=== PATIENT | female | born 1990 | race Caucasian/White ===

== ENCOUNTER 2020-02-21 09:10 | Outpatient (REF) | payer OTHER, SELFPAY ==
[2020-02-21 09:42] LABS: COVID-19 Test Negative (Negative)
== END 2020-02-21 09:11 | disposition home or self-care (01) ==
LOC: HO.EMPCOV 09:10
PROVIDERS: PCP Nurse Practitioner Family; Visit Provider Internal Medicine
DX: Z20.828 Contact with and (suspected) exposure to other viral communicable diseases (principal)
CPT/HCPCS: 87635; C9803

== ENCOUNTER 2020-02-27 08:30 | Outpatient (REF) | payer OTHER, SELFPAY ==
[2020-02-27 09:05] LABS: COVID-19 Test Negative (Negative)
== END 2020-02-27 08:31 | disposition home or self-care (01) ==
LOC: HO.EMPCOV 08:30
PROVIDERS: Visit Provider Internal Medicine
DX: Z20.828 Contact with and (suspected) exposure to other viral communicable diseases (principal)
CPT/HCPCS: 87635; C9803

== ENCOUNTER → 2020-07-02 11:33 | Outpatient (BNVA) | payer OTHER, SELFPAY | PROVIDERS: PCP Nurse Practitioner Family; Visit Provider Nurse Practitioner Family ==

== ENCOUNTER → 2020-08-14 08:55 | Outpatient (REF) | payer OTHER, SELFPAY | LOC: HO.SL 08:55 | PROVIDERS: PCP Nurse Practitioner Family; Visit Provider Nurse Practitioner Family | DX: G47.33 Obstructive sleep apnea (adult) (pediatric) (principal); R06.83 Snoring; I10 Essential (primary) hypertension | CPT/HCPCS: 95806 ==

== ENCOUNTER 2020-09-09 07:41 | Outpatient (REF) | payer OTHER, SELFPAY ==
[2020-09-09 08:43] LABS: MANUAL DIFF FLAG NO
[2020-09-09 08:46] LABS: Basophils Percent Auto 0.2 % (0-2); Eosinophils Absolute Auto 0.2 X10*3/uL (0.0-0.4); Hematocrit 39.2 % (37-47); Hemoglobin 12.6 g/dl (12.0-16.0); Imm Gran Abs Auto 0.02 X10*3/uL (0.00-0.03); Imm Gran Pct Auto 0.2 % (0.0-0.4); Lymphocytes Absolute Auto 2.1 X10*3/uL (1.2-4.9); Lymphocytes Percent Auto 25.5 % (20-40); Mean Corpuscular HGB Conc 32.1 g/dl (31.0-35.0); Mean Corpuscular Hemoglobin 26.2 pg (27.0-33.0); Mean Corpuscular Volume 81.5 fL (80-98); Mean Platelet Volume 9.2 fL (9.4-12.3); Monocytes Absolute Auto 0.4 X10*3/uL (0.1-1.2); Monocytes Percent Auto 5.3 % (2-11); Neutrophils Absolute Auto 5.4 X10*3/uL (2.0-8.3); Neutrophils Percent Auto 66.8 % (45-73); Platelet Count 392 X10*3/uL (160-400); Red Blood Count 4.81 X10*6/uL (4.20-5.50); Red Cell Distribution Width 14.6 % (11.0-16.0); White Blood Count 8.1 X10*3/uL (4.8-10.8)
[2020-09-09 09:16] LABS: Alanine Aminotransferase 22 U/L (0-31); Albumin Level 4.2 g/dL (3.5-5.0); Alkaline Phosphatase 76 U/L (39-117); Anion Gap 15 (12-20); Aspartate Amino Transferase 18 U/L (5-31); Bilirubin Total 0.4 mg/dL (0.0-1.0); Blood Urea Nitrogen 16 mg/dL (9-16); Calcium 9.1 mg/dL (8.4-10.2); Carbon Dioxide 24 mmol/L (22-29); Chloride 107 mmol/L (96-108); Cholesterol 178 mg/dL; Estimated Glomerular Filt Rate > 60; Glucose Fasting 86 mg/dL (60-99); HDL Cholesterol 29 mg/dL; Iron 72 mcg/dL (30-160); LDL Cholesterol Calculated 116 mg/dl; Percent Iron Saturation 20 % (15-50); Potassium 4.7 mmol/L (3.3-5.1); Sodium 141 mmol/L (135-145); Total Iron Binding Capacity 363 mcg/dL (228-428); Total Protein 6.9 g/dL (6.5-8.0); Triglycerides 165 mg/dL; Unsaturated Iron Binding 291 ug/dL
[2020-09-09 09:39] LABS: Ferritin 84 ng/mL (10-122); TSH reflex Free T4 1.56 uIU/mL (0.32-4.0)
[2020-09-11 13:57] LABS: Transferrin 276 mg/dL (188-341)
== END 2020-09-09 07:42 | disposition home or self-care (01) ==
LOC: HO.LAB 07:41
PROVIDERS: Absent Provider Nurse Practitioner Family; PCP Nurse Practitioner Family; Visit Provider Nurse Practitioner Family
DX: I10 Essential (primary) hypertension (principal); D64.9 Anemia, unspecified
CPT/HCPCS: 36415; 80053; 80061; 82728; 83540; 84443; 84466; 85025

== ENCOUNTER → 2020-10-01 08:36 | Outpatient (BNVA) | payer OTHER, SELFPAY | PROVIDERS: PCP Nurse Practitioner Family; Visit Provider Nurse Practitioner Family ==

== ENCOUNTER 2020-10-31 12:46 | Outpatient (REF) | payer OTHER, SELFPAY ==
[2020-10-31 14:29] LABS: TSH reflex Free T4 1.38 uIU/mL (0.32-4.0)
[2020-10-31 16:00] LABS: CT PCR NOT DETECTED (Not Detect.); NG PCR NOT DETECTED (Not Detect.)
[2020-11-01 08:17] LABS: HIV AB/AG Nonreactive (Nonreactive); HIV Num 1 0.09 S/CO (0.00-0.99)
[2020-11-01 08:30] LABS: Syphilis Screen Nonreactive (Nonreactive)
[2020-11-01 17:40] LABS: Herpes Simplex Type 2 IgG <0.90 index
== END 2020-10-31 12:47 | disposition home or self-care (01) ==
LOC: HO.LAB 12:46
PROVIDERS: PCP Nurse Practitioner Family; Visit Provider Nurse Practitioner Family
DX: Z00.00 Encounter for general adult medical examination without abnormal findings (principal); Z11.3 Encounter for screening for infections with a predominantly sexual mode of transmission; Z11.4 Encounter for screening for human immunodeficiency virus [HIV]
CPT/HCPCS: 84443; 86695; 86696; 86780; 87389; 87491; 87591

== ENCOUNTER 2020-11-18 11:38 | Emergency (ER) | payer OTHER, SELFPAY | END 2020-11-18 15:15 | disposition left against medical advice (07) | PROVIDERS: Emergency Provider Emergency Medicine; PCP Nurse Practitioner Family | DX: M54.5 Low back pain (principal); M62.81 Muscle weakness (generalized) ==

== ENCOUNTER 2020-12-14 12:13 | Outpatient (REF) | payer OTHER, SELFPAY ==
[2020-12-14 12:50] LABS: COVID-19 Test Positive (Negative); IDNOW Serial# 08D9AD1C
== END 2020-12-14 12:14 | disposition home or self-care (01) ==
LOC: HO.LAB 12:13
PROVIDERS: PCP Nurse Practitioner Family; Visit Provider Internal Medicine
DX: Z20.822 Contact with and (suspected) exposure to COVID-19 (principal)
CPT/HCPCS: 36415; 87635

== ENCOUNTER 2021-01-03 07:45 | Outpatient (REF) | payer OTHER, SELFPAY ==
--- NOTE | ~2021-01-03 | XR_ITS ---
EXAMINATION: XR CHEST CLINICAL INFORMATION: Shortness of breath COMPARISON: March 18, 2018 TECHNIQUE: 2 views of the chest were obtained. FINDINGS: No significant abnormality is noted involving the heart, lungs, mediastinum, bony thorax or soft tissues. XR/XR chest 2V IMPRESSION: No acute disease.
== END 2021-01-03 07:46 | disposition home or self-care (01) ==
LOC: HO.XRAY 07:45
PROVIDERS: PCP Nurse Practitioner Family; Visit Provider Nurse Practitioner Family
DX: R06.02 Shortness of breath (principal)
CPT/HCPCS: 71046

== ENCOUNTER 2021-01-17 06:29 | Outpatient (REF) | payer OTHER, SELFPAY | END 2021-01-17 06:30 | disposition home or self-care (01) | LOC: HO.LAB 06:29 | PROVIDERS: PCP Nurse Practitioner Family; Visit Provider Nurse Practitioner Family | DX: R06.09 Other forms of dyspnea (principal); J45.909 Unspecified asthma, uncomplicated; U09.9 Post COVID-19 condition, unspecified | CPT/HCPCS: 36415; 85027 ==

== ENCOUNTER 2021-01-20 12:21 | Outpatient (REF) | payer OTHER, SELFPAY ==
[2021-01-21 02:33] LABS: CT PCR NOT DETECTED (Not Detect.); NG PCR NOT DETECTED (Not Detect.)
== END 2021-01-20 12:22 | disposition home or self-care (01) ==
LOC: HO.LAB 12:21
PROVIDERS: PCP Nurse Practitioner Family; Visit Provider Obstetrics & Gynecology
DX: Z11.3 Encounter for screening for infections with a predominantly sexual mode of transmission (principal); N93.9 Abnormal uterine and vaginal bleeding, unspecified
CPT/HCPCS: 87491; 87591

== ENCOUNTER 2021-01-28 07:01 | Outpatient (REF) | payer OTHER, SELFPAY ==
[2021-01-28 07:29] LABS: Hemoglobin 12.8 g/dl (12.0-16.0); Mean Corpuscular Hemoglobin 26.1 pg (27.0-33.0); Mean Corpuscular Volume 81.6 fL (80.0-98.0); Platelet Count 389 X10*3/uL (160-400); Red Cell Distribution Width 14.6 % (11.0-16.0); White Blood Count 10.5 X10*3/uL (4.8-10.8)
[2021-01-28 07:54] LABS: Appearance Urine HAZY; Color Urine YELLOW; Glucose Urine UA NEG (NEG); Leukocyte Esterase Urine NEG (NEG); Nitrite Urine NEG (NEG); Specific Gravity - Urine 1.025 (1.005-1.025); UACC Culture Trigger NO; Urine Blood 3+ (NEG); Urine Ketones NEG (NEG); Urine Protein TRACE MG/DL (NEG-TRACE)
[2021-01-28 07:55] LABS: Alanine Aminotransferase 24 U/L (0-31); Albumin Level 4.1 g/dL (3.5-5.0); Alkaline Phosphatase 84 U/L (39-117); Anion Gap 13 (12-20); Aspartate Amino Transferase 17 U/L (5-31); Bilirubin Total 0.2 mg/dL (0.0-1.0); Blood Urea Nitrogen 12 mg/dL (9-16); Calcium 8.8 mg/dL (8.4-10.2); Carbon Dioxide 28 mmol/L (22-29); Chloride 104 mmol/L (96-108); Cholesterol 160 mg/dL; Estimated Glomerular Filt Rate > 60; Glucose Fasting 120 mg/dL (60-99); HDL Cholesterol 33 mg/dL; LDL Cholesterol Calculated 96 mg/dl; Potassium 4.8 mmol/L (3.3-5.1); Sodium 140 mmol/L (135-145); Total Protein 6.7 g/dL (6.5-8.0); Triglycerides 158 mg/dL
[2021-01-28 08:02] LABS: HCG Quantitative < 2 mIU/mL
[2021-01-28 08:12] LABS: Bacteria Urine 1+ /LPF; Mucus Urine 1+ /LPF; Squamous Epithelial Cell Urine 2+ /LPF
[2021-01-28 08:15] LABS: TSH reflex Free T4 1.98 uIU/mL (0.32-4.0)
== END 2021-01-28 07:02 | disposition home or self-care (01) ==
LOC: HO.LAB 07:01
PROVIDERS: PCP Nurse Practitioner Family; Visit Provider Obstetrics & Gynecology
DX: R06.09 Other forms of dyspnea (principal); U09.9 Post COVID-19 condition, unspecified; J45.909 Unspecified asthma, uncomplicated; N93.9 Abnormal uterine and vaginal bleeding, unspecified
CPT/HCPCS: 36415; 80053; 80061; 81001; 84443; 84702; 85027

== ENCOUNTER → 2021-02-05 10:47 | Outpatient (BNVA) | payer OTHER, SELFPAY | PROVIDERS: PCP Nurse Practitioner Family; Visit Provider Internal Medicine ==

== ENCOUNTER 2021-02-06 06:48 | Outpatient (REF) | payer OTHER, SELFPAY | END 2021-02-06 06:49 | disposition home or self-care (01) | LOC: HO.LAB 06:48 | PROVIDERS: PCP Nurse Practitioner Family; Visit Provider Internal Medicine | DX: Z13.89 Encounter for screening for other disorder (principal) ==

== ENCOUNTER 2021-02-10 11:12 | Outpatient (REF) | payer OTHER, SELFPAY ==
--- NOTE | ~2021-02-10 | US_ITS ---
EXAMINATION: US PELVIS CLINICAL INFORMATION: Abnormal uterine and vaginal bleeding COMPARISON: None TECHNIQUE: Ultrasound of the pelvis is performed using both transabdominal and transvaginal transducers along with Doppler. Transvaginal imaging is performed due to inadequate visualization transabdominally. FINDINGS: The uterus is anteverted and measures 8.4 x 4.4 x 5.6 cm in dimension. No focal uterine lesion is seen. The endometrium is slightly thickened measuring up to 1.9 cm. The endometrium is slightly heterogeneous appearing with small cystic areas. There are small nabothian cysts in the cervix. The ovaries are normal in size. The right ovary measures 2.2 x 2.2 x 3 cm. The left ovary measures 3.2 x 3.2 x 2.4 cm. There is polycystic appearance of the ovaries with multiple small peripheral cysts or follicles. There is no fluid in the pelvis. US/US pelvic and transvaginal IMPRESSION: Slightly thickened endometrium. Normal size ovaries with polycystic appearance.
== END 2021-02-10 11:13 | disposition home or self-care (01) ==
LOC: HO.US 11:12
PROVIDERS: PCP Nurse Practitioner Family; Visit Provider Obstetrics & Gynecology
DX: N93.9 Abnormal uterine and vaginal bleeding, unspecified (principal)
CPT/HCPCS: 76830; 76856

== ENCOUNTER 2021-02-11 12:33 | Outpatient (REF) | payer OTHER, SELFPAY | END 2021-02-11 12:34 | disposition home or self-care (01) | LOC: HO.LAB 12:33 | PROVIDERS: PCP Nurse Practitioner Family; Visit Provider Obstetrics & Gynecology | DX: N93.9 Abnormal uterine and vaginal bleeding, unspecified (principal) | CPT/HCPCS: 58100; 88305 ==

== ENCOUNTER → 2021-02-17 10:00 | Outpatient (BNVA) | payer OTHER, SELFPAY | PROVIDERS: PCP Nurse Practitioner Family; Visit Provider Obstetrics & Gynecology ==

== ENCOUNTER 2021-03-07 06:19 | Outpatient (REF) | payer OTHER, SELFPAY ==
[2021-03-07 07:17] LABS: Alanine Aminotransferase 26 U/L (0-31); Albumin Level 4.2 g/dL (3.5-5.0); Alkaline Phosphatase 78 U/L (39-117); Anion Gap 11 (12-20); Aspartate Amino Transferase 19 U/L (5-31); Bilirubin Total 0.4 mg/dL (0.0-1.0); Blood Urea Nitrogen 9 mg/dL (9-16); Calcium 9.2 mg/dL (8.4-10.2); Carbon Dioxide 24 mmol/L (22-29); Chloride 107 mmol/L (96-108); Estimated Glomerular Filt Rate > 60; Glucose Random 127 mg/dL (60-115); Potassium 4.4 mmol/L (3.3-5.1); Sodium 138 mmol/L (135-145)
[2021-03-07 07:19] LABS: Glucose Fasting 121 mg/dL (60-99)
[2021-03-07 07:38] LABS: Free T4 (Free Thyroxine) 0.89 ng/dL (0.71-1.85); HCG Quantitative < 2 mIU/mL
[2021-03-07 09:25] LABS: Glucose 1 Hour 229 mg/dL
[2021-03-07 09:26] LABS: Glucose 2 Hour 214 mg/dL
[2021-03-07 10:34] LABS: Cortisol Random < 1.0 ug/dL
[2021-03-07 13:58] LABS: Estimated Average Glucose 120 mg/dL; Hemoglobin A1c % 5.8 %
[2021-03-09 08:16] LABS: Follicle Stimulating Hormone 5.8 mIU/mL; Lutenizing Hormone 7.7 mIU/mL; Prolactin 5.4 ng/mL
[2021-03-10 17:12] LABS: DHEA Sulfate 205 mcg/dL (23-266); Sex Hormone Binding Globulin 11 nmol/L (17-124)
[2021-03-10 20:57] LABS: Adrenocorticotropic Hormone 12 pg/mL (6-50)
[2021-03-10 21:16] LABS: Estradiol Ultra Sensitive 35 pg/mL
[2021-03-13 09:17] LABS: Dexamethasone 470 ng/dL; Testosterone, Free 7.3 pg/mL (0.1-6.4); Testosterone, Total 33 ng/dL (2-45)
[2021-03-19 18:30] LABS: Androstenedione 144 ng/dL
[2021-03-20 17:56] LABS: Estradiol Free 0.86 pg/mL; Estradiol, Ultrasensitive 35 pg/mL
== END 2021-03-07 06:20 | disposition home or self-care (01) ==
LOC: HO.LAB 06:19
PROVIDERS: PCP Nurse Practitioner Family; Visit Provider Internal Medicine
DX: N93.9 Abnormal uterine and vaginal bleeding, unspecified (principal)
CPT/HCPCS: 36415; 80053; 80299; 82024; 82157; 82533; 82627; 82670; 82681; 83001; 83002; 83036; 83498; 84146; 84270; 84402; 84403; 84439; 84443; 84702

== ENCOUNTER 2021-03-21 12:32 | Outpatient (REF) | payer OTHER, SELFPAY ==
[2021-03-21 13:14] LABS: Influenza A PCR NEGATIVE (Negative); Influenza B PCR NEGATIVE (Negative); Resp Syncy Virus RNA Qual PCR NEGATIVE (Negative); SARS COV2 PCR INHOUSE NEGATIVE (Negative)
== END 2021-03-21 12:33 | disposition home or self-care (01) ==
LOC: HO.LNP 12:32
PROVIDERS: Visit Provider Internal Medicine
DX: Z20.822 Contact with and (suspected) exposure to COVID-19 (principal); R43.9 Unspecified disturbances of smell and taste
CPT/HCPCS: 0241U

== ENCOUNTER → 2021-04-02 10:56 | Outpatient (BNVA) | payer OTHER, SELFPAY | PROVIDERS: PCP Nurse Practitioner Family; Visit Provider Internal Medicine ==

== ENCOUNTER 2021-04-22 07:51 | Outpatient (REF) | payer OTHER, SELFPAY ==
--- NOTE | 2021-04-22 17:20 | PFT_ITS ---
Forced vital capacity 103, FEV1 105, FEF 25-75 is 114. MVV 128. All these numbers are in normal range. Post bronchodilator therapy, there is no change. Lung volumes: Total lung capacity 97%. Residual volume 74%. Diffusion capacity 94%. CONCLUSION: Normal pulmonary function test and there is no evidence of obstructive or restrictive pulmonary disorder. MD TOMMIE Rodriguez/BETTEL / [id number]
== END 2021-04-22 07:52 | disposition home or self-care (01) ==
LOC: HO.RESP 07:51
PROVIDERS: PCP Nurse Practitioner Family; Visit Provider Nurse Practitioner Family
DX: R06.09 Other forms of dyspnea (principal); J45.909 Unspecified asthma, uncomplicated; U09.9 Post COVID-19 condition, unspecified
CPT/HCPCS: 94060; 94618; 94727; 94729

== ENCOUNTER 2021-05-06 06:51 | Outpatient (REF) | payer OTHER, SELFPAY ==
[2021-05-06 07:05] LABS: MANUAL DIFF FLAG NO
[2021-05-06 07:22] LABS: Basophils Percent Auto 0.4 % (0-2); Eosinophils Absolute Auto 0.2 X10*3/uL (0.0-0.4); Eosinophils Percent Auto 2.4 % (0-4); Hemoglobin 11.6 g/dl (12.0-16.0); Imm Gran Abs Auto 0.02 X10*3/uL (0.00-0.03); Imm Gran Pct Auto 0.2 % (0.0-0.4); Lymphocytes Absolute Auto 2.5 X10*3/uL (1.2-4.9); Lymphocytes Percent Auto 30.4 % (20-40); Mean Corpuscular HGB Conc 31.4 g/dl (31.0-35.0); Mean Corpuscular Hemoglobin 24.4 pg (27.0-33.0); Mean Corpuscular Volume 77.7 fL (80.0-98.0); Mean Platelet Volume 9.2 fL (9.4-12.3); Monocytes Absolute Auto 0.5 X10*3/uL (0.1-1.2); Monocytes Percent Auto 5.6 % (2-11); Neutrophils Absolute Auto 4.9 x10*3/uL (2.0-8.3); Platelet Count 426 X10*3/uL (160-400); Red Blood Count 4.76 X10*6/uL (4.20-5.50); White Blood Count 8.1 X10*3/uL (4.8-10.8)
[2021-05-06 07:30] LABS: D Dimer High Sensitivity < 150 NG/ML
[2021-05-06 07:52] LABS: Anion Gap 14 (12-20); Blood Urea Nitrogen 13 mg/dL (9-16); Calcium 9.1 mg/dL (8.4-10.2); Carbon Dioxide 23 mmol/L (22-29); Chloride 106 mmol/L (96-108); Cholesterol 172 mg/dL; Estimated Glomerular Filt Rate > 60; Glucose Random 109 mg/dL (60-115); HDL Cholesterol 30 mg/dL; LDL Cholesterol Calculated 115 mg/dl; Potassium 4.8 mmol/L (3.3-5.1); Sodium 138 mmol/L (135-145); Triglycerides 138 mg/dL
[2021-05-06 08:06] LABS: Erythrocyte Sedimentation Rate 16 MM/HR (0-20)
== END 2021-05-06 06:52 | disposition home or self-care (01) ==
LOC: HO.LAB 06:51
PROVIDERS: Absent Provider Hospitalist; PCP Nurse Practitioner Family; Visit Provider Internal Medicine
DX: Z00.00 Encounter for general adult medical examination without abnormal findings (principal); R00.0 Tachycardia, unspecified; G47.33 Obstructive sleep apnea (adult) (pediatric); J45.909 Unspecified asthma, uncomplicated
CPT/HCPCS: 36415; 80048; 80061; 85025; 85379; 85652

== ENCOUNTER 2021-05-09 07:03 | Outpatient (REF) | payer OTHER, SELFPAY ==
--- NOTE | ~2021-05-09 | CT_ITS ---
EXAMINATION: CT ABDOMEN WITHOUT AND WITH CONTRAST CLINICAL INFORMATION: Ovarian dysfunction COMPARISON: Previous pelvic ultrasound January 2021 and abdominal ultrasound January 2014 and renal ultrasound July 2015 TECHNIQUE: Contiguous axial thin section helical images of the abdomen were performed before and after the administration of oral contrast and 85 mL of Omnipaque 350 intravenous contrast. The data set was reformatted in the coronal and sagittal planes and reviewed on an independent workstation. This CT examination was performed using dose optimization techniques as appropriate, variously including the following: *Automated exposure control *Adjustment of mA and/or kV according to patient size (this includes techniques or standardized protocols for targeted exams where dose is matched to indication/reason for exam; i.e. extremities or head) *Use of iterative reconstruction technique DLP: 1152 mGy-cm FINDINGS: LUNG BASES: Normal LIVER, GALLBLADDER, AND BILIARY TREE: Normal PANCREAS: Normal SPLEEN: Normal ADRENAL GLANDS AND KIDNEYS: Normal BOWEL LOOPS: Normal. Normal appendix. There is diastasis of the rectus muscles. There is a small umbilical hernia containing fat. LYMPH NODES: Normal. VASCULAR: Unremarkable. BONES: Normal CT/CT abdomen wo/w con IMPRESSION: Normal-appearing adrenal glands. Fleischner guidelines were followed.
[2021-05-09] MEDS: iohexoL 350 MG/ML 100 ML INFUS..BTL 85 ML IV (08:53)
== END 2021-05-09 07:04 | disposition home or self-care (01) ==
LOC: HO.CT 07:03
PROVIDERS: Visit Provider Internal Medicine
DX: E28.8 Other ovarian dysfunction (principal)
CPT/HCPCS: 74170; Q9967

== ENCOUNTER → 2021-06-25 11:02 | Outpatient (REF) | payer OTHER, SELFPAY ==
--- NOTE | 2021-06-25 12:22 | CA_ITS ---
Transthoracic Echocardiogram Patient (Last, First, Middle): Leona Osullivan M Gender: Female Date of : 1990 Age: 31 Procedure Date: 06/25/2021 Procedure Type: Transthoracic Echocardiogram Location: OP Height: 160.02 cm Weight: 122.47 kg BSA: 2.20 m2 Heart Rate: bpm BP: 159 / 92 mmHg Erp Project Manager: Referring MD: Antoine Rodríguez [facility] Symptoms: R07.9 - Chest pain, unspecified Study Quality: Fair ECG Rhythm: Sinus Conclusions: - The left ventricular systolic function is normal. The visually estimated ejection fraction is between 55-60%. - No obvious valvular pathology seen on this study. Findings Left Ventricle Normal left ventricular cavity size. There is mildly increased left ventricular wall thickness. The left ventricular systolic function is normal. The visually estimated ejection fraction is between 55-60%. There is no evidence of regional wall motion abnormalities. Diastolic function is normal for age. Right Ventricle Normal right ventricular cavity size and systolic function. Atria Both atria are normal in size. Aortic Valve There is a normal trileaflet aortic valve. There is no aortic valve stenosis. There is no aortic valve regurgitation. Mitral Valve The mitral valve appears normal. There is no mitral valve regurgitation. There is no mitral valve stenosis. Pulmonic Valve The pulmonic valve was not well visualized. Tricuspid Valve Normal tricuspid valve structure. There is trace tricuspid valve regurgitation. The pulmonary artery systolic pressure is normal. Great Vessels The aortic annulus, sinuses of valsalva, and asc aorta are normal in size. Venous The inferior vena cava is normal in size and collapses greater than 50% with inspiration. Pericardium/Pleural There is no evidence of pericardial effusion. Prior Study Comparison No prior study available for comparison. Recommendations, Care & Conclusions No obvious valvular pathology seen on this study. Measurements 2D Linear Measurements IVSd: 1.15 0.6-0.9/0.6-1.0 cm LVIDd: 4.83 3.9-5.3/4.2-5.9 cm LVIDd Index: 2.20 2.4-3.2/2.2-3.1 cm/m2 LVIDs: 3.05 2.0-3.6 cm LVPWd: 1.12 0.7-1.1 cm Ao Root: 3.10 2.1-3.5 cm LA Diam: 4.00 2.7-3.8/3.0-4.0 cm LAIDs Index: 1.82 1.5-2.3 cm/m2 LV Mass: 255.04 67-162/88-224 g LV Mass Index: 115.93 43-95/49-115 g/m2 LVOT Diam: 2.30 3.0+(-)1.3 cm Mitral Valve MV Pk E: 0.73 MV PK A: 0.92 MV Decel Time: 98.00 E/A: 0.80 E'Lateral: 10.30 E'Medial: 6.96 E/E' Med: 10.50 E/E' Lat: 7.10 PHT: 29.00 MVA PHT: 7.59 Decel [place]: 7.45 Aortic Valve AoV Pk Song: 1.64 AoV Mn Song: 1.21 AoV VTI: 0.32 AoV Pk Grad: 11.00 Aov Mn Grad: 6.00 KARLENE Cont.VTI: 2.47 LVOT LVOT Pk Song: 0.89 LVOT Mn Song: 0.62 LVOT VTI: 0.19 LVOT Pk Grad: 3.00 LVOT Mn Grad: 2.00 LVOT Diam: 2.30 LVOT Area: 4.15 Diastolic Function MV Pk E: 0.73 MV Pk A: 0.92 E/A: 0.80 E'Medial: 6.96 E/E' Med: 10.50 E' Laterial: 10.30 E/E' Lat: 7.10 Right Ventricle TAPSE (mm): 20.00 TVS' Song: 12.00 Tricuspid Valve TR Pk Song: 2.01 TR Pk Grad: 16.00 RA Press: 3.00 RVSP: 19.00 Great Vessels Aorta Ao Root-2D: 3.10 2.0-3.7 cm Sinus of Valsalva: 3.10 2.0-3.5 cm Ao Asc: 2.90 2.1-3.4 cm Pulmonary Valve PV Pk Song: 1.09 Peak PV Grad: 5.00 Updated in Other Vendor System with Status of Final Lucas Aguilar MD electronically signed on 06/26/2021 3:03:48 PM with status of Final
== END ==
LOC: HO.CARD 11:02
PROVIDERS: Visit Provider Nurse Practitioner Family
DX: R07.9 Chest pain, unspecified (principal)
CPT/HCPCS: 93306; Q9957

== ENCOUNTER → 2021-06-30 07:22 | Outpatient (REF) | payer OTHER, SELFPAY ==
--- NOTE | 2021-06-30 07:40 | HM_ITS ---
Conclusion: 1. Patient was monitored for total period of 2 days and 21 hours 2. Baseline rhythm was normal sinus rhythm with average heart of 91 beats per minute 3. Frequent sinus tachycardia noted with heart rate about 100 beats per minute 26% of the time 4. Total of 9 PVCs noted accounting for less than 0.01% total burden account for very rare PVCs 5. No significant pauses or bradycardia noted 6. Patient reported events correlated with sinus tachycardia MTDD
== END ==
LOC: HO.CARD 07:22
PROVIDERS: Visit Provider Nurse Practitioner Family
DX: R07.9 Chest pain, unspecified (principal)
CPT/HCPCS: 93242

== ENCOUNTER 2021-09-07 11:40 | Emergency (ER) | payer OTHER, SELFPAY ==
[2021-09-07 11:49] VITALS: BP 156/81; PULSE 88; RESP 20; TEMP 36.9; O2SAT 97; BMI 46.3
--- NOTE | 2021-09-07 12:04 | ED_ITS ---
HPI - Asthma General Chief Complaint: Asthma Stated Complaint: SOB; asthma Time Seen by Provider: 09/07/21 12:04 Source: patient Mode of arrival: ambulatory Limitations: no limitations History of Present Illness HPI Narrative: Patient is a 31 year old female presenting to the emergency department today with an asthma exacerbation. Patient states that she has a history of asthma and her at home treatments are not working to help with her cough at this time. Patient denies any dizziness, lightheadedness, abdominal pain, nausea, vomiting, fever, chills, blurry vision, double vision, loss of vision, chest pain, difficulty breathing, shortness of breath, back pain, night sweats, pain with urination, increased urinary frequency, increased urinary urgency, blood in her urine or stool, syncope or a near syncopal episode, recent trauma or falls, bowel incontinence, bladder incontinence, bowel retention, bladder retention, or any other complaints at this time. MD complaint: asthma attack Onset (ago): day(s) Severity: mild Context: allergen exposure Associated symptoms: dry cough Treatments Prior to Arrival: inhaled bronchodilator Related Data Current Asthma Therapy: inhaled bronchodilator Previous Rx's Medication Instructions Recorded albuterol sulfate 90 mcg/actuation 1 inh inhalation QID PRN shortness 02/21/20 aerosol inhaler of breath or wheezing 30 days #8.5 grams nebulizer accessories #1 ea 03/10/21 nebulizers #1 ea 03/10/21 progesterone micronized 200 mg 200 mg PO BEDTIME 10 days #30 caps 03/17/21 capsule (Prometrium) levalbuterol HCl 1.25 mg/3 mL 1.25 mg (3 mL) inhalation Q4-6H 03/25/21 solution for nebulization (Xopenex) PRN shortness of breath or wheezing #75 mL blood sugar diagnostic (FreeStyle #100 ea 04/02/21 Lite Strips) blood-glucose meter (FreeStyle #1 ea 04/02/21 Lite Meter) lancets 28 gauge (FreeStyle #100 ea 04/02/21 Lancets) metformin 500 mg tablet,extended 1,000 mg PO BID 30 days #120 tabs 04/02/21 release 24hr benzonatate 200 mg capsule 200 mg PO BID PRN cough 30 days 04/22/21 #60 caps fluticasone fur. 200 mcg-umeclid 1 inh inhalation DAILY 30 days #60 04/22/21 62.5 mcg-vilant 25 mcg ea inhalat.powder (Trelegy Ellipta) bupropion HCl 300 mg 24 hr tablet, 300 mg PO QAM 90 days #90 tabs 04/29/21 extended release (Wellbutrin XL) carisoprodol 350 mg tablet (Soma) 350 mg PO BEDTIME PRN muscle pain 07/31/21 14 days #14 tabs meloxicam 15 mg tablet 15 mg PO DAILY PRN pain 30 days 07/31/21 #30 tabs metoprolol succinate 25 mg 25 mg PO DAILY 30 days #30 tabs 08/05/21 tablet,extended release 24 hr lorazepam 1 mg tablet 1 mg PO BID PRN anxiety 30 days 08/21/21 #60 tabs prednisone 20 mg tablet 20 mg PO DAILY 12 days #26 tabs 09/07/21 Allergies Allergy/AdvReac Type Severity Reaction Status Date / Time lisinopril [LISINOPRIL] Allergy Severe COUGH Verified 06/03/21 10:09 Penicillins [PENICILLINS] Allergy Severe HIVES Verified 06/03/21 10:09 vancomycin Allergy Severe Rash Verified 06/03/21 10:09 chlorthalidone AdvReac Severe tachycardia, Verified 06/03/21 10:09 palpitations Review of Systems Constitutional: Constitutional: Reports no additional constitutional complaints, Denies chills, Denies fever(s) and Denies night sweats Eyes: Eyes: Reports no additional eye complaints, Denies blurry vision, Denies change in vision, Denies diplopia, Denies eye discharge, Denies loss of vision and Denies eye pain ENT: Denies dizziness Cardiovascular: Cardiovascular: Reports no additional cardiovascular complaints, Denies chest pain, Denies lightheadedness, Denies Loss of Consciousness and Denies dyspnea Respiratory: Respiratory: Reports no additional respiratory complaints, Reports cough and Denies dyspnea Gastrointestinal: Gastrointestinal: Reports no additional gastrointestinal complaints, Denies abdominal pain, Denies melena, Denies hematochezia, Denies change in bowel habits and Denies change in stool character Genitourinary: Genitourinary: Denies hematuria, Denies urinary frequency, Denies dysuria, Denies urinary incontinence, Denies urinary hesitancy and Denies urinary urgency Musculoskeletal: Musculoskeletal: Reports no additional musculoskeletal complaints, Denies numbness and Denies tingling Neurologic: Denies dizziness, Denies loss of vision, Denies numbness and Denies tingling Psychiatric: Psychiatric: Reports no additional psychiatric complaints Endocrine: Endocrine: Reports no additional endocrine complaints Hematologic/Lymphatic: Hematologic/Lymphatic: Reports no additional hematologic/lymphatic complaints Allergic/Immunologic: Allergic/Immunologic: Reports no additional allergic/immunologic complaints PMFSH Past Medical History Attestation statement: The following information was validated with the patient. Source: old records reviewed Medical History Anxiety Anxiety and depression Asthma HLD (hyperlipidemia) HTN (hypertension) Hyperandrogenism PCOS (polycystic ovarian syndrome) Sleep apnea in adult T2DM (type 2 diabetes mellitus) Tachycardia Vitamin D deficiency Surgical History No pertinent past surgical history Family History Family History Mother Sleep apnea CVD (cardiovascular disease) Mental health disorder Father CVD (cardiovascular disease) Sleep apnea Substance use disorder Mental health disorder Sister Substance use disorder Mental health disorder Social History Social History Housing: House Alcohol intake: current Patient Tobacco Use Status: Never used Tobacco e-Cigarette/Vaping Use: Never Used Second Hand Smoke Exposure: No Advance Directives: No Advance Directives Information Provided: No service: No Current occupational status: employed Current occupation: [employer] [place] Current occupational exposures/hazards: No Physical Exam Vital Signs: Vital Signs: Last Vital Signs Temp 98.5 F 09/07/21 11:49 Pulse 109 H 09/07/21 12:25 Resp 20 09/07/21 12:25 BP 156/81 H 09/07/21 11:49 Pulse Ox 97 09/07/21 11:49 O2 Del Method 09/07/21 11:49 BMI result Body Mass Index 46.3 Const: General: cooperative, no acute distress, alert and awake Nutritional Appearance: well nourished Orientation/consciousness: patient oriented x3 Limitations: no limitations HEENT: Head: Yes normal to inspection and Yes atraumatic Ears: hearing grossly normal bilaterally and external ears normal General nose exam: Normal external nose present, no nasal discharge noted and no epistaxis Face and sinus: Yes normal facial exam, No abrasion and No laceration Mouth: Normal oral and palatal mucosa present, no drooling and no muffled voice Eyes: General: appearance normal, both eyes and all related structures Periorbital: periorbital findings normal Eyelids: Yes eyelids normal Conjunctivae: conjunctivae normal Pupils: Equal, round and reactive pupils present EOM: EOMs intact bilaterally Neck: Neck: Yes normal visual inspection, Yes full ROM and Yes no lymphadenopathy Chest: Chest palpation & inspection: normal inspection of the chest Resp: Effort & Inspection: normal respiratory effort, able to speak in complete sentences and Actively coughing Auscultation: clear to auscultation bilaterally Cardio: Rate: regular rate Rhythm: regular rhythm GI: Inspection: Yes normal to inspection Neuro: General: patient oriented x3 and moves all extremities Cranial nerves: Yes Equal, round and reactive pupils present Cognition (Neuro): normal cognition Motor exam (neuro): 5/5 motor strength present throughout Sensory Exam: Normal double simultaneous stimulation for sensation Coordination: [id number] test normal Extrem: General: Yes normal to inspection, Yes full ROM and Yes capillary refill normal Psych: Appearance: grossly normal Mental Status: mental status grossly normal Affect: normal affect Attitude: cooperative Thought process: Normal thought process present Thought content: Normal thought content present Insight: Good insight present (Psych) MDM - Asthma MDM Narrative Medical decision making narrative: Patient is a 31 year old female presenting to the emergency department today with a cough. Patient's physical exam was unremarkable. Patient's rapid COVID-19 and influenza tests were negative. I explained my physical exam findings as well as all test results to the patient. I answered all questions asked by the patient. Patient received IM Solu-medrol and a duoneb which she stated helped her symptoms significantly. I stressed the importance of the patient taking her medication as prescribed. I stressed the importance of the patient following up with her primary care provider. I stressed the importance of the patient returning to the emergency department immediately if her symptoms were to worsen or if she were to develop any dizziness, shortness of breath, difficulty breathing, chest pain, blurry vision, loss of vision, nausea, vomiting, abdominal pain, fever, chills, back pain, or any other complaints. Patient verbalized agreement and understanding with this treatment plan and discharge. Differential Diagnosis Differential diagnosis: Likely Acute exacerbation and Acute asthmatic bronchitis Medical Records Attestation: I reviewed the patient's medical records. Lab Data Attestation: I reviewed the patient's lab results. Labs: Lab Results 09/07/21 09/07/21 Range/Units 12:18 12:18 COVID-19 ([facility]) Negative (Negative) COVID-19 Clin Com See Note Influenza Type A ([facility]) Negative (Negative) Influenza Type B ([facility]) Negative (Negative) Influenza A & B Note See Note Discharge Plan Discharge Clinical Impression: Asthma exacerbation Patient Disposition: Home, Self-Care Instructions: Asthma (ED) Additional Instructions: Follow up with your primary care provider. Return to the emergency department immediately if your symptoms worsen or if you develop any dizziness, shortness of breath, difficulty breathing, chest pain, blurry vision, loss of vision, nausea, vomiting, abdominal pain, fever, chills, back pain, or any other complaints. Prescriptions: New prednisone 20 mg tablet 20 mg PO DAILY 12 Days Qty: 26 0RF Rx Instructions: Take 3 tablets for 5 days THEN; Take 2 tablets for 4 days THEN; Take 1 tablet for 3 days No Action albuterol sulfate 90 mcg/actuation HFA aerosol inhaler 1 inh inhalation QID PRN (Reason: shortness of breath or wheezing) 30 Days Qty: 8.5 12RF (DME) nebulizers [facility] [place] See Rx Instructions .Route Qty: 1 0RF Rx Instructions: Q6 hrs prn for sob/wheezing (DME) nebulizer accessories Misc See Rx Instructions .Route Qty: 1 0RF Rx Instructions: Q6 hrs, prn for SOB/wheezing progesterone micronized [Prometrium] 200 mg capsule 200 mg PO BEDTIME 10 Days Qty: 30 1RF Rx Instructions: Take the pill 1 tablet a day cyclically every month from day 15-24 day 1 being the 1st day of next menstrual cycle levalbuterol HCl [Xopenex] 1.25 mg/3 mL solution for nebulization 1.25 mg inhalation Q4-6H PRN (Reason: shortness of breath or wheezing) Qty: 75 0RF bupropion HCl [Wellbutrin XL] 300 mg tablet extended release 24 hr 300 mg PO QAM 90 Days Qty: 90 1RF carisoprodol [Soma] 350 mg tablet 350 mg PO BEDTIME PRN (Reason: muscle pain) 14 Days Qty: 14 0RF meloxicam 15 mg tablet 15 mg PO DAILY PRN (Reason: pain) 30 Days Qty: 30 0RF metoprolol succinate 25 mg tablet extended release 24 hr 25 mg PO DAILY 30 Days Qty: 30 3RF lorazepam 1 mg tablet 1 mg PO BID PRN (Reason: anxiety) 30 Days Qty: 60 0RF metformin 500 mg tablet extended release 24hr 1,000 mg PO BID 30 Days Qty: 120 11RF (DME) FreeStyle Lite Strips Strip See Rx Instructions .ROUTE .MEDSUPPLY Qty: 100 11RF Rx Instructions: 4x daily (DME) lancets [FreeStyle Lancets] 28 gauge misc See Rx Instructions .ROUTE .MEDSUPPLY Qty: 100 11RF Rx Instructions: 4x daily (DME) blood-glucose meter [FreeStyle Lite Meter] Kit See Rx Instructions .Route Qty: 1 0RF Rx Instructions: As directed Trelegy Ellipta 200-62.5-25 mcg blister with device 1 inh inhalation DAILY 30 Days Qty: 60 12RF benzonatate 200 mg capsule 200 mg PO BID PRN (Reason: cough) 30 Days Qty: 60 3RF Referrals: Antoine Rodríguez, [facility] [Primary Care Provider] - Stand Alone Forms: Work/School Release Interventions: ED Discharge Assessment Last Done: 09/07/21 14:10 Discharge Date/Time: 09/07/21 14:11 Print Language: Citizen Of [place]
[2021-09-07] MEDS: methylPREDNISolone Sod Succ 125 MG/2 ML VIAL 120 MG IM (12:13)
[2021-09-07] MEDS: Albuterol/Iprat 2.5/0.5MG 3 ML AMPUL.NEB 5 ML INHALE (12:22)
[2021-09-07 12:25] VITALS: PULSE 109; RESP 20; O2SAT 100
[2021-09-07 12:47] LABS: COVID-19 Test Negative (Negative); IDNOW Serial# 16C4AD1C
[2021-09-07 12:48] LABS: Influenza A Negative (Negative); Influenza B2 Negative (Negative)
--- NOTE | 2021-09-07 13:11 | PC.NURSE ---
PT SPEAKING IN FULL SENTENCES, NO LONGER COUGHING CONSTANTLY, STATES I FEEL SO MUCH BETTER.
== END 2021-09-07 14:11 | disposition home or self-care (01) ==
PROVIDERS: Physician Assistant Medical; Emergency Provider Emergency Medicine; PCP Nurse Practitioner Family
DX: J45.901 Unspecified asthma with (acute) exacerbation (principal); I10 Essential (primary) hypertension; E11.9 Type 2 diabetes mellitus without complications; Z20.822 Contact with and (suspected) exposure to COVID-19
CPT/HCPCS: 87502; 87635; 94640; 96372; 99283; 99284; J2930

== ENCOUNTER 2021-09-16 07:21 | Outpatient (REF) | payer OTHER, SELFPAY ==
[2021-09-16 08:18] LABS: Alanine Aminotransferase 33 U/L (0-31); Alkaline Phosphatase 78 U/L (39-117); Anion Gap 13 (12-20); Aspartate Amino Transferase 14 U/L (5-31); Bilirubin Total 0.5 mg/dL (0.0-1.0); Blood Urea Nitrogen 16 mg/dL (9-16); Calcium 9.1 mg/dL (8.4-10.2); Carbon Dioxide 26 mmol/L (22-29); Chloride 104 mmol/L (96-108); Cholesterol 176 mg/dL; Estimated Glomerular Filt Rate > 60; Glucose Random 93 mg/dL (60-115); HDL Cholesterol 38 mg/dL; LDL Cholesterol Calculated 89 mg/dl; Potassium 4.3 mmol/L (3.3-5.1); Sodium 139 mmol/L (135-145); Total Protein 6.7 g/dL (6.5-8.0); Triglycerides 248 mg/dL
[2021-09-16 08:29] LABS: Vitamin D 25-OH Total 26.6 ng/mL (>30)
[2021-09-16 08:58] LABS: Creatinine Urine 198.32 mg/dL
[2021-09-18 08:21] LABS: LDL Cholesterol Direct 115 mg/dL (<100)
[2021-09-18 08:57] LABS: Sex Hormone Binding Globulin 5 nmol/L (17-124)
[2021-09-22 11:47] LABS: Testosterone, Free 5.6 pg/mL (0.1-6.4); Testosterone, Total 21 ng/dL (2-45)
== END 2021-09-16 07:22 | disposition home or self-care (01) ==
LOC: HO.LAB 07:21
PROVIDERS: Absent Provider Hospitalist; PCP Nurse Practitioner Family; Visit Provider Internal Medicine
DX: E11.9 Type 2 diabetes mellitus without complications (principal); E28.8 Other ovarian dysfunction
CPT/HCPCS: 36415; 80053; 80061; 82043; 82306; 82785; 83721; 84270; 84402; 84403; 86003

== ENCOUNTER 2021-11-03 09:02 | Outpatient (REF) | payer OTHER, SELFPAY ==
[2021-11-03 09:26] LABS: Hematocrit 39.2 % (37.0-47.0); Hemoglobin 12.8 g/dl (12.0-16.0); Mean Corpuscular HGB Conc 32.7 g/dl (31.0-35.0); Mean Corpuscular Hemoglobin 25.3 pg (27.0-33.0); Mean Corpuscular Volume 77.6 fL (80.0-98.0); Mean Platelet Volume 9.2 fL (9.4-12.3); Platelet Count 377 X10*3/uL (160-400); Red Blood Count 5.05 X10*6/uL (4.20-5.50); Red Cell Distribution Width 15.4 % (11.0-16.0); White Blood Count 9.9 X10*3/uL (4.8-10.8)
[2021-11-03 10:11] LABS: HCG Quantitative < 2 mIU/mL; TSH reflex Free T4 (Prenatal) 0.81 uIU/mL (0.32-4.0)
[2021-11-03 15:49] LABS: CT PCR NOT DETECTED (Not Detect.); NG PCR NOT DETECTED (Not Detect.)
== END 2021-11-03 09:03 | disposition home or self-care (01) ==
LOC: HO.LAB 09:02
PROVIDERS: PCP Nurse Practitioner Family; Visit Provider Obstetrics & Gynecology
DX: Z11.3 Encounter for screening for infections with a predominantly sexual mode of transmission (principal); N93.9 Abnormal uterine and vaginal bleeding, unspecified
CPT/HCPCS: 36415; 84702; 85027; 87491; 87591

== ENCOUNTER 2021-11-14 07:14 | Emergency (ER) | payer OTHER, SELFPAY ==
[2021-11-14 07:43] VITALS: BP 164/98; PULSE 95; RESP 18; TEMP 36.6; O2SAT 98; BMI 47.9
[2021-11-14 08:03] LABS: UPreg QC Valid YES; Urine Pregnancy NEGATIVE (NEGATIVE)
--- NOTE | 2021-11-14 08:18 | ED.GENADULT ---
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 Patient states that she completed medications or ?supposed stop the bleeding? but states that they have not. Related Data Previous Rx's Medication Instructions Recorded albuterol sulfate 90 mcg/actuation 1 inh inhalation QID PRN shortness 02/21/20 aerosol inhaler of breath or wheezing 30 days #8.5 grams nebulizer accessories #1 ea 03/10/21 nebulizers #1 ea 03/10/21 levalbuterol HCl 1.25 mg/3 mL 1.25 mg (3 mL) inhalation Q4-6H 03/25/21 solution for nebulization (Xopenex) PRN shortness of breath or wheezing #75 mL blood sugar diagnostic (FreeStyle #100 ea 04/02/21 Lite Strips) blood-glucose meter (FreeStyle #1 ea 04/02/21 Lite Meter kit) lancets 28 gauge (FreeStyle #100 ea 04/02/21 Lancets) benzonatate 200 mg capsule 200 mg PO BID PRN cough 30 days 04/22/21 #60 caps carisoprodol 350 mg tablet (Soma) 350 mg PO BEDTIME PRN muscle pain 07/31/21 14 days #14 tabs meloxicam 15 mg tablet 15 mg PO DAILY PRN pain 30 days 07/31/21 #30 tabs metoprolol succinate 25 mg 25 mg PO DAILY 30 days #30 tabs 08/05/21 tablet,extended release 24 hr lorazepam 1 mg tablet 1 mg PO BID PRN anxiety 30 days 08/21/21 #60 tabs atorvastatin 40 mg tablet 40 mg PO DAILY 30 days #30 tabs 09/18/21 semaglutide 0.25 mg or 0.5 mg (2 0.5 mg (0.4 mL) subcut QWEEK 4 09/18/21 mg/1.5 mL) subcutaneous pen doses #1.5 mL injector (Ozempic) budesonide 160 mcg-glycopyr 9 2 inh inhalation BID 30 days #10.7 09/26/21 mcg-formot 4.8 mcg/actuation HFA grams inhaler (Breztri Aerosphere) roflumilast 500 mcg tablet 500 mcg PO DAILY 30 days #30 tabs 09/26/21 (Daliresp) azithromycin 250 mg tablet 250 mg PO 3XW 28 days #12 tabs 09/30/21 progesterone micronized 200 mg 200 mg PO BEDTIME 10 days #30 caps 11/03/21 capsule (Prometrium) Allergies Allergy/AdvReac Type Severity Reaction Status Date / Time lisinopril [LISINOPRIL] Allergy Severe COUGH Verified 11/03/21 13:12 Penicillins [PENICILLINS] Allergy Severe HIVES Verified 11/03/21 13:12 vancomycin Allergy Severe Rash Verified 11/03/21 13:12 chlorthalidone AdvReac Severe tachycardia, Verified 11/03/21 13:12 palpitations Review of Systems Review of Systems: Pertinent positives and negatives as stated in HPI 10 point review of systems is otherwise negative. [facility] Past Medical History Source: nursing notes reviewed Medical History Anxiety Anxiety and depression Asthma HLD (hyperlipidemia) HTN (hypertension) Hyperandrogenism PCOS (polycystic ovarian syndrome) Sleep apnea in adult T2DM (type 2 diabetes mellitus) Tachycardia Vitamin D deficiency Surgical History No pertinent past surgical history Family History Family History Mother Sleep apnea CVD (cardiovascular disease) Mental health disorder Father CVD (cardiovascular disease) Sleep apnea Substance use disorder Mental health disorder Sister Substance use disorder Mental health disorder Social History Social History Housing: House Alcohol intake: current Patient Tobacco Use Status: Never used Tobacco e-Cigarette/Vaping Use: Never Used Second Hand Smoke Exposure: No Advance Directives: No Advance Directives Information Provided: No service: No Current occupational status: employed Current occupation: [employer] [place] Current occupational exposures/hazards: No Physical Exam ED Vital Signs: Vital Signs - 24 hr 11/14/21 07:43 Temperature 98 F Pulse Rate 95 Respiratory Rate 18 Blood Pressure 164/98 H Pulse Oximetry 98 Oxygen Delivery Method Room Air BMI result Body Mass Index 47.9 VITAL SIGNS: Reviewed. GENERAL: Well developed, well nourished, in no acute distress. HEAD: Normocephalic/atraumatic EYES: PERRLA, EOMI , no pale conjunctiva EARS: Ext canals without abnormality OROPHARYNX: no oral lesions noted, posterior pharynx clear LUNGS: Normal breath sounds. No adventitious sounds or accessory muscle use. SpO2<98> CARDIOVASCULAR: Regular rate and rhythm without noted murmur ABDOMEN: Soft, non-tender, non-distended with bowel sounds. MUSCULOSKELETAL: No tenderness, deformities, or effusions noted on gross inspection. EXTREMITIES: No cyanosis, clubbing or edema. SKIN: Inspection of the skin reveals no rashes, pallor NEUROLOGIC: Alert and oriented x 4. Strength and sensation to light touch were grossly intact x 4. Course Course Course Narrative: 31-year-old female with history and clinical presentation consistent with menorrhagia and on review of all investigations there are no acute findings. I discussed this case with Dr. Vivas who will see the patient in his office today. Patient was informed of all results and findings and the plan follow-up with Dr. Vivas in the office. Patient is otherwise discharged in stable condition. Medical Decision Making Lab Data Result diagrams: 11/14/21 08:36 11/14/21 08:36 Labs: Lab Results 11/14/21 11/14/21 11/14/21 Range/Units 07:52 07:52 08:36 WBC 7.3 (4.8-10.8) X10*3/uL RBC 4.75 (4.20-5.50) X10*6/uL Hgb 12.0 (12.0-16.0) g/dl Hct 37.2 (37.0-47.0) % MCV 78.3 L (80.0-98.0) fL MCH 25.3 L (27.0-33.0) pg MCHC 32.3 (31.0-35.0) g/dl RDW 14.9 (11.0-16.0) % Plt Count 378 (160-400) X10*3/uL MPV 9.1 L (9.4-12.3) fL Immature Gran % (Auto) 0.4 (0.0-0.4) % Neut % (Auto) 68.9 (45-73) % Lymph % (Auto) 22.9 (20-40) % [place] % (Auto) 5.9 (2-11) % Eos % (Auto) 1.5 (0-4) % Baso % (Auto) 0.4 (0-2) % Lymph # (Auto) 1.7 (1.2-4.9) X10*3/uL [place] # (Auto) 0.4 (0.1-1.2) X10*3/uL Eos # (Auto) 0.1 (0.0-0.4) X10*3/uL Baso # (Auto) 0.0 (0.0-0.2) X10*3/uL Abs Immat Gran (auto) 0.03 (0.00-0.03) X10*3/uL Absolute Neuts (auto) 5.0 (2.0-8.3) x10*3/uL Absolute Nucleated RBC 0.000 (0.0-0.012) X10*3/uL Nucleated RBC % (auto) 0.0 (0.0-0.2) /100WBC PT (10.0-13.1) SEC INR (0.9-1.1) Sodium (135-145) mmol/L Potassium (3.3-5.1) mmol/L Chloride (96-108) mmol/L Carbon Dioxide (22-29) mmol/L Anion Gap (12-20) BUN (9-16) mg/dL Creatinine (0.5-1.4) mg/dL Estim Creat Clear Calc Estimated GFR Random Glucose (60-115) mg/dL Calcium (8.4-10.2) mg/dL Total Bilirubin (0.0-1.0) mg/dL AST (5-31) U/L ALT (0-31) U/L Alkaline Phosphatase (39-117) U/L Total Protein (6.5-8.0) g/dL Albumin (3.5-5.0) g/dL Urine Color RED Urine Appearance Cloudy Urine pH 6.0 (5.0-8.0) Ur Specific [place] >= 1.030 H (1.005-1.025) Urine Protein 100 (2+) H (Neg-Trace) mg/dL Urine Glucose (UA) Negative (Negative) mg/dL Urine Ketones Negative (Negative) mg/dL Urine Blood Large (3+) H (Negative) Urine Nitrite Negative (Negative) Ur Leukocyte Esterase Negative (Negative) Urine RBC >20 H (0-2) /HPF Urine WBC 0-5 (0-5) /HPF Ur Squamous Epith Cells 0-2 (0-2) /HPF Urine Bacteria None Seen (None Seen) Hyaline Casts 0-2 (0-2) /LPF Urine Test NEGATIVE (NEGATIVE) 11/14/21 11/14/21 Range/Units 08:36 08:36 WBC (4.8-10.8) X10*3/uL RBC (4.20-5.50) X10*6/uL Hgb (12.0-16.0) g/dl Hct (37.0-47.0) % MCV (80.0-98.0) fL MCH (27.0-33.0) pg MCHC (31.0-35.0) g/dl RDW (11.0-16.0) % Plt Count (160-400) X10*3/uL MPV (9.4-12.3) fL Immature Gran % (Auto) (0.0-0.4) % Neut % (Auto) (45-73) % Lymph % (Auto) (20-40) % [place] % (Auto) (2-11) % Eos % (Auto) (0-4) % Baso % (Auto) (0-2) % Lymph # (Auto) (1.2-4.9) X10*3/uL [place] # (Auto) (0.1-1.2) X10*3/uL Eos # (Auto) (0.0-0.4) X10*3/uL Baso # (Auto) (0.0-0.2) X10*3/uL Abs Immat Gran (auto) (0.00-0.03) X10*3/uL Absolute Neuts (auto) (2.0-8.3) x10*3/uL Absolute Nucleated RBC (0.0-0.012) X10*3/uL Nucleated RBC % (auto) (0.0-0.2) /100WBC PT 11.4 (10.0-13.1) SEC INR 1.0 (0.9-1.1) Sodium 140 (135-145) mmol/L Potassium 4.2 (3.3-5.1) mmol/L Chloride 106 (96-108) mmol/L Carbon Dioxide 24 (22-29) mmol/L Anion Gap 14 (12-20) BUN 7 L D (9-16) mg/dL Creatinine 0.78 (0.5-1.4) mg/dL Estim Creat Clear Calc 136.3 Estimated GFR > 60 Random Glucose 125 H (60-115) mg/dL Calcium 9.2 (8.4-10.2) mg/dL Total Bilirubin 0.3 (0.0-1.0) mg/dL AST 20 D (5-31) U/L ALT 50 H (0-31) U/L Alkaline Phosphatase 88 (39-117) U/L Total Protein 6.7 (6.5-8.0) g/dL Albumin 4.1 (3.5-5.0) g/dL Urine Color Urine Appearance Urine pH (5.0-8.0) Ur Specific [place] (1.005-1.025) Urine Protein (Neg-Trace) mg/dL Urine Glucose (UA) (Negative) mg/dL Urine Ketones (Negative) mg/dL Urine Blood (Negative) Urine Nitrite (Negative) Ur Leukocyte Esterase (Negative) Urine RBC (0-2) /HPF Urine WBC (0-5) /HPF Ur Squamous Epith Cells (0-2) /HPF Urine Bacteria (None Seen) Hyaline Casts (0-2) /LPF Urine Test (NEGATIVE) Discharge Plan Discharge Clinical Impression: Menorrhagia, PCOS (polycystic ovarian syndrome) Patient Disposition: Home, Self-Care Instructions: Dysfunctional Uterine Bleeding (ED), Menorrhagia (ED) Additional Instructions: 1. Resume all home medications as prescribed. 2. Please go directly over to Dr. Vivas's office. Return to the ER for worsening symptoms. Prescriptions: No Action albuterol sulfate 90 mcg/actuation HFA aerosol inhaler 1 inh inhalation QID PRN (Reason: shortness of breath or wheezing) 30 Days Qty: 8.5 12RF (DME) nebulizers Misc See Rx Instructions .Route Qty: 1 0RF Rx Instructions: Q6 hrs prn for sob/wheezing (DME) nebulizer accessories Misc See Rx Instructions .Route Qty: 1 0RF Rx Instructions: Q6 hrs, prn for SOB/wheezing levalbuterol HCl [Xopenex] 1.25 mg/3 mL solution for nebulization 1.25 mg inhalation Q4-6H PRN (Reason: shortness of breath or wheezing) Qty: 75 0RF carisoprodol [Soma] 350 mg tablet 350 mg PO BEDTIME PRN (Reason: muscle pain) 14 Days Qty: 14 0RF meloxicam 15 mg tablet 15 mg PO DAILY PRN (Reason: pain) 30 Days Qty: 30 0RF metoprolol succinate 25 mg tablet extended release 24 hr 25 mg PO DAILY 30 Days Qty: 30 3RF lorazepam 1 mg tablet 1 mg PO BID PRN (Reason: anxiety) 30 Days Qty: 60 0RF atorvastatin 40 mg tablet 40 mg PO DAILY 30 Days Qty: 30 11RF Ozempic 0.25 mg or 0.5 mg(2 mg/1.5 mL) pen injector 0.5 mg subcut QWEEK Qty: 1.5 11RF Rx Instructions: Start 0.25 weekly x 4 weeks, then increase to 0.5 weekly thereafter. azithromycin 250 mg tablet 250 mg PO 3XW 28 Days Qty: 12 0RF Rx Instructions: Take 1 tablet on Wednesday/Wednesday/Wednesday [place] Aerosphere 160-9-4.8 mcg/actuation HFA aerosol inhaler 2 inh inhalation BID 30 Days Qty: 10.7 11RF Daliresp 500 mcg tablet 500 mcg PO DAILY 30 Days Qty: 30 6RF (DME) FreeStyle Lite Strips Strip See Rx Instructions .ROUTE .MEDSUPPLY Qty: 100 11RF Rx Instructions: 4x daily (DME) lancets [FreeStyle Lancets] 28 gauge misc See Rx Instructions .ROUTE .MEDSUPPLY Qty: 100 11RF Rx Instructions: 4x daily (DME) blood-glucose meter [FreeStyle Lite Meter] Kit See Rx Instructions .Route Qty: 1 0RF Rx Instructions: As directed benzonatate 200 mg capsule 200 mg PO BID PRN (Reason: cough) 30 Days Qty: 60 3RF progesterone micronized [Prometrium] 200 mg capsule 200 mg PO BEDTIME 10 Days Qty: 30 1RF Rx Instructions: Take the pill 1 tablet a day cyclically every month from day 15-24 day 1 being the 1st day of next menstrual cycle Referrals: Antoine Rodríguez, KAREEM-BC [Primary Care Provider] - Keith Vivas MD [Physician] -
[2021-11-14 08:19] LABS: Appearance Urine Cloudy; Color Urine RED; Glucose Urine UA Negative (Negative); Leukocyte Esterase Urine Negative (Negative); Nitrite Urine Negative (Negative); Specific Gravity - Urine >= 1.030 (1.005-1.025); Urine Blood Large (3+) (Negative); Urine Ketones Negative (Negative); Urine Protein 100 (2+) mg/dL (Neg-Trace)
[2021-11-14 08:27] LABS: RBC Urine >20 /HPF (0-2); Squamous Epithelial Cell Urine 0-2 /HPF (0-2)
[2021-11-14 08:28] LABS: Bacteria Urine None Seen (None Seen); Hyaline Casts Urine 0-2 /LPF (0-2); WBC Urine 0-5 /HPF (0-5)
[2021-11-14 08:39] LABS: MANUAL DIFF FLAG NO
[2021-11-14 08:40] LABS: Basophils Percent Auto 0.4 % (0-2); Eosinophils Absolute Auto 0.1 X10*3/uL (0.0-0.4); Eosinophils Percent Auto 1.5 % (0-4); Hematocrit 37.2 % (37.0-47.0); Imm Gran Abs Auto 0.03 X10*3/uL (0.00-0.03); Imm Gran Pct Auto 0.4 % (0.0-0.4); Lymphocytes Absolute Auto 1.7 X10*3/uL (1.2-4.9); Lymphocytes Percent Auto 22.9 % (20-40); Mean Corpuscular HGB Conc 32.3 g/dl (31.0-35.0); Mean Corpuscular Hemoglobin 25.3 pg (27.0-33.0); Mean Corpuscular Volume 78.3 fL (80.0-98.0); Mean Platelet Volume 9.1 fL (9.4-12.3); Monocytes Absolute Auto 0.4 X10*3/uL (0.1-1.2); Monocytes Percent Auto 5.9 % (2-11); Neutrophils Percent Auto 68.9 % (45-73); Platelet Count 378 X10*3/uL (160-400); Red Blood Count 4.75 X10*6/uL (4.20-5.50); Red Cell Distribution Width 14.9 % (11.0-16.0); White Blood Count 7.3 X10*3/uL (4.8-10.8)
[2021-11-14 08:45] LABS: Prothrombin Time 11.4 SEC (10.0-13.1)
[2021-11-14 09:01] LABS: Alanine Aminotransferase 50 U/L (0-31); Albumin Level 4.1 g/dL (3.5-5.0); Alkaline Phosphatase 88 U/L (39-117); Anion Gap 14 (12-20); Aspartate Amino Transferase 20 U/L (5-31); Bilirubin Total 0.3 mg/dL (0.0-1.0); Blood Urea Nitrogen 7 mg/dL (9-16); Calcium 9.2 mg/dL (8.4-10.2); Carbon Dioxide 24 mmol/L (22-29); Chloride 106 mmol/L (96-108); Creatinine Clr Calc Pharmacy 136.3; Estimated Glomerular Filt Rate > 60; Glucose Random 125 mg/dL (60-115); Potassium 4.2 mmol/L (3.3-5.1); Sodium 140 mmol/L (135-145); Total Protein 6.7 g/dL (6.5-8.0)
== END 2021-11-14 10:08 | disposition home or self-care (01) ==
PROVIDERS: Emergency Provider Student in an Organized Health Care Education/Training Program; PCP Nurse Practitioner Family
DX: N92.0 Excessive and frequent menstruation with regular cycle (principal); E28.2 Polycystic ovarian syndrome; Z79.899 Other long term (current) drug therapy
CPT/HCPCS: 36415; 58300; 80053; 81001; 81003; 81025; 85025; 85610; 99282; 99283; J7298

== ENCOUNTER 2022-02-03 11:30 | Outpatient (REF) | payer OTHER, SELFPAY ==
--- NOTE | ~2022-02-03 | XR_ITS ---
EXAMINATION: XR CHEST CLINICAL INFORMATION: Dyspnea. COMPARISON: 01/03/2021 chest radiographs. TECHNIQUE: 2 views of the chest were obtained. FINDINGS: No significant abnormality is noted involving the heart, lungs, mediastinum, bony thorax or soft tissues. XR/XR chest 2V IMPRESSION: No acute cardiopulmonary process.
== END 2022-02-03 11:31 | disposition home or self-care (01) ==
LOC: HO.XRAY 11:30
PROVIDERS: PCP Nurse Practitioner Family; Visit Provider Hospitalist
DX: R06.09 Other forms of dyspnea (principal); U09.9 Post COVID-19 condition, unspecified
CPT/HCPCS: 71046

== ENCOUNTER 2022-02-17 08:04 | Outpatient (REF) | payer OTHER, SELFPAY ==
[2022-02-17 08:18] LABS: MANUAL DIFF FLAG NO
[2022-02-17 08:48] LABS: Basophils Percent Auto 0.4 % (0-2); Eosinophils Absolute Auto 0.1 X10*3/uL (0.0-0.4); Eosinophils Percent Auto 0.6 % (0-4); Hemoglobin 11.4 g/dl (12.0-16.0); Imm Gran Abs Auto 0.02 X10*3/uL (0.00-0.03); Imm Gran Pct Auto 0.2 % (0.0-0.4); Lymphocytes Absolute Auto 1.8 X10*3/uL (1.2-4.9); Lymphocytes Percent Auto 21.8 % (20-40); Mean Corpuscular HGB Conc 31.7 g/dl (31.0-35.0); Mean Corpuscular Hemoglobin 24.9 pg (27.0-33.0); Mean Corpuscular Volume 78.6 fL (80.0-98.0); Mean Platelet Volume 9.5 fL (9.4-12.3); Monocytes Absolute Auto 0.4 X10*3/uL (0.1-1.2); Monocytes Percent Auto 4.7 % (2-11); Neutrophils Absolute Auto 5.9 x10*3/uL (2.0-8.3); Neutrophils Percent Auto 72.3 % (45-73); Platelet Count 421 X10*3/uL (160-400); Red Blood Count 4.58 X10*6/uL (4.20-5.50); Red Cell Distribution Width 14.5 % (11.0-16.0); White Blood Count 8.1 X10*3/uL (4.8-10.8)
[2022-02-17 09:15] LABS: Alanine Aminotransferase 22 U/L (0-31); Albumin Level 4.2 g/dL (3.5-5.0); Alkaline Phosphatase 82 U/L (39-117); Anion Gap 15 (12-20); Aspartate Amino Transferase 15 U/L (5-31); Bilirubin Total 0.2 mg/dL (0.0-1.0); Blood Urea Nitrogen 6 mg/dL (9-16); Calcium 9.1 mg/dL (8.4-10.2); Carbon Dioxide 24 mmol/L (22-29); Chloride 106 mmol/L (96-108); Estimated Glomerular Filt Rate > 60; Glucose Random 130 mg/dL (60-115); Lactate Dehydrogenase 179 U/L (122-220); Potassium 4.6 mmol/L (3.3-5.1); Rheumatoid Factor < 15.0 IU/mL (<15.0); Sodium 140 mmol/L (135-145); Total Protein 6.9 g/dL (6.5-8.0)
[2022-02-17 09:38] LABS: TSH reflex Free T4 0.81 uIU/mL (0.32-4.0)
[2022-02-17 09:45] LABS: Appearance Urine Hazy; Glucose Urine UA Negative (Negative); Leukocyte Esterase Urine Trace (Negative); Nitrite Urine Negative (Negative); Specific Gravity - Urine 1.015 (1.005-1.025); UMIC TRIGGER UACC YES; Urine Blood Large (3+) (Negative); Urine Ketones Negative (Negative); Urine Protein 30 (1+) mg/dL (Neg-Trace)
[2022-02-17 09:47] LABS: Color Urine RED
[2022-02-17 09:49] LABS: WBC Urine 0-5 /HPF (0-5)
[2022-02-17 09:50] LABS: Bacteria Urine None Seen (None Seen); Hyaline Casts Urine 0-2 /LPF (0-2); RBC Urine >20 /HPF (0-2); Squamous Epithelial Cell Urine 0-2 /HPF (0-2)
[2022-02-19 23:12] LABS: A. Phagocytphilium DNA,RT-PCR NOT DETECTED (NOT DETECTED); Babesia Microti DNA, RT-PCR NOT DETECTED (NOT DETECTED); Borrelia Miyamotoi,DNA RT-PCR NOT DETECTED (NOT DETECTED); E.Chaffeensis DNA RT-PCR NOT DETECTED (NOT DETECTED); Lyme(Borrelia ssp)DNA RT-PCR NOT DETECTED (NOT DETECTED)
[2022-02-20 14:56] LABS: Cyclic Citrullinated Peptide <16 UNITS
[2022-02-21 14:42] LABS: CK-BB None Detected (None Detected); CK-MB 0 % (<5); CK-MM 100 % (95-100); Creatine Kinase,Total,Serum 80 U/L (29-143)
[2022-02-23 12:07] LABS: Anti Nuclear Antibody Screen NEGATIVE (NEGATIVE)
[2022-02-24 08:43] LABS: Source-Tick borne disease BLOOD
== END 2022-02-17 08:05 | disposition home or self-care (01) ==
LOC: HO.LAB 08:04
PROVIDERS: PCP Nurse Practitioner Family; Visit Provider Nurse Practitioner Family
DX: M79.10 Myalgia, unspecified site (principal)
CPT/HCPCS: 36415; 80053; 81001; 82552; 83615; 84443; 85025; 86038; 86039; 86200; 86431; 87798; 87801

== ENCOUNTER 2022-03-12 13:52 | Outpatient (REF) | payer OTHER, SELFPAY ==
[2022-03-12 17:58] LABS: Influenza A PCR POSITIVE (Negative); Influenza B PCR NEGATIVE (Negative); Resp Syncy Virus RNA Qual PCR NEGATIVE (Negative); SARS COV2 PCR INHOUSE NEGATIVE (Negative)
== END 2022-03-12 13:53 | disposition home or self-care (01) ==
LOC: HO.LAB 13:52
PROVIDERS: Visit Provider Nurse Practitioner Family
DX: Z20.822 Contact with and (suspected) exposure to COVID-19 (principal); B34.9 Viral infection, unspecified
CPT/HCPCS: 0241U

== ENCOUNTER → 2022-04-07 15:24 | Outpatient (BNVA) | payer OTHER, SELFPAY | PROVIDERS: PCP Nurse Practitioner Family; Referring Provider Nurse Practitioner Family; Visit Provider Nurse Practitioner Family | DX: R00.2 Palpitations (principal) ==

== ENCOUNTER 2022-05-07 06:18 | Emergency (ER) | payer OTHER, SELFPAY ==
--- NOTE | ~2022-05-07 | XR_ITS ---
EXAMINATION: XR CHEST CLINICAL INFORMATION: Cough. COMPARISON: None TECHNIQUE: Frontal view of the chest was obtained. FINDINGS: No significant abnormality is noted involving the heart, lungs, mediastinum, bony thorax or soft tissues. XR/XR chest 1V IMPRESSION: Unremarkable chest examination.
[2022-05-07 06:27] VITALS: BP 168/90; PULSE 92; RESP 14; TEMP 36.6; O2SAT 98; BMI 42.9
--- NOTE | 2022-05-07 06:37 | PC.NURSE ---
Pt change into hospital attire, placed 22gauge left AC.
[2022-05-07 06:44] VITALS: BP 139/77; PULSE 100; RESP 16; O2SAT 100
--- NOTE | 2022-05-07 07:06 | ED_ITS ---
HPI - General Adult General Chief complaint: Upper Respiratory Symptoms Stated complaint: short of breath Time Seen by Provider: 05/07/22 06:52 Source: patient Mode of arrival: ambulatory Limitations: no limitations History of Present Illness HPI narrative: 32-year-old female with history of asthma presents with 1 week of viral upper respiratory symptoms. Again the symptoms started approximately a week ago. The symptoms are described as moderate to severe. The symptoms are constant. There is no clear relieving or exacerbating features. She has had no fevers or chills. Majority of her symptoms include sinus and nasal congestion associated with cough and chest congestion. There is a pleuritic type of chest discomfort but no chest pain with exertion. She has had some occasional mucus production. She denies any nausea vomiting, diarrhea, sore throat. She is home nebulizers, started prednisone 50 mg, azithromycin without significant improvement. She is also taking aeey-dll-gicqxro remedies as needed. Related Data Home Medications Medication Instructions Recorded Confirmed metformin 500 mg tablet,extended 1,000 mg PO BID 12/25/21 04/07/22 release 24 hr benzonatate 200 mg capsule 200 mg PO BID PRN cough 02/04/22 04/07/22 lamotrigine 25 mg tablet 50 mg PO DAILY 04/07/22 04/07/22 norethindrone (contraceptive) 0.35 0.35 mg PO DAILY 04/07/22 04/07/22 mg tablet Previous Rx's Medication Instructions Recorded nebulizer accessories #1 ea 03/10/21 nebulizers #1 ea 03/10/21 levalbuterol HCl 1.25 mg/3 mL 1.25 mg (3 mL) inhalation Q4-6H 03/25/21 solution for nebulization (Xopenex) PRN shortness of breath or wheezing #75 mL blood-glucose meter (FreeStyle #1 ea 04/02/21 Lite Meter kit) lancets 28 gauge (FreeStyle #100 ea 04/02/21 Lancets) carisoprodol 350 mg tablet (Soma) 350 mg PO BEDTIME PRN muscle pain 07/31/21 14 days #14 tabs semaglutide 0.25 mg or 0.5 mg (2 0.5 mg (0.4 mL) subcut QWEEK 4 09/18/21 mg/1.5 mL) subcutaneous pen doses #1.5 mL injector (Ozempic) budesonide 160 mcg-glycopyr 9 2 inh inhalation BID 30 days #10.7 09/26/21 mcg-formot 4.8 mcg/actuation HFA grams inhaler (Breztri Aerosphere) albuterol sulfate 90 mcg/actuation 1 inh inhalation QID PRN shortness 01/08/22 aerosol inhaler of breath or wheezing 30 days #8.5 grams bupropion HCl 150 mg 24 hr tablet, 150 mg PO QAM 90 days #90 tabs 02/01/22 extended release (Wellbutrin XL) roflumilast 500 mcg tablet 500 mcg PO DAILY 30 days #30 tabs 02/06/22 hydroxyzine HCl 25 mg tablet 25 mg PO TID PRN anxiety 30 days 03/05/22 #90 tabs lorazepam 1 mg tablet 1 mg PO BID PRN anxiety 30 days 03/05/22 #60 tabs ondansetron 8 mg disintegrating 8 mg PO Q12H PRN nausea and 03/15/22 tablet vomiting 30 days #60 tabs diltiazem HCl 180 mg 180 mg PO DAILY #90 caps 04/07/22 capsule,extended release 24 hr gabapentin 100 mg capsule 100 mg PO TID 30 days #90 caps 04/28/22 meloxicam 15 mg tablet 15 mg PO DAILY PRN pain 30 days 04/28/22 #30 tabs blood sugar diagnostic (FreeStyle #100 ea 04/29/22 Lite Strips) azithromycin 250 mg tablet See Rx Instructions PO .COMPLEX 5 05/05/22 days #6 tabs prednisone 50 mg tablet 50 mg PO DAILY 6 days #6 tabs 05/05/22 Allergies Allergy/AdvReac Type Severity Reaction Status Date / Time lisinopril [LISINOPRIL] Allergy Severe COUGH Verified 04/07/22 15:27 Penicillins [PENICILLINS] Allergy Severe HIVES Verified 04/07/22 15:27 vancomycin Allergy Severe Rash Verified 04/07/22 15:27 chlorthalidone AdvReac Severe tachycardia, Verified 04/07/22 15:27 palpitations doxycycline AdvReac Intermediate Joint Pain Verified 04/07/22 15:27 Review of Systems Review of Systems: CONSTITUTIONAL: Denies weight loss, fever and chills. HEENT: Denies changes in vision and hearing. RESPIRATORY: + SOB and cough. CV: Denies palpitations no CP. GI: Denies abdominal pain, nausea, vomiting and diarrhea. : Denies dysuria and urinary frequency. MSK: Denies myalgia and joint pain. SKIN: Denies rash and pruritus. NEUROLOGICAL: Denies headache and syncope. PSYCHIATRIC: Denies recent changes in mood. Denies anxiety and depression. All other ROS are negative unless in HPI PMFSH Past Medical History Medical History Anxiety Anxiety and depression Asthma HLD (hyperlipidemia) HTN (hypertension) Hyperandrogenism PCOS (polycystic ovarian syndrome) Sleep apnea in adult T2DM (type 2 diabetes mellitus) Tachycardia Vitamin D deficiency Surgical History No pertinent past surgical history Family History Family History Mother Sleep apnea CVD (cardiovascular disease) Mental health disorder Father CVD (cardiovascular disease) Sleep apnea Substance use disorder Mental health disorder Sister Substance use disorder Mental health disorder Social History Social History Housing: House Alcohol intake: current Patient Tobacco Use Status: Never used Tobacco e-Cigarette/Vaping Use: Never Used Second Hand Smoke Exposure: No Advance Directives: No service: No Current occupational status: employed Current occupation: [employer] – [place] Current occupational exposures/hazards: No Cognitive needs: No Hearing needs: No Vision needs: No Physical Exam ED Vital Signs: Vital Signs - 24 hr 05/07/22 06:27 05/07/22 06:44 05/07/22 07:35 Temperature 97.8 F Pulse Rate 92 100 84 Respiratory Rate 14 16 12 Blood Pressure 168/90 H 139/77 Pulse Oximetry 98 100 Oxygen Delivery Method Room Air Room Air 05/07/22 08:59 Temperature Pulse Rate 107 H Respiratory Rate 21 H Blood Pressure Pulse Oximetry Oxygen Delivery Method BMI result Body Mass Index 42.9 GEN: Well developed, no acute distress, alert, oriented HEENT: Normocephalic, atraumatic, normal external ears, nose appears normal, no oropharyngeal edema or exudates Eyes: Normal to appearance Neck: Supple, no lymphadenopathy Respiratory: Talks in complete sentences, no respiratory distress, right lung wheezing no lower lobe, otherwise clear to auscultation Cardiovascular: Regular rate and rhythm, no murmurs rubs or gallops Abdomen: Soft, nontender, nondistended, no guarding, no rebound Back: No CVA tenderness Extremities: No clubbing cyanosis or edema Neurologic: No focal neurologic deficits, cranial nerves 2-12 intact, strength is 5/5 bilaterally, gait normal Skin: No rash Course Course Course Narrative: 32-year-old female presents with cough, shortness of breath, wheezing. She is a lready on azithromycin, oral steroids. Will provide patient with DuoNeb, a dose of Decadron. Will order chest x-ray and serology studies. However, even if patient has positive for COVID or flu, the patient is outside the window for treatment given her symptoms started 1 week ago. Reevaluation(s) Reevaluation #1: Patient is feeling better after 1st nebulizer. Will administer 2nd 1. Time: 08:22 Reevaluation #2: Doing much better and would like to go home at this time. Discussed discharge instructions. All questions were addressed and answered Time: 09:41 Medications Administered Discontinued Medications Generic Name Dose Route Start Last Admin Trade Name Somq PRN Reason Stop Dose Admin Albuterol/Ipratropium 3 ml 05/07/22 07:11 05/07/22 07:35 Albuterol/Iprat 2.5/0.5mg 3 Ml Ampul.Neb INHALE 05/07/22 07:12 3 ml ONCE ONE Administration Albuterol/Ipratropium 3 ml 05/07/22 08:21 05/07/22 08:59 Albuterol/Iprat 2.5/0.5mg 3 Ml Ampul.Neb INHALE 05/07/22 08:22 3 ml ONCE ONE Administration Dexamethasone Sodium Phosphate 4 mg 05/07/22 07:10 05/07/22 07:23 Dexamethasone Sod Phosphate 4 Mg/Ml Vial IVPUSH 05/07/22 07:11 4 mg ONCE ONE Administration Medical Decision Making Medical Decision Making [facility] Narrative: 32-year-old female with history of respiratory disease presents with cough, shortness of breath for 1 week. She is already on steroids and antibiotics. Her lungs revealed a right lung base wheeze. Will provide patient with at least 1 DuoNeb possibly up to 3. We will provide 1 dose of Decadron. We will obtain a chest x-ray and viral serologies. Differential Diagnosis Differential Diagnoses: The differential diagnosis associated with the presentation includes (Viral upper respiratory infection, bronchitis, pneumonia, asthma exacerbation) Admission/Observation Consideration of admission/observation: Escalation of care including admission/observation considered Lab Data MDM Lab Attestation statement: I reviewed the patient's lab results. Labs: Lab Results 05/07/22 Range/Units 06:34 Influenza Type A (PCR) NEGATIVE (Negative) Influenza Type B (PCR) NEGATIVE (Negative) RSV RNA Qual (PCR) NEGATIVE (Negative) SARS-CoV-2 RNA (RT-PCR) NEGATIVE (Negative) Independent Interpretation I performed an independent interpretation of an: Plain X-Ray (Chest x-ray, no acute cardiopulmonary disease) Radiology Impression Discussion of test interpretation with radiology: I have reviewed the radiologist's reading. ( XR/XR chest 1V IMPRESSION: Unremarkable chest examination. Dictated By:Gulshan Garcia MDSigned By:<Electronically signed by Gulshan Garcia MD in [place]>05/07/22 0701, independently reviewed as well, agree with interpretation) External Record Review External record reviewed: Outpatient record (Primary care provider appointment from December 25, 2021) Prescription Management I considered prescription management with: Antiviral and Antibiotic Chronic Conditions Patient?s care impacted by: Diabetes Discharge Plan Discharge Clinical Impression: Acute upper respiratory infection Patient Disposition: Home, Self-Care Instructions: Upper Respiratory Infection (ED), Acute Bronchitis (ED), Wheezing (ED) Prescriptions: No Action (DME) nebulizers Misc See Rx Instructions .Route Qty: 1 0RF Rx Instructions: Q6 hrs prn for sob/wheezing (DME) nebulizer accessories Misc See Rx Instructions .Route Qty: 1 0RF Rx Instructions: Q6 hrs, prn for SOB/wheezing levalbuterol HCl [Xopenex] 1.25 mg/3 mL solution for nebulization 1.25 mg inhalation Q4-6H PRN (Reason: shortness of breath or wheezing) Qty: 75 0RF carisoprodol [Soma] 350 mg tablet 350 mg PO BEDTIME PRN (Reason: muscle pain) 14 Days Qty: 14 0RF Ozempic 0.25 mg or 0.5 mg(2 mg/1.5 mL) pen injector 0.5 mg subcut QWEEK Qty: 1.5 11RF Rx Instructions: Start 0.25 weekly x 4 weeks, then increase to 0.5 weekly thereafter. albuterol sulfate 90 mcg/actuation HFA aerosol inhaler 1 inh inhalation QID PRN (Reason: shortness of breath or wheezing) 30 Days Qty: 8.5 12RF bupropion HCl [Wellbutrin XL] 150 mg tablet extended release 24 hr 150 mg PO QAM 90 Days Qty: 90 0RF roflumilast 500 mcg tablet 500 mcg PO DAILY 30 Days Qty: 30 11RF hydroxyzine HCl 25 mg tablet 25 mg PO TID PRN (Reason: anxiety) 30 Days Qty: 90 0RF lorazepam 1 mg tablet 1 mg PO BID PRN (Reason: anxiety) 30 Days Qty: 60 0RF ondansetron 8 mg tablet,disintegrating 8 mg PO Q12H PRN (Reason: nausea and vomiting) 30 Days Qty: 60 0RF meloxicam 15 mg tablet 15 mg PO DAILY PRN (Reason: pain) 30 Days Qty: 30 0RF gabapentin 100 mg capsule 100 mg PO TID 30 Days Qty: 90 1RF (DME) FreeStyle Lite Strips Strip See Rx Instructions .ROUTE .MEDSUPPLY Qty: 100 11RF Rx Instructions: 4x daily azithromycin 250 mg tablet See Rx Instructions PO .COMPLEX 5 Days Qty: 6 0RF Rx Instructions: For 250 mg dose pack: take 500 mg today (day 1), then 250 mg for 4 days (days 2-5) PO prednisone 50 mg tablet 50 mg PO DAILY 6 Days Qty: 6 0RF metformin 500 mg tablet extended release 24 hr 1,000 mg PO BID Breztri Aerosphere 160-9-4.8 mcg/actuation HFA aerosol inhaler 2 inh inhalation BID 30 Days Qty: 10.7 11RF (DME) lancets [FreeStyle Lancets] 28 gauge misc See Rx Instructions .ROUTE .MEDSUPPLY Qty: 100 11RF Rx Instructions: 4x daily (DME) blood-glucose meter [FreeStyle Lite Meter] Kit See Rx Instructions .Route Qty: 1 0RF Rx Instructions: As directed benzonatate 200 mg capsule 200 mg PO BID PRN (Reason: cough) lamotrigine 25 mg tablet 50 mg PO DAILY norethindrone (contraceptive) 0.35 mg tablet 0.35 mg PO DAILY diltiazem HCl 180 mg capsule,extended release 24hr 180 mg PO DAILY Qty: 90 3RF Referrals: Antoine Rodríguez, [facility] [facility] [Primary Care Provider] - Stand Alone Forms: Work/School Release
[2022-05-07 07:15] LABS: Influenza A PCR NEGATIVE (Negative); Influenza B PCR NEGATIVE (Negative); Resp Syncy Virus RNA Qual PCR NEGATIVE (Negative); SARS COV2 PCR INHOUSE NEGATIVE (Negative)
[2022-05-07] MEDS: dexAMETHasone sod phosphate 4 MG/ML VIAL IVPUSH (07:23)
[2022-05-07 07:35] VITALS: PULSE 84; RESP 12; O2SAT 100
[2022-05-07] MEDS: Albuterol/Iprat 2.5/0.5MG 3 ML AMPUL.NEB INHALE ×2 (07:35→08:59)
[2022-05-07 08:59] VITALS: PULSE 107; RESP 21; O2SAT 99
== END 2022-05-07 09:57 | disposition home or self-care (01) ==
PROVIDERS: Emergency Provider Emergency Medicine; PCP Nurse Practitioner Family
DX: J06.9 Acute upper respiratory infection, unspecified (principal); R06.02 Shortness of breath; Z20.822 Contact with and (suspected) exposure to COVID-19; Z20.828 Contact with and (suspected) exposure to other viral communicable diseases; E11.9 Type 2 diabetes mellitus without complications; I10 Essential (primary) hypertension; E78.5 Hyperlipidemia, unspecified; J45.909 Unspecified asthma, uncomplicated; Z79.899 Other long term (current) drug therapy; Z79.84 Long term (current) use of oral hypoglycemic drugs
CPT/HCPCS: 0241U; 71045; 94640; 96374; 99284; J1100

== ENCOUNTER 2022-06-10 15:06 | Outpatient (REF) | payer OTHER, SELFPAY ==
--- NOTE | ~2022-06-10 | US_ITS ---
ULTRASOUND LEFT AXILLA CLINICAL: Left arm pain. COMPARISON: None. TECHNIQUE: Using a linear transducer with grayscale and color modalities, ultrasound examination is performed of the left axilla. FINDINGS: The cutaneous, subcutaneous, muscular and fascial planes are unremarkable. Corresponding with the area of pain described by the patient, a 0.6 x 0.5 x 0.7 cm subdermal anechoic cyst is seen, with minimal internal debris. No draining sinus tract noted. There is no associated color Doppler flow. No mass or lymphadenopathy is seen. No foreign body is seen. US/US extremity nonvascular IMPRESSION: Corresponding with the focus of finding described by the patient in the left axilla, a 7 mm in maximal diameter subdermal cyst is seen. The possibility of an epidermal inclusion cyst is seen, perhaps related to hydradenitis suppurativa. No draining sinus tract is noted. A nonpathologically enlarged necrotic lymph node is a further differential consideration. Recommend management on a clinical basis.
== END 2022-06-10 15:07 | disposition home or self-care (01) ==
LOC: HO.US 15:06
PROVIDERS: PCP Nurse Practitioner Family; Visit Provider Nurse Practitioner Family
DX: M79.622 Pain in left upper arm (principal)
CPT/HCPCS: 76882

== ENCOUNTER 2022-06-24 11:36 | Emergency (ER) | payer OTHER, SELFPAY ==
--- NOTE | ~2022-06-24 | XR_ITS ---
EXAMINATION: XR LUMBAR SPINE XR PELVIS AND HIP, LEFT CLINICAL INFORMATION: Pain after a fall from ladder. COMPARISON: None available. TECHNIQUE: AP and lateral radiographs of the lumbar spine. AP radiograph of the pelvis. AP and frog-lateral views of the left hip. FINDINGS: Lumbar Spine: Dextroconvex scoliotic positioning of the lumbar spine with mild multilevel degenerative disc disease causing narrowing and small endplate osteophytes at L3-L4 and L4-L5. No acute fracture. Pelvis and Left Hip: No acute fracture or malalignment. No significant degenerative findings. No radiopaque foreign body. XR/XR hip LT w PEL1V IMPRESSION: Scoliotic positioning of the lumbar spine with mild degenerative disc disease. No acute abnormality. No acute fracture or malalignment of the pelvis or left hip.
--- NOTE | ~2022-06-24 | XR_ITS ---
EXAMINATION: XR LUMBAR SPINE XR PELVIS AND HIP, LEFT CLINICAL INFORMATION: Pain after a fall from ladder. COMPARISON: None available. TECHNIQUE: AP and lateral radiographs of the lumbar spine. AP radiograph of the pelvis. AP and frog-lateral views of the left hip. FINDINGS: Lumbar Spine: Dextroconvex scoliotic positioning of the lumbar spine with mild multilevel degenerative disc disease causing narrowing and small endplate osteophytes at L3-L4 and L4-L5. No acute fracture. Pelvis and Left Hip: No acute fracture or malalignment. No significant degenerative findings. No radiopaque foreign body. XR/XR lumbar spine 2-3V IMPRESSION: Scoliotic positioning of the lumbar spine with mild degenerative disc disease. No acute abnormality. No acute fracture or malalignment of the pelvis or left hip.
--- NOTE | 2022-06-24 11:38 | ED_ITS ---
HPI - Fall General Chief Complaint: General Medical <ANT Rico - Last Filed: 06/24/22 11:43> Stated Complaint: Fall off ladder/L hip pain <ANT Rico - Last Filed: 06/24/22 11:43> Time Seen by Provider: 06/24/22 12:27 <ANT Rico - Last Filed: 06/24/22 11:43> Source: patient <Tammy Vasquez NP - Last Filed: 06/24/22 15:23> Mode of arrival: wheelchair <Tammy Vasquez NP - Last Filed: 06/24/22 15:23> Limitations: no limitations <Tammy Vasquez NP - Last Filed: 06/24/22 15:23> History of Present Illness HPI Narrative: patient is a 32yo female presenting for hip and back pain following a fall from a ladder 5-6ft off the ground. Patient stated that she was trying to get into her house through her window after locking herself out of her house and fell. Initial impact was between her left hip and stone pavers on the ground. Patient denied hitting her heador LOC but endorsed tunnel vision following the fall, which she attributed to likely anxiety. Patient endorsed severe discomfort 9/10 along her lumbar spine and laterally to the left. No numbness, tingling, weakness of the extremities. No numbness in the groin. No bowel or bladder incontinence. No fevers, chills. <Tammy Vasquez NP - Last Filed: 06/24/22 15:23> Related Data Home Medications: Home Medications Medication Instructions Recorded Confirmed metformin 500 mg tablet,extended 1,000 mg PO BID 12/25/21 04/07/22 release 24 hr benzonatate 200 mg capsule 200 mg PO BID PRN cough 02/04/22 04/07/22 lamotrigine 25 mg tablet 50 mg PO DAILY 04/07/22 04/07/22 norethindrone (contraceptive) 0.35 0.35 mg PO DAILY 04/07/22 04/07/22 mg tablet Previous Rx's Medication Instructions Recorded nebulizer accessories #1 ea 03/10/21 nebulizers #1 ea 03/10/21 blood-glucose meter (FreeStyle #1 ea 04/02/21 Lite Meter kit) lancets 28 gauge (FreeStyle #100 ea 04/02/21 Lancets) carisoprodol 350 mg tablet (Soma) 350 mg PO BEDTIME PRN muscle pain 07/31/21 14 days #14 tabs semaglutide 0.25 mg or 0.5 mg (2 0.5 mg (0.4 mL) subcut QWEEK 4 09/18/21 mg/1.5 mL) subcutaneous pen doses #1.5 mL injector ([employer]) budesonide 160 mcg-glycopyr 9 2 inh inhalation BID 30 days #10.7 09/26/21 mcg-formot 4.8 mcg/actuation HFA grams inhaler (Breztri Aerosphere) albuterol sulfate 90 mcg/actuation 1 inh inhalation QID PRN shortness 01/08/22 aerosol inhaler of breath or wheezing 30 days #8.5 grams bupropion HCl 150 mg 24 hr tablet, 150 mg PO QAM 90 days #90 tabs 02/01/22 extended release (Wellbutrin XL) roflumilast 500 mcg tablet 500 mcg PO DAILY 30 days #30 tabs 02/06/22 hydroxyzine HCl 25 mg tablet 25 mg PO TID PRN anxiety 30 days 03/05/22 #90 tabs lorazepam 1 mg tablet 1 mg PO BID PRN anxiety 30 days 03/05/22 #60 tabs ondansetron 8 mg disintegrating 8 mg PO Q12H PRN nausea and 03/15/22 tablet vomiting 30 days #60 tabs diltiazem HCl 180 mg 180 mg PO DAILY #90 caps 04/07/22 capsule,extended release 24 hr gabapentin 100 mg capsule 100 mg PO TID 30 days #90 caps 04/28/22 meloxicam 15 mg tablet 15 mg PO DAILY PRN pain 30 days 04/28/22 #30 tabs blood sugar diagnostic (FreeStyle #100 ea 04/29/22 Lite Strips) azithromycin 250 mg tablet See Rx Instructions PO .COMPLEX 5 05/05/22 days #6 tabs prednisone 50 mg tablet 50 mg PO DAILY 6 days #6 tabs 05/05/22 levalbuterol HCl 1.25 mg/3 mL 1.25 mg (3 mL) inhalation Q6H PRN 05/08/22 solution for nebulization (Xopenex) shortness of breath or wheezing #90 mL levalbuterol tartrate 45 2 puff inhalation Q6H PRN 05/08/22 mcg/actuation aerosol inhaler shortness of breath or wheezing 30 (Xopenex HFA) days #15 grams prednisone 20 mg tablet See Rx Instructions PO DAILY 10 05/11/22 days #15 tabs cyclobenzaprine 10 mg tablet 10 mg PO TID PRN muscle spasm #15 06/24/22 tabs meloxicam 7.5 mg tablet 7.5 mg PO DAILY #15 tabs 06/24/22 tramadol 50 mg tablet 50 mg PO Q8H PRN pain #8 tabs 06/24/22 <ANT Rico - Last Filed: 06/24/22 11:43> Allergies/Adverse Reactions: Allergies Allergy/AdvReac Type Severity Reaction Status Date / Time lisinopril [LISINOPRIL] Allergy Severe COUGH Verified 06/24/22 11:38 Penicillins [PENICILLINS] Allergy Severe HIVES Verified 06/24/22 11:38 vancomycin Allergy Severe Rash Verified 06/24/22 11:38 chlorthalidone AdvReac Severe tachycardia, Verified 06/24/22 11:38 palpitations doxycycline AdvReac Intermediate Joint Pain Verified 06/24/22 11:38 <ANT Rico - Last Filed: 06/24/22 11:43> Review of Systems Review of Systems: Yes all other systems are reviewed and are negative <Tammy Vasquez NP - Last Filed: 06/24/22 15:23> Constitutional: Constitutional: Reports no additional constitutional complaints, Denies body ache(s), Denies chills, Denies fever(s), Denies headache(s) and Denies weakness <Tammy Vasquez NP - Last Filed: 06/24/22 15:23> Eyes: Eyes: Reports no additional eye complaints and Denies change in vision <Tammy Vasquez NP - Last Filed: 06/24/22 15:23> ENT: Reports system reviewed and no additional complaints, except as docume nted, Denies dizziness, Denies headache(s), Denies nasal congestion, Denies nasal discharge and Denies neck pain <Tammy Vasquez NP - Last Filed: 06/24/22 15:23> Cardiovascular: Cardiovascular: Reports no additional cardiovascular complaints, Denies chest pain, Denies leg edema and Denies dyspnea <Tammy Vasquez NP - Last Filed: 06/24/22 15:23> Respiratory: Respiratory: Reports no additional respiratory complaints, Denies cough and Denies dyspnea <Tammy Vasquez NP - Last Filed: 06/24/22 15:23> Gastrointestinal: Gastrointestinal: Reports no additional gastrointestinal complaints, Denies abdominal pain, Denies diarrhea, Denies nausea and Denies vomiting <Tammy Vasquez NP - Last Filed: 06/24/22 15:23> Genitourinary: Genitourinary: Reports no additional female genitourinary complaints and Denies urinary incontinence <Tammy Vasquez NP - Last Filed: 06/24/22 15:23> Musculoskeletal: Musculoskeletal: Reports no additional musculoskeletal complaints, Reports back pain, Reports arthralgias, Denies joint swelling, Denies neck pain, Denies numbness and Denies tingling <Tammy Vasquez NP - Last Filed: 06/24/22 15:23> Integumentary/Breasts: Skin/Breast: Reports system reviewed and no additional complaints, except as docu and Denies rash <Tammy Vasquez NP - Last Filed: 06/24/22 15:23> Neurologic: Reports system reviewed and no additional complaints, except as documented, Denies dizziness, Denies headache(s), Denies numbness, Denies tingling and Denies weakness <Tammy Vasquez NP - Last Filed: 06/24/22 15:23> [facility] Past Medical History Attestation statement: The following information was validated with the patient. <Tammy Vasquez NP - Last Filed: 06/24/22 15:23> Source: old records reviewed and nursing notes reviewed <Tammy Vasquez NP - Last Filed: 06/24/22 15:23> Medical History: Medical History Anxiety Anxiety and depression Asthma HLD (hyperlipidemia) HTN (hypertension) Hyperandrogenism PCOS (polycystic ovarian syndrome) Sleep apnea in adult T2DM (type 2 diabetes mellitus) Tachycardia Vitamin D deficiency <ANT Rico - Last Filed: 06/24/22 11:43> Surgical History: Surgical History No pertinent past surgical history <ANT Rico - Last Filed: 06/24/22 11:43> Family History Family History: Family History Mother Sleep apnea CVD (cardiovascular disease) Mental health disorder Father CVD (cardiovascular disease) Sleep apnea Substance use disorder Mental health disorder Sister Substance use disorder Mental health disorder <ANT Rico - Last Filed: 06/24/22 11:43> Social History Social History: Social History Housing: House Alcohol intake: current Patient Tobacco Use Status: Never used Tobacco e-Cigarette/Vaping Use: Never Used Second Hand Smoke Exposure: No Advance Directives: No Advance Directives Information Provided: No service: No Current occupational status: employed Current occupation: [employer] Current occupational exposures/hazards: No Cognitive needs: No Hearing needs: No Vision needs: No <ANT Rico - Last Filed: 06/24/22 11:43> Physical Exam Vital Signs: Vital Signs: Last Vital Signs Temp 98.0 F 06/24/22 15:12 Pulse 81 06/24/22 15:12 Resp 18 06/24/22 15:12 BP 126/79 06/24/22 15:12 Pulse Ox 100 06/24/22 15:12 O2 Del Method Room Air 06/24/22 15:12 BMI result Body Mass Index 42.9 <ANT Rico - Last Filed: 06/24/22 11:43> Vital Signs: Last Vital Signs Temp 98.0 F 06/24/22 15:12 Pulse 81 06/24/22 15:12 Resp 18 06/24/22 15:12 BP 126/79 06/24/22 15:12 Pulse Ox 100 06/24/22 15:12 O2 Del Method Room Air 06/24/22 15:12 BMI result Body Mass Index 42.9 <Tammy Vasquez PROCESSOR INSPECTOR - Last Filed: 06/24/22 15:23> Const: General: cooperative, healthy appearing, comfortable and no acute distress <Tammy Vasquez PROCESSOR INSPECTOR - Last Filed: 06/24/22 15:23> Orientation/consciousness: patient oriented x3 <Tammy Vasquez PROCESSOR INSPECTOR - Last Filed: 06/24/22 15:23> Neck: Neck: Yes normal visual inspection <Tammy Vasquez PROCESSOR INSPECTOR - Last Filed: 06/24/22 15:23> Resp: Effort & Inspection: normal respiratory effort <Tammy Vasquez PROCESSOR INSPECTOR - Last Filed: 06/24/22 15:23> Auscultation: clear to auscultation bilaterally, no crackles, no rales, no rhonchi and no wheezes <Tammy Vasquez PROCESSOR INSPECTOR - Last Filed: 06/24/22 15:23> Cardio: Jugular venous distension: no JVD <Tammy Vasquez PROCESSOR INSPECTOR - Last Filed: 06/24/22 15:23> Rate: regular rate <Tammy Vasquez PROCESSOR INSPECTOR - Last Filed: 06/24/22 15:23> Rhythm: regular rhythm <Tammy Vasquez PROCESSOR INSPECTOR - Last Filed: 06/24/22 15:23> Heart sounds: S1 normal heart sound present, S2 normal heart sound present, no gallops, no murmurs and no rubs <Tammy Vasquez PROCESSOR INSPECTOR - Last Filed: 06/24/22 15:23> : General: Yes no CVA tenderness <Tammy Vasquez, PROCESSOR INSPECTOR - Last Filed: 06/24/22 15:23> Back/Spine/Pelvis: Other: On exam there is tenderness on palpation over the lumbar spine and over the posterior left pelvis and hip with no palpable step-offs or deformities. Pain is worsened with left straight leg raise There is no shortening, rotation, deformity noted of the left lower extremity. <Tammy Vasquez PROCESSOR INSPECTOR - Last Filed: 06/24/22 15:23> Back: no CVA tenderness <Tammy Vasquez PROCESSOR INSPECTOR - Last Filed: 06/24/22 15:23> Neuro: General: patient oriented x3 and moves all extremities <Tammy Vasquez NP - Last Filed: 06/24/22 15:23> Cranial nerves: Yes CN's II-XII intact bilaterally, Yes Bilaterally intact EOM present, Yes Nystagmus not present and Yes Normal facial strength present <Tammy Vasquez PROCESSOR INSPECTOR - Last Filed: 06/24/22 15:23> Cognition (Neuro): normal cognition <Tammy Vasquez PROCESSOR INSPECTOR - Last Filed: 06/24/22 15:23> Motor exam (neuro): 5/5 motor strength present throughout <Tammychristophe Vasquez PROCESSOR INSPECTOR - Last Filed: 06/24/22 15:23> Sensory Exam: Normal double simultaneous stimulation for sensation <Tammy Vasquez PROCESSOR INSPECTOR - Last Filed: 06/24/22 15:23> Deep tendon reflexes (DTR's): Right patellar reflex intensity grade: 2+ and Left patellar reflex intensity grade: 2+ <Tammy Vasquez PROCESSOR INSPECTOR - Last Filed: 06/24/22 15:23> Extrem: General: Yes normal to inspection <Tammy Vasquez NP - Last Filed: 06/24/22 15:23> Psych: Appearance: grossly normal <Tammy Vasquez NP - Last Filed: 06/24/22 15:23> Mental Status: mental status grossly normal <Tammy Vasquez NP - Last Filed: 06/24/22 15:23> Speech and movement: Normal speech and movement present <Tammy Vasquez NP - Last Filed: 06/24/22 15:23> Course Course Course Narrative: RME - 32 yo female with history of obesity, PCOS, DM2, syncope, asthma, anxiety presents to the ER for evaluation of left hip pain and low back pain after she fell off of a 6 foot ladder this morning. She fell and hit the left hip and back against the cement area around her basement window. Reports severe pain, difficulty ambulating. No LOC. No chest pain or abdominal pain. Plan: XR left hip, XR lumbar spine <ANT Rico - Last Filed: 06/24/22 11:43> Reevaluation(s) Reevaluation #1: X-ray show no acute fracture. Patient received Toradol and Flexeril and reports improvement in pain although not complete resolution. She does feel comfortable going home and therefore I will discharge her home with NSAID, muscle relaxant and tramadol p.r.n.. Patient will follow-up with her primary care doctor's for any continued symptoms I did review worrisome signs and symptoms of when to return to the emergency room. Comfortable plan for discharge home. <Tammy Vasquez NP - Last Filed: 06/24/22 15:23> Medications Administered Discontinued Medications Generic Name Dose Route Start Last Admin Trade Name Freq PRN Reason Stop Dose Admin Cyclobenzaprine HCl 10 mg 06/24/22 14:44 06/24/22 14:51 Cyclobenzaprine Hcl 10 Mg Tablet PO 06/24/22 14:45 10 mg ONCE ONE Administration Ketorolac Tromethamine 60 mg 06/24/22 13:34 06/24/22 13:48 Ketorolac Tromethamine 60 Mg/2 Ml Vial IM 06/24/22 13:35 60 mg ONCE ONE Administration <ANT Rico - Last Filed: 06/24/22 11:43> Medications Administered Discontinued Medications Generic Name Dose Route Start Last Admin Trade Name Freq PRN Reason Stop Dose Admin Cyclobenzaprine HCl 10 mg 06/24/22 14:44 06/24/22 14:51 Cyclobenzaprine Hcl 10 Mg Tablet PO 06/24/22 14:45 10 mg ONCE ONE Administration Ketorolac Tromethamine 60 mg 06/24/22 13:34 06/24/22 13:48 Ketorolac Tromethamine 60 Mg/2 Ml Vial IM 06/24/22 13:35 60 mg ONCE ONE Administration <Tammy Vasquez NP - Last Filed: 06/24/22 15:23> Medical Decision Making Medical Decision Making MDM Narrative: This is a 32-year-old female who fell approximately 6 ft off of a ladder landing on her left hip and lower back with no reports of head strike or loss of consciousness now with pain over the lumbar spine and left hip. Patient with difficulty ambulating due to pain. Normal neuro exam with no focal finding Tenderness on palpation of the lumbar spine and posterior left hip and pelvis. Will check x-rays, UA, urine , provide analgesia <Tammy Vasquez NP - Last Filed: 06/24/22 15:23> Differential Diagnosis Differential Diagnoses: The differential diagnosis associated with the presentation includes <Tammy Vasquez NP - Last Filed: 06/24/22 15:23> Fracture, contusion Low concern for spinal injury, epidural hematoma, herniated disc, cord compression <Tammy Vasquez NP - Last Filed: 06/24/22 15:23> Lab Data MDM Lab Attestation statement: I reviewed the patient's lab results. <Tammy Vasquez NP - Last Filed: 06/24/22 15:23> Labs: Lab Results 06/24/22 06/24/22 Range/Units 14:39 14:39 Urine Color Yellow Urine Appearance Clear Urine pH 7.0 (5.0-9.0) Ur Specific [place] 1.025 (1.005-1.025) Urine Protein Negative (Neg-Trace) mg/dL Urine Glucose (UA) Negative (Negative) mg/dL Urine Ketones Trace (Negative) mg/dL Urine Blood Negative (Negative) Urine Nitrite Negative (Negative) Ur Leukocyte Esterase Trace H (Negative) Urine Test NEGATIVE (NEGATIVE) <ANT Rico - Last Filed: 06/24/22 11:43> Lab Results 06/24/22 06/24/22 Range/Units 14:39 14:39 Urine Color Yellow Urine Appearance Clear Urine pH 7.0 (5.0-9.0) Ur Specific [place] 1.025 (1.005-1.025) Urine Protein Negative (Neg-Trace) mg/dL Urine Glucose (UA) Negative (Negative) mg/dL Urine Ketones Trace (Negative) mg/dL Urine Blood Negative (Negative) Urine Nitrite Negative (Negative) Ur Leukocyte Esterase Trace H (Negative) Urine Test NEGATIVE (NEGATIVE) <Tammy Vasquez NP - Last Filed: 06/24/22 15:23> Independent Interpretation I performed an independent interpretation of an: Plain X-Ray <Tammy Vasquez NP - Last Filed: 06/24/22 15:23> Interpretation: I independently reviewed the x-rays and agree with radiologist's report <Tammy Vasquez NP - Last Filed: 06/24/22 15:23> Radiology Impression Discussion of test interpretation with radiology: I have reviewed the radiologist's reading. <Tammy Vasquez NP - Last Filed: 06/24/22 15:23> Radiologist Impression: [address] [id number] XRay Report Signed Patient: Leona Osullivan MR#: [id number] : 1990 Acct:[id number] Age/Sex: 32 / F ADM Date: 06/24/22 Loc: HO.ED Attending Dr: Ordering Physician: Leona Amaya Date of Service: 06/24/22 Procedure(s): XR hip LT w PEL1V Accession Number(s): [id number] cc: Leona Amaya~ EXAMINATION: XR LUMBAR SPINE XR PELVIS AND HIP, LEFT CLINICAL INFORMATION: Pain after a fall from ladder. COMPARISON: None available. TECHNIQUE: AP and lateral radiographs of the lumbar spine. AP radiograph of the pelvis. AP and frog-lateral views of the left hip. FINDINGS: Lumbar Spine: Dextroconvex scoliotic positioning of the lumbar spine with mild multilevel degenerative disc disease causing narrowing and small endplate osteophytes at L3-L4 and L4-L5. No acute fracture. Pelvis and Left Hip: No acute fracture or malalignment. No significant degenerative findings. No radiopaque foreign body. XR/XR hip LT w PEL1V IMPRESSION: Scoliotic positioning of the lumbar spine with mild degenerative disc disease. No acute abnormality. ? No acute fracture or malalignment of the pelvis or left hip. <Tammy Vasquez NP - Last Filed: 06/24/22 15:23> Discharge Plan Discharge Clinical Impression: Contusion of hip, left, Lumbar contusion <ANT Rico - Last Filed: 06/24/22 11:43> Patient Disposition: Home, Self-Care <ANT Rico - Last Filed: 06/24/22 11:43> Instructions: Acute Low Back Pain (ED), Hip Contusion (ED) <ANT Rico - Last Filed: 06/24/22 11:43> Additional Instructions: No heavy lifting or bending Gentle stretching Apply heat or ice affected area Follow-up with primary care doctor next week for any persistent symptoms Your x-ray showed no fractures today <ANT Rico - Last Filed: 06/24/22 11:43> Prescriptions: New meloxicam 7.5 mg tablet 7.5 mg PO DAILY Qty: 15 0RF cyclobenzaprine 10 mg tablet 10 mg PO TID PRN (Reason: muscle spasm) Qty: 15 0RF tramadol 50 mg tablet 50 mg PO Q8H PRN (Reason: pain) Qty: 8 0RF No Action (DME) nebulizers Misc See Rx Instructions .Route Qty: 1 0RF Rx Instructions: Q6 hrs prn for sob/wheezing (DME) nebulizer accessories Misc See Rx Instructions .Route Qty: 1 0RF Rx Instructions: Q6 hrs, prn for SOB/wheezing carisoprodol [Soma] 350 mg tablet 350 mg PO BEDTIME PRN (Reason: muscle pain) 14 Days Qty: 14 0RF Ozempic 0.25 mg or 0.5 mg(2 mg/1.5 mL) pen injector 0.5 mg subcut QWEEK Qty: 1.5 11RF Rx Instructions: Start 0.25 weekly x 4 weeks, then increase to 0.5 weekly thereafter. albuterol sulfate 90 mcg/actuation HFA aerosol inhaler 1 inh inhalation QID PRN (Reason: shortness of breath or wheezing) 30 Days Qty: 8.5 12RF bupropion HCl [Wellbutrin XL] 150 mg tablet extended release 24 hr 150 mg PO QAM 90 Days Qty: 90 0RF roflumilast 500 mcg tablet 500 mcg PO DAILY 30 Days Qty: 30 11RF hydroxyzine HCl 25 mg tablet 25 mg PO TID PRN (Reason: anxiety) 30 Days Qty: 90 0RF lorazepam 1 mg tablet 1 mg PO BID PRN (Reason: anxiety) 30 Days Qty: 60 0RF ondansetron 8 mg tablet,disintegrating 8 mg PO Q12H PRN (Reason: nausea and vomiting) 30 Days Qty: 60 0RF meloxicam 15 mg tablet 15 mg PO DAILY PRN (Reason: pain) 30 Days Qty: 30 0RF gabapentin 100 mg capsule 100 mg PO TID 30 Days Qty: 90 1RF (DME) FreeStyle Lite Strips Strip See Rx Instructions .ROUTE .MEDSUPPLY Qty: 100 11RF Rx Instructions: 4x daily azithromycin 250 mg tablet See Rx Instructions PO .COMPLEX 5 Days Qty: 6 0RF Rx Instructions: For 250 mg dose pack: take 500 mg today (day 1), then 250 mg for 4 days (days 2-5) PO prednisone 50 mg tablet 50 mg PO DAILY 6 Days Qty: 6 0RF levalbuterol HCl [Xopenex] 1.25 mg/3 mL solution for nebulization 1.25 mg inhalation Q6H PRN (Reason: shortness of breath or wheezing) Qty: 90 6RF levalbuterol tartrate [Xopenex HFA] 45 mcg/actuation HFA aerosol inhaler 2 puff inhalation Q6H PRN (Reason: shortness of breath or wheezing) 30 Days Qty: 15 11RF prednisone 20 mg tablet See Rx Instructions PO DAILY 10 Days Qty: 15 0RF Rx Instructions: PO daily; Take 2 tabs daily x 5 days, then 1 tablet daily x 5 days metformin 500 mg tablet extended release 24 hr 1,000 mg PO BID Breztri Aerosphere 160-9-4.8 mcg/actuation HFA aerosol inhaler 2 inh inhalation BID 30 Days Qty: 10.7 11RF (DME) lancets [FreeStyle Lancets] 28 gauge misc See Rx Instructions .ROUTE .MEDSUPPLY Qty: 100 11RF Rx Instructions: 4x daily (DME) blood-glucose meter [FreeStyle Lite Meter] Kit See Rx Instructions .Route Qty: 1 0RF Rx Instructions: As directed benzonatate 200 mg capsule 200 mg PO BID PRN (Reason: cough) lamotrigine 25 mg tablet 50 mg PO DAILY norethindrone (contraceptive) 0.35 mg tablet 0.35 mg PO DAILY diltiazem HCl 180 mg capsule,extended release 24hr 180 mg PO DAILY Qty: 90 3RF <ANT Rico - Last Filed: 06/24/22 11:43> Referrals: Antoine Rodríguez, [employer] [Primary Care Provider] - 1 week (as needed) <ANT Rico - Last Filed: 06/24/22 11:43> Stand Alone Forms: Work/School Release <ANT Rico - Last Filed: 06/24/22 11:43> Interventions: ED Discharge Assessment Last Done: 06/24/22 15:17 <ANT Rico - Last Filed: 06/24/22 11:43> Discharge Date/Time: 06/24/22 15:17 <ANT Rico - Last Filed: 06/24/22 11:43>
[2022-06-24 11:39] VITALS: BP 134/85; PULSE 110; RESP 17; TEMP 36.6; O2SAT 98; BMI 42.9
[2022-06-24] MEDS: Ketorolac Tromethamine 60 MG/2 ML VIAL IM (13:48)
--- NOTE | 2022-06-24 13:56 | PC.NURSE ---
pt medicated per MAR- reporsitioned pt from semi reddy to sitting position. pt reports 10/10 left hip and back pain, tearful upon arrival to exam room- pending xray results
[2022-06-24 14:47] LABS: Appearance Urine Clear; Color Urine Yellow; Glucose Urine UA Negative (Negative); Leukocyte Esterase Urine Trace (Negative); Nitrite Urine Negative (Negative); Specific Gravity - Urine 1.025 (1.005-1.025); UMIC TRIGGER UACC YES; Urine Blood Negative (Negative); Urine Ketones Trace mg/dL (Negative); Urine Protein Negative (Neg-Trace)
[2022-06-24 14:48] LABS: UPreg QC Valid YES; Urine Pregnancy NEGATIVE (NEGATIVE)
[2022-06-24 14:51] LABS: Bacteria Urine None Seen (None Seen); Hyaline Casts Urine 0-2 /LPF (0-2); RBC Urine 0-2 /HPF (0-2); Squamous Epithelial Cell Urine 0-2 /HPF (0-2); WBC Urine 0-5 /HPF (0-5)
[2022-06-24] MEDS: Cyclobenzaprine HCl 10 MG TABLET PO (14:51)
[2022-06-24 15:12] VITALS: BP 126/79; PULSE 81; RESP 18; TEMP 36.7; O2SAT 100
== END 2022-06-24 15:17 | disposition home or self-care (01) ==
PROVIDERS: Physician Assistant; Emergency Provider Emergency Medicine; PCP Nurse Practitioner Family
DX: S70.02XA Contusion of left hip, initial encounter (principal); S30.0XXA Contusion of lower back and pelvis, initial encounter; M25.552 Pain in left hip; W11.XXXA Fall on and from ladder, initial encounter; Y93.9 Activity, unspecified; Y92.9 Unspecified place or not applicable; Y99.9 Unspecified external cause status; Z79.899 Other long term (current) drug therapy
CPT/HCPCS: 72100; 73502; 81001; 81025; 96372; 99284; J1885

== ENCOUNTER 2022-06-30 06:32 | Outpatient (REF) | payer OTHER, SELFPAY ==
[2022-06-30 07:54] LABS: Estimated Average Glucose 105 mg/dL; Hemoglobin A1c % 5.3 %
[2022-06-30 08:15] LABS: Alanine Aminotransferase 25 U/L (0-31); Alkaline Phosphatase 86 U/L (39-117); Anion Gap 12 (12-20); Aspartate Amino Transferase 14 U/L (5-31); Bilirubin Total 0.3 mg/dL (0.0-1.0); Blood Urea Nitrogen 12 mg/dL (9-16); Calcium 8.7 mg/dL (8.4-10.2); Carbon Dioxide 26 mmol/L (22-29); Chloride 104 mmol/L (96-108); Cholesterol 144 mg/dL; Estimated Glomerular Filt Rate > 60; Glucose Random 92 mg/dL (60-115); HDL Cholesterol 30 mg/dL; LDL Cholesterol Calculated 84 mg/dl; Potassium 4.8 mmol/L (3.3-5.1); Sodium 137 mmol/L (135-145); Total Protein 6.6 g/dL (6.5-8.0); Triglycerides 152 mg/dL
[2022-06-30 09:15] LABS: Microalbum/Creatinine Ratio Ur 4.8 ug/mg cr
[2022-07-02 00:53] LABS: DHEA Sulfate 187 mcg/dL (19-237); Follicle Stimulating Hormone 5.5 mIU/mL; Lutenizing Hormone 13.1 mIU/mL; Sex Hormone Binding Globulin 15 nmol/L (17-124)
[2022-07-02 02:44] LABS: LDL Cholesterol Direct 122 mg/dL (<100)
[2022-07-07 00:08] LABS: Estradiol Ultra Sensitive 40 pg/mL
[2022-07-07 16:09] LABS: Testosterone, Free 4.7 pg/mL (0.1-6.4); Testosterone, Total 19 ng/dL (2-45)
[2022-07-13 13:59] LABS: Androstenedione 120 ng/dL
== END 2022-06-30 06:33 | disposition home or self-care (01) ==
LOC: HO.LAB 06:32
PROVIDERS: PCP Nurse Practitioner Family; Visit Provider Internal Medicine
DX: E11.9 Type 2 diabetes mellitus without complications (principal); E28.8 Other ovarian dysfunction; R07.9 Chest pain, unspecified
CPT/HCPCS: 36415; 80053; 80061; 82043; 82157; 82627; 82670; 83001; 83002; 83036; 83721; 84270; 84402; 84403

== ENCOUNTER → 2022-07-06 07:17 | Outpatient (BNVA) | payer OTHER, SELFPAY | PROVIDERS: PCP Nurse Practitioner Family; Visit Provider Internal Medicine | DX: E11.9 Type 2 diabetes mellitus without complications (principal) | CPT/HCPCS: 82947 ==

== ENCOUNTER → 2022-07-16 08:54 | Outpatient (BNVA) | payer OTHER, SELFPAY | PROVIDERS: PCP Nurse Practitioner Family; Referring Provider Nurse Practitioner Family; Visit Provider Surgery | DX: Z13.89 Encounter for screening for other disorder (principal) ==

== ENCOUNTER 2022-10-16 08:17 | Outpatient (AMB) | payer OTHER, SELFPAY ==
--- NOTE | 2022-10-16 08:17 | AM.OFFVISNUR ---
Intake Intake Visit Reasons: EKG-REQUESTED BY PSYCH. Dust Control Engineer Required: No Accompanied by: Self / Same As Patient Allergies lisinopril [LISINOPRIL] Allergy (Severe, Verified 10/16/22 08:18) COUGH Penicillins [PENICILLINS] Allergy (Severe, Verified 10/16/22 08:18) HIVES vancomycin Allergy (Severe, Verified 10/16/22 08:18) Rash chlorthalidone Adverse Reaction (Severe, Verified 10/16/22 08:18) tachycardia, palpitations doxycycline Adverse Reaction (Intermediate, Verified 10/16/22 08:18) Joint Pain Nursing Note Patient was seen in office for an EKG requested by her psychiatrist. EKG shows NSR w/ heart rate of 78BPM patient has no cardiac complaints. EKG on Dr. Neff's desk for review and signature. Office Procedures EKG [id number], Complete Coding Diagnoses CPT Codes EKG - CPT: 88761-[id number], Complete ([id number])
== END 2022-10-16 08:23 | disposition home or self-care (01) ==
LOC: HO.HCS 08:17
PROVIDERS: PCP Nurse Practitioner Family; Visit Provider Internal Medicine Cardiovascular Disease
DX: L72.3 Sebaceous cyst (principal)
CPT/HCPCS: 93010

== ENCOUNTER → 2022-10-16 08:17 | Outpatient (BNVA) | payer OTHER, SELFPAY | PROVIDERS: PCP Nurse Practitioner Family; Visit Provider Internal Medicine Cardiovascular Disease | DX: R94.31 Abnormal electrocardiogram [ECG] [EKG] (principal) | CPT/HCPCS: 93005 ==

== ENCOUNTER 2022-12-23 09:24 | Outpatient (REF) | payer OTHER, SELFPAY ==
[2022-12-23 10:52] LABS: Creatinine Urine 177.58 mg/dL; Microalbum/Creatinine Ratio Ur 4.5 ug/mg cr (<30)
[2022-12-23 10:53] LABS: Alanine Aminotransferase 26 U/L (0-31); Albumin Level 3.9 g/dL (3.5-5.0); Alkaline Phosphatase 66 U/L (39-117); Anion Gap 10 (12-20); Aspartate Amino Transferase 20 U/L (5-31); Bilirubin Total 0.2 mg/dL (0.0-1.0); Blood Urea Nitrogen 6 mg/dL (9-16); Calcium 9.1 mg/dL (8.4-10.2); Carbon Dioxide 23 mmol/L (22-29); Chloride 106 mmol/L (96-108); Cholesterol 129 mg/dL (<200); Estimated Glomerular Filt Rate > 60; Glucose Random 130 mg/dL (60-115); HDL Cholesterol 36 mg/dL (>40); LDL Cholesterol Calculated 58 mg/dL (<100); Potassium 3.5 mmol/L (3.3-5.1); Sodium 135 mmol/L (135-145); Triglycerides 178 mg/dL (<150)
[2022-12-23 11:12] LABS: Vitamin D 25-OH Total 26.8 ng/mL (>30)
[2022-12-23 11:43] LABS: Vitamin B12 379 pg/mL (200-900)
[2022-12-23 11:59] LABS: Estimated Average Glucose 97 mg/dL
[2022-12-24 20:44] LABS: DHEA Sulfate 254 mcg/dL (19-237); Sex Hormone Binding Globulin 68 nmol/L (17-124)
[2022-12-24 20:58] LABS: LDL Cholesterol Direct 81 mg/dL (<100)
[2022-12-29 22:24] LABS: Estradiol Ultra Sensitive 873 pg/mL
[2022-12-30 19:18] LABS: Androstenedione 191 ng/dL
[2022-12-31 11:03] LABS: Testosterone, Total 53 ng/dL (2-45)
== END 2022-12-23 09:25 | disposition home or self-care (01) ==
LOC: HO.LAB 09:24
PROVIDERS: PCP Nurse Practitioner Family; Visit Provider Internal Medicine
DX: E28.2 Polycystic ovarian syndrome (principal); E55.9 Vitamin D deficiency, unspecified; E11.9 Type 2 diabetes mellitus without complications
CPT/HCPCS: 36415; 80053; 80061; 82043; 82157; 82306; 82570; 82607; 82627; 82670; 83036; 83721; 84270; 84402; 84403

== ENCOUNTER 2022-12-29 07:46 | Outpatient (AMB) | payer OTHER, SELFPAY ==
[2022-12-29 07:50] VITALS: BP 138/88; PULSE 93; BMI 44.2
--- NOTE | 2022-12-29 07:50 | A.OFFVIS_ITS ---
Intake Vital Signs 12/29/22 07:50 Height 5 ft 4 in Weight 257 lb 11.526 oz BMI 44.2 BP 138/88 Blood Pressure Location Lt brachial Position Sitting Pulse 93 Pulse Source Pulse Oximeter Intake Visit Reasons: DM2/LVM Intake Note: Patient presents today to follow up on Type 2 Diabetes Mellitus. Previously seen by Dr. Maki. Patient receives DME supplies through: Last Diabetic Eye exam: Over 1 year Last Podiatry Visit:None Random Glucose: mg/dl HgA1C: 5.0% 12/23/22 Level Designer Required: No Accompanied by: Self / Same As Patient Allergies lisinopril [LISINOPRIL] Allergy (Severe, Verified 12/29/22 07:57) COUGH Penicillins [PENICILLINS] Allergy (Severe, Verified 12/29/22 07:57) HIVES vancomycin Allergy (Severe, Verified 12/29/22 07:57) Rash chlorthalidone Adverse Reaction (Severe, Verified 12/29/22 07:57) tachycardia, palpitations doxycycline Adverse Reaction (Intermediate, Verified 12/29/22 07:57) Joint Pain Medication List - Last Reconciled 12/29/22 by Duong Robledo MD albuterol sulfate 90 mcg/actuation 1 inh inhalation QID PRN 30 days blood sugar diagnostic (FreeStyle Lite Strips) 4x daily blood-glucose meter (FreeStyle Lite Meter kit) As directed [id number]-[id number]-aryikowzsc 160-9-4.8 mcg/actuation (Breztri Aerosphere) 2 inhalations inhalation BID 30 days bupropion HCl (Wellbutrin SR) 150 mg PO QAM carisoprodol (Soma) 350 mg PO BEDTIME PRN 14 days cyclobenzaprine 10 mg PO TID PRN diclofenac sodium 50 mg PO BID PRN 30 days diltiazem HCl 120 mg PO BID 30 days flash glucose scanning reader (Immunovative TherapiesStyle Kristen 2 [place]) As directed flash glucose sensor (FreeStyle Kristen 2 Sensor kit) Once every 14 days gabapentin 100 mg PO TID 30 days lamotrigine 50 mg PO BID lancets (Immunovative TherapiesStyle Lancets) 4x daily levalbuterol HCl (Xopenex) 1.25 mg (3 mL) inhalation Q6H PRN levalbuterol tartrate 45 mcg/actuation (Xopenex HFA) 2 puffs inhalation Q6H PRN 30 days lorazepam 1 mg PO BID PRN 30 days meloxicam 7.5 mg PO DAILY meloxicam 15 mg PO DAILY PRN 30 days nebulizer accessories Q6 hrs, prn for SOB/wheezing nebulizers Q6 hrs prn for sob/wheezing ondansetron 8 mg PO Q12H PRN 30 days roflumilast 500 mcg PO DAILY 30 days tirzepatide (Mounjaro) 5 mg (0.5 mL) subcut QWEEK 4 weeks HPI HPI Comments History of Present Illness Details 32 YO F with PMHx Hyperandrogenism and a new diagnosis of T2DM who is seen in F/U.. The patient last saw Dr. Maki on 07/06/2022. Currently 9 wks but is thinking about aborting the fetus 1) T2DM: Initially diagnosed with T2DM in 2021 with her 2 hour OGTT that was completed during her workup for hyperandrogenism which came back abnormal. Fasting sugar was 121, and ankit to 229 and 214 at the 1 and 2 hour sampson respectively. She is on Mounjaro Did not bring her meter with her today. Most recent A1C: 5.0% 12/19/2022, down from 5.8% 03/07/2021, but this is inaccurate given her PCOS. Family history of T2DM in both parents and her siblings. Has not had an eye exam. Unsure if retinopathy. Unsure if neuropathy. Unsure if nephropathy. Not on YOSELYN/ARB. Has an allergy to lisinopril. UAC 8.0 09/16/2021. Unsure if HLD. Not on statin. LDL 122 06/30/2022. Was trialed on Atorvastatin 40 mg PO daily but developed myalgias so this was stopped. Denies CAD. Diet: Not counting carbs. Weight: Has lost 20 lbs since her last visit. Has not had diabetes education. 2) Hyperandrogenism: Menarche was age 10. Menses have always been irregular coming only once or twice a year. She had an IUD placed and had amenorrhea while the IUD was in place. IUD was removed in October 2021. She does report initially she had near constant menses after removal, but this has now normalized. She has had 4 normal monthly menses over the past 4 months. OCP use: Denies Metformin use: 1000 mg PO daily Weight gain: Has gained 10 lbs Hirsutism/hyperandrogenism: Has hirsutism of her chin, chest and face. She has 3 children but required letrozole to induce ovulation. US Ovaries: 02/10/2021 FINDINGS: The uterus is anteverted and measures 8.4 x 4.4 x 5.6 cm in dimension. No focal uterine lesion is seen. The endometrium is slightly thickened measuring up to 1.9 cm. The endometrium is slightly heterogeneous appearing with small cystic areas. There are small nabothian cysts in the cervix. The ovaries are normal in size. The right ovary measures 2.2 x 2.2 x 3 cm. The left ovary measure s 3.2 x 3.2 x 2.4 cm. There is polycystic appearance of the ovaries with multiple small peripheral cysts or follicles. There is no fluid in the pelvis. CT Abdomen: 05/09/2021 FINDINGS: LUNG BASES: Normal? LIVER, GALLBLADDER, AND BILIARY TREE: Normal? PANCREAS: Normal? SPLEEN: Normal? ADRENAL GLANDS AND KIDNEYS: Normal BOWEL LOOPS: Normal. Normal appendix. There is diastasis of the rectus muscles. There is a small umbilical hernia containing fat.? LYMPH NODES: Normal. VASCULAR: Unremarkable. BONES: Normal? CT/CT abdomen wo/w con IMPRESSION: Normal-appearing adrenal glands. Labs: Laboratory Tests 09/16/21 09/16/21 09/16/21 07:32 07:38 07:38 Sodium 139 Potassium 4.3 Creatinine 0.80 Estimated GFR > 60 Random Glucose Hemoglobin A1c % Triglycerides Cholesterol LDL Cholesterol Di rect 115 H HDL Cholesterol 25-OH Vitamin D To yulissa 26.6 FSH Luteinizing Hormon e Sex Hormone Bind G lob DHEA Sulfate Microalb/Creat Rat io 8.0 06/30/22 06/30/22 06/30/22 06:40 06:40 06:40 Sodium 137 Potassium 4.8 Creatinine 0.78 Estimated GFR > 60 Random Glucose 92 Hemoglobin A1c % 5.3 Triglycerides 152 Cholesterol 144 LDL Cholesterol Di rect 122 H HDL Cholesterol 30 25-OH Vitamin D To yulissa FSH 5.5 Luteinizing Hormon e 13.1 Sex Hormone Bind G lob 15 L DHEA Sulfate 187 Microalb/Creat Rat io [facility] Medical History Anxiety Anxiety and depression Asthma HLD (hyperlipidemia) HTN (hypertension) Hyperandrogenism PCOS (polycystic ovarian syndrome) Sleep apnea in adult T2DM (type 2 diabetes mellitus) Tachycardia Vitamin D deficiency Surgical History No pertinent past surgical history Family History Mother Sleep apnea CVD (cardiovascular disease) Mental health disorder Father CVD (cardiovascular disease) Sleep apnea Substance use disorder Mental health disorder Sister Substance use disorder Mental health disorder Social History Housing: House Alcohol intake: current Patient Tobacco Use Status: Never used Tobacco e-Cigarette/Vaping Use: Never Used Second Hand Smoke Exposure: No service: No Current occupational status: employed Current occupation: [employer] Current occupational exposures/hazards: No Cognitive needs: No Hearing needs: No Vision needs: No Female Reproductive History Menstrual Age of Menarche: 10 Physical Exam Vital Signs: Last Vital Signs Pulse 93 12/29/22 07:50 BP 138/88 12/29/22 07:50 BMI result Body Mass Index 44.2 Assessment & Plan Assessment & Plan (1) T2DM (type 2 diabetes mellitus): Code(s): E11.9 - Type 2 diabetes mellitus without complications Plan: Is a 32-year-old white female with a history of hyperandrogenism and type 2 diabetes being treated with Mounjaro with excellent glycemic control and no known microvascular or macrovascular complications Plan is to hold off on a treatment currently. At this point, she could be returned to the care of her primary care provider and integration lead. Once the pregnancies terminated, primary care provider can consider reinitiating Mounjaro for weight loss and diabetes. 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 Did tell patient if she is i interested in pursuing anti- androgenic treatment like spironolactone after is terminate, can follow up Coding Level of Care Code Est Pt Level 3 (15584) Diagnoses T2DM (type 2 diabetes mellitus) E11.9
== END 2022-12-29 08:09 | disposition home or self-care (01) ==
PROVIDERS: PCP Nurse Practitioner Family; Referring Provider Nurse Practitioner Family; Visit Provider Internal Medicine Endocrinology, Diabetes & Metabolism
DX: E11.9 Type 2 diabetes mellitus without complications (principal)
CPT/HCPCS: 99213

== ENCOUNTER → 2022-12-29 07:46 | Outpatient (BNVA) | payer OTHER, SELFPAY | PROVIDERS: Visit Provider Internal Medicine Endocrinology, Diabetes & Metabolism ==

== ENCOUNTER 2023-02-01 13:22 | Outpatient (AMB) | payer OTHER, SELFPAY ==
[2023-02-01 13:27] VITALS: BP 132/90; PULSE 85; BMI 42.4
--- NOTE | 2023-02-01 13:27 | MHC.OFFVIS ---
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 Machine Required: No Allergies lisinopril [LISINOPRIL] Allergy (Severe, Verified 02/01/23 13:28) COUGH Penicillins [PENICILLINS] Allergy (Severe, Verified 02/01/23 13:28) HIVES vancomycin Allergy (Severe, Verified 02/01/23 13:28) Rash chlorthalidone Adverse Reaction (Severe, Verified 02/01/23 13:28) tachycardia, palpitations doxycycline Adverse Reaction (Intermediate, Verified 02/01/23 13:28) Joint Pain Medication List - Last Reconciled 02/01/23 by IMELDA Shay albuterol sulfate 90 mcg/actuation 1 inh inhalation QID PRN 30 days blood sugar diagnostic (WellAWARE SystemsStyle Lite Strips) 4x daily blood-glucose meter (WellAWARE SystemsStyle Lite Meter kit) As directed [id number]-kkhrlozv-rjlzyhnogm 160-9-4.8 mcg/actuation (Breztri Aerosphere) 2 inhalations inhalation BID 30 days bupropion HCl (Wellbutrin SR) 150 mg PO QAM carisoprodol (Soma) 350 mg PO BEDTIME PRN 14 days cyclobenzaprine 10 mg PO TID PRN diclofenac sodium 50 mg PO BID PRN 30 days diltiazem HCl 300 mg PO DAILY flash glucose scanning reader ([employer] Kristen 2 [place]) As directed flash glucose sensor (WellAWARE SystemsStyle Kristen 2 Sensor kit) Once every 14 days gabapentin 100 mg PO TID 30 days lamotrigine 50 mg PO BID lancets (FreeStyle Lancets) 4x daily levalbuterol HCl (Xopenex) 1.25 mg (3 mL) inhalation Q6H PRN lorazepam 1 mg PO BID PRN 30 days meloxicam 15 mg PO DAILY PRN 30 days nebulizer accessories Q6 hrs, prn for SOB/wheezing nebulizers Q6 hrs prn for sob/wheezing roflumilast 500 mcg PO DAILY 30 days tirzepatide (Mounjaro) 7.5 mg (0.5 mL) subcut QWEEK HPI f/u HPI Details Leona is a 32 yo female with PMH of morbid obesity, asthma, HTN, inappropriate sinus tachycardia, new finding of POTS who now presents for follow up. Today she reports that she has had episodes of rapid heartbeat and lightheadedness with prolong standing. She has not had any documented low blood pressures. No full presyncope, syncope, falls. She is working on increasing her fluid intake. She has tried compression stockings but does not feel they make any difference in how she feels. 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 She has skipped a few doses of the evening diltiazem accidentally. She is working the hours of 3a to 3p which has been challenging. No chest discomfort at rest or with activity. No shortness of breath at present, PND, orthopnea or edema. She has intermittent issues with her asthma, currently controlled. [facility] Medical History Asthma Tachycardia Vitamin D deficiency Hyperandrogenism HLD (hyperlipidemia) T2DM (type 2 diabetes mellitus) Sleep apnea in adult Anxiety and depression Anxiety HTN (hypertension) PCOS (polycystic ovarian syndrome) Surgical History No pertinent past surgical history Family History Mother Sleep apnea CVD (cardiovascular disease) Mental health disorder Father CVD (cardiovascular disease) Sleep apnea Substance use disorder Mental health disorder Sister Substance use disorder Mental health disorder Social History Housing: House Alcohol intake: current Patient Tobacco Use Status: Never used Tobacco e-Cigarette/Vaping Use: Never Used Second Hand Smoke Exposure: No service: No Current occupational status: employed Current occupation: [employer] [place] Current occupational exposures/hazards: No Cognitive needs: No Hearing needs: No Vision needs: No Female Reproductive History Menstrual Age of Menarche: 10 Review of Systems Const All systems reviewed & are unremarkable except as noted in HPI and below ENT Denies dizziness Card Details: tunnel vision x1 Denies chest pain, Denies chest pain at rest, Denies chest pain with activity, Reports rapid heart rate, Denies pedal edema, Denies edema, Denies leg edema, Denies lightheadedness, Denies palpitations, Reports dyspnea (asthma), Denies dyspnea on exertion and Denies orthopnea Resp Denies cough, Reports dyspnea (asthma) and Denies dyspnea on exertion GI Denies hematochezia and Denies change in stool character Musc Denies abnormal gait, Denies limited range of motion, Denies muscle cramps, Denies muscle weakness, Denies numbness, Denies radiating pain into limb, Denies stiffness and Denies tingling Neuro Denies abnormal gait, Denies dizziness, Denies numbness and Denies tingling Endo Denies palpitations Physical Exam Vital Signs: Last Vital Signs Pulse 85 02/01/23 13:27 BP 132/90 H 02/01/23 13:27 BMI result Body Mass Index 42.4 Const General: cooperative, healthy appearing, comfortable and no acute distress Orientation/consciousness: patient oriented x3 Neck Neck: Yes normal visual inspection Resp Effort & Inspection: normal respiratory effort Auscultation: clear to auscultation bilaterally, no crackles, no rales, no rhonchi and no wheezes Cardio Jugular venous distension: no JVD Rate: regular rate Rhythm: regular rhythm Heart sounds: S1 normal heart sound present, S2 normal heart sound present, no gallops, no murmurs and no rubs Neuro General: patient oriented x3 Extrem General: Yes normal to inspection, No no pedal edema and No calf tenderness Psych Appearance: grossly normal Mental Status: mental status grossly normal Speech and movement: Normal speech and movement present Assessment & Plan Assessment & Plan (1) Palpitations: Code(s): R00.2 - Palpitations Plan: History of heart palpitations with reported prior diagnosis of inappropriate sinus tachycardia. Echocardiogram done 06/25/2021 showed EF 55-60%, no valve abnormalities. Holter monitor done 06/30/2021 for 3 days showed sinus rhythm with average heart rate 91, 26% of the time heart rate greater than 100, rare PVCs. Following this results she was started on metoprolol however it was then stopped due to asthma exacerbations. Since then she has noted recurrent and increased heart palpitations. She reduced her caffeine intake. She was started on Diltiazem CD 120 mg daily with improvement in palpitations however still having elevated heart rates and BPs. Her diltiazem dose was increased to 180 mg daily then changed to 120 mg b.i.d. a tilt-table test was done on 10/13/2022 which confirmed the diagnosis POTS. Today she describes episodes of lightheadedness and narrowed vision with prolonged standing. She has not had any full presyncope, syncope, falls. She feels her heart rate remains elevated with even light physical activity with rates noted as high as 150. She has not had any bradycardia or hypotension. 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 Reviewed the need for increasing fluid intake, recognizing symptoms and getting in a sitting or laying down position. Use of compression stockings reviewed. Will increase her diltiazem up to 300 mg daily. She will continue monitor vital signs periodically at work and at home. Cardiology follow up in 6 mo, sooner if needed (2) Tachycardia: Code(s): R00.0 - Tachycardia, unspecified (3) Syncope: Code(s): R55 - Syncope and collapse Plan: Patient experienced a syncopal event at home a few months ago in the setting of vomiting during COVID infection. She was treated at [facility] for dehydration. Notes reviewed from that visit and she was not hypotensive, heart rate was elevated. She was given 2 L of IV fluid with improvement heart rate and condition. She did sustain an ecchymotic area around her eye. No recurrent syncopal events since then. No history of syncope in the past. Her episodes sounds like it was vasovagal event as she was vomiting when it occurred. She has not had any recurrent events like this. Aware to sit down, lay down if she recognizes recurrent symptoms. (4) Anxiety: Code(s): F41.9 - Anxiety disorder, unspecified Plan: Offered reassurance. Discussed how anxiety can add to her tachycardic tendencies. Says she is working on this and doing better recently (5) POTS (postural orthostatic tachycardia syndrome): Code(s): G90.A - Postural orthostatic tachycardia syndrome [POTS] Plan: Confirmed by tilt-table test 10/13/2022 Medications: New diltiazem HCl 300 mg PO DAILY 90 caps 1RF Discontinued diltiazem HCl Discontinued Reason: Doctor's Order 120 mg PO BID 30 days 60 caps 1RF Coding Level of Care Code Est Pt Level 3 (32447) Diagnoses Palpitations R00.2 Tachycardia R00.0 Syncope R55 Anxiety F41.9 POTS (postural orthostatic tachycardia syndrome) G90.A Time Spent (min) 24
== END 2023-02-01 13:49 | disposition home or self-care (01) ==
PROVIDERS: PCP Nurse Practitioner Family; Visit Provider Nurse Practitioner Family
DX: R00.2 Palpitations (principal); R00.0 Tachycardia, unspecified; R55 Syncope and collapse; F41.9 Anxiety disorder, unspecified; G90.A Postural orthostatic tachycardia syndrome [POTS]
CPT/HCPCS: 99213

== ENCOUNTER → 2023-02-01 13:22 | Outpatient (BNVA) | payer OTHER, SELFPAY | PROVIDERS: PCP Nurse Practitioner Family; Visit Provider Nurse Practitioner Family ==

== ENCOUNTER 2023-02-25 07:00 | Emergency (ER) | payer OTHER, SELFPAY ==
--- NOTE | ~2023-02-25 | XR_ITS ---
EXAMINATION: XR CHEST 2 VIEW CLINICAL INFORMATION: Cough and shortness of breath COMPARISON: 05/07/2022 TECHNIQUE: PA and lateral views of the chest obtained. FINDINGS: The lungs are clear. There are no pleural effusions. The cardiomediastinal silhouette is normal. XR/XR chest 2V IMPRESSION: No acute cardiopulmonary disease.
[2023-02-25 07:06] VITALS: BP 185/115; PULSE 115; RESP 18; TEMP 37.3; O2SAT 98; BMI 41.0
--- NOTE | 2023-02-25 07:09 | ED.GENADULT ---
HPI - General Adult General Chief complaint: Upper Respiratory Symptoms Stated complaint: cough resp issues Time Seen by Provider: 02/25/23 07:07 Source: patient Mode of arrival: ambulatory Limitations: no limitations History of Present Illness HPI narrative: Patient is a 32 year old assigned female at with a history of asthma and HTN presenting to the emergency department today feeling generally unwell and coughing. Patient states that over the last day she has felt generally unwell and has had a cough. Patient denies any dizziness, lightheadedness, abdominal pain, nausea, vomiting, fever, chills, blurry vision, double vision, loss of vision, chest pain, difficulty breathing, shortness of breath, back pain, night sweats, pain with urination, increased urinary frequency, increased urinary urgency, blood in her urine or stool, syncope or a near syncopal episode, recent trauma or falls, bowel incontinence, bladder incontinence, bowel retention, bladder retention, or any other complaints at this time. Onset (ago): day(s) (1) Severity: mild Severity scale (1-10): 3 Relieving factors: none Exacerbating factors: none Associated symptoms: cough Treatments prior to arrival: none Related Data Home Medications Medication Instructions Recorded Confirmed lamotrigine 25 mg tablet 50 mg PO BID 06/30/22 02/01/23 bupropion HCl 150 mg tablet,12 hr 150 mg PO QAM 12/29/22 02/01/23 sustained-release (Wellbutrin SR) Previous Rx's Medication Instructions Recorded nebulizer accessories #1 ea 03/10/21 nebulizers #1 ea 03/10/21 blood-glucose meter (FreeStyle #1 ea 04/02/21 Lite Meter kit) lancets 28 gauge (FreeStyle #100 ea 04/02/21 Lancets) budesonide 160 mcg-glycopyr 9 2 inh inhalation BID 30 days #10.7 09/26/21 mcg-formot 4.8 mcg/actuation HFA grams inhaler (Breztri Aerosphere) albuterol sulfate 90 mcg/actuation 1 inh inhalation QID PRN shortness 01/08/22 aerosol inhaler of breath or wheezing 30 days #8.5 grams lorazepam 1 mg tablet 1 mg PO BID PRN anxiety 30 days 03/05/22 #60 tabs meloxicam 15 mg tablet 15 mg PO DAILY PRN pain 30 days 04/28/22 #30 tabs blood sugar diagnostic (FreeStyle #100 ea 04/29/22 Lite Strips) levalbuterol HCl 1.25 mg/3 mL 1.25 mg (3 mL) inhalation Q6H PRN 05/08/22 solution for nebulization (Xopenex) shortness of breath or wheezing #90 mL cyclobenzaprine 10 mg tablet 10 mg PO TID PRN muscle spasm #15 06/24/22 tabs diclofenac sodium 50 mg 50 mg PO BID PRN pain 30 days #60 06/30/22 tablet,delayed release tabs carisoprodol 350 mg tablet (Soma) 350 mg PO BEDTIME PRN muscle pain 07/06/22 14 days #14 tabs gabapentin 100 mg capsule 100 mg PO TID 30 days #90 caps 07/06/22 flash glucose scanning reader #1 ea 07/20/22 (Sonivate MedicalStyle Kristen 2 [place]) flash glucose sensor (FreeStyle #2 ea 11/26/22 Kristen 2 Sensor kit) roflumilast 500 mcg tablet 500 mcg PO DAILY 30 days #30 tabs 01/05/23 tirzepatide 7.5 mg/0.5 mL 7.5 mg (0.5 mL) subcut QWEEK #2 mL 01/18/23 subcutaneous pen injector (Dennis) diltiazem HCl 300 mg 300 mg PO DAILY #90 caps 02/01/23 capsule,extended release 24 hr prednisone 20 mg tablet 20 mg PO DAILY 7 days #7 tabs 02/25/23 Allergies Allergy/AdvReac Type Severity Reaction Status Date / Time lisinopril [LISINOPRIL] Allergy Severe COUGH Verified 02/01/23 13:28 Penicillins [PENICILLINS] Allergy Severe HIVES Verified 02/01/23 13:28 vancomycin Allergy Severe Rash Verified 02/01/23 13:28 chlorthalidone AdvReac Severe tachycardia, Verified 02/01/23 13:28 palpitations doxycycline AdvReac Intermediate Joint Pain Verified 02/01/23 13:28 Review of Systems Constitutional: Constitutional: Reports no additional constitutional complaints, Denies chills, Denies fever(s) and Denies night sweats Eyes: Eyes: Reports no additional eye complaints, Denies blurry vision, Denies change in vision, Denies diplopia, Denies eye discharge, Denies loss of vision and Denies eye pain ENT: Denies dizziness Cardiovascular: Cardiovascular: Reports no additional cardiovascular complaints, Denies chest pain, Denies lightheadedness, Denies Loss of Consciousness and Denies dyspnea Respiratory: Respiratory: Reports no additional respiratory complaints, Reports cough and Denies dyspnea Gastrointestinal: Gastrointestinal: Reports no additional gastrointestinal complaints, Denies abdominal pain, Denies melena, Denies hematochezia, Denies change in bowel habits and Denies change in stool character Genitourinary: Genitourinary: Denies hematuria, Denies urinary frequency, Denies dysuria, Denies urinary incontinence, Denies urinary hesitancy and Denies urinary urgency Musculoskeletal: Musculoskeletal: Reports no additional musculoskeletal complaints, Denies numbness and Denies tingling Neurologic: Denies dizziness, Denies loss of vision, Denies numbness and Denies tingling Psychiatric: Psychiatric: Reports no additional psychiatric complaints Endocrine: Endocrine: Reports no additional endocrine complaints Hematologic/Lymphatic: Hematologic/Lymphatic: Reports no additional hematologic/lymphatic complaints Allergic/Immunologic: Allergic/Immunologic: Reports no additional allergic/immunologic complaints [facility] Past Medical History Attestation statement: The following information was validated with the patient. Source: old records reviewed and nursing notes reviewed Medical History Lower back pain Hip pain, left Fall Sebaceous cyst of left axilla Viral illness Myalgia Syncope Palpitations Left axillary pain Encounter for IUD insertion Chest pain Upper respiratory tract infection Asthma SOB (shortness of breath) Lumbar back pain with radiculopathy affecting lower extremity Screening for STD (sexually transmitted disease) Physical exam Low back pain radiating to both legs Asthma Tachycardia Vitamin D deficiency Hyperandrogenism HLD (hyperlipidemia) T2DM (type 2 diabetes mellitus) Sleep apnea in adult Anxiety and depression Anxiety HTN (hypertension) PCOS (polycystic ovarian syndrome) Surgical History No pertinent past surgical history Family History Family History Mother Sleep apnea CVD (cardiovascular disease) Mental health disorder Father CVD (cardiovascular disease) Sleep apnea Substance use disorder Mental health disorder Sister Substance use disorder Mental health disorder Social History Social History Housing: House Alcohol intake: current Patient Tobacco Use Status: Never used Tobacco e-Cigarette/Vaping Use: Never Used Second Hand Smoke Exposure: No Advance Directives: No service: No Current occupational status: employed Current occupation: [employer] – [place] Current occupational exposures/hazards: No Cognitive needs: No Hearing needs: No Vision needs: No Physical Exam ED Vital Signs: Vital Signs - 24 hr 02/25/23 07:06 02/25/23 07:27 Temperature 99.2 F Pulse Rate 115 H 103 H Respiratory Rate 18 21 H Blood Pressure 185/115 H Pulse Oximetry 98 Oxygen Delivery Method Room Air BMI result Body Mass Index 41.0 Const General: cooperative, no acute distress, alert and awake Nutritional Appearance: well nourished Orientation/consciousness: patient oriented x3 Limitations: no limitations HENMT Head: Yes normal to inspection and Yes atraumatic Ears: hearing grossly normal bilaterally and external ears normal General nose exam: Normal external nose present, no nasal discharge noted and no epistaxis Face and sinus: Yes normal facial exam, No abrasion and No laceration Mouth: Normal oral and palatal mucosa present, no drooling and no muffled voice Eyes General: appearance normal, both eyes and all related structures Periorbital: periorbital findings normal Eyelids: Yes eyelids normal Conjunctivae: conjunctivae normal Pupils: Equal, round and reactive pupils present EOM: EOMs intact bilaterally Neck Neck: Yes normal visual inspection, Yes full ROM and Yes no lymphadenopathy Chest Chest palpation & inspection: normal inspection of the chest Resp Effort & Inspection: normal respiratory effort and able to speak in complete sentences Auscultation: wheezes scattered wheezes Cardio Rate: tachycardic Rhythm: regular rhythm GI Inspection: Yes normal to inspection Neuro General: patient oriented x3 and moves all extremities Cranial nerves: Yes Equal, round and reactive pupils present Cognition (Neuro): normal cognition Motor exam (neuro): 5/5 motor strength present throughout Sensory Exam: Normal double simultaneous stimulation for sensation Coordination: [id number] test normal Extrem General: Yes normal to inspection, Yes full ROM and Yes capillary refill normal Psych Appearance: grossly normal Mental Status: mental status grossly normal Affect: normal affect Attitude: cooperative Thought process: Normal thought process present Thought content: Normal thought content present Insight: Good insight present (Psych) Medications Administered Discontinued Medications Generic Name Dose Route Start Last Admin Trade Name Freq PRN Reason Stop Dose Admin Acetaminophen 975 mg 02/25/23 07:13 02/25/23 07:35 Acetaminophen 325 Mg Tablet PO 02/25/23 07:14 975 mg ONCE ONE Administration Albuterol Sulfate 4 puff 02/25/23 07:23 02/25/23 07:26 Albuterol Sulfate 90 Mcg 8 Gm Inhaler INHALE 02/25/23 07:24 4 puff ONCE ONE Administration Dexamethasone Sodium Phosphate 10 mg 02/25/23 07:08 02/25/23 07:35 Dexamethasone Sod Phosphate 10 Mg/Ml Vial PO 02/25/23 07:09 10 mg ONCE ONE Administration Medical Decision Making Medical Decision Making [facility] Narrative: Patient is a 32 year old assigned female at with a history of asthma and HTN presenting to the emergency department today with a cough and feeling generally unwell. Patient's physical exam was as noted in the physical exam portion of this note. Patient's chest x-ray showed no acute process. Patient's COVID-19 and influenza swabs were negative. Patient's RSV test was positive. I explained my physical exam findings as well as all test results to the patient. I answered all questions asked by the patient. Patient received Decadron and Tylenol which she stated helped her symptoms significantly. I stressed the importance of the patient taking her medication as prescribed. I stressed the importance of the patient following up with her primary care provider. I stressed the importance of the patient returning to the emergency department immediately if her symptoms were to worsen or if she were to develop any dizziness, shortness of breath, difficulty breathing, chest pain, blurry vision, loss of vision, nausea, vomiting, abdominal pain, fever, chills, back pain, or any other complaints. Patient verbalized agreement and understanding with this treatment plan and discharge. Differential Diagnosis Differential Diagnoses: The differential diagnosis associated with the presentation includes Cough RSV Influenza Strep pharyngitis URI PNA Admission/Observation Consideration of admission/observation: Escalation of care including admission/observation considered Patient would have been admitted to the hospital had her work up had any findings where hospital admission was appropriate and her clinical presentation warranted hospital admission. Lab Data [facility] Lab Attestation statement: I reviewed the patient's lab results. My interpretation of these results are in the MDM Rationale portion of this note. Labs: Lab Results 02/25/23 Range/Units 07:23 Influenza Type A (PCR) NEGATIVE (Negative) Influenza Type B (PCR) NEGATIVE (Negative) RSV RNA Qual (PCR) POSITIVE A (Negative) SARS-CoV-2 RNA (RT-PCR) NEGATIVE (Negative) S. pyogenes GrpA SMILEY Negative (Negative) Independent Interpretation I performed an independent interpretation of an: Plain X-Ray Interpretation: My interpretation is in agreement with the radiologist's impression of this imaging study. EXAMINATION: XR CHEST 2 VIEW CLINICAL INFORMATION: Cough and shortness of breath COMPARISON: 05/07/2022 TECHNIQUE: PA and lateral views of the chest obtained. FINDINGS: The lungs are clear. There are no pleural effusions. The cardiomediastinal silhouette is normal. XR/XR chest 2V IMPRESSION: No acute cardiopulmonary disease. Dictated By: Juan Figueroa MD Signed By: Electronically signed by Juan Figueroa MD 02/25/23 0839 Radiology Impression Discussion of test interpretation with radiology: I have reviewed the radiologist's reading. Discharge Plan Discharge Clinical Impression: Respiratory syncytial virus (RSV) Patient Disposition: Home, Self-Care Instructions: Respiratory Syncytial Virus (ED) Additional Instructions: Follow up with your primary care provider. Return to the emergency department immediately if your symptoms worsen or if you develop any dizziness, shortness of breath, difficulty breathing, chest pain, blurry vision, loss of vision, nausea, vomiting, abdominal pain, fever, chills, back pain, or any other complaints. Prescriptions: New prednisone 20 mg tablet 20 mg PO DAILY 7 Days Qty: 7 0RF No Action (DME) nebulizers Misc See Rx Instructions .Route Qty: 1 0RF Rx Instructions: Q6 hrs prn for sob/wheezing (DME) nebulizer accessories Misc See Rx Instructions .Route Qty: 1 0RF Rx Instructions: Q6 hrs, prn for SOB/wheezing albuterol sulfate 90 mcg/actuation HFA aerosol inhaler 1 inh inhalation QID PRN (Reason: shortness of breath or wheezing) 30 Days Qty: 8.5 12RF lorazepam 1 mg tablet 1 mg PO BID PRN (Reason: anxiety) 30 Days Qty: 60 0RF meloxicam 15 mg tablet 15 mg PO DAILY PRN (Reason: pain) 30 Days Qty: 30 0RF (DME) FreeStyle Lite Strips Strip See Rx Instructions .ROUTE .MEDSUPPLY Qty: 100 11RF Rx Instructions: 4x daily levalbuterol HCl [Xopenex] 1.25 mg/3 mL solution for nebulization 1.25 mg inhalation Q6H PRN (Reason: shortness of breath or wheezing) Qty: 90 6RF carisoprodol [Soma] 350 mg tablet 350 mg PO BEDTIME PRN (Reason: muscle pain) 14 Days Qty: 14 0RF gabapentin 100 mg capsule 100 mg PO TID 30 Days Qty: 90 1RF (DME) FreeStyle Kristen 2 [place] Misc See Rx Instructions .ROUTE .MEDSUPPLY Qty: 1 0RF Rx Instructions: As directed (DME) FreeStyle Kristen 2 Sensor Kit See Rx Instructions .ROUTE .MEDSUPPLY Qty: 2 11RF Rx Instructions: Once every 14 days roflumilast 500 mcg tablet 500 mcg PO DAILY 30 Days Qty: 30 11RF Mounjaro 7.5 mg/0.5 mL pen injector 7.5 mg subcut QWEEK Qty: 2 5RF cyclobenzaprine 10 mg tablet 10 mg PO TID PRN (Reason: muscle spasm) Qty: 15 0RF diclofenac sodium 50 mg tablet,delayed release (DR/EC) 50 mg PO BID PRN (Reason: pain) 30 Days Qty: 60 0RF Rx Instructions: do not take with meloxicam or prednisone concurrently Breztri Aerosphere 160-9-4.8 mcg/actuation HFA aerosol inhaler 2 inh inhalation BID 30 Days Qty: 10.7 11RF (DME) lancets [FreeStyle Lancets] 28 gauge misc See Rx Instructions .ROUTE .MEDSUPPLY Qty: 100 11RF Rx Instructions: 4x daily (DME) blood-glucose meter [FreeStyle Lite Meter] Kit See Rx Instructions .Route Qty: 1 0RF Rx Instructions: As directed lamotrigine 25 mg tablet 50 mg PO BID bupropion HCl [Wellbutrin SR] 150 mg tablet sustained-release 12 hr 150 mg PO QAM diltiazem HCl 300 mg capsule,extended release 24hr 300 mg PO DAILY Qty: 90 1RF Referrals: Antoine Rodríguez, CON[facility]YOR OPERATOR-[facility] [Primary Care Provider] - Stand Alone Forms: Work/School Release Interventions: ED Discharge Assessment Last Done: 02/25/23 09:09 Discharge Date/Time: 02/25/23 09:09 Print Language: Greenlandic
[2023-02-25] MEDS: Albuterol Sulfate 90 MCG 8 GM INHALER 4 PUFF INHALE (07:26)
[2023-02-25 07:27] VITALS: PULSE 103; RESP 21; O2SAT 99
[2023-02-25] MEDS: dexAMETHasone sod phosphate 10 MG/ML VIAL PO (07:35)
[2023-02-25] MEDS: Acetaminophen 325 MG TABLET 975 MG PO (07:35)
[2023-02-25 07:46] LABS: IDNOW Serial# 58CA691E; Strep A Nucleic Acid Negative (Negative)
[2023-02-25 08:04] LABS: Influenza A PCR NEGATIVE (Negative); Influenza B PCR NEGATIVE (Negative); Resp Syncy Virus RNA Qual PCR POSITIVE (Negative); SARS COV2 PCR INHOUSE NEGATIVE (Negative)
== END 2023-02-25 09:09 | disposition home or self-care (01) ==
PROVIDERS: Physician Assistant Medical; Emergency Provider Emergency Medicine Emergency Medical Services; PCP Nurse Practitioner Family
DX: J22 Unspecified acute lower respiratory infection (principal); B97.4 Respiratory syncytial virus as the cause of diseases classified elsewhere; R05.9 Cough, unspecified; R06.02 Shortness of breath; Z20.822 Contact with and (suspected) exposure to COVID-19; Z20.828 Contact with and (suspected) exposure to other viral communicable diseases
CPT/HCPCS: 0241U; 71046; 87651; 94640; 99283; 99284; J1100

== ENCOUNTER 2023-05-27 07:27 | Outpatient (AMB) | payer OTHER, SELFPAY ==
[2023-05-27 07:50] VITALS: BP 132/80; PULSE 102; O2SAT 98; BMI 47.4
--- NOTE | 2023-05-27 07:50 | MHC.PC.OV ---
Vital Signs 05/27/23 07:50 Height 5 ft 4 in Weight 276 lb BMI 47.4 BP 132/80 Blood Pressure Location Lt brachial Position Sitting Pulse 102 H Pulse Source Pulse Oximeter Pulse Oximetry (%) 98 Oxygen Delivery Method Room Air Intake Visit Reasons: Diabetes- dismissed from Rheum Allergies lisinopril [LISINOPRIL] Allergy (Severe, Verified 05/27/23 07:54) COUGH Penicillins [PENICILLINS] Allergy (Severe, Verified 05/27/23 07:54) HIVES vancomycin Allergy (Severe, Verified 05/27/23 07:54) Rash chlorthalidone Adverse Reaction (Severe, Verified 05/27/23 07:54) tachycardia, palpitations doxycycline Adverse Reaction (Intermediate, Verified 05/27/23 07:54) Joint Pain Medication List - Last Reconciled 05/27/23 by RICHARD VogtP- albuterol sulfate 90 mcg/actuation 1 inh inhalation QID PRN 30 days blood sugar diagnostic (FreeStyle Lite Strips) 4x daily blood-glucose meter ([employer] Lite Meter kit) As directed carisoprodol (Soma) 350 mg PO BEDTIME PRN 14 days diltiazem HCl 300 mg PO DAILY flash glucose scanning reader ([employer] Kristen 2 [place]) As directed flash glucose sensor ([employer] Kristen 2 Sensor kit) Once every 14 days gabapentin 100 mg PO TID 30 days lamotrigine 100 mg PO DAILY lancets ([employer] Lancets) 4x daily lorazepam 1 mg PO BID PRN 30 days nebulizer accessories Q6 hrs, prn for SOB/wheezing nebulizers Q6 hrs prn for sob/wheezing roflumilast 500 mcg PO DAILY 30 days tirzepatide (Mounjaro) 7.5 mg (0.5 mL) subcut QWEEK Tobacco use date assessed: 05/27/23 Dental Screening Dental Screen Date: 05/27/23 Did you have a dental visit in the last 12 months?: Yes Did you have a dental problem in the last 6 months where you did not have access to dental care?: No Was dental information given to patient?: Patient has dentist HPI Diabetes- dismissed from Rheum HPI Details Pt is a diabetic. Last A1C was 5.0, due for repeat. Microalbumin is up to date. Denies polyuria, polydipsia, and neuropathy. Pt denies any signs and symptoms of hypoglycemia and does know how to correct it. Pt reports she will make her own eye exam. pt is currently on mounjaro. She reports not checking her sugars often, because she is controlled with meds/diet. WIll check labs (including A1c). Pt needs titers for school, will order. NOTE: pt used to go to [facility] for diabetes, but no longer does. FOR[facility]LY [facility], [facility] Medical History Lower back pain Hip pain, left Fall Sebaceous cyst of left axilla Viral illness Myalgia Syncope Palpitations Left axillary pain Encounter for IUD insertion Chest pain Upper respiratory tract infection Asthma SOB (shortness of breath) Lumbar back pain with radiculopathy affecting lower extremity Screening for STD (sexually transmitted disease) Physical exam Low back pain radiating to both legs Asthma Tachycardia Vitamin D deficiency Hyperandrogenism HLD (hyperlipidemia) T2DM (type 2 diabetes mellitus) Sleep apnea in adult Anxiety and depression Anxiety HTN (hypertension) PCOS (polycystic ovarian syndrome) Surgical History No pertinent past surgical history Family History Mother Sleep apnea CVD (cardiovascular disease) Mental health disorder Father CVD (cardiovascular disease) Sleep apnea Substance use disorder Mental health disorder Sister Substance use disorder Mental health disorder Social History Housing: House Alcohol intake: current Patient Tobacco Use Status: Never used Tobacco e-Cigarette/Vaping Use: Never Used Second Hand Smoke Exposure: No service: No Current occupational status: employed [place] [employer] [place] Current occupational exposures/hazards: No Cognitive needs: No Hearing needs: No Vision needs: Yes Female Reproductive History Menstrual Age of Menarche: 10 Questionnaire PHQ-9 Over the last 2 weeks, how often have you been bothered by any of the following problems? 1. Little interest or pleasure in doing things: not at all 2. Feeling down, depressed, or hopeless: not at all 3. Trouble falling or staying asleep, or sleeping too much: not at all 4. Feeling tired or having little energy: not at all 5. Poor appetite or overeating: not at all 6. Feeling bad about yourself - or that you are a failure or have let yourself or your family down: not at all 7. Trouble concentrating on things, such as reading the newspaper or watching television: not at all 8. Moving or speaking so slowly that other people could have noticed. Or the opposite - being so fidgety or restless that you have been moving around a lot more than usual: not at all 9. Thoughts that you would be better off or of hurting yourself in some way: not at all Total score: 0 Depression Screening Interpretation: Negative Depression Screening Done: Yes Source: Developed by Drs. Duong Sage, Soo Becker, Mirza Armenta and colleagues, with an educational ryan from [employer]. Thrive Questionnaire Date Thrive assessed: 05/27/23 I am a: Patient What is your living situation today?: I have a steady place to live Within the past 12 months, did the food you bought not last and you didn't have the money to get more?: Never true Within the past 12 months, did you worry whether your food would run out before you got money to buy more?: Never true Do you have trouble paying for medicines?: No Do you have trouble getting transportation to medical appointments?: No Do you have trouble paying your heating and electricity bill?: No Do you have trouble taking care of your child, family member or friend?: No Do you have trouble with day-to-day activities such as bathing, preparing meals, shopping, managing finances, etc.?: No Are you currently unemployed and looking for a job?: No Are you interested in more education?: No Please select the resources that you would like help with: None Currently or been in a relationship where the following occur: no concerns reported THRIVE Score: 0 AUDIT C Alcohol Use Questionnaire (AUDIT-C) 1. How often do you have a drink containing alcohol?: Monthly or less 2. How many drinks containing alcohol do you have on a typical day when you are drinking?: 1 or 2 3. How often do you have six or more drinks on one occasion?: Never Total Score: 1 YOUNG-7 AMB Questionnaire YOUNG-7 Date YOUNG - 7 assessed: 05/27/23 Feeling nervous, anxious, or on edge: 0 = Not at all Not being able to stop or control worryin = Not at all Worrying too much about different things: 0 = Not at all Trouble relaxin = Not at all Being so restless that it is hard to sit still: 0 = Not at all Becoming easily annoyed or irritable: 0 = Not at all Feeling afraid as if something awful might happen: 0 = Not at all Total YOUNG-7 score (0-4 normal; 5-9 mild; 10-14 moderate; 15-21 severe): 0 Source: Developed by Drs. Duong Sage, Soo Becker, Mirza Armenta and colleagues, with an educational ryan from [employer]. Review of Systems Const Reports as per HPI Physical exam (Primary Care) Vital Signs: Last Vital Signs Pulse 102 H 05/27/23 07:50 BP 132/80 05/27/23 07:50 Pulse Ox 98 05/27/23 07:50 Oxygen Delivery Method Room Air 05/27/23 07:50 BMI result Body Mass Index 47.4 Tobacco/Smoking Status: Tobacco use Status Tobacco use date assessed 05/27/23 05/27/23 07:59 Patient Tobacco Use Status Never used Tobacco 05/27/23 07:59 e-Cigarette/Vaping Use Never Used 05/27/23 07:59 PHQ-9: PHQ-9 Score PHQ-9: Total score 0 05/27/23 08:05 Depression Screening Interpretation: Negative Thrive Assessment: Date of Thrive Assessment Date Thrive assessed 05/27/23 05/27/23 07:59 Currently or been in a relationship where the following occur: no concerns reported Const General: cooperative Nutritional Appearance: obese morbidly obese Orientation/consciousness: patient oriented x3 Resp Effort & Inspection: normal respiratory effort Auscultation: clear to auscultation bilaterally Cardio Rate: regular rate Rhythm: regular rhythm Heart sounds: S1 normal heart sound present, S2 normal heart sound present and no murmurs Neuro General: patient oriented x3 Extrem Other: bilat feet: + sensation with use of monofilament, feet intact Psych Appearance: grossly normal Mental Status: mental status grossly normal Speech and movement: Normal speech and movement present Affect: normal affect Attitude: cooperative Thought process: Normal thought process present Thought content: Normal thought content present Insight: Good insight present (Psych) Judgement: Good judgement present (Psych) Assessment and Plan Assessment & Plan (1) T2DM (type 2 diabetes mellitus): Code(s): E11.9 - Type 2 diabetes mellitus without complications Plan: Labs ordered (2) Immunizations incomplete: Code(s): Z28.39 - Other underimmunization status Plan: Labs ordered Plan The patient agreed to the use of a adjunct faculty for medical terminology for this encounter. Scribed for RABIA Wilder by Sherry Pérez adjunct faculty for medical terminology, on 05/27/2023 at 08:05 EST. Orders: Orders Complete Blood Count Auto Diff Today E11.9 - Type 2 diabetes mellitus without complications Microalbumin, Random (w Creat) Today E11.9 - Type 2 diabetes mellitus without complications Hemoglobin A1c Today E11.9 - Type 2 diabetes mellitus without complications Rubella IgG Antibody Today Z28.39 - Other underimmunization status Rubeola IgG (Measles) Today Z28.39 - Other underimmunization status Mumps Virus IgG Antibody Today Z28.39 - Other underimmunization status Varicella IgG Antibody Today Z28.39 - Other underimmunization status T Spot TB Today Z28.39 - Other underimmunization status Comprehensive [place]. Panel Fast Today E11.9 - Type 2 diabetes mellitus without complications TSH reflex Free T4 Today E11.9 - Type 2 diabetes mellitus without complications UA CC w/rflx Micro + Cult Today E11.9 - Type 2 diabetes mellitus without complications Lipid Panel Today E11.9 - Type 2 diabetes mellitus without complications Hepatitis A,B,C Profile Today E11.9 - Type 2 diabetes mellitus without complications Coding Level of Care Code Est Pt Level 3 (80810) Diagnoses T2DM (type 2 diabetes mellitus) E11.9 Immunizations incomplete Z28.39
== END 2023-05-27 08:26 | disposition home or self-care (01) ==
PROVIDERS: PCP Nurse Practitioner Family; Visit Provider Nurse Practitioner Family
DX: E11.9 Type 2 diabetes mellitus without complications (principal); Z28.39 Other underimmunization status
CPT/HCPCS: 99213

== ENCOUNTER 2023-05-27 09:07 | Outpatient (REF) | payer OTHER, SELFPAY ==
[2023-05-27 10:14] LABS: MANUAL DIFF FLAG NO
[2023-05-27 10:46] LABS: Basophils Percent Auto 0.5 % (0-2); Eosinophils Absolute Auto 0.2 X10*3/uL (0.0-0.4); Eosinophils Percent Auto 2.2 % (0-4); Hematocrit 37.1 % (37.0-47.0); Hemoglobin 11.9 g/dl (12.0-16.0); Imm Gran Abs Auto 0.02 X10*3/uL (0.00-0.03); Imm Gran Pct Auto 0.2 % (0.0-0.4); Lymphocytes Absolute Auto 2.2 X10*3/uL (1.2-4.9); Lymphocytes Percent Auto 27.3 % (20-40); Mean Corpuscular HGB Conc 32.1 g/dl (31.0-35.0); Mean Corpuscular Hemoglobin 24.5 pg (27.0-33.0); Mean Corpuscular Volume 76.5 fL (80.0-98.0); Mean Platelet Volume 9.2 fL (9.4-12.3); Monocytes Absolute Auto 0.3 X10*3/uL (0.1-1.2); Monocytes Percent Auto 3.5 % (2-11); Neutrophils Absolute Auto 5.4 x10*3/uL (2.0-8.3); Neutrophils Percent Auto 66.3 % (45-73); Platelet Count 367 X10*3/uL (160-400); Red Blood Count 4.85 X10*6/uL (4.20-5.50); Red Cell Distribution Width 15.5 % (11.0-16.0); White Blood Count 8.1 X10*3/uL (4.8-10.8)
[2023-05-27 10:53] LABS: Appearance Urine Clear; Color Urine Yellow; Glucose Urine UA Negative (Negative); Leukocyte Esterase Urine Trace (Negative); Nitrite Urine Negative (Negative); UMIC TRIGGER UACC YES; Urine Blood Negative (Negative); Urine Ketones Negative (Negative); Urine Protein Negative (Neg-Trace)
[2023-05-27 10:58] LABS: Estimated Average Glucose 100 mg/dL; Hemoglobin A1c % 5.1 % (<6.0)
[2023-05-27 10:59] LABS: Bacteria Urine 1+ (None Seen); Hyaline Casts Urine 0-2 /LPF (0-2); RBC Urine 0-2 /HPF (0-2); WBC Urine 0-5 /HPF (0-5)
[2023-05-27 11:22] LABS: Creatinine Urine 53.53 mg/dL; Microalbumin Urine < 5.0 mg/L
[2023-05-27 11:23] LABS: Alanine Aminotransferase 42 U/L (0-31); Alkaline Phosphatase 89 U/L (39-117); Anion Gap 12 (12-20); Aspartate Amino Transferase 29 U/L (5-31); Bilirubin Total 0.2 mg/dL (0.0-1.0); Blood Urea Nitrogen 9 mg/dL (9-16); Calcium 8.9 mg/dL (8.4-10.2); Carbon Dioxide 26 mmol/L (22-29); Chloride 105 mmol/L (96-108); Cholesterol 176 mg/dL (<200); Estimated Glomerular Filt Rate > 60; Glucose Fasting 124 mg/dL (60-99); HDL Cholesterol 34 mg/dL (>40); LDL Cholesterol Calculated 78 mg/dL (<100); Potassium 3.9 mmol/L (3.3-5.1); Sodium 139 mmol/L (135-145); Total Protein 7.1 g/dL (6.5-8.0); Triglycerides 324 mg/dL (<150)
[2023-05-27 11:38] LABS: HBS Num1 7.64 mIU/mL (0-7.99); HBsAGNum1 0.44 S/CO (0.00-0.99); Hepatitis B Core Antibody Nonreactive (Nonreactive); Hepatitis B Surface Antigen Negative (Negative); ~HepC Num1 0.09 S/CO (0.00-0.79); ~Hepatitis A Antibody IgM Nonreactive (Nonreactive); ~Hepatitis B Surface Antibody NONREACTIVE (Nonreactive); ~Hepatitis C Antibody Nonreactive (Nonreactive)
[2023-05-29 06:59] LABS: Rubella IgG Antibody 3.89 Index
[2023-05-29 19:53] LABS: TS Negative Control Passed; TS Panel A 0; TS Panel B 0; TS Positive Control Passed; TSpotTB Negative (Negative)
== END 2023-05-27 09:08 | disposition home or self-care (01) ==
LOC: HO.LAB 09:07
PROVIDERS: Absent Provider Nurse Practitioner Family; PCP Nurse Practitioner Family; Visit Provider Physician Assistant Surgical
DX: E11.9 Type 2 diabetes mellitus without complications (principal); Z28.39 Other underimmunization status
CPT/HCPCS: 36415; 80053; 80061; 81001; 82043; 82570; 83036; 84443; 85025; 86481; 86704; 86706; 86709; 86735; 86762; 86765; 86787; 86803; 87340

== ENCOUNTER 2023-07-01 03:29 | Emergency (ER) | payer OTHER, SELFPAY ==
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
== END 2023-07-01 05:47 | disposition home or self-care (01) ==
PROVIDERS: Emergency Provider Emergency Medicine
DX: S16.1XXA Strain of muscle, fascia and tendon at neck level, initial encounter (principal); M54.2 Cervicalgia; R51.9 Headache, unspecified; V43.52XA Car driver injured in collision with other type car in traffic accident, initial encounter; Y93.9 Activity, unspecified; Y92.410 Unspecified street and highway as the place of occurrence of the external cause; Y99.8 Other external cause status
CPT/HCPCS: 70450; 72125; 99284

== ENCOUNTER 2023-07-21 14:54 | Outpatient (AMB) | payer OTHER, SELFPAY ==
--- NOTE | 2023-07-21 14:58 | MHC.PC.OV ---
Vital Signs 07/21/23 15:00 Height 5 ft 4 in Weight 274 lb BMI 47.0 BP 140/98 H Blood Pressure Location Lt brachial Position Sitting Pulse 113 H Pulse Source Pulse Oximeter Pulse Oximetry (%) 98 Oxygen Delivery Method Room Air Intake Visit Reasons: PE & school forms Intake Note: Patient here for physical exam and to fill out school forms. Allergies lisinopril [LISINOPRIL] Allergy (Severe, Verified 07/21/23 17:12) COUGH Penicillins [PENICILLINS] Allergy (Severe, Verified 07/21/23 17:12) HIVES vancomycin Allergy (Severe, Verified 07/21/23 17:12) Rash chlorthalidone Adverse Reaction (Severe, Verified 07/21/23 17:12) tachycardia, palpitations doxycycline Adverse Reaction (Intermediate, Verified 07/21/23 17:12) Joint Pain Medication List - Last Reconciled 07/21/23 by Antoine Rodríguez YOUTH MINISTRY DIRECTOR- albuterol sulfate 90 mcg/actuation 1 inh inhalation QID PRN 30 days atorvastatin 10 mg PO BEDTIME 90 days blood sugar diagnostic (FreeStyle Lite Strips) 4x daily blood-glucose meter (FreeStyle Lite Meter kit) As directed carisoprodol (Soma) 350 mg PO BEDTIME PRN 14 days diltiazem HCl CD 300 mg PO DAILY flash glucose scanning reader ([employer]Style Kristen 2 [place]) As directed flash glucose sensor (FreeStyle Kristen 2 Sensor kit) Once every 14 days gabapentin 100 mg PO TID 30 days lamotrigine 100 mg PO DAILY lancets (FreeStyle Lancets) 4x daily lorazepam 1 mg PO BID PRN 30 days nebulizer accessories Q6 hrs, prn for SOB/wheezing nebulizers Q6 hrs prn for sob/wheezing roflumilast 500 mcg PO DAILY 30 days tirzepatide 10 mg (0.5 mL) subcut QWEEK Tobacco use date assessed: 05/27/23 Dental Screening Dental Screen Date: 05/27/23 HPI PE & school forms HPI Details Pt is here for a PE. Will order labs. Pt is a diabetic, on a statin. Last A1C was 5.1, microalbumin is up to date. Denies polyuria, polydipsia, and neuropathy. Pt denies any signs and symptoms of hypoglycemia and does know how to correct it. Pt does not check her blood sugar unless she feels low. pt is allergic to YOSELYN and had orthostatic reactions to ARBs. Refuses pneumonia vaccine today. Will have pt monitor her BP at home, reports it's much better at home. [facility] Medical History (Updated 07/21/23 @ 17:14 by HATTIE Vogt) Physical exam Lower back pain Hip pain, left Fall Sebaceous cyst of left axilla Viral illness Myalgia Syncope Palpitations Left axillary pain Encounter for IUD insertion Chest pain Upper respiratory tract infection Asthma SOB (shortness of breath) Lumbar back pain with radiculopathy affecting lower extremity Screening for STD (sexually transmitted disease) Low back pain radiating to both legs Asthma Tachycardia Vitamin D deficiency Hyperandrogenism HLD (hyperlipidemia) T2DM (type 2 diabetes mellitus) Sleep apnea in adult Anxiety and depression Anxiety HTN (hypertension) PCOS (polycystic ovarian syndrome) Surgical History No pertinent past surgical history Family History Mother Sleep apnea CVD (cardiovascular disease) Mental health disorder Father CVD (cardiovascular disease) Sleep apnea Substance use disorder Mental health disorder Sister Substance use disorder Mental health disorder Social History Housing: House Alcohol intake: current Patient Tobacco Use Status: Never used Tobacco e-Cigarette/Vaping Use: Never Used Second Hand Smoke Exposure: No service: No Current occupational status: employed [place] [employer] [place] Current occupational exposures/hazards: No Cognitive needs: No Hearing needs: No Vision needs: Yes Female Reproductive History Menstrual Age of Menarche: 10 Questionnaire PHQ-9 Over the last 2 weeks, how often have you been bothered by any of the following problems? 19208 - PHQ-9 Billing: Patient declined-do not bill Source: Developed by Drs. Duong Sage, Soo Becker, Mirza Amrenta and colleagues, with an educational ryan from [employer]. Thrive Questionnaire Date Thrive assessed: 05/27/23 Currently or been in a relationship where the following occur: no concerns reported THRIVE Score: 0 AUDIT C Alcohol Use Questionnaire (AUDIT-C) 1. How often do you have a drink containing alcohol?: Never 3. How often do you have six or more drinks on one occasion?: Never Total Score: 0 Score Reviewed/Action Taken: No YOUNG-7 AMB Questionnaire YOUNG-7 Date YOUNG - 7 assessed: 05/27/23 Source: Developed by Drs. Duong Sage, Soo Becker, Mirza Armenta and colleagues, with an educational ryan from [employer]. YOUNG-7 Assessment Billing YOUNG-7 Assessment Tool: pt declined-do not bill Review of Systems Const Denies chills and Denies fever(s) Eyes Denies blurry vision ENT Denies vertigo, Denies dizziness and Denies sore throat Card Denies chest pain at rest, Denies chest pain with activity, Denies diaphoresis, Denies dyspnea and Denies dyspnea on exertion Resp Denies cough, Denies dyspnea, Denies dyspnea on exertion and Denies wheezing GI Denies abdominal pain, Denies melena, Denies hematochezia, Denies constipation, Denies diarrhea and Denies loose stools Denies hematuria Musc Denies numbness and Denies tingling Skin/Breast Denies lesions Neuro Denies vertigo, Denies dizziness, Denies numbness and Denies tingling Psych Denies anxiety, Denies depression, Denies homicidal ideation, Denies suicidal ideation and Denies other (substance abuse) Aller/Immun Denies wheezing Physical exam (Primary Care) Vital Signs: Last Vital Signs Pulse 113 H 07/21/23 15:00 BP 140/98 H 07/21/23 15:00 Pulse Ox 98 07/21/23 15:00 Oxygen Delivery Method Room Air 07/21/23 15:00 BMI result Body Mass Index 47.0 Tobacco/Smoking Status: Tobacco use Status Tobacco use date assessed 05/27/23 07/21/23 14:59 Patient Tobacco Use Status Never used Tobacco 07/21/23 14:59 e-Cigarette/Vaping Use Never Used 07/21/23 14:59 Thrive Assessment: Date of Thrive Assessment Date Thrive assessed 05/27/23 07/21/23 14:59 Currently or been in a relationship where the following occur: no concerns reported Const General: cooperative Nutritional Appearance: obese morbidly obese Orientation/consciousness: patient oriented x3 HENMT Head: Yes normal to inspection, Yes normocephalic and Yes atraumatic Ears: TM's normal bilaterally Eyes General: appearance normal, both eyes and all related structures Alignment and Position: alignment normal and position normal Neck Neck: Yes normal visual inspection and Yes no lymphadenopathy Thyroid: Thyroid normal Resp Effort & Inspection: normal respiratory effort Auscultation: clear to auscultation bilaterally Cardio Rate: regular rate Rhythm: regular rhythm Heart sounds: S1 normal heart sound present, S2 normal heart sound present and no murmurs GI Palpation (GI): Soft to palpation and nontender Auscultation: normal bowel sounds Skin Rashes: no rashes Neuro General: patient oriented x3, moves all extremities, no focal motor deficits and deep tendon reflexes 2+ bilaterally Romberg Test: Negative Extrem Other: bilat feet: + sensation with use of monofilament, feet intact Psych Appearance: grossly normal Mental Status: mental status grossly normal Speech and movement: Normal speech and movement present Affect: normal affect Attitude: cooperative Thought process: Normal thought process present Thought content: Normal thought content present Insight: Good insight present (Psych) Judgement: Good judgement present (Psych) Assessment and Plan Assessment & Plan (1) T2DM (type 2 diabetes mellitus): Code(s): E11.9 - Type 2 diabetes mellitus without complications (2) Physical exam: Code(s): Z00.00 - Encounter for general adult medical examination without abnormal findings Plan: pt is clear to participate in the RN program, and i wish her luck!! Plan The patient agreed to the use of a medical reception specialist for this encounter. Scribed for HATTIE Wilder by Sherry Pérez medical reception specialist, on 07/21/2023 at 15:10 EST. Coding Level of Care Code Est Pt Prev Care 18-39y(45071) Diagnoses T2DM (type 2 diabetes mellitus) E11.9 Physical exam Z00.00
[2023-07-21 15:00] VITALS: BP 140/98; PULSE 113; O2SAT 98; BMI 47.0
== END 2023-07-21 18:50 | disposition home or self-care (01) ==
PROVIDERS: PCP Nurse Practitioner Family; Visit Provider Nurse Practitioner Family
DX: E11.9 Type 2 diabetes mellitus without complications (principal); Z00.00 Encounter for general adult medical examination without abnormal findings
CPT/HCPCS: 99395

== ENCOUNTER 2023-08-06 08:00 | Outpatient (AMB) | payer OTHER, SELFPAY ==
--- NOTE | 2023-08-06 08:03 | A.OFFVIS_ITS ---
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 Allergies lisinopril [LISINOPRIL] Allergy (Severe, Verified 08/06/23 08:03) COUGH Penicillins [PENICILLINS] Allergy (Severe, Verified 08/06/23 08:03) HIVES vancomycin Allergy (Severe, Verified 08/06/23 08:03) Rash chlorthalidone Adverse Reaction (Severe, Verified 08/06/23 08:03) tachycardia, palpitations doxycycline Adverse Reaction (Intermediate, Verified 08/06/23 08:03) Joint Pain Medication List - Last Reconciled 08/06/23 by Christoph Nagy MD albuterol sulfate 90 mcg/actuation 1 inh inhalation QID PRN 30 days atorvastatin 10 mg PO BEDTIME 90 days blood sugar diagnostic (FreeStyle Lite Strips) 4x daily blood-glucose meter (FreeStyle Lite Meter kit) As directed carisoprodol (Soma) 350 mg PO BEDTIME PRN 14 days diltiazem HCl CD 300 mg PO DAILY flash glucose scanning reader (WigixStyle Kristen 2 Stafford) As directed flash glucose sensor (FreeStyle Kristen 2 Sensor kit) Once every 14 days gabapentin 100 mg PO TID 30 days lamotrigine 100 mg PO DAILY lancets (FreeStyle Lancets) 4x daily lorazepam 1 mg PO BID PRN 30 days nebulizer accessories Q6 hrs, prn for SOB/wheezing nebulizers Q6 hrs prn for sob/wheezing roflumilast 500 mcg PO DAILY 30 days tirzepatide 10 mg (0.5 mL) subcut QWEEK HPI HPI 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 BMI 46.3: Details: Start time: 8.00am, End time: 8.48am ?I spent 43 minutes speaking with the patient on the phone plus an additional 5 minutes reviewing and updating records for a total of 48 minutes HPI Comments Details: Previous weight loss efforts: [place] for 1 yr without WL, exercise and diet Non-working days: 6am-8pm, Working days: 7.30am-1pm Breakfast:7-8am (eggs, clifford, bagel) Lunch: 12-1pm (sandwich) or 4pm the working days Dinner: 4-5pm (meat, potatoes and vegetables) or 10pm on working days Snacks: several snacks at night when working Exercise: Has an elliptical at home Fluids: Coffee (32oz/day with creamer), tea: none, soda: 2/wk (regular coke), j uice: with breakfast, ETOH: none PFSH Medical History (Updated 08/06/23 @ 08:10 by Christoph Nagy MD) Back pain Bipolar 1 disorder Morbid obesity Physical exam Lower back pain Hip pain, left Fall Sebaceous cyst of left axilla Viral illness Myalgia Syncope Palpitations Left axillary pain Encounter for IUD insertion Chest pain Upper respiratory tract infection Asthma SOB (shortness of breath) Lumbar back pain with radiculopathy affecting lower extremity Screening for STD (sexually transmitted disease) Low back pain radiating to both legs Asthma Tachycardia Vitamin D deficiency Hyperandrogenism HLD (hyperlipidemia) T2DM (type 2 diabetes mellitus) Sleep apnea in adult Anxiety and depression Anxiety HTN (hypertension) PCOS (polycystic ovarian syndrome) Surgical History No pertinent past surgical history Family History Mother Sleep apnea CVD (cardiovascular disease) Mental health disorder Father CVD (cardiovascular disease) Sleep apnea Substance use disorder Mental health disorder Sister Substance use disorder Mental health disorder Social History Housing: House Alcohol intake: current Patient Tobacco Use Status: Never used Tobacco e-Cigarette/Vaping Use: Never Used Second Hand Smoke Exposure: No service: No Current occupational status: employed Current occupation: [employer] [place] [place] Current occupational exposures/hazards: No Cognitive needs: No Hearing needs: No Vision needs: Yes Female Reproductive History Menstrual Age of Menarche: 10 Telehealth Telehealth Telehealth Platform: Telephone Location of provider rendering services: practice address Location of patient: address on file Patient Identification confirmed using: Name, : Yes Telehealth method: voice only Patient verbally consented to treatment: Yes Patient verbally consented to billing insurance company: Yes Patient informed of any privacy concerns related to visit: Yes Minutes spent on Phone/Video with Pt.: 48 Assessment & Plan Assessment & Plan (1) Morbid obesity: Code(s): E66.01 - Morbid (severe) obesity due to excess calories Category: Medical Plan: .? Plan for lap sleeve gastrectomy. If diaphragmatic or ventral hernias are present at time of surgery, these will be repaired laparoscopically as well. Risks and complications were discussed in detail including possible conversion to an open procedure, anastomotic leak, bleeding requiring transfusion, small bowel obstruction, , DVT and pulmonary embolism, cardiac, or pulmonary complications, as terminal computer operator complications such as anastomotic ulcer, insufficient weight loss and vitamin deficiencies. I emphasized the importance of close follow-up, adherence to instructions and good communication. 2. You will receive a link of our software ludwin to generate an individualized nutritional and exercise plan specific for you. Please send me a screenshot of the plans you will generate Meal to include lean meat (beef, fish, pork, turkey, chicken), or emirati yogurt, or egg whites, or beans with a salad with olive oil and fruits (berries, pears, apples, kiwi). Avoid salt, breads, potatoes, rice, pasta, desserts. ?3. If you choose shakes, each shake would be drunk slowly, like coffee in a period of 2 hours. ?4. If you choose bars, cut each bar in 4 pieces and eat each piece in 30min ?to make each bar last 2 hours. ?5. I emphasized the importance of measuring accurately the food portion and measure it when serving the food in plate ?6. The meal portions include a specific number of forks of meat and salad. You always eat the meat portion but you can replace up to half of salad/vegetables portion with rice, potatoes or pasta, or a fruit ?if you like. The less you do it the better weight loss will be. ?7. One full-size fork is what it can be scooped on the fork without falling aside and not what can be bit with the fork. Use regular forks like those you find in a typical restaurant. ?8.? Please send me weight measurements as soon as possible and then once a wee k. Always include your diet and exercise plan. 9. The best choice would be to purchase a stationary bike, elliptical or treadmill at home that can track calories. Let me know if you do so I can give you an exercise plan. ?10.?It is important of avoiding and for at least 18 months postoperatively and has been discussed at the infosession. ?11. Goal is to lose at least 1.5-2lbs per week ?12. Goal to lose 10% of your weight before surgery, which is about 27lbs. Ultimate weight goal: 247lbs before surgery 13. Please follow the diet plan exactly without any change. If you don't like something about the plan or you feel hungry you need to communicate with me so I can help you revise the plan. You should not change the plan yourself. Orders: Orders H Pylori Breath Test Today E28.2 - Polycystic ovarian syndrome, E66.01 - Morbid (severe) obesity due to excess calories, E78.5 - Hyperlipidemia, unspecified, G47.33 - Obstructive sleep apnea (adult) (pediatric), I10 - Essential (primary) hypertension, J45.50 - Severe persistent asthma, uncomplicated Complete Blood Count Auto Diff Today E28.2 - Polycystic ovarian syndrome, E66.01 - Morbid (severe) obesity due to excess calories, E78.5 - Hyperlipidemia, unspecified, G47.33 - Obstructive sleep apnea (adult) (pediatric), I10 - Essential (primary) hypertension, J45.50 - Severe persistent asthma, uncomplicated Lipid Panel Today E28.2 - Polycystic ovarian syndrome, E66.01 - Morbid (severe) obesity due to excess calories, E78.5 - Hyperlipidemia, unspecified, G47.33 - Obstructive sleep apnea (adult) (pediatric), I10 - Essential (primary) hypertension, J45.50 - Severe persistent asthma, uncomplicated IRON PROFILE Today E28.2 - Polycystic ovarian syndrome, E66.01 - Morbid (severe) obesity due to excess calories, E78.5 - Hyperlipidemia, unspecified, G47.33 - Obstructive sleep apnea (adult) (pediatric), I10 - Essential (primary) hypertension, J45.50 - Severe persistent asthma, uncomplicated Vitamin B12 and Folate Today E28.2 - Polycystic ovarian syndrome, E66.01 - Morbid (severe) obesity due to excess calories, E78.5 - Hyperlipidemia, unspecified, G47.33 - Obstructive sleep apnea (adult) (pediatric), I10 - Essential (primary) hypertension, J45.50 - Severe persistent asthma, uncomplicated Zinc Today E28.2 - Polycystic ovarian syndrome, E66.01 - Morbid (severe) obesity due to excess calories, E78.5 - Hyperlipidemia, unspecified, G47.33 - Obstructive sleep apnea (adult) (pediatric), I10 - Essential (primary) hypertension, J45.50 - Severe persistent asthma, uncomplicated C Reactive Protein Today E28.2 - Polycystic ovarian syndrome, E66.01 - Morbid (severe) obesity due to excess calories, E78.5 - Hyperlipidemia, unspecified, G4 7.33 - Obstructive sleep apnea (adult) (pediatric), I10 - Essential (primary) hypertension, J45.50 - Severe persistent asthma, uncomplicated Vitamin A Today E28.2 - Polycystic ovarian syndrome, E66.01 - Morbid (severe) obesity due to excess calories, E78.5 - Hyperlipidemia, unspecified, G47.33 - Obstructive sleep apnea (adult) (pediatric), I10 - Essential (primary) hyper tension, J45.50 - Severe persistent asthma, uncomplicated TSH reflex Free T4 Today E28.2 - Polycystic ovarian syndrome, E66.01 - Morbid (severe) obesity due to excess calories, E78.5 - Hyperlipidemia, unspecified, G47.33 - Obstructive sleep apnea (adult) (pediatric), I10 - Essential (primary) hypertension, J45.50 - Severe persistent asthma, uncomplicated Ferritin Today E28.2 - Polycystic ovarian syndrome, E66.01 - Morbid (severe) obesity due to excess calories, E78.5 - Hyperlipidemia, unspecified, G47.33 - Obstructive sleep apnea (adult) (pediatric), I10 - Essential (primary) hypertension, J45.50 - Severe persistent asthma, uncomplicated Vitamin D 25-OH Total Today E28.2 - Polycystic ovarian syndrome, E66.01 - Morbid (severe) obesity due to excess calories, E78.5 - Hyperlipidemia, unspecified, G47.33 - Obstructive sleep apnea (adult) (pediatric), I10 - Essential (primary) hypertension, J45.50 - Severe persistent asthma, uncomplicated US abdomen comp w elastography Today E28.2 - Polycystic ovarian syndrome, E66.01 - Morbid (severe) obesity due to excess calories, E78.5 - Hyperlipidemia, unspecified, G47.33 - Obstructive sleep apnea (adult) (pediatric), I10 - Essential (primary) hypertension, J45.50 - Severe persistent asthma, uncomplicated XR chest 2V Today E28.2 - Polycystic ovarian syndrome, E66.01 - Morbid (severe) obesity due to excess calories, E78.5 - Hyperlipidemia, unspecified, G47.33 - Obstructive sleep apnea (adult) (pediatric), I10 - Essential (primary) hypertension, J45.50 - Severe persistent asthma, uncomplicated FL upper GI w air Today E28.2 - Polycystic ovarian syndrome, E66.01 - Morbid (severe) obesity due to excess calories, E78.5 - Hyperlipidemia, unspecified, G47.33 - Obstructive sleep apnea (adult) (pediatric), I10 - Essential (primary) hypertension, J45.50 - Severe persistent asthma, uncomplicated Insulin Today E28.2 - Polycystic ovarian syndrome, E66.01 - Morbid (severe) obesity due to excess calories, E78.5 - Hyperlipidemia, unspecified, G47.33 - Obstructive sleep apnea (adult) (pediatric), I10 - Essential (primary) hypertension, J45.50 - Severe persistent asthma, uncomplicated Hemoglobin A1c Today E28.2 - Polycystic ovarian syndrome, E66.01 - Morbid (severe) obesity due to excess calories, E78.5 - Hyperlipidemia, unspecified, G47.33 - Obstructive sleep apnea (adult) (pediatric), I10 - Essential (primary) hypertension, J45.50 - Severe persistent asthma, uncomplicated Comprehensive Met. Panel Today E28.2 - Polycystic ovarian syndrome, E66.01 - Morbid (severe) obesity due to excess calories, E78.5 - Hyperlipidemia, unspecified, G47.33 - Obstructive sleep apnea (adult) (pediatric), I10 - Essential (primary) hypertension, J45.50 - Severe persistent asthma, uncomplicated Vitamin B1 Today E28.2 - Polycystic ovarian syndrome, E66.01 - Morbid (severe) obesity due to excess calories, E78.5 - Hyperlipidemia, unspecified, G47.33 - Obstructive sleep apnea (adult) (pediatric), I10 - Essential (primary) hypertension, J45.50 - Severe persistent asthma, uncomplicated ECG 12 lead EKG Today E28.2 - Polycystic ovarian syndrome, E66.01 - Morbid (severe) obesity due to excess calories, E78.5 - Hyperlipidemia, unspecified, G47.33 - Obstructive sleep apnea (adult) (pediatric), I10 - Essential (primary) hypertension, J45.50 - Severe persistent asthma, uncomplicated Referrals Behavioral Health Referral E28.2 - Polycystic ovarian syndrome, E66.01 - Morbid (severe) obesity due to excess calories, E78.5 - Hyperlipidemia, unspecified, G47.33 - Obstructive sleep apnea (adult) (pediatric), I10 - Essential (primary) hypertension, J45.50 - Severe persistent asthma, uncomplicated
[2023-08-06 08:43] VITALS: BMI 47.0
== END 2023-08-06 08:49 | disposition home or self-care (01) ==
PROVIDERS: PCP Nurse Practitioner Family; Visit Provider Surgery
DX: E66.01 Morbid (severe) obesity due to excess calories (principal)
CPT/HCPCS: 99204

== ENCOUNTER → 2023-08-06 08:00 | Outpatient (BNVA) | payer OTHER, SELFPAY | PROVIDERS: PCP Nurse Practitioner Family; Visit Provider Surgery ==

== ENCOUNTER 2023-08-13 08:20 | Outpatient (REF) | payer OTHER, SELFPAY ==
[2023-08-13 08:32] LABS: MANUAL DIFF FLAG NO
--- NOTE | 2023-08-13 08:35 | ECG_ITS ---
Test Reason : e66.01 Blood Pressure : / mmHG Vent. Rate : 077 BPM Atrial Rate : 077 BPM P-R Int : 144 ms QRS Dur : 100 ms QT Int : 376 ms P-R-T Axes : 074 065 029 degrees QTc Int : 425 ms Normal sinus rhythm Normal ECG When compared with ECG of 18-DEC-2015 14:00, No significant change was found Referred By: Christoph Nagy Electronically Signed By:TAMAR LINARES MD
[2023-08-13 09:16] LABS: Basophils Percent Auto 0.3 % (0-2); Eosinophils Absolute Auto 0.2 X10*3/uL (0.0-0.4); Eosinophils Percent Auto 2.2 % (0-4); Hematocrit 40.1 % (37.0-47.0); Hemoglobin 12.8 g/dl (12.0-16.0); Imm Gran Abs Auto 0.03 X10*3/uL (0.00-0.03); Imm Gran Pct Auto 0.3 % (0.0-0.4); Lymphocytes Absolute Auto 2.7 X10*3/uL (1.2-4.9); Lymphocytes Percent Auto 31.6 % (20-40); Mean Corpuscular HGB Conc 31.9 g/dl (31.0-35.0); Mean Corpuscular Hemoglobin 24.5 pg (27.0-33.0); Mean Corpuscular Volume 76.8 fL (80.0-98.0); Mean Platelet Volume 9.4 fL (9.4-12.3); Monocytes Absolute Auto 0.5 X10*3/uL (0.1-1.2); Monocytes Percent Auto 5.5 % (2-11); Neutrophils Absolute Auto 5.2 x10*3/uL (2.0-8.3); Neutrophils Percent Auto 60.1 % (45-73); Platelet Count 342 X10*3/uL (160-400); Red Blood Count 5.22 X10*6/uL (4.20-5.50); Red Cell Distribution Width 15.1 % (11.0-16.0); White Blood Count 8.6 X10*3/uL (4.8-10.8)
[2023-08-13 09:30] LABS: Estimated Average Glucose 117 mg/dL; Hemoglobin A1c % 5.7 % (<6.0)
[2023-08-13 10:02] LABS: Alanine Aminotransferase 19 U/L (0-31); Alkaline Phosphatase 71 U/L (39-117); Anion Gap 13 (12-20); Aspartate Amino Transferase 21 U/L (5-31); Bilirubin Total 0.2 mg/dL (0.0-1.0); Blood Urea Nitrogen 9 mg/dL (9-16); C Reactive Protein 2.97 mg/dL (< or = 0.50); Calcium 8.6 mg/dL (8.4-10.2); Carbon Dioxide 24 mmol/L (22-29); Chloride 108 mmol/L (96-108); Cholesterol 152 mg/dL (<200); Estimated Glomerular Filt Rate > 60; Glucose Random 127 mg/dL (60-115); HDL Cholesterol 30 mg/dL (>40); Iron 33 mcg/dL (30-160); LDL Cholesterol Calculated 86 mg/dL (<100); Percent Iron Saturation 11 % (15-50); Sodium 141 mmol/L (135-145); Total Iron Binding Capacity 307 mcg/dL (228-428); Triglycerides 184 mg/dL (<150); Unsaturated Iron Binding 274 ug/dL
[2023-08-13 10:19] LABS: Ferritin 34 ng/mL (10-122); Insulin 61 uU/mL (2-29); TSH reflex Free T4 1.93 uIU/mL (0.32-4.0); Vitamin D 25-OH Total 21.9 ng/mL (>30)
[2023-08-13 11:02] LABS: Folate 10.1 ng/mL (> or = 4.0); Vitamin B12 345 pg/mL (200-900)
[2023-08-17 15:34] LABS: Zinc 62 mcg/dL (60-130)
[2023-08-18 06:09] LABS: Vitamin A 42 mcg/dL (38-98)
[2023-08-19 15:52] LABS: Vitamin B1 17 nmol/L (8-30)
== END 2023-08-13 08:21 | disposition home or self-care (01) ==
LOC: HO.LAB 08:20
PROVIDERS: PCP Nurse Practitioner Family; Visit Provider Surgery
DX: E66.01 Morbid (severe) obesity due to excess calories (principal); G47.33 Obstructive sleep apnea (adult) (pediatric); J45.50 Severe persistent asthma, uncomplicated; E28.2 Polycystic ovarian syndrome; I10 Essential (primary) hypertension; E78.5 Hyperlipidemia, unspecified
CPT/HCPCS: 36415; 80053; 80061; 82306; 82607; 82728; 82746; 83036; 83525; 83540; 84425; 84443; 84590; 84630; 85025; 86140; 93005

== ENCOUNTER → 2023-08-13 08:35 | Outpatient (BNV) | payer OTHER, SELFPAY | PROVIDERS: PCP Nurse Practitioner Family; Visit Provider Internal Medicine Cardiovascular Disease | DX: E66.01 Morbid (severe) obesity due to excess calories (principal) | CPT/HCPCS: 93010 ==

== ENCOUNTER 2023-08-13 08:49 | Outpatient (AMB) | payer OTHER, SELFPAY ==
--- NOTE | 2023-08-13 08:58 | A.OFFVIS_ITS ---
Vital Signs 3 08/13/23 09:09 Height 5 ft 4 in Weight 278 lb BMI 47.7 BP 161/102 H Blood Pressure Location Lt brachial Position Sitting Pulse 86 Intake Visit Reasons: Sebaceous cyst, left upper arm Intake Note: Patient is seen in office for follow up visit, following sebaceous cyst of the left upper arm. 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 She does not feel this is the small cyst but something deep in the axilla. The pain has been almost persistent since last year with occasional episodes of increased pain. She is unable to palpate any lump in the axilla and denies skin changes or discharge. A previous ultrasound revealed a large possibly necrotic lymph node in the left axilla. She believes this may be the cause of her pain. [facility] Medical History (Updated 08/13/23 @ 09:14 by Antoine Rios MD) Left axillary pain Back pain Bipolar 1 disorder Morbid obesity Physical exam Lower back pain Hip pain, left Fall Sebaceous cyst of left axilla Viral illness Myalgia Syncope Palpitations Encounter for IUD insertion Chest pain Upper respiratory tract infection Asthma SOB (shortness of breath) Lumbar back pain with radiculopathy affecting lower extremity Screening for STD (sexually transmitted disease) Low back pain radiating to both legs Asthma Tachycardia Vitamin D deficiency Hyperandrogenism HLD (hyperlipidemia) T2DM (type 2 diabetes mellitus) Sleep apnea in adult Anxiety and depression Anxiety HTN (hypertension) PCOS (polycystic ovarian syndrome) Surgical History No pertinent past surgical history Family History Mother Sleep apnea CVD (cardiovascular disease) Mental health disorder Father CVD (cardiovascular disease) Sleep apnea Substance use disorder Mental health disorder Sister Substance use disorder Mental health disorder Social History Housing: House Alcohol intake: current Patient Tobacco Use Status: Never used Tobacco e-Cigarette/Vaping Use: Never Used Second Hand Smoke Exposure: No service: No Current occupational status: employed Current occupation: [employer] [place] Current occupational exposures/hazards: No Cognitive needs: No Hearing needs: No Vision needs: Yes Female Reproductive History Menstrual Age of Menarche: 10 Review of Systems Const All systems reviewed & are unremarkable except as noted in HPI and below Physical Exam Vital Signs: Last Vital Signs Pulse 86 08/13/23 09:09 BP 161/102 H 08/13/23 09:09 BMI result Body Mass Index 47.7 Const General: cooperative and no acute distress Nutritional Appearance: well nourished Orientation/consciousness: patient oriented x3 Limitations: no limitations HEENT Head: Yes normocephalic and Yes atraumatic Ears: hearing grossly normal bilaterally Chest Other: Left axilla with no obvious skin change appreciated. Palpation does reveal tenderness in the mid to lateral axilla. No definite lymphadenopathy is appreciated. Chest/axillae images: 2 1. Site of maximal tenderness Resp Effort & Inspection: normal respiratory effort, no audible wheezes, no cough and no respiratory distress Cardio Jugular venous distension: no JVD GI Inspection: Yes normal to inspection Skin Other: Warm, dry, no rash Neuro General: patient oriented x3 Extrem General: Yes no clubbing, cyanosis or edema Assessment & Plan Assessment & Plan (1) Left axillary pain: Code(s): M79.622 - Pain in left upper arm Category: Medical Plan 33-year-old female patient returning with complaints of pain in the left axilla. Findings may be suggestive of a reactive lymphadenopathy although no palpable node is appreciated. Recommended repeating the ultrasound to evaluate for any interval change in the previously evaluated enlarged lymph node. She expressed understanding and agrees with the plan. She will set up an appointment following the ultrasound to review the results. Orders: Orders 2 US breast LT limited Today M79.622 - Pain in left upper arm Coding Level of Care Code Est Pt Level 3 (09522) Diagnoses Left axillary pain M79.622
[2023-08-13 09:09] VITALS: BP 161/102; PULSE 86; BMI 47.7
== END 2023-08-13 09:13 | disposition home or self-care (01) ==
PROVIDERS: PCP Nurse Practitioner Family; Visit Provider Surgery
DX: M79.622 Pain in left upper arm (principal)
CPT/HCPCS: 99213

== ENCOUNTER 2023-08-17 15:02 | Outpatient (AMB) | payer OTHER, SELFPAY ==
--- NOTE | 2023-08-17 14:40 | MHC.WMTHER ---
Intake Intake Visit Reasons: TV BH Intake Allergies lisinopril [LISINOPRIL] Allergy (Severe, Verified 08/13/23 09:07) COUGH Penicillins [PENICILLINS] Allergy (Severe, Verified 08/13/23 09:07) HIVES vancomycin Allergy (Severe, Verified 08/13/23 09:07) Rash chlorthalidone Adverse Reaction (Severe, Verified 08/13/23 09:07) tachycardia, palpitations doxycycline Adverse Reaction (Intermediate, Verified 08/13/23 09:07) Joint Pain [facility] Medical History (Updated 08/16/23 @ 16:17 by Christoph Nagy MD) Left axillary pain Back pain Bipolar 1 disorder Morbid obesity Physical exam Lower back pain Hip pain, left Fall Sebaceous cyst of left axilla Viral illness Myalgia Syncope Palpitations Encounter for IUD insertion Chest pain Upper respiratory tract infection Asthma SOB (shortness of breath) Lumbar back pain with radiculopathy affecting lower extremity Screening for STD (sexually transmitted disease) Low back pain radiating to both legs Asthma Tachycardia Vitamin D deficiency Hyperandrogenism HLD (hyperlipidemia) T2DM (type 2 diabetes mellitus) Sleep apnea in adult Anxiety and depression Anxiety HTN (hypertension) PCOS (polycystic ovarian syndrome) Surgical History No pertinent past surgical history Family History Mother Sleep apnea CVD (cardiovascular disease) Mental health disorder Father CVD (cardiovascular disease) Sleep apnea Substance use disorder Mental health disorder Sister Substance use disorder Mental health disorder Social History Housing: House Alcohol intake: current Patient Tobacco Use Status: Never used Tobacco e-Cigarette/Vaping Use: Never Used Second Hand Smoke Exposure: No service: No Current occupational status: employed Current [place] [employer] [place] Current occupational exposures/hazards: No Cognitive needs: No Hearing needs: No Vision needs: Yes Female Reproductive History Menstrual Age of Menarche: 10 Behavioral Health Assessment Weight Management Therapy Therapy Notes Details Pt is looking to have weight loss surgery to help improve her health and quality of life. She is concerned about her health conditions. Pt is seeing a psychiatrist and was seeing a therapist at [facility]. She has no history of hospital admissions due to psychiatric reasons. No history of drug or alcohol abuse. Pt reported that she has depression, anxiety, and Bipolar Disorder. Presenting Concerns Referral Source provider Reason for referral weight loss surgery evaluation Precipitating Event obesity Living Situation Current Living Situation Own At risk of losing current housing? No Satisfied with current living situation? Yes Comments Pt lives with her children ages 10, 9, and 7 years old, as well as her fiance. Food/Weight/Diet Expectations of change weight loss and maintenance History/Relationship with food She reported that she would emotional eat often. Often would have sweets, would skip meals, and then binge after dinner. Snacks, carbs, sweets. Heavy soda drinker in the past. History/Relationship with weight Pt stated that she has been overweight since age 4. At her heaviest she was over 300lbs, after having covid, becoming depressed due to severe asthma exacerbation. Down to 247lbs with exercise and gym. History/Relationship with dieting ozempic/mounbrantro, portion control, exercise Binge Eating Do you frequently eat large amounts of food in short periods of time, not feeling physically hungry? Yes Do you feel out of control when you eat a large amount of food in a short period of time? Yes Do you eat large amounts of food rapidly and typically alone? No Night Eating Do you wake up at least once during the night to eat? No If you wake up in the night, do you find that it is necessary to eat something in order to fall back asleep? No Do you have little or no appetite in the morning and feel very hungry in the evening, often overeating between dinner and when you go to bed? No Financial Situation Describe current financial situation Comfortable Financial assistance? None Pain Screening Current pain? No Pain in the last few months? No Medications Is the patient compliant with medications? Yes Does the patient have Lowry Guardian in place? Not applicable Does the patient use complimentary health approaches? Yes Trauma/Abuse History History of trauma? Yes Questionnaires PHQ-9 Over the last 2 weeks, how often have you been bothered by any of the following problems? 1. Little interest or pleasure in doing things: several days 2. Feeling down, depressed, or hopeless: several days 3. Trouble falling or staying asleep, or sleeping too much: more than half the days 4. Feeling tired or having little energy: nearly every day 5. Poor appetite or overeating: nearly every day 6. Feeling bad about yourself - or that you are a failure or have let yourself or your family down: several days 7. Trouble concentrating on things, such as reading the newspaper or watching television: nearly every day 8. Moving or speaking so slowly that other people could have noticed. Or the opposite - being so fidgety or restless that you have been moving around a lot more than usual: nearly every day 9. Thoughts that you would be better off or of hurting yourself in some way: not at all Total score: 17 Depression Screening Interpretation: Positive Depression Screening Done: Yes Source: Developed by Drs. Duong Sage, Soo Becker, Mirza Armenta and colleagues, with an educational ryan from [employer]. Binge Eating Scale Group 1 A. I don't feel self-conscious about my wt. or body size when I'm with others. B. I feel concerned about how I look to others, but it normally does not make me fell disappointed with myself C. I do get self-conscious about my appearance and wt. which makes me feel disappointed in myself. D. I feel very self-conscious about my wt. and frequently I feel intense shame and disgust for myself. I try to avoid social contacts because of my self-consciousness. Response Group 1: C Group 2 A. I don't have any difficulty eating slowly in the proper manner. B. Although I seem to gobble down foods, I don't end up feeling stuffed because of eating to much. C. At times, I tend to eat quickly and then, I feel uncomfortably full afterwards. D. I have the habit of bolting down my food, without really chewing it. When this happens I usually feel uncomfortably stuffed because I've eaten to much. Response Group 2: C Group 3 A. I feel capable to control my eating urges when I want to. B. I feel like I have failed to control my eating more than the average person. C. I feel utterly helpless when it comes to feeling in control of my eating urges. D. Because I feel so helpless about controlling my eating I have become very desperate about trying to get control. Response Group 3: B Group 4 A. I don't have the habit of eating when I'm bored. B. I sometimes eat when I'm bored, but often I'm able to get busy and get my mind off food. C. I have a regular habit of eating when I'm bored, but occasionally, I can use some other activity to get my mind off eating. D. I have a strong habit of eating when I'm bored. Nothing seems to help me breath the habit. Response Group 4: B Group 5 A. I'm usually physically hungry when I eat something. B. Occasionally, I eat something on impulse even though I really am not hungry. C. I have the regular habit of eating foods, that I might not really enjoy, to satisfy a hungry feeling even though physically, I don't need the food. D. Although I'm not physically hungry, I get a hungry feeling in my mouth that only seems to be satisfied when I eat a food, like sandwich, that fills my mouth. Sometimes, when I eat the food to satisfy my mouth hunger, I then spit the food out so I won't gain weight. Response Group 5: C Group 6 A. I don't feel any guilt or self-hate after I overeat. B. After I overeat, occasionally I feel guilt or self-hate. C. Almost all the time I experience strong guilt or self-hate after I overeat. Response Group 6: C Group 7 A. I don't lose total control of my eating when dieting even after periods when I overeat. B. Sometimes when I eat a forbidden food on a diet, I feel like I blew it and eat even more. C. Frequently, I have the habit of saying to myself, I've blown it now, why not go all the way, when I overeat on a diet. When that happens I eat more. D. I have a regular habit of starting a strict diets for myself but I break the diets by going on an eating binge. My life seems to be either a feast or famine. Response Group 7: B Group 8 A. I rarely eat so much food that I feel uncomfortably stuffed afterwards. B. Usually about once a month, I each such a quantity of food, I end up feeling very stuffed. C. I have regular periods during the month when I eat large amounts of food, either at mealtime or at snacks. D. I eat so much food that I regularly feel quite uncomfortable after eating and sometimes a bit nauseous. Response Group 8: C Group 9 A. My level of calorie intake does not go up very high or go down very low on a regular basis. B. Sometimes after I overeat, I will try to reduce my caloric intake to almost nothing to compensate for the excess calories I've eaten. C. I have a regular habit of overeating during the night. It seems that my routine is not to be hungry in the morning but overeat in the evening. D. In my adult years, I have had week-long periods where I practically starve myself. This follows periods when I overeat. It seems I live a life of either feast or famine. Response Group 9: B Group 10 A. I usually am able to stop eating when I want to. I know when enough is enough. B. Every so often, I experience a compulsion to eat which I can't seem to control. C. Frequently, I experience strong urges to eat which I seem unable to control, but at other times I can control my eating urges. D. I feel incapable of controlling urges to eat. I have a fear of not being able to stop eating voluntarily. Response Group 10: B Group 11 A. I don't have any problem stopping eating when I feel full. B. I usually can stop eating when I feel full but occasionally overeat leaving me feeling uncomfortably stuffed. C. I have a problem stopping eating once I start and usually I feel uncomfortably stuffed after I eat a meal. D. Because I have a problem not being able to stop eating when I want, I sometimes have to induce vomiting to relieve my stuffed feeling. Response Group 11: B Group 12 A. I seem to eat just as much when I'm with others, Family social gatherings as when I'm by myself. B. Sometimes, when I'm with other persons, I don't eat as much as I want to eat because I'm self-conscious about my eating. C. Frequently, I eat only a small amount of food when others are present, because I'm very embarrassed about my eating. D. I feel so ashamed about overeating that I pick times to overeat when I know no one will see me. I feel like a closet eater. Response Group 12: B Group 13 A. I eat three meals a day with only an occasional between meal snack. B. I eat 3 meals a day, but I also normally snack between meals. C. When I am snacking heavily, I get in the habit of skipping regular meals. D. There are regular periods when I seem to be continually eating, with no planned meals. Response Group 13: B Group 14 A. I don't think much about trying to control unwanted eating urges. B. At least some of the time, I feel my thoughts are pre-occupied with trying to control my eating urges. C. I feel that frequently I spend much time thinking about how much I ate or about trying not to eat anymore. D. It seems to me that most of my waking hours are pre-occupied by thoughts about eating or not eating. I feel like I'm constantly struggling not to eat. Response Group 14: C Group 15 A. I don't think about food a great deal. B. I have strong craving for food but they last only for brief periods of time. C. I have days when I can't seem to think about anything else but food. D. Most of my days seem to be pre-occupied with thoughts about food. I feel like I live to eat. Response Group 15: B Group 16 A. I usually know whether or not I'm physically hungry. I take the right portion of food to satisfy me. B. Occasionally, I feel uncertain about knowing whether or not I'm physically hungry. A these times it's hard to know how much food I should take to satisfy me. C. Even though I might know how many calories I should eat, I don't have any idea what is a normal amount of food for me. Response Group 16: B Binge Eating Score: 22 Score less than 17 Minimal Risk Score between 18-26 Moderate Risk Score between 27-46 High Risk Assessment & Plan Assessment & Plan (1) Bipolar 1 disorder: Code(s): F31.9 - Bipolar disorder, unspecified (2) Obstructive sleep apnea on CPAP: Code(s): G47.33 - Obstructive sleep apnea (adult) (pediatric) (3) Morbid obesity: Code(s): E66.01 - Morbid (severe) obesity due to excess calories Plan Patient reported that she has been increasingly depressed recently. Also has some binge eating behaviors. She reported hx of trauma and sig. amount of medical concerns some worsened post covid. Pt will be seen in office next week. Telehealth Telehealth Telehealth Platform: Telephone Location of provider rendering services: other Location of patient: address on file Patient Identification confirmed using: Name, : Yes Telehealth method: voice only Patient verbally consented to treatment: Yes Patient verbally consented to billing insurance company: Yes Patient informed of any privacy concerns related to visit: Yes Minutes spent on Phone/Video with Pt.: 45 Coding Level of Care Code Tele Psy Diag Eval (97824) Diagnoses Bipolar 1 disorder F31.9 Obstructive sleep apnea on CPAP G47.33 Morbid obesity E66.01 Time Spent (min) 45
== END 2023-08-17 15:04 | disposition home or self-care (01) ==
LOC: HO.HBST 15:03
PROVIDERS: PCP Nurse Practitioner Family; Visit Provider Counselor Mental Health
DX: F31.9 Bipolar disorder, unspecified (principal); G47.33 Obstructive sleep apnea (adult) (pediatric); E66.01 Morbid (severe) obesity due to excess calories
CPT/HCPCS: 90791

== ENCOUNTER → 2023-08-17 15:02 | Outpatient (BNVA) | payer OTHER, SELFPAY | PROVIDERS: PCP Nurse Practitioner Family; Visit Provider Counselor Mental Health ==

== ENCOUNTER 2023-08-19 09:14 | Outpatient (REF) | payer OTHER, SELFPAY ==
[2023-08-19 11:04] LABS: HBS Num1 > 1000.00 mIU/mL (0-7.99); ~Hepatitis B Surface Antibody REACTIVE (Nonreactive)
== END 2023-08-19 09:15 | disposition home or self-care (01) ==
LOC: HO.LAB 09:14
PROVIDERS: PCP Nurse Practitioner Family; Visit Provider Nurse Practitioner Family
DX: Z28.39 Other underimmunization status (principal)
CPT/HCPCS: 36415; 86706

== ENCOUNTER 2023-09-03 13:15 | Outpatient (REF) | payer OTHER, SELFPAY ==
--- NOTE | ~2023-09-03 | MM_ITS ---
EXAMINATION: MM DIAGNOSTIC DIGITAL BREAST TOMOSYNTHESIS, BILATERAL US BREAST LIMITED, LEFT CLINICAL INFORMATION: Patient complaining of left breast pain from the axilla radiating down to the nipple. Patient here also for bilateral screening. Baseline examination. COMPARISON: Mammography: None. Baseline exam. TECHNIQUE: Digital breast tomosynthesis is performed in both the craniocaudal and mediolateral oblique views along with computer-aided detection (CAD). Synthesized 2D images are generated from the tomosynthesis. In addition, added bilateral full-field CC views were obtained. FINDINGS: The breasts are almost entirely fatty (ACR BI-RADS breast composition Category a). There are a few scattered dermal calcifications bilaterally. These are benign. Tiny group of linear benign mammogram tracking calcifications in the upper outer right breast, middle one third, appears vascular and benign. No masses, suspicious calcifications, or areas of architectural distortion in either breast. No mammographic correlation to left breast pain from the axilla to the nipple. No skin or axillary abnormality is evident. ULTRASOUND: CLINICAL INFORMATION: Left breast pain radiating from axilla to left nipple. Baseline exam. COMPARISON: None TECHNIQUE: Targeted sonographic evaluation was performed using a high frequency linear transducer. Attention was given to the left breast outer quadrant and axillary tail. Selected archived documentation. FINDINGS: LEFT BREAST: There is predominantly fatty breast tissue present. No suspicious mass is seen. There is no pathologic acoustic shadowing. No cystic abnormality. There is no axillary adenopathy. There is no sonographic correlate to the regions of purported lateral breast pain. MM/MM tomosynthesis diagnostic BI IMPRESSION: -No findings suspicious for malignancy in either breast. There are benign findings as detailed. -No sonographic or mammographic correlate is found to explain axillary pain radiating to left breast laterally and to the nipple. Recommend clinical management and follow-up. -Otherwise, recommend resuming routine annual bilateral screening. OVERALL ASSESSMENT: Mammography: BI-RADS 2 - Benign Findings Ultrasound: BI-RADS 2 - Benign Findings RECOMMENDATION: 1. Patient should be managed based on the clinical impression. 2. Otherwise, routine annual screening mammography. This patient's information was entered into a reminder system with a target due date for their next mammogram.
== END 2023-09-03 13:16 | disposition home or self-care (01) ==
LOC: HO.MAMMO 13:15
PROVIDERS: PCP Nurse Practitioner Family; Visit Provider Surgery
DX: N63.32 Unspecified lump in axillary tail of the left breast (principal); M79.622 Pain in left upper arm
CPT/HCPCS: 76642; 77062; 77066

== ENCOUNTER → 2023-09-03 13:30 | Outpatient (BNV) | payer OTHER, SELFPAY | PROVIDERS: PCP Nurse Practitioner Family; Visit Provider Radiology Diagnostic Radiology | DX: N64.4 Mastodynia (principal) | CPT/HCPCS: 77062; 77066 ==

== ENCOUNTER 2023-09-21 12:45 | Outpatient (AMB) | payer OTHER, SELFPAY ==
--- NOTE | 2023-09-21 12:50 | A.OFFVIS_ITS ---
Vital Signs 09/21/23 12:54 Height 5 ft 4 in Weight 264 lb BMI 45.3 Pulse 80 Intake Visit Reasons: s/p US results Intake Note: Patient is seen in office for ultrasound results, following pain in the left axilla. 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: No Accompanied by: Child Allergies lisinopril [LISINOPRIL] Allergy (Severe, Verified 09/21/23 12:53) COUGH Penicillins [PENICILLINS] Allergy (Severe, Verified 09/21/23 12:53) HIVES vancomycin Allergy (Severe, Verified 09/21/23 12:53) Rash chlorthalidone Adverse Reaction (Severe, Verified 09/21/23 12:53) tachycardia, palpitations doxycycline Adverse Reaction (Intermediate, Verified 09/21/23 12:53) Joint Pain Medication List - Last Reconciled 09/21/23 by Antoine Rios MD albuterol sulfate 90 mcg/actuation 1 inh inhalation QID PRN 30 days atorvastatin 10 mg PO BEDTIME 90 days blood sugar diagnostic (FreeStyle Lite Strips) 4x daily blood-glucose meter (FreeStyle Lite Meter kit) As directed carisoprodol (Soma) 350 mg PO BEDTIME PRN 14 days cholecalciferol (vitamin D3) 125 mcg PO DAILY diltiazem HCl CD 300 mg PO DAILY flash glucose scanning reader ([employer]Style Kristen 2 [place]) As directed flash glucose sensor (FreeStyle Kristen 2 Sensor kit) Once every 14 days gabapentin 100 mg PO TID 30 days lamotrigine 100 mg PO DAILY lancets (FreeStyle Lancets) 4x daily lorazepam 1 mg PO BID PRN 30 days mecobalamin (vitamin B12) 1,000 mcg sublingual DAILY nebulizer accessories Q6 hrs, prn for SOB/wheezing nebulizers Q6 hrs prn for sob/wheezing roflumilast 500 mcg PO DAILY 30 days sulfamethoxazole-trimethoprim 800-160 mg (Bactrim DS) 1 tab PO BID 5 days tirzepatide 10 mg (0.5 mL) subcut QWEEK HPI Comments Details: 33-year-old female patient previously evaluated on 07/16/2022 for enlarged sebaceous cyst now presenting with complaints of pain in the left axilla. She does not feel this is the small cyst but something deep in the axilla. She reported continued pain in the left axilla despite the lack of any palpable mass. On examination no further palpable mass was noted therefore an ultrasound of the axilla was performed on 09/03/2023. This also revealed no suspicious findings in the left axilla with no suspicious lymphadenopathy. She denies any new symptoms. [facility] Medical History Left axillary pain Back pain Bipolar 1 disorder Morbid obesity Physical exam Lower back pain Hip pain, left Fall Sebaceous cyst of left axilla Viral illness Myalgia Syncope Palpitations Encounter for IUD insertion Chest pain Upper respiratory tract infection Asthma SOB (shortness of breath) Lumbar back pain with radiculopathy affecting lower extremity Screening for STD (sexually transmitted disease) Low back pain radiating to both legs Asthma Tachycardia Vitamin D deficiency Hyperandrogenism HLD (hyperlipidemia) T2DM (type 2 diabetes mellitus) Sleep apnea in adult Anxiety and depression Anxiety HTN (hypertension) PCOS (polycystic ovarian syndrome) Surgical History No pertinent past surgical history Family History Mother Sleep apnea CVD (cardiovascular disease) Mental health disorder Father CVD (cardiovascular disease) Sleep apnea Substance use disorder Mental health disorder Sister Substance use disorder Mental health disorder Social History Housing: House Alcohol intake: current Patient Tobacco Use Status: Never used Tobacco e-Cigarette/Vaping Use: Never Used Second Hand Smoke Exposure: No service: No Current occupational status: employed Current occupation: [employer] [place] Current occupational exposures/hazards: No Cognitive needs: No Hearing needs: No Vision needs: Yes Female Reproductive History Menstrual Age of Menarche: 10 Review of Systems Const All systems reviewed & are unremarkable except as noted in HPI and below Physical Exam Vital Signs: Last Vital Signs Pulse 80 09/21/23 12:54 BMI result Body Mass Index 45.3 Const General: cooperative and no acute distress Nutritional Appearance: well nourished Orientation/consciousness: patient oriented x3 Limitations: no limitations HEENT Head: Yes normocephalic and Yes atraumatic Ears: hearing grossly normal bilaterally Chest Other: Left axilla with no obvious skin change appreciated. Palpation does reveal tenderness in the mid to lateral axilla. No definite lymphadenopathy is appreciated. Resp Effort & Inspection: normal respiratory effort, no audible wheezes, no cough and no respiratory distress Cardio Jugular venous distension: no JVD GI Inspection: Yes normal to inspection Skin Other: Warm, dry, no rash Neuro General: patient oriented x3 Extrem General: Yes no clubbing, cyanosis or edema Assessment & Plan Assessment & Plan (1) Left axillary pain: Code(s): M79.622 - Pain in left upper arm Category: Medical Plan 33-year-old female patient returning for follow-up examination and review of the ultrasound of the left axilla. This revealed no suspicious findings and no enlarged lymph nodes. Copy of the report was provided to the patient. She should follow up as needed. Coding Level of Care Code Est Pt Level 3 (00421) Diagnoses Left axillary pain M79.622
[2023-09-21 12:54] VITALS: PULSE 80; BMI 45.3
== END 2023-09-21 12:59 | disposition home or self-care (01) ==
PROVIDERS: PCP Nurse Practitioner Family; Visit Provider Surgery
DX: M79.622 Pain in left upper arm (principal)
CPT/HCPCS: 99213

== ENCOUNTER → 2023-09-21 12:45 | Outpatient (BNVA) | payer OTHER, SELFPAY | PROVIDERS: PCP Nurse Practitioner Family; Visit Provider Surgery ==

== ENCOUNTER 2023-09-22 20:49 | Emergency (ER) | payer OTHER, SELFPAY ==
[2023-09-22] VITALS (8 sets, daily range): BP systolic 120–148; BP diastolic 63–96; PULSE 75–130; RESP 16–22; TEMP 36.7–36.8; O2SAT 97–98; BMI 46.9
--- NOTE | ~2023-09-22 | XR_ITS ---
EXAMINATION: XR CHEST CLINICAL INFORMATION: Shortness of breath COMPARISON: Previous chest x-ray most recent January 2023 TECHNIQUE: Frontal view of the chest was obtained. FINDINGS: No significant abnormality is noted involving the heart, lungs, mediastinum, bony thorax or soft tissues. XR/XR chest 1V IMPRESSION: Unremarkable examination.
--- NOTE | 2023-09-22 21:11 | ECG_ITS ---
Test Reason : PALPITATIONS Blood Pressure : / mmHG Vent. Rate : 090 BPM Atrial Rate : 090 BPM P-R Int : 150 ms QRS Dur : 088 ms QT Int : 346 ms P-R-T Axes : 057 029 013 degrees QTc Int : 423 ms Normal sinus rhythm Normal ECG When compared with ECG of 13-AUG-2023 08:42, No significant change was found Referred By: Carli Jefferson Electronically Signed By:TAMAR LINARES MD
--- NOTE | 2023-09-22 21:12 | ED_ITS ---
HPI - Arrhythmia/Palpitations General Chief Complaint: Arrhythmia/Palpitations Stated Complaint: high heart rate Time Seen by Provider: 09/22/23 21:00 Source: patient Mode of arrival: ambulatory Limitations: no limitations History of Present Illness ED Provider: Dr. Carli Jefferson HPI narrative: Patient comes to the emergency room complaining of palpitations, shortness of breath, dizziness. Patient states that she is known to have POTS, and is usually able to control it at home. However, today while she was getting ready to go to work, patient had an elevated heart rate in the 130s and complaining shortness of breath, patient feels like she used ran a marathon. Patient known to have asthma. However, she has not been wheezing or using inhalers lately. At this time, patient feels exhausted and a bit short of breath. No chest pain. Denies lower extremity edema Related Data Home Medications ?Medication ?Instructions ?Recorded ?Confirmed lamotrigine 25 mg tablet 100 mg PO DAILY 05/27/23 09/21/23 Previous Rx's ?Medication ?Instructions ?Recorded nebulizer accessories #1 ea 03/10/21 nebulizers #1 ea 03/10/21 blood-glucose meter (FreeStyle #1 ea 04/02/21 Lite Meter kit) lancets 28 gauge (FreeStyle #100 ea 04/02/21 Lancets) albuterol sulfate 90 mcg/actuation 1 inh inhalation QID PRN shortness 01/08/22 aerosol inhaler of breath or wheezing 30 days #8.5 grams lorazepam 1 mg tablet 1 mg PO BID PRN anxiety 30 days 03/05/22 #60 tabs blood sugar diagnostic (FreeStyle #100 ea 04/29/22 Lite Strips) gabapentin 100 mg capsule 100 mg PO TID 30 days #90 caps 07/06/22 flash glucose scanning reader #1 ea 07/20/22 (FreeStyle Kristen 2 Rociada) flash glucose sensor (FreeStyle #2 ea 11/26/22 Kristen 2 Sensor kit) roflumilast 500 mcg tablet 500 mcg PO DAILY 30 days #30 tabs 01/05/23 diltiazem HCl 300 mg 300 mg PO DAILY #90 caps 02/01/23 capsule,extended release 24 hr atorvastatin 10 mg tablet 10 mg PO BEDTIME 90 days #90 tabs 05/27/23 tirzepatide 10 mg/0.5 mL 10 mg (0.5 mL) subcut QWEEK #6 mL 06/10/23 subcutaneous pen injector carisoprodol 350 mg tablet (Soma) 350 mg PO BEDTIME PRN muscle pain 06/21/23 14 days #14 tabs cholecalciferol (vitamin D3) 125 125 mcg PO DAILY #90 caps 08/16/23 mcg (5,000 unit) capsule mecobalamin (vitamin B12) 1,000 1,000 mcg sublingual DAILY #60 tabs 08/16/23 mcg disintegrating tablet,sublingual sulfamethoxazole 800 1 tab PO BID 5 days #10 tabs 08/19/23 mg-trimethoprim 160 mg tablet (Bactrim DS) Allergies Allergy/AdvReac Type Severity Reaction Status Date / Time lisinopril [LISINOPRIL] Allergy Severe COUGH Verified 09/22/23 21:00 Penicillins [PENICILLINS] Allergy Severe HIVES Verified 09/22/23 21:00 vancomycin Allergy Severe Rash Verified 09/22/23 21:00 chlorthalidone AdvReac Severe tachycardia, Verified 09/22/23 21:00 palpitations doxycycline AdvReac Intermediate Joint Pain Verified 09/22/23 21:00 Review of Systems 2 Review of Systems: Constitutional : No Weight loss, No Fever, No Chills, No Night Sweats, complaining of feeling fatigued ENT/Mouth : No Hearing loss, No Ear Pain, No Nasal Congestion, No Sinus Pain, No Hoarseness, No sore throat, No Rhinorrhea, No Swallowing Difficulty Eyes: No Eye Pain, No Swelling, No Redness, No Foreign Body, No Discharge, No Vision Changes Cardiovascular : No chest pain, complaining of palpitations and shortness of breath at rest worse with exertion Respiratory : No Cough, No Sputum, No Wheezing, No Smoke Exposure, complaining of shortness of breath Gastrointestinal : No Nausea, No Vomiting, No Diarrhea, No Constipation, No abdominal Pain, No Hematochezia, No Melena Genitourinary : no irregular bleeding, No Dysuria, No Urinary Frequency, No Hematuria, No Urinary Incontinence, No Urgency, No Flank Pain, No Urinary Flow Changes, No Hesitancy Musculoskeletal : No joint pain, No Myalgias, No Joint Swelling Skin : No Skin Lesions, No rash Neuro : No Weakness, No Numbness, No Paresthesias, No Loss of Consciousness, No Dizziness, No Headache Psych : No Anxiety/Panic, No Depression, No SI/HI/AH/VH, No Social Issues, Heme/Lymph: No Bruising, No Bleeding,No Lymphadenopathy Endocrine : No Polyuria, No Polydipsia, No Temperature Intolerance [facility] Past Medical History Medical History Left axillary pain Back pain Bipolar 1 disorder Morbid obesity Physical exam Lower back pain Hip pain, left Fall Sebaceous cyst of left axilla Viral illness Myalgia Syncope Palpitations Encounter for IUD insertion Chest pain Upper respiratory tract infection Asthma SOB (shortness of breath) Lumbar back pain with radiculopathy affecting lower extremity Screening for STD (sexually transmitted disease) Low back pain radiating to both legs Asthma Tachycardia Vitamin D deficiency Hyperandrogenism HLD (hyperlipidemia) T2DM (type 2 diabetes mellitus) Sleep apnea in adult Anxiety and depression Anxiety HTN (hypertension) PCOS (polycystic ovarian syndrome) Surgical History No pertinent past surgical history Family History Family History Mother Sleep apnea CVD (cardiovascular disease) Mental health disorder Father CVD (cardiovascular disease) Sleep apnea Substance use disorder Mental health disorder Sister Substance use disorder Mental health disorder Social History Social History Housing: House Alcohol intake: current Patient Tobacco Use Status: Never used Tobacco Smoked in Last 30 Days: No e-Cigarette/Vaping Use: Never Used Second Hand Smoke Exposure: No Use of substances other than those prescribed or required for medical reasons: No Advance Directives: No Advance Directives Information Provided: No Do you have a plan to hurt others: No Plan Patient : No service: No Current occupational status: employed Current occupation: [employer] [place] Current occupational exposures/hazards: No Cognitive needs: No Hearing needs: No Vision needs: Yes Physical Exam 2 Vital Signs: Vital Signs: Last Vital Signs Temp 98.1 F 09/22/23 20:58 Pulse 75 09/22/23 22:34 Resp 22 H 09/22/23 22:34 BP 120/63 09/22/23 22:34 Pulse Ox 98 09/22/23 22:34 O2 Del Method Room Air 09/22/23 22:34 BMI result Body Mass Index 46.9 Const: Other: Appearance: Alert. Oriented X3. No acute distress. Eyes: Pupils equal, round and reactive to light. ENT: Pharynx normal. Neck: Normal inspection. Neck supple. No lymph nodes noted. No crepitus CVS: Normal heart rate and rhythm, heart rate 95-105. Pulses normal. Normal S1 and S2 Respiratory: No respiratory distress. Breath sounds normal. No Wheezing. No rales Abdomen: Soft and nontender. No rigidity. No distention. Skin: Skin warm and dry. Normal skin color. Normal skin turgor. Extremities: No lower extremity edema. No Lacerations. No Rash Neuro: Oriented X 3. No motor deficit. No sensory deficit. Moving all extremities. No slurred speech. CN 2 through 12 grossly intact Psych: calm, cooperative, normal affect Course Course Course Narrative: On arrival, patient's heart rate was in the 130s, complaining of shortness of breath. At this time, heart rate is below 100, good blood pressure 135/88. However, patient still feels short of breath, lung auscultation is normal. -all of patient's labs, imaging and EKG pending Medications Administered Discontinued Medications Generic Name Dose Route Start Last Admin Trade Name Somq PRN Reason Stop Dose Admin Sodium Chloride 1,000 mls @ 999 mls/hr 09/22/23 21:10 09/22/23 21:53 Ns IVCONT 09/22/23 22:10 999 mls/hr .Q1H1M ONE Administration Medical Decision Making Medical Decision Making [facility] Narrative: -my interpretation of EKG: Normal sinus rhythm, heart rate 90, no ST segment depression or elevation, nonspecific T-wave inversion in lead 3, QTC 423 -orthostatic vitals negative -interpretation of labs, normal/at baseline hematology and chemistry, BNP and troponin negative -patient was ambulated around the emergency room, heart rate remained below 100, current heart rate 85, blood pressure 120/63, steady unassisted gait. -patient states that she does feel better after she received 1 L of IV fluids. Differential Diagnosis Differential Diagnoses: The differential diagnosis associated with the presentation includes (Orthostatic hypotension, POTS, vasovagal near syncope, SVT) Lab Data [facility] Lab Attestation statement: I reviewed the patient's lab results. 09/22/23 21:18 09/22/23 21:18 Labs: Lab Results 09/22/23 Range/Units 21:18 WBC 8.8 (4.8-10.8) X10*3/uL RBC 5.06 (4.20-5.50) X10*6/uL Hgb 12.6 (12.0-16.0) g/dl Hct 38.6 (37.0-47.0) % MCV 76.3 L (80.0-98.0) fL MCH 24.9 L (27.0-33.0) pg MCHC 32.6 (31.0-35.0) g/dl RDW 15.5 (11.0-16.0) % Plt Count 398 (160-400) X10*3/uL MPV 9.1 L (9.4-12.3) fL Immature Gran % (Auto) 0.1 (0.0-0.4) % Neut % (Auto) 55.5 (45-73) % Lymph % (Auto) 34.7 (20-40) % [place] % (Auto) 7.6 (2-11) % Eos % (Auto) 1.8 (0-4) % Baso % (Auto) 0.3 (0-2) % Lymph # (Auto) 3.1 (1.2-4.9) X10*3/uL [place] # (Auto) 0.7 (0.1-1.2) X10*3/uL Eos # (Auto) 0.2 (0.0-0.4) X10*3/uL Baso # (Auto) 0.0 (0.0-0.2) X10*3/uL Abs Immat Gran (auto) 0.01 (0.00-0.03) X10*3/uL Absolute Neuts (auto) 4.9 (2.0-8.3) x10*3/uL Absolute Nucleated RBC 0.000 (0.0-0.012) X10*3/uL Nucleated RBC % (auto) 0.0 (0.0-0.2) /100WBC PT 11.6 (11.1-13.3) SEC INR 1.0 (0.9-1.1) D-Dimer High Sensitivty < 150 NG/ML Sodium 141 (135-145) mmol/L Potassium 3.8 (3.3-5.1) mmol/L Chloride 110 H (96-108) mmol/L Carbon Dioxide 23 (22-29) mmol/L Anion Gap 12 (12-20) BUN 7 L (9-16) mg/dL Creatinine 0.75 (0.5-1.4) mg/dL Estim Creat Clear Calc 137.4 Estimated GFR > 60 Random Glucose 94 (60-115) mg/dL Calcium 8.7 (8.4-10.2) mg/dL Magnesium 2.0 (1.6-2.6) mg/dL Total Bilirubin 0.2 (0.0-1.0) mg/dL Direct Bilirubin < 0.2 (0.0-0.5) mg/dL AST 19 (5-31) U/L ALT 21 (0-31) U/L Alkaline Phosphatase 75 (39-117) U/L Troponin I High Sens 3.8 (<3.5-17.0) ng/L B-Natriuretic Peptide 15 (<100) pg/mL Total Protein 7.2 (6.5-8.0) g/dL Albumin 4.2 (3.5-5.0) g/dL Independent Interpretation I performed an independent interpretation of an: EKG Discharge Plan Discharge Clinical Impression: Tachycardia Patient Disposition: Home, Self-Care Instructions: Tachycardia (ED) Additional Instructions: Continue taking your current dose of diltiazem, there 100 mg daily. Please follow-up with your primary care physician tomorrow. If you have any worsening or new symptoms, please return to the emergency room or call 911 Prescriptions: No Action (DME) nebulizers Misc See Rx Instructions .Route Qty: 1 0RF Rx Instructions: Q6 hrs prn for sob/wheezing (DME) nebulizer accessories Misc See Rx Instructions .Route Qty: 1 0RF Rx Instructions: Q6 hrs, prn for SOB/wheezing albuterol sulfate 90 mcg/actuation HFA aerosol inhaler 1 inh inhalation QID PRN (Reason: shortness of breath or wheezing) 30 Days Qty: 8.5 12RF lorazepam 1 mg tablet 1 mg PO BID PRN (Reason: anxiety) 30 Days Qty: 60 0RF (DME) FreeStyle Lite Strips Strip See Rx Instructions .ROUTE .MEDSUPPLY Qty: 100 11RF Rx Instructions: 4x daily gabapentin 100 mg capsule 100 mg PO TID 30 Days Qty: 90 1RF (DME) FreeStyle Kristen 2 [place] Misc See Rx Instructions .ROUTE .MEDSUPPLY Qty: 1 0RF Rx Instructions: As directed (DME) FreeStyle Kristen 2 Sensor Kit See Rx Instructions .ROUTE .MEDSUPPLY Qty: 2 11RF Rx Instructions: Once every 14 days roflumilast 500 mcg tablet 500 mcg PO DAILY 30 Days Qty: 30 11RF tirzepatide 10 mg/0.5 mL pen injector 10 mg subcut QWEEK Qty: 6 1RF carisoprodol [Soma] 350 mg tablet 350 mg PO BEDTIME PRN (Reason: muscle pain) 14 Days Qty: 14 0RF cholecalciferol (vitamin D3) 125 mcg (5,000 unit) capsule 125 mcg PO DAILY Qty: 90 0RF mecobalamin (vitamin B12) 1,000 mcg tablet,disintegrating 1,000 mcg sublingual DAILY Qty: 60 0RF Rx Instructions: place tablet under tongue and allow to dissolve for at least30 secs before swallowing sulfamethoxazole-trimethoprim [Bactrim DS] 800-160 mg tablet 1 tab PO BID 5 Days Qty: 10 0RF atorvastatin 10 mg tablet 10 mg PO BEDTIME 90 Days Qty: 90 0RF (DME) lancets [FreeStyle Lancets] 28 gauge misc See Rx Instructions .ROUTE .MEDSUPPLY Qty: 100 11RF Rx Instructions: 4x daily (DME) blood-glucose meter [FreeStyle Lite Meter] Kit See Rx Instructions .Route Qty: 1 0RF Rx Instructions: As directed lamotrigine 25 mg tablet 100 mg PO DAILY diltiazem HCl 300 mg capsule,extended release 24hr 300 mg PO DAILY Qty: 90 1RF Stand Alone Forms: Work/School Release Print Language: Samoan
[2023-09-22 21:24] LABS: MANUAL DIFF FLAG NO
[2023-09-22 21:25] LABS: Basophils Percent Auto 0.3 % (0-2); Eosinophils Absolute Auto 0.2 X10*3/uL (0.0-0.4); Eosinophils Percent Auto 1.8 % (0-4); Hematocrit 38.6 % (37.0-47.0); Hemoglobin 12.6 g/dl (12.0-16.0); Imm Gran Abs Auto 0.01 X10*3/uL (0.00-0.03); Imm Gran Pct Auto 0.1 % (0.0-0.4); Lymphocytes Absolute Auto 3.1 X10*3/uL (1.2-4.9); Lymphocytes Percent Auto 34.7 % (20-40); Mean Corpuscular HGB Conc 32.6 g/dl (31.0-35.0); Mean Corpuscular Hemoglobin 24.9 pg (27.0-33.0); Mean Corpuscular Volume 76.3 fL (80.0-98.0); Mean Platelet Volume 9.1 fL (9.4-12.3); Monocytes Absolute Auto 0.7 X10*3/uL (0.1-1.2); Monocytes Percent Auto 7.6 % (2-11); Neutrophils Absolute Auto 4.9 x10*3/uL (2.0-8.3); Neutrophils Percent Auto 55.5 % (45-73); Platelet Count 398 X10*3/uL (160-400); Red Blood Count 5.06 X10*6/uL (4.20-5.50); Red Cell Distribution Width 15.5 % (11.0-16.0); White Blood Count 8.8 X10*3/uL (4.8-10.8)
[2023-09-22 21:34] LABS: Prothrombin Time 11.6 SEC (11.1-13.3)
[2023-09-22 21:46] LABS: Alanine Aminotransferase 21 U/L (0-31); Albumin Level 4.2 g/dL (3.5-5.0); Alkaline Phosphatase 75 U/L (39-117); Anion Gap 12 (12-20); Aspartate Amino Transferase 19 U/L (5-31); Bilirubin Direct < 0.2 mg/dL (0.0-0.5); Bilirubin Total 0.2 mg/dL (0.0-1.0); Blood Urea Nitrogen 7 mg/dL (9-16); Calcium 8.7 mg/dL (8.4-10.2); Carbon Dioxide 23 mmol/L (22-29); Chloride 110 mmol/L (96-108); Creatinine Clr Calc Pharmacy 137.4; Estimated Glomerular Filt Rate > 60; Glucose Random 94 mg/dL (60-115); Potassium 3.8 mmol/L (3.3-5.1); Sodium 141 mmol/L (135-145); Total Protein 7.2 g/dL (6.5-8.0)
[2023-09-22 21:50] LABS: Troponin-I High Sensitivity 3.8 ng/L (<3.5-17.0)
[2023-09-22] MEDS: 0.9 % Sodium Chloride 1,000 ML 999 ML IVCONT (21:53)
[2023-09-22 21:57] LABS: B Type Natriuretic Peptide 15 pg/mL (<100)
[2023-09-22 22:04] LABS: D Dimer High Sensitivity < 150 NG/ML
--- NOTE | 2023-09-22 23:04 | MHC.EDTECH ---
Pt successfully completed ambulation trial with O2>98% and pulse range of 96-105.
== END 2023-09-22 23:37 | disposition home or self-care (01) ==
PROVIDERS: Emergency Provider Emergency Medicine; PCP Nurse Practitioner Family
DX: R00.0 Tachycardia, unspecified (principal); R00.2 Palpitations; R06.02 Shortness of breath; G90.A Postural orthostatic tachycardia syndrome [POTS]; J45.909 Unspecified asthma, uncomplicated; I10 Essential (primary) hypertension; E11.9 Type 2 diabetes mellitus without complications; Z79.899 Other long term (current) drug therapy
CPT/HCPCS: 36415; 71045; 80048; 80076; 83735; 83880; 84484; 85025; 85379; 85610; 93005; 96360; 99284; 99285

== ENCOUNTER → 2023-09-22 21:11 | Outpatient (BNV) | payer OTHER, SELFPAY | PROVIDERS: Emergency Provider Emergency Medicine; PCP Nurse Practitioner Family; Visit Provider Internal Medicine Cardiovascular Disease | DX: R00.2 Palpitations (principal) | CPT/HCPCS: 93010 ==

== ENCOUNTER 2023-10-21 07:47 | Outpatient (AMB) | payer OTHER, SELFPAY ==
[2023-10-21 07:49] VITALS: BP 130/90; PULSE 78; O2SAT 98
--- NOTE | 2023-10-21 07:49 | A.OFFPC_ITS ---
Vital Signs 10/21/23 07:49 Height 5 ft 4 in BP 130/90 H Blood Pressure Location Rt brachial Position Sitting Pulse 78 Pulse Source Pulse Oximeter Pulse Oximetry (%) 98 Oxygen Delivery Method Room Air Intake Visit Reasons: FMLA renewal Intake Note: Patient is here for FMLA renewal. Allergies lisinopril [LISINOPRIL] Allergy (Severe, Verified 10/21/23 08:39) COUGH Penicillins [PENICILLINS] Allergy (Severe, Verified 10/21/23 08:39) HIVES vancomycin Allergy (Severe, Verified 10/21/23 08:39) Rash chlorthalidone Adverse Reaction (Severe, Verified 10/21/23 08:39) tachycardia, palpitations doxycycline Adverse Reaction (Intermediate, Verified 10/21/23 08:39) Joint Pain Medication List - Last Reconciled 10/21/23 by KAREEM Vogt- albuterol sulfate 90 mcg/actuation 1 inh inhalation QID PRN 30 days atorvastatin 10 mg PO BEDTIME 90 days blood sugar diagnostic (FreeStyle Lite Strips) 4x daily blood-glucose meter ([facility]) As directed carisoprodol (Soma) 350 mg PO BEDTIME PRN 14 days cholecalciferol (vitamin D3) 125 mcg PO DAILY flash glucose scanning reader ([facility] Kristen [facility] [place]) As directed flash glucose sensor ([facility] Kristen 2 Sensor kit) Once every 14 days gabapentin 100 mg PO TID 30 days lamotrigine 100 mg PO DAILY lancets (FreeStyle Lancets) 4x daily lorazepam 1 mg PO BID PRN 30 days mecobalamin (vitamin B12) 1,000 mcg sublingual DAILY nebulizer accessories Q6 hrs, prn for SOB/wheezing nebulizers Q6 hrs prn for sob/wheezing roflumilast 500 mcg PO DAILY 30 days tirzepatide 10 mg (0.5 mL) subcut QWEEK Tobacco use date assessed: 10/21/23 Dental Screening Dental Screen Date: 10/21/23 Did you have a dental visit in the last 12 months?: Yes Did you have a dental problem in the last 6 months where you did not have access to dental care?: No Was dental information given to patient?: Patient has dentist HPI FMLA renewal HPI Details Pt needs FMLA paperwork filled out due to lower back pain with intermittent radicular symptoms. She reports difficulty walking, sitting, or standing for long periods. Will fill this out. Denies any signs of cauda equina. HTN: Pt's blood pressure is elevated today. She was on diltiazem but has not taken this in quite some time. Will restart diltiazem 120mg. Denies chest pain, shortness of breath, headache, dizziness, and blurred vision. [facility] Medical History Left axillary pain Back pain Bipolar 1 disorder Morbid obesity Physical exam Lower back pain Hip pain, left Fall Sebaceous cyst of left axilla Viral illness Myalgia Syncope Palpitations Encounter for IUD insertion Chest pain Upper respiratory tract infection Asthma SOB (shortness of breath) Lumbar back pain with radiculopathy affecting lower extremity Screening for STD (sexually transmitted disease) Low back pain radiating to both legs Asthma Tachycardia Vitamin D deficiency Hyperandrogenism HLD (hyperlipidemia) T2DM (type 2 diabetes mellitus) Sleep apnea in adult Anxiety and depression Anxiety HTN (hypertension) PCOS (polycystic ovarian syndrome) Surgical History No pertinent past surgical history Family History Mother Sleep apnea CVD (cardiovascular disease) Mental health disorder Father CVD (cardiovascular disease) Sleep apnea Substance use disorder Mental health disorder Sister Substance use disorder Mental health disorder Social History Housing: House Alcohol intake: current Patient Tobacco Use Status: Never used Tobacco e-Cigarette/Vaping Use: Never Used Second Hand Smoke Exposure: No service: No Current occupational status: employed Current occupation: [employer] [place] Current occupational exposures/hazards: No Cognitive needs: No Hearing needs: No Vision needs: Yes Female Reproductive History Menstrual Age of Menarche: 10 Questionnaire PHQ-9 Over the last 2 weeks, how often have you been bothered by any of the following problems? 20765 - PHQ-9 Billing: Patient declined-do not bill Source: Developed by Drs. Duong Sage, Soo Becker, Mirza Armenta and colleagues, with an educational ryan from [employer]. Thrive Questionnaire Date Thrive assessed: 10/21/23 I am a: Patient What is your living situation today?: I have a steady place to live Within the past 12 months, did the food you bought not last and you didn't have the money to get more?: Never true Within the past 12 months, did you worry whether your food would run out before you got money to buy more?: Never true Do you have trouble paying for medicines?: No Do you have trouble getting transportation to medical appointments?: No Do you have trouble paying your heating and electricity bill?: No Do you have trouble taking care of your child, family member or friend?: No Do you have trouble with day-to-day activities such as bathing, preparing meals, shopping, managing finances, etc.?: No Are you currently unemployed and looking for a job?: No Are you interested in more education?: No Please select the resources that you would like help with: Housing/Half-Way Currently or been in a relationship where the following occur: No concerns reported THRIVE Score: 0 AUDIT C Alcohol Use Questionnaire (AUDIT-C) 1. How often do you have a drink containing alcohol?: Monthly or less 2. How many drinks containing alcohol do you have on a typical day when you are drinking?: 1 or 2 3. How often do you have six or more drinks on one occasion?: Never Total Score: 1 Score Reviewed/Action Taken: Yes YOUNG-7 AMB Questionnaire YOUNG-7 Date YOUNG - 7 assessed: 10/21/23 Feeling nervous, anxious, or on edge: 0 = Not at all Not being able to stop or control worryin = Not at all Worrying too much about different things: 0 = Not at all Trouble relaxin = Not at all Being so restless that it is hard to sit still: 0 = Not at all Becoming easily annoyed or irritable: 0 = Not at all Feeling afraid as if something awful might happen: 0 = Not at all Total YOUNG-7 score (0-4 normal; 5-9 mild; 10-14 moderate; 15-21 severe): 0 Source: Developed by Drs. Duong Sage, Soo Becker, Mirza Armenta and colleagues, with an educational ryan from [employer]. YOUNG-7 Assessment Billing YOUNG-7 Assessment Tool: YOUNG-7 Assessment 30626 Review of Systems Const Reports as per HPI Physical exam (Primary Care) Vital Signs: Last Vital Signs Pulse 78 10/21/23 07:49 BP 130/90 H 10/21/23 07:49 Pulse Ox 98 10/21/23 07:49 Oxygen Delivery Method Room Air 10/21/23 07:49 Tobacco/Smoking Status: Tobacco use Status Tobacco use date assessed 10/21/23 10/21/23 07:50 Patient Tobacco Use Status Never used Tobacco 10/21/23 07:50 e-Cigarette/Vaping Use Never Used 10/21/23 07:50 Thrive Assessment: Date of Thrive Assessment Date Thrive assessed 10/21/23 10/21/23 07:50 Currently or been in a relationship where the following occur: No concerns reported Const General: cooperative Nutritional Appearance: obese Orientation/consciousness: patient oriented x3 Resp Effort & Inspection: normal respiratory effort Auscultation: clear to auscultation bilaterally Cardio Rate: regular rate Rhythm: regular rhythm Heart sounds: S1 normal heart sound present and S2 normal heart sound present Neuro General: patient oriented x3 Extrem Right lower extremity: no edema Left lower extremity: no edema Psych Appearance: grossly normal Mental Status: mental status grossly normal Speech and movement: Normal speech and movement present Affect: normal affect Attitude: cooperative Thought process: Normal thought process present Thought content: Normal thought content present Insight: Good insight present (Psych) Judgement: Good judgement present (Psych) Assessment and Plan Assessment & Plan (1) HTN (hypertension): Code(s): I10 - Essential (primary) hypertension Plan: restarting diltiazem (2) Chronic lower back pain: Code(s): M54.50 - Low back pain, unspecified; G89.29 - Other chronic pain Plan: continue with stretches Plan The patient agreed to the use of a medical surgery nurse for this encounter. Scribed for HATTIE Wilder by chidi Jackman scribe, on 10/21/2023 at 08:20 EST. Medications: New diltiazem HCl CD 120 mg PO DAILY 90 days 90 caps 0RF Coding Level of Care Code Est Pt Level 3 (21147) Diagnoses HTN (hypertension) I10 Chronic lower back pain M54.50; G89.29 Additional Codes YOUNG-7 Assessment Billing - YOUNG-7 Assessment Tool: YOUNG-7 Assessment 58815 ([id number])
== END 2023-10-21 08:48 | disposition home or self-care (01) ==
PROVIDERS: PCP Nurse Practitioner Family; Visit Provider Nurse Practitioner Family
DX: I10 Essential (primary) hypertension (principal); M54.50 Low back pain, unspecified; G89.29 Other chronic pain
CPT/HCPCS: 99213

== ENCOUNTER → 2023-10-22 08:06 | Outpatient (BNVA) | payer SELFPAY | PROVIDERS: PCP Nurse Practitioner Family | DX: Z02.83 Encounter for blood-alcohol and blood-drug test (principal) ==

== ENCOUNTER 2024-04-01 21:19 | Emergency (ER) | payer OTHER, SELFPAY ==
[2024-04-01 21:22] VITALS: BP 142/89; PULSE 99; RESP 18; TEMP 37.3; O2SAT 95; BMI 42.9
--- NOTE | 2024-04-01 21:42 | ED_ITS ---
HPI - General Adult General Chief complaint: Back Pain/Injury Stated complaint: back inj/work related Time Seen by Provider: 04/01/24 21:46 Source: patient, RN notes reviewed and old records reviewed Mode of arrival: ambulatory Limitations: no limitations History of Present Illness ED Provider: Scar HPI narrative: 34-year-old female presents for evaluation of lower back pain. Patient reports a history of low back pain. She reports at work today she was helping to restrain the patient he was thrashing around. This happened about 1 hour prior to arrival This persisted for several minutes while the patient was hunched over in awkward position attempting to keep the patient from assaulting staff The patient felt a sharp pull in her lower back that radiates across the entire lower back. Denies any numbness, tingling. She did not fall. Denies any weakness. No other complaints or concerns at this time Related Data Home Medications ?Medication ?Instructions ?Recorded ?Confirmed lamotrigine 25 mg tablet 100 mg PO DAILY 05/27/23 10/21/23 Previous Rx's ?Medication ?Instructions ?Recorded nebulizer accessories #1 ea 03/10/21 nebulizers #1 ea 03/10/21 blood-glucose meter (FreeStyle #1 ea 04/02/21 Lite Meter kit) lancets 28 gauge (FreeStyle #100 ea 04/02/21 Lancets) albuterol sulfate 90 mcg/actuation 1 inh inhalation QID PRN shortness 01/08/22 aerosol inhaler of breath or wheezing 30 days #8.5 grams lorazepam 1 mg tablet 1 mg PO BID PRN anxiety 30 days 03/05/22 #60 tabs blood sugar diagnostic (FreeStyle #100 ea 04/29/22 Lite Strips) flash glucose scanning reader #1 ea 07/20/22 (FreeStyle Kristen 2 Ashton) flash glucose sensor (FreeStyle #2 ea 11/26/22 Kristen 2 Sensor kit) roflumilast 500 mcg tablet 500 mcg PO DAILY 30 days #30 tabs 01/05/23 atorvastatin 10 mg tablet 10 mg PO BEDTIME 90 days #90 tabs 05/27/23 cholecalciferol (vitamin D3) 125 125 mcg PO DAILY #90 caps 08/16/23 mcg (5,000 unit) capsule mecobalamin (vitamin B12) 1,000 1,000 mcg sublingual DAILY #60 tabs 08/16/23 mcg disintegrating tablet,sublingual diltiazem HCl 120 mg 120 mg PO DAILY 90 days #90 caps 10/21/23 capsule,extended release 24 hr carisoprodol 350 mg tablet (Soma) 350 mg PO BEDTIME PRN muscle pain 02/15/24 14 days #14 tabs gabapentin 100 mg capsule 100 mg PO TID 30 days #90 caps 02/15/24 tirzepatide 12.5 mg/0.5 mL 12.5 mg (0.5 mL) subcut QWEEK #2 mL 03/07/24 subcutaneous pen injector cyclobenzaprine 10 mg tablet 10 mg PO TID PRN muscle spasm #20 04/01/24 tabs Allergies Allergy/AdvReac Type Severity Reaction Status Date / Time lisinopril [LISINOPRIL] Allergy Severe COUGH Verified 04/01/24 21:24 Penicillins [PENICILLINS] Allergy Severe HIVES Verified 04/01/24 21:24 vancomycin Allergy Severe Rash Verified 04/01/24 21:24 chlorthalidone AdvReac Severe tachycardia, Verified 04/01/24 21:24 palpitations doxycycline AdvReac Intermediate Joint Pain Verified 04/01/24 21:24 Review of Systems Constitutional: Constitutional: Denies chills, Denies fever(s) and Denies frequent falls Eyes: Eyes: Denies blurry vision ENT: Denies vertigo Cardiovascular: Cardiovascular: Denies chest pain Respiratory: Respiratory: Denies cough Musculoskeletal: Musculoskeletal: Reports back pain Integumentary/Breasts: Skin/Breast: Denies rash Neurologic: Denies vertigo and Denies frequent falls Psychiatric: Psychiatric: Denies anxiety [facility], [facility] Past Medical History Medical History Left axillary pain Back pain Bipolar 1 disorder Morbid obesity Physical exam Lower back pain Hip pain, left Fall Sebaceous cyst of left axilla Viral illness Myalgia Syncope Palpitations Encounter for IUD insertion Chest pain Upper respiratory tract infection Asthma SOB (shortness of breath) Lumbar back pain with radiculopathy affecting lower extremity Screening for STD (sexually transmitted disease) Low back pain radiating to both legs Asthma Tachycardia Vitamin D deficiency Hyperandrogenism HLD (hyperlipidemia) T2DM (type 2 diabetes mellitus) Sleep apnea in adult Anxiety and depression Anxiety HTN (hypertension) PCOS (polycystic ovarian syndrome) Surgical History No pertinent past surgical history Family History Family History Mother Sleep apnea CVD (cardiovascular disease) Mental health disorder Father CVD (cardiovascular disease) Sleep apnea Substance use disorder Mental health disorder Sister Substance use disorder Mental health disorder Social History Social History Housing: House Alcohol intake: current Patient Tobacco Use Status: Never used Tobacco e-Cigarette/Vaping Use: Never Used Second Hand Smoke Exposure: No Advance Directives: No Advance Directives Information Provided: No service: No Current occupational status: employed Current occupation: [employer] [place] Current occupational exposures/hazards: No Cognitive needs: No Hearing needs: No Vision needs: Yes Physical Exam ED Vital Signs: Vital Signs - 24 hr 04/01/24 21:22 04/01/24 21:53 Temperature 99.1 F 99.1 F Pulse Rate 99 99 Respiratory Rate 18 18 Blood Pressure 142/89 H 142/89 H Pulse Oximetry 95 95 Oxygen Delivery Method Room Air Room Air BMI result Body Mass Index 42.9 Const General: healthy appearing, comfortable, no acute distress, alert and awake Nutritional Appearance: well nourished Orientation/consciousness: patient oriented x3 HENMT Head: Yes normocephalic and Yes atraumatic Eyes Eyelids: Yes eyelids normal Conjunctivae: conjunctivae normal Sclerae: sclerae normal Corneas: corneas normal Pupils: Equal, round and reactive pupils present EOM: EOMs intact bilaterally Neck Neck: Yes full ROM Resp Effort & Inspection: normal respiratory effort, able to speak in complete sentences and not labored Back/Spine/Pelvis Other: Tenderness to the lumbar spine without step-off deformities. The tenderness extends laterally in both directions. Straight leg raise positive on right. Skin General skin exam: elasticity normal Neuro General: patient oriented x3 Cranial nerves: Yes Equal, round and reactive pupils present and Yes Bilaterally intact EOM present Cognition (Neuro): normal cognition Gait exam (Neuro): Normal gait present Motor exam (neuro): 5/5 motor strength present throughout Extrem Other: Moving all extremities well without any obvious deformities Medical Decision Making Medical Decision Making MDM Narrative: 34-year-old female presents for evaluation of lower back pain after injuring herself at work today. There was no fall or trauma but this happened while restraining the patient. Given that there was no trauma I do not see any indication for emergent imaging at this time. We will treat the patient's sym ptomatically with [id number] analgesia and muscle relaxers. Differential Diagnosis Differential Diagnoses: The differential diagnosis associated with the presentation includes Muscle strain Radiculopathy Disc herniation Back pain Discharge Plan Discharge Clinical Impression: Low back strain Patient Disposition: Home, Self-Care Instructions: Acute Low Back Pain (ED) Additional Instructions: Use ibuprofen/Tylenol as needed for pain You may use warm compresses as needed for muscle spasms. Take cyclobenzaprine as needed for muscle spasms. This may make you drowsy, do not drink alcohol or drive after taking it Follow-up with work connections, Dr. Daugherty Prescriptions: New cyclobenzaprine 10 mg tablet 10 mg PO TID PRN (Reason: muscle spasm) Qty: 20 0RF No Action (DME) nebulizers Misc See Rx Instructions .Route Qty: 1 0RF Rx Instructions: Q6 hrs prn for sob/wheezing (DME) nebulizer accessories Misc See Rx Instructions .Route Qty: 1 0RF Rx Instructions: Q6 hrs, prn for SOB/wheezing albuterol sulfate 90 mcg/actuation HFA aerosol inhaler 1 inh inhalation QID PRN (Reason: shortness of breath or wheezing) 30 Days Qty: 8.5 12RF lorazepam 1 mg tablet 1 mg PO BID PRN (Reason: anxiety) 30 Days Qty: 60 0RF (DME) FreeStyle Lite Strips Strip See Rx Instructions .ROUTE .MEDSUPPLY Qty: 100 11RF Rx Instructions: 4x daily (DME) FreeStyle Kristen 2 Ashton Misc See Rx Instructions .ROUTE .MEDSUPPLY Qty: 1 0RF Rx Instructions: As directed (DME) FreeStyle Kristen 2 Sensor Kit See Rx Instructions .ROUTE .MEDSUPPLY Qty: 2 11RF Rx Instructions: Once every 14 days roflumilast 500 mcg tablet 500 mcg PO DAILY 30 Days Qty: 30 11RF cholecalciferol (vitamin D3) 125 mcg (5,000 unit) capsule 125 mcg PO DAILY Qty: 90 0RF mecobalamin (vitamin B12) 1,000 mcg tablet,disintegrating 1,000 mcg sublingual DAILY Qty: 60 0RF Rx Instructions: place tablet under tongue and allow to dissolve for at least30 secs before swallowing gabapentin 100 mg capsule 100 mg PO TID 30 Days Qty: 90 1RF carisoprodol [Soma] 350 mg tablet 350 mg PO BEDTIME PRN (Reason: muscle pain) 14 Days Qty: 14 0RF tirzepatide 12.5 mg/0.5 mL pen injector 12.5 mg subcut QWEEK Qty: 2 5RF diltiazem HCl 120 mg capsule,extended release 24hr 120 mg PO DAILY 90 Days Qty: 90 0RF atorvastatin 10 mg tablet 10 mg PO BEDTIME 90 Days Qty: 90 0RF (DME) lancets [FreeStyle Lancets] 28 gauge misc See Rx Instructions .ROUTE .MEDSUPPLY Qty: 100 11RF Rx Instructions: 4x daily (DME) blood-glucose meter [FreeStyle Lite Meter] Kit See Rx Instructions .Route Qty: 1 0RF Rx Instructions: As directed lamotrigine 25 mg tablet 100 mg PO DAILY Referrals: Refugio Daugherty MD [Physician] - (low back pain) Stand Alone Forms: Work/School Release Interventions: ED Discharge Assessment Last Done: 04/01/24 21:53 Discharge Date/Time: 04/01/24 21:53 Print Language: Lebanese
[2024-04-01 21:53] VITALS: BP 142/89; PULSE 99; RESP 18; TEMP 37.3; O2SAT 95
== END 2024-04-01 21:53 | disposition home or self-care (01) ==
PROVIDERS: Emergency Provider Emergency Medicine Emergency Medical Services; PCP Nurse Practitioner Family
DX: S39.012A Strain of muscle, fascia and tendon of lower back, initial encounter (principal); X50.9XXA Other and unspecified overexertion or strenuous movements or postures, initial encounter; Y93.F9 Activity, other caregiving; Y92.230 Patient room in hospital as the place of occurrence of the external cause; Y99.0 Civilian activity done for income or pay
CPT/HCPCS: 99283

== ENCOUNTER → 2024-04-05 14:03 | Outpatient (BNVA) | payer OTHER, SELFPAY | PROVIDERS: PCP Nurse Practitioner Family; Visit Provider Physician Assistant Medical | DX: Z13.89 Encounter for screening for other disorder (principal) | CPT/HCPCS: 99203 ==

== ENCOUNTER → 2024-04-07 09:50 | Outpatient (BNVA) | payer OTHER, SELFPAY | PROVIDERS: PCP Nurse Practitioner Family; Visit Provider Internal Medicine | DX: Z02.79 Encounter for issue of other medical certificate (principal) | CPT/HCPCS: 99213 ==

== ENCOUNTER → 2024-05-29 06:58 | Outpatient (REF) | payer OTHER, SELFPAY ==
[2024-06-01 14:13] LABS: TS Negative Control Passed; TS Panel A 1; TS Panel B 0; TS Positive Control Passed; TSpotTB Negative (Negative)
== END ==
LOC: HO.CARD 06:58
PROVIDERS: Absent Provider Nurse Practitioner Family; PCP Nurse Practitioner Family; Visit Provider Nurse Practitioner Family
DX: Z11.1 Encounter for screening for respiratory tuberculosis (principal); G90.A Postural orthostatic tachycardia syndrome [POTS]; R00.2 Palpitations
CPT/HCPCS: 36415; 86481; 93242

== ENCOUNTER → 2024-05-29 07:22 | Outpatient (BNV) | payer OTHER, SELFPAY | PROVIDERS: Absent Provider Nurse Practitioner Family; PCP Nurse Practitioner Family; Visit Provider Internal Medicine | DX: R00.0 Tachycardia, unspecified (principal); I49.3 Ventricular premature depolarization | CPT/HCPCS: 93244 ==

== ENCOUNTER 2024-06-15 14:54 | Inpatient (IN) | payer OTHER, SELFPAY ==
[2024-06-15] VITALS (9 sets, daily range): BP systolic 68–124; BP diastolic 42–87; PULSE 84–136; RESP 16–20; TEMP 36.9–39.4; O2SAT 94–98; BMI 42.9
--- NOTE | ~2024-06-15 | CT_ITS ---
CLINICAL HISTORY: severe headache syncope CTA of the head and neck with 3-D postprocessing Comparison: CT/SR - CT CERVICAL SPINE WO IV CON - 06/15/24 16:[address]/SR - CT HEAD/BRAIN WO IV CON - 06/15/24 16:[address] - CT CERVICAL SPINE WO IV CON - 07/01/23 04:10 EDT Findings: No significant carotid artery stenosis. Intact vertebral arteries. The vertebral basilar system is patent. The cerebellar and posterior cerebral arteries are intact. The intracranial internal carotid arteries are patent. The middle/anterior cerebral arteries are intact. No aneurysm, abrupt cutoffs or significant stenosis. No mass, midline shift, hydrocephalus, acute hemorrhage or abnormal contrast enhancement. Patent dural venous sinuses. The inferior sagittal sinus is not seen, which is common. The lung apices are clear. The soft tissues of the head and neck are unremarkable. Impression: No aneurysm, abrupt cutoffs or significant stenosis. This document has been electronically signed by: Yarelis Lin MD on 06/15/2024 18:02:04
--- NOTE | ~2024-06-15 | CT_ITS ---
EXAMINATION: CT HEAD WITHOUT CONTRAST CLINICAL INFORMATION: Headache, nausea and vomiting. COMPARISON: None available. TECHNIQUE: Contiguous axial imaging was performed from the skull base to vertex without intravenous administration of contrast. This CT examination was performed using dose optimization techniques as appropriate, variously including the following: *Automated exposure control *Adjustment of mA and/or kV according to patient size (this includes techniques or standardized protocols for targeted exams where dose is matched to indication/reason for exam; i.e. extremities or head) *Use of iterative reconstruction technique DLP: 1602 mGy/cm. FINDINGS: There is no acute intra-axial, extra-axial bleed, masses or midline shift. There is no acute infarction in evolution. The monroy to white matter differentiation is maintained normal. There is benign hyperostosis frontalis interna. The bone windows reveal no calvarial abnormality. Bilateral paranasal sinuses and mastoid air cells are well-aerated. There is no scalp soft tissue abnormality. CT/CT head/brain wo IV con IMPRESSION: No acute intracranial process seen. Results were communicated to Dr. Kaur in ED at 4:15 PM Electronically signed by: Gulshan Garcia MD 06/15/2024 04:18 PM EDT
--- NOTE | ~2024-06-15 | CT_ITS ---
CLINICAL HISTORY: Epigastric abd pain, N V and syncope CT abdomen and pelvis without contrast Comparison: None Findings: No consolidation or effusion. The gallbladder and solid organs are within normal limits. Contrast is identified within the bilateral renal collecting systems and ureters, limiting evaluation for urinary calculi. No hydronephrosis or hydroureter. No bowel obstruction, pneumoperitoneum, or pneumatosis. There is colonic diverticulosis without CT evidence for acute diverticulitis. Tiny, fat containing umbilical hernia. Tiny, fat containing supraumbilical ventral hernia defects are also present. Pelvic contents unremarkable. The bladder is partially distended with contrast. No bladder wall thickening. Normal appendix. No acute fracture. There are bilateral L5 pars interarticularis defects. IMPRESSION: 1. No acute inflammatory process identified within the abdomen or pelvis. 2. Colonic diverticulosis. No CT evidence for acute diverticulitis. This document has been electronically signed by: Ray Delarosa MD on 06/15/2024 23:05:24
--- NOTE | ~2024-06-15 | XR_ITS ---
EXAMINATION: XR CHEST CLINICAL INFORMATION: sob, palpitations COMPARISON: Chest x-ray 09/22/2023 TECHNIQUE: Frontal view of the chest was obtained. FINDINGS: No significant abnormality is noted involving the heart, lungs, mediastinum, bony thorax or soft tissues. XR/XR chest 1V IMPRESSION: Unremarkable chest examination. Electronically signed by: Gulshan Garcia MD 06/15/2024 04:55 PM EDT RP
--- NOTE | ~2024-06-15 | CT_ITS ---
EXAMINATION: CT CERVICAL SPINE WITHOUT CONTRAST CLINICAL INFORMATION: Neck pain and syncope. COMPARISON: None available. TECHNIQUE: 3 mm thin axial and 2 mm thin sagittal and coronal images of cervical spine were obtained. This CT examination was performed using dose optimization techniques as appropriate, variously including the following: *Automated exposure control *Adjustment of mA and/or kV according to patient size (this includes techniques or standardized protocols for targeted exams where dose is matched to indication/reason for exam; i.e. extremities or head) *Use of iterative reconstruction technique DLP 1602 mGy/cm. FINDINGS: There is reversal of cervical lordosis. The vertebral heights and alignment is normal. There is loss of C4-C5, C5-C6 and C6-C7 disc heights with ventral spondylosis and minimal posterior spondylosis. The craniovertebral junction and C1-C2 alignment is normal. There is no visible acute fracture, dislocation or soft tissue subluxation seen. The tracheal airway is widely patent. The lung apices are clear. Thyroid lobes are symmetrical and normal. CT/CT cervical spine wo IV con IMPRESSION: No visible acute fracture or dislocation seen. Degenerative disc changes and ventral and posterior spondylosis C4-5 through C6-C7 disc levels. Fleischner guidelines were followed. Electronically signed by: Gulshan Garcia MD 06/15/2024 04:31 PM EDT
--- NOTE | 2024-06-15 15:51 | ECG_ITS ---
Test Reason : SYNCOPE Blood Pressure : */* mmHG Vent. Rate : 129 BPM Atrial Rate : 129 BPM P-R Int : 128 ms QRS Dur : 84 ms QT Int : 298 ms P-R-T Axes : 39 55 19 degrees QTcB Int : 436 ms Sinus tachycardia Otherwise normal ECG No previous ECGs available Referred By: Brittney Rodriguez Electronically Signed By: Jeffrey Schulte
--- NOTE | 2024-06-15 16:17 | ED_ITS ---
HPI - General Adult General Chief complaint: Syncope Stated complaint: fainting Time Seen by Provider: 06/15/24 15:29 Source: patient, RN notes reviewed and old records reviewed Mode of arrival: ambulatory History of Present Illness ED Provider: Brittney Rodriguez PA-C HPI narrative: 34-year-old female with a past medical history asthma, HLD, diabetes, HTN, PCOS, anxiety, depression, sleep apnea, presenting to the ED complaining of lightheadedness with syncopal episode [employer] with associated nausea, vomiting x1, headache and neck pain / stiffness following syncope. States she was very diaphoretic after syncopal episode with palpitations. Denies head trauma or LOC. Also reports UE & LE weakness & myalgias. denies anticoagulation use. Denies known fever, chills, Abdominal pain, dysuria/hematuria, visual changes Related Data Home Medications ?Medication ?Instructions ?Recorded ?Confirmed lamotrigine 25 mg tablet 100 mg PO DAILY 05/27/23 10/21/23 Previous Rx's ?Medication ?Instructions ?Recorded nebulizer accessories #1 ea 03/10/21 nebulizers #1 ea 03/10/21 blood-glucose meter (FreeStyle #1 ea 04/02/21 Lite Meter kit) lancets 28 gauge (FreeStyle #100 ea 04/02/21 Lancets) albuterol sulfate 90 mcg/actuation 1 inh inhalation QID PRN shortness 01/08/22 aerosol inhaler of breath or wheezing 30 days #8.5 grams lorazepam 1 mg tablet 1 mg PO BID PRN anxiety 30 days 03/05/22 #60 tabs blood sugar diagnostic (FreeStyle #100 ea 04/29/22 Lite Strips) flash glucose scanning reader #1 ea 07/20/22 (FreeStyle Kristen 2 [place]) flash glucose sensor (FreeStyle #2 ea 11/26/22 Kristen 2 Sensor kit) roflumilast 500 mcg tablet 500 mcg PO DAILY 30 days #30 tabs 01/05/23 atorvastatin 10 mg tablet 10 mg PO BEDTIME 90 days #90 tabs 05/27/23 cholecalciferol (vitamin D3) 125 125 mcg PO DAILY #90 caps 08/16/23 mcg (5,000 unit) capsule mecobalamin (vitamin B12) 1,000 1,000 mcg sublingual DAILY #60 tabs 08/16/23 mcg disintegrating tablet,sublingual diltiazem HCl 120 mg 120 mg PO DAILY 90 days #90 caps 10/21/23 capsule,extended release 24 hr carisoprodol 350 mg tablet (Soma) 350 mg PO BEDTIME PRN muscle pain 02/15/24 14 days #14 tabs gabapentin 100 mg capsule 100 mg PO TID 30 days #90 caps 02/15/24 tirzepatide 12.5 mg/0.5 mL 12.5 mg (0.5 mL) subcut QWEEK #2 mL 03/07/24 subcutaneous pen injector cyclobenzaprine 10 mg tablet 10 mg PO TID PRN muscle spasm #20 04/01/24 tabs Allergies Allergy/AdvReac Type Severity Reaction Status Date / Time lisinopril [LISINOPRIL] Allergy Severe COUGH Verified 06/15/24 15:22 Penicillins [PENICILLINS] Allergy Severe HIVES Verified 06/15/24 15:22 vancomycin Allergy Severe Rash Verified 06/15/24 15:22 chlorthalidone AdvReac Severe tachycardia, Verified 06/15/24 15:22 palpitations doxycycline AdvReac Intermediate Joint Pain Verified 06/15/24 15:22 Review of Systems 2 Review of Systems: Yes all other systems are reviewed and are negative Constitutional: Constitutional: Reports as per HPI Neurologic: Denies Abnormal speech present [facility] Past Medical History Attestation statement: The following information was validated with the patient. Source: old records reviewed Medical History Palpitations Left axillary pain Back pain Bipolar 1 disorder Morbid obesity Physical exam Lower back pain Hip pain, left Fall Sebaceous cyst of left axilla Viral illness Myalgia Syncope Encounter for IUD insertion Chest pain Upper respiratory tract infection Asthma SOB (shortness of breath) Lumbar back pain with radiculopathy affecting lower extremity Screening for STD (sexually transmitted disease) Low back pain radiating to both legs Asthma Tachycardia Vitamin D deficiency Hyperandrogenism HLD (hyperlipidemia) T2DM (type 2 diabetes mellitus) Sleep apnea in adult Anxiety and depression Anxiety HTN (hypertension) PCOS (polycystic ovarian syndrome) Surgical History No pertinent past surgical history Family History Family History Mother Sleep apnea CVD (cardiovascular disease) Mental health disorder Father CVD (cardiovascular disease) Sleep apnea Substance use disorder Mental health disorder Sister Substance use disorder Mental health disorder Social History Social History Housing: House Alcohol intake: current Patient Tobacco Use Status: Never used Tobacco e-Cigarette/Vaping Use: Never Used Second Hand Smoke Exposure: No Advance Directives: No Advance Directives Information Provided: Yes Do you have a plan to hurt others: No Plan service: No Current occupational status: employed Current occupation: [employer] [place] Current occupational exposures/hazards: No Cognitive needs: No Hearing needs: No Vision needs: Yes Physical Exam ED Vital Signs: Vital Signs - 24 hr 06/15/24 15:21 06/15/24 16:20 06/15/24 17:51 Temperature 99.4 F 102.9 F H 98.5 F Pulse Rate 136 H 120 H 104 H Respiratory Rate 18 16 20 Blood Pressure 123/87 124/72 122/82 Pulse Oximetry 98 96 96 Oxygen Delivery Method Room Air Room Air Room Air 06/15/24 18:32 06/15/24 18:36 Temperature Pulse Rate 98 Respiratory Rate 16 Blood Pressure 116/69 Pulse Oximetry 95 94 Oxygen Delivery Method Room Air Room Air BMI result Body Mass Index 42.9 Const General: cooperative, healthy appearing and no acute distress Orientation/consciousness: patient oriented x3 Limitations: no limitations HENMT Head: Yes normal to inspection and Yes atraumatic Ears: hearing grossly normal bilaterally General nose exam: Normal external nose present Face and sinus: Yes normal facial exam Throat: Yes posterior oropharynx normal, Yes uvula midline and No peritonsillar mass Eyes General: appearance normal, both eyes and all related structures Pupils: Equal, round and reactive pupils present EOM: EOMs intact bilaterally Neck Other: + neck stiffness, decreased ROM secondary to pain Neck: Yes normal visual inspection and Yes no meningeal signs Resp Effort & Inspection: normal respiratory effort and no respiratory distress Auscultation: clear to auscultation bilaterally, no crackles and no wheezes Cardio Rate: regular rate and tachycardic Heart sounds: S1 normal heart sound present and S2 normal heart sound present GI Inspection: Yes normal to inspection Palpation (GI): Soft to palpation, Tenderness to palpation present (GI) in the epigastrum; with no rebound tenderness, no guarding and not rigid General: Yes no CVA tenderness Back/Spine/Pelvis Back: no CVA tenderness Skin Rashes: no rashes Wounds: no wounds Neuro General: patient oriented x3, gait normal, tone normal, moves all extremities, no meningeal signs, no focal motor deficits and CN's II-XI intact bilaterally Cranial nerves: Yes CN's II-XII intact bilaterally, Yes Equal, round and reactive pupils present and Yes Bilaterally intact EOM present Cognition (Neuro): normal cognition Speech: No Abnormal speech present Gait exam (Neuro): Normal gait present Motor exam (neuro): 5/5 motor strength present throughout Extrem General: Yes normal to inspection Course Course Course Narrative: -164-- no leukocytosis. H/H stable. Labs otherwise reassuring CT head/brain wo IV con IMPRESSION: No acute intracranial process seen. Results were communicated to Dr. Kaur in ED at 4:[address] cervical spine wo IV con IMPRESSION: No visible acute fracture or dislocation seen. Degenerative disc changes and ventral and posterior spondylosis C4-5 through C6-C7 disc levels. 1701--XR chest 1V IMPRESSION: Unremarkable chest examination. CT angio head neck Impression: No aneurysm, abrupt cutoffs or significant stenosis. -1710-- troponin negative. CRP mildly elevated to 5.11. Viral testing negative -1899-- ED care transferred to Dr. Cook pending LP, CSF results and likely admission Medications Administered Discontinued Medications Generic Name Dose Route Start Last Admin Trade Name Freq PRN Reason Stop Dose Admin Ceftriaxone Sodium 2 gm 06/15/24 18:13 06/15/24 18:18 Ceftriaxone Sodium 2 Gm Vial IVPUSH 06/15/24 18:14 2 gm ONCE ONE Administration Fentanyl 50 mcg 06/15/24 16:19 06/15/24 16:29 Fentanyl Citrate/Pf 100 Mcg/2 Ml Vial IVPUSH 06/15/24 16:20 50 mcg ONCE ONE Administration Protocol Sodium Chloride 1,000 mls @ 999 mls/hr 06/15/24 16:00 06/15/24 18:35 Ns IV 06/15/24 17:00 Infused .Q1H1M KAL[place]NA Infusion Sodium Chloride 1,000 mls @ 999 mls/hr 06/15/24 16:00 06/15/24 18:36 Ns IV 06/15/24 17:00 Infused .Q1H1M [place] Infusion Acetaminophen 1,000 mg in 100 mls @ 400 mls/hr 06/15/24 16:22 06/15/24 17:57 Ofirmev IV 06/15/24 16:36 Infused ONCE ONE Infusion Iohexol 100 ml 06/15/24 16:52 06/15/24 16:54 Iohexol 350 Mg/Ml 100 Ml Infus..Btl IV 06/15/24 16:53 70 ml ONCE ONE Administration Morphine Sulfate 4 mg 06/15/24 18:18 06/15/24 18:21 Morphine Sulfate 4 Mg/Ml Cartridge IVPUSH 06/15/24 18:19 4 mg ONCE ONE Administration Protocol Ondansetron HCl 4 mg 06/15/24 18:18 06/15/24 18:22 Ondansetron Hcl 4 Mg/2 Ml Vial IVPUSH 06/15/24 18:19 4 mg ONCE ONE Administration Procedures Lumbar Puncture Time Out Performed: Yes Patient Position: upright Skin Prep: Povidone-Iodine 1% Local Anesthetic: lidocaine 1% Amount of anesthesia used (mL): 5 Spinal Needle Gauge: 22G Interspace Used: L3-L4 Additional Comments: Patient has had a vasovagal episode unable to complete the procedure 2nd time on the lateral position tried unable to get the the fluid because of pain and feeling weak ultimately spinal tap was done by Dr. Cueto in right lateral position fluids sent for Gram staining and meningitis panel Medical Decision Making Medical Decision Making MDM Narrative: 34-year-old female with a past medical history asthma, HLD, diabetes, HTN, PCOS, anxiety, depression, sleep apnea, presenting to the ED complaining of lightheadedness with syncopal episode [employer]ATE with associated nausea, vomiting x1, headache and neck pain / stiffness following syncope. States she was very diaphoretic after syncopal episode with palpitations. On exam tachycardic, low- grade temp 99.4 degrees, appears uncomfortable, diaphoretic/clammy, appreciable neck stiffness noted, no focal deficits. Difficulty lying flat secondary to headache/pain. Concern for SAH vs ?meningitis vs viral syndrome vs complicated migraine vs MSK pain/ strain vs orthostasis/vasovagal syncope vs fracture. Please refer to course for remaining clinical decision making, interpretation of labs/imaging results, and discussions with consultants and/or family members. Patient has acute onset of headache with syncope episode headache radiating to the neck noted to have fever with normal WBC count after imaging steady be plan to do spinal tap to rule out meningitis Differential Diagnosis Differential Diagnoses: The differential diagnosis associated with the presentation includes As above Admission/Observation Consideration of admission/observation: Escalation of care including admission/observation considered Lab Data MDM Lab Attestation statement: I reviewed the patient's lab results. 06/15/24 16:11 06/15/24 16:11 Labs: Lab Results 06/15/24 06/15/24 06/15/24 Range/Units 16:11 16:13 16:17 WBC 10.4 (4.8-10.8) X10*3/uL RBC 5.27 (4.20-5.50) X10*6/uL Hgb 13.5 (12.0-16.0) g/dl Hct 39.4 (37.0-47.0) % MCV 74.8 L (80.0-98.0) fL MCH 25.6 L (27.0-33.0) pg MCHC 34.3 (31.0-35.0) g/dl RDW 14.6 (11.0-16.0) % Plt Count 369 (160-400) X10*3/uL MPV 9.0 L (9.4-12.3) fL Immature Gran % (Auto) 0.4 (0.0-0.4) % Neut % (Auto) 86.8 H (45-73) % Lymph % (Auto) 7.6 L (20-40) % [place] % (Auto) 4.7 (2-11) % Eos % (Auto) 0.3 (0-4) % Baso % (Auto) 0.2 (0-2) % Lymph # (Auto) 0.8 L (1.2-4.9) X10*3/uL [place] # (Auto) 0.5 (0.1-1.2) X10*3/uL Eos # (Auto) 0.0 (0.0-0.4) X10*3/uL Baso # (Auto) 0.0 (0.0-0.2) X10*3/uL Abs Immat Gran (auto) 0.04 H (0.00-0.03) X10*3/uL Absolute Neuts (auto) 9.0 H (2.0-8.3) x10*3/uL Absolute Nucleated RBC 0.000 (0.0-0.012) X10*3/uL Nucleated RBC % (auto) 0.0 (0.0-0.2) /100WBC ESR 14 (0-20) MM/HR PT 11.8 (10.9-12.4) SEC INR 1.0 (0.9-1.1) Hold Blue Top SEE NOTE Sodium 137 (135-145) mmol/L Potassium 4.1 (3.3-5.1) mmol/L Chloride 105 (96-108) mmol/L Carbon Dioxide 24 (22-29) mmol/L Anion Gap 12 (12-20) BUN 10 (9-16) mg/dL Creatinine 0.77 (0.5-1.4) mg/dL Estim Creat Clear Calc 125.8 Estimated GFR > 60 Random Glucose 95 (60-115) mg/dL Lactic Acid (0.5-2.0) mmol/L Calcium 8.9 (8.4-10.2) mg/dL Magnesium 1.8 (1.6-2.6) mg/dL Total Bilirubin 0.7 (0.0-1.0) mg/dL Direct Bilirubin 0.2 (0.0-0.5) mg/dL AST 31 (5-31) U/L ALT 34 H (0-31) U/L Alkaline Phosphatase 83 (39-117) U/L Total Creatine Kinase 183 H (26-140) U/L Troponin I High Sens < 2.7 (<3.5-17.0) ng/L C-Reactive Protein 5.11 H (< or = 0.50) mg/dL Total Protein 7.7 (6.5-8.0) g/dL Albumin 4.2 (3.5-5.0) g/dL Lipase 30 (8-78) U/L TSH 0.97 (0.32-4.0) uIU/mL Beta HCG, Quant < 2 mIU/mL CSF Tube Number CSF Appearance (b) CSF Total Protein (15-45) mg/dL Influenza Type A (PCR) NEGATIVE (Negative) Influenza Type B (PCR) NEGATIVE (Negative) RSV RNA Qual (PCR) NEGATIVE (Negative) SARS-CoV-2 RNA (RT-PCR) NEGATIVE (Negative) 06/15/24 06/15/24 Range/Units 17:17 19:15 WBC (4.8-10.8) X10*3/uL RBC (4.20-5.50) X10*6/uL Hgb (12.0-16.0) g/dl Hct (37.0-47.0) % MCV (80.0-98.0) fL MCH (27.0-33.0) pg MCHC (31.0-35.0) g/dl RDW (11.0-16.0) % Plt Count (160-400) X10*3/uL MPV (9.4-12.3) fL Immature Gran % (Auto) (0.0-0.4) % Neut % (Auto) (45-73) % Lymph % (Auto) (20-40) % [place] % (Auto) (2-11) % Eos % (Auto) (0-4) % Baso % (Auto) (0-2) % Lymph # (Auto) (1.2-4.9) X10*3/uL [place] # (Auto) (0.1-1.2) X10*3/uL Eos # (Auto) (0.0-0.4) X10*3/uL Baso # (Auto) (0.0-0.2) X10*3/uL Abs Immat Gran (auto) (0.00-0.03) X10*3/uL Absolute Neuts (auto) (2.0-8.3) x10*3/uL Absolute Nucleated RBC (0.0-0.012) X10*3/uL Nucleated RBC % (auto) (0.0-0.2) /100WBC ESR (0-20) MM/HR PT (10.9-12.4) SEC INR (0.9-1.1) Hold Blue Top Sodium (135-145) mmol/L Potassium (3.3-5.1) mmol/L Chloride (96-108) mmol/L Carbon Dioxide (22-29) mmol/L Anion Gap (12-20) BUN (9-16) mg/dL Creatinine (0.5-1.4) mg/dL Estim Creat Clear Calc Estimated GFR Random Glucose (60-115) mg/dL Lactic Acid 0.9 (0.5-2.0) mmol/L Calcium (8.4-10.2) mg/dL Magnesium (1.6-2.6) mg/dL Total Bilirubin (0.0-1.0) mg/dL Direct Bilirubin (0.0-0.5) mg/dL AST (5-31) U/L ALT (0-31) U/L Alkaline Phosphatase (39-117) U/L Total Creatine Kinase (26-140) U/L Troponin I High Sens (<3.5-17.0) ng/L C-Reactive Protein (< or = 0.50) mg/dL Total Protein (6.5-8.0) g/dL Albumin (3.5-5.0) g/dL Lipase (8-78) U/L TSH (0.32-4.0) uIU/mL Beta HCG, Quant mIU/mL CSF Tube Number 2 CSF Appearance (b) Clear, Colorless CSF Total Protein 21.0 (15-45) mg/dL Influenza Type A (PCR) (Negative) Influenza Type B (PCR) (Negative) RSV RNA Qual (PCR) (Negative) SARS-CoV-2 RNA (RT-PCR) (Negative) Independent Interpretation I performed an independent interpretation of an: EKG, Plain X-Ray and CT Scan Radiology Impression Discussion of test interpretation with radiology: I have reviewed the radiologist's reading. Independent Historian Clinical information obtained from an independent historian. History obtained from or confirmed by: Spouse External Record Review External record reviewed: Inpatient record, Office record, Outpatient record, Prior outpatient labs, Prior outpatient radiology, Primary care record and Outside ED record Tests considered The following testing was considered but not selected: As above Prescription Management I considered prescription management with: Pain Medication and Antibiotic Chronic Conditions Patient?s care impacted by: Diabetes and Hypertension Social Determinants Patient?s care significantly limited by Social Determinants of Health including: Other Social Determinant of Health Critical Care Time Critical Care Time Critical Care Time: Yes Total Critical Care Time: 60 Attestation: I have personally provided critical care time exclusive of time spent on separately billable procedures. Time includes review of lab data, radiology results, discussion with consultants, and monitoring for potential decompensation. Intervention performed as documented. Discharge Plan Discharge Clinical Impression: Syncope, Headache, Stiffness of neck Patient Disposition: Still a Patient Prescriptions: No Action (DME) nebulizers Misc See Rx Instructions .Route Qty: 1 0RF Rx Instructions: Q6 hrs prn for sob/wheezing (DME) nebulizer accessories Misc See Rx Instructions .Route Qty: 1 0RF Rx Instructions: Q6 hrs, prn for SOB/wheezing albuterol sulfate 90 mcg/actuation HFA aerosol inhaler 1 inh inhalation QID PRN (Reason: shortness of breath or wheezing) 30 Days Qty: 8.5 12RF lorazepam 1 mg tablet 1 mg PO BID PRN (Reason: anxiety) 30 Days Qty: 60 0RF (DME) FreeStyle Lite Strips Strip See Rx Instructions .ROUTE .MEDSUPPLY Qty: 100 11RF Rx Instructions: 4x daily (DME) FreeStyle Kristen 2 [place] Misc See Rx Instructions .ROUTE .MEDSUPPLY Qty: 1 0RF Rx Instructions: As directed (DME) FreeStyle Kristen 2 Sensor Kit See Rx Instructions .ROUTE .MEDSUPPLY Qty: 2 11RF Rx Instructions: Once every 14 days roflumilast 500 mcg tablet 500 mcg PO DAILY 30 Days Qty: 30 11RF cholecalciferol (vitamin D3) 125 mcg (5,000 unit) capsule 125 mcg PO DAILY Qty: 90 0RF mecobalamin (vitamin B12) 1,000 mcg tablet,disintegrating 1,000 mcg sublingual DAILY Qty: 60 0RF Rx Instructions: place tablet under tongue and allow to dissolve for at least30 secs before swallowing gabapentin 100 mg capsule 100 mg PO TID 30 Days Qty: 90 1RF carisoprodol [Soma] 350 mg tablet 350 mg PO BEDTIME PRN (Reason: muscle pain) 14 Days Qty: 14 0RF tirzepatide 12.5 mg/0.5 mL pen injector 12.5 mg subcut QWEEK Qty: 2 5RF cyclobenzaprine 10 mg tablet 10 mg PO TID PRN (Reason: muscle spasm) Qty: 20 0RF diltiazem HCl 120 mg capsule,extended release 24hr 120 mg PO DAILY 90 Days Qty: 90 0RF atorvastatin 10 mg tablet 10 mg PO BEDTIME 90 Days Qty: 90 0RF (DME) lancets [FreeStyle Lancets] 28 gauge misc See Rx Instructions .ROUTE .MEDSUPPLY Qty: 100 11RF Rx Instructions: 4x daily (DME) blood-glucose meter [FreeStyle Lite Meter] Kit See Rx Instructions .Route Qty: 1 0RF Rx Instructions: As directed lamotrigine 25 mg tablet 100 mg PO DAILY Print Language: Pashto
[2024-06-15 16:18] LABS: MANUAL DIFF FLAG NO
[2024-06-15 16:22] LABS: Basophils Percent Auto 0.2 % (0-2); Eosinophils Percent Auto 0.3 % (0-4); Hematocrit 39.4 % (37.0-47.0); Hemoglobin 13.5 g/dl (12.0-16.0); Imm Gran Abs Auto 0.04 X10*3/uL (0.00-0.03); Imm Gran Pct Auto 0.4 % (0.0-0.4); Lymphocytes Absolute Auto 0.8 X10*3/uL (1.2-4.9); Lymphocytes Percent Auto 7.6 % (20-40); Mean Corpuscular HGB Conc 34.3 g/dl (31.0-35.0); Mean Corpuscular Hemoglobin 25.6 pg (27.0-33.0); Mean Corpuscular Volume 74.8 fL (80.0-98.0); Monocytes Absolute Auto 0.5 X10*3/uL (0.1-1.2); Monocytes Percent Auto 4.7 % (2-11); Neutrophils Percent Auto 86.8 % (45-73); Platelet Count 369 X10*3/uL (160-400); Red Blood Count 5.27 X10*6/uL (4.20-5.50); Red Cell Distribution Width 14.6 % (11.0-16.0); White Blood Count 10.4 X10*3/uL (4.8-10.8)
[2024-06-15] MEDS: 0.9 % Sodium Chloride 1,000 ML 999 ML IV ×2 (16:25→16:26)
[2024-06-15] MEDS: Acetaminophen 1,000 MG/100 ML PIGGYBACK 400 MG IV (16:29)
[2024-06-15] MEDS: fentaNYL citrate/PF 100 MCG/2 ML VIAL 50 MCG IVPUSH (16:29)
[2024-06-15 16:34] LABS: Prothrombin Time 11.8 SEC (10.9-12.4)
--- NOTE | 2024-06-15 16:39 | PC.NURSE ---
patient presented to the ED with , patient worked over night, woke up at 1400 and heard her yelling for help. patient had syncopal episode in bed, no fall, no headstrike not on thinners. patient awoke and had 1 episode of vomiting immediatly after. patient describes severe head and neck pain, brought in for emergent head ct and placed in ED room 10. bilat IV access obtained #20 right AC #18 placed in left lateral. patient remains alert and oriented, pupils equal and reactive to light, patient endorses photo phobia. patient medicated per JUN 03 head and neck pain. VSS, patient noted to be in sinus tach. patient rectal temp 102.9 ED provider made aware. patient at bedside.
[2024-06-15 16:41] LABS: Alanine Aminotransferase 34 U/L (0-31); Albumin Level 4.2 g/dL (3.5-5.0); Alkaline Phosphatase 83 U/L (39-117); Anion Gap 12 (12-20); Aspartate Amino Transferase 31 U/L (5-31); Bilirubin Direct 0.2 mg/dL (0.0-0.5); Bilirubin Total 0.7 mg/dL (0.0-1.0); Blood Urea Nitrogen 10 mg/dL (9-16); Calcium 8.9 mg/dL (8.4-10.2); Carbon Dioxide 24 mmol/L (22-29); Chloride 105 mmol/L (96-108); Creatinine Clr Calc Pharmacy 125.8; Estimated Glomerular Filt Rate > 60; Glucose Random 95 mg/dL (60-115); Lipase 30 U/L (8-78); Magnesium 1.8 mg/dL (1.6-2.6); Potassium 4.1 mmol/L (3.3-5.1); Sodium 137 mmol/L (135-145); Total Protein 7.7 g/dL (6.5-8.0)
[2024-06-15 16:47] LABS: Troponin-I High Sensitivity < 2.7 ng/L (<3.5-17.0)
[2024-06-15] MEDS: iohexoL 350 MG/ML 100 ML INFUS..BTL IV (16:54)
[2024-06-15 17:01] LABS: Influenza A PCR NEGATIVE (Negative); Influenza B PCR NEGATIVE (Negative); Resp Syncy Virus RNA Qual PCR NEGATIVE (Negative); SARS COV2 PCR INHOUSE NEGATIVE (Negative)
[2024-06-15 17:02] LABS: C Reactive Protein 5.11 mg/dL (< or = 0.50)
[2024-06-15 17:13] LABS: HCG Quantitative < 2 mIU/mL; TSH reflex Free T4 0.97 uIU/mL (0.32-4.0)
[2024-06-15 17:42] LABS: Lactic Acid 0.9 mmol/L (0.5-2.0)
[2024-06-15] MEDS: cefTRIAXone sodium 2 GM VIAL IVPUSH (18:18)
[2024-06-15] MEDS: Morphine Sulfate 4 MG/ML CARTRIDGE IVPUSH (18:21)
[2024-06-15] MEDS: ondansetron HCL 4 MG/2 ML VIAL IVPUSH (18:22)
--- NOTE | 2024-06-15 18:24 | PC.NURSE ---
ED attending attempted LP at bedside, patient sitting up leaning on table. patient at one point started to get diaphoretic, cold sweats. patient stated she felt as if she was going to pass out. patient laid back down with assistance, given ice pack on back of neck. VSS. patient given apple juice. LP discontinued for now. patient medicated per MAY for pain/nausea. fluids remain wide open. patient is awake and alert, resp even and unlabored.
[2024-06-15 18:37] LABS: Erythrocyte Sedimentation Rate 14 MM/HR (0-20)
--- NOTE | 2024-06-15 19:16 | PC.NURSE ---
LP done by ED provider Kareem. LP successful, patient tolerated well. specimen collected and walked to lab.
[2024-06-15 19:36] LABS: CSF Appearance Clear, Colorless; CSF Tube # 2
[2024-06-15] MEDS: Ketorolac Tromethamine 30 MG/ML VIAL IVPUSH (20:24)
--- NOTE | 2024-06-15 20:48 | PHA.MEDREC ---
Addendum entered by Mohit Stein 06/15/24 20:56: reviewed Original Note: Pharmacy Consult ? Medication Reconciliation Pharmacy has completed the medication reconciliation. Spoke to patient to confirm med list. Patient states she is not taking Vitamin D3 5,000 mg, cycobenzaprine 10 mg, Diltiazem HCl 120 mg, Lamotrigine 25 mg ( has but not started yet), Lorazepam 1 mg, Vitamin B12 1,000 mg, Norethindrone 0.35 mg, and Roflumilast 500 mg. Patient confirmed Mounjaro 12.5 mg every Wednesday , last dose 06/06/24. patient last took her medications 2 days ago.
--- NOTE | 2024-06-15 20:49 | P.HPHOSP_ITS ---
History of Present Illness Date of Service: 06/15/24 Attending physician on admission: Johnnie Cartagena Chief Complaint: Syncopal episode Pt is a 34-year-old female with a PMH significant for?mild intermittent asthma, POTS, aek-oyozpej-qphoejtnx type 2 diabetes, anxiety, and depression who presents to the ED for evaluation after syncopal episode at home. 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 Which was in normal state of health last night when she went home after work. This morning woke up after only a few hours and felt fever and chills. Went back to sleep and woke up again and continued to feel fever and chills. Pt sat up in bed and felt faint: Ringing in her ears, vision going black, and had palpitations. HR noted to be as high in the 150s according to patient's watch. Pt then syncopized, falling back into bed. Reports when she woke up she felt sweaty, clammy, shaky, and had nausea, vomiting, and upper central abd pain. Reports arms bilaterally felt heavy, weak, and tingly. Lower extremities also felt heavy and weak, but with no numbness or tingling. Had headache and neck pain/stiffness that continued to intensify while awake. States she has one other syncopal episode when first diagnosed with POTS in 2022. Not on any meds for POTS and reports only one prior episode when she had COIVD. Denies chest pain/pressure. No SOB or difficulty breathing. Denies cough. No acute vision changes. No diarrhea. In the ED pt was febrile up to 102.9 and tachycardic up to 136. Pt attempted orthostatics and BP drop from 122/82 semi Segura's to 68/42 while sitting, and pt had near syncopal episode. Labs were significant for mildly elevated ALT of 34, CPK of 183, and CRP of 5.11. No leukocytosis. Stable H&H. No significant electrolyte abnormalities. Renal function baseline. Lactic acid WNL. Troponin negative. Tested negative for flu, COVID, RSV. CSF panel pending. CXR negative for acute cardiopulmonary disease. CTA of head negative for acute intracranial process. CT of cervical spine negative for acute fracture or dislocation. CTA of head and neck negative for aneurysm, or significant stenosis. Pt was treated with IVF, fentanyl, Tylenol, morphine, ondansetron, ketorolac, and ceftriaxone. Pt will be admitted to the hospital for treatment and further evaluation of syncopal episode and fever of unclear origin. Review of Systems 2 Review of Systems: Negative except for that which is stated in the HPI. [facility] Medical History Palpitations Left axillary pain Back pain Bipolar 1 disorder Morbid obesity Physical exam Lower back pain Hip pain, left Fall Sebaceous cyst of left axilla Viral illness Myalgia Syncope Encounter for IUD insertion Chest pain Upper respiratory tract infection Asthma SOB (shortness of breath) Lumbar back pain with radiculopathy affecting lower extremity Screening for STD (sexually transmitted disease) Low back pain radiating to both legs Asthma Tachycardia Vitamin D deficiency Hyperandrogenism HLD (hyperlipidemia) T2DM (type 2 diabetes mellitus) Sleep apnea in adult Anxiety and depression Anxiety HTN (hypertension) PCOS (polycystic ovarian syndrome) Family History Mother Sleep apnea CVD (cardiovascular disease) Mental health disorder Father CVD (cardiovascular disease) Sleep apnea Substance use disorder Mental health disorder Sister Substance use disorder Mental health disorder Surgical History No pertinent past surgical history Social History Housing: House Alcohol intake: current Patient Tobacco Use Status: Never used Tobacco e-Cigarette/Vaping Use: Never Used Second Hand Smoke Exposure: No Advance Directives: No Advance Directives Information Provided: Yes Do you have a plan to hurt others: No Plan service: No Current occupational status: employed Current occupation: [employer] Current occupational exposures/hazards: No Cognitive needs: No Hearing needs: No Vision needs: Yes Meds Allergies Allergy/AdvReac Type Severity Reaction Status Date / Time lisinopril [LISINOPRIL] Allergy Severe COUGH Verified 06/15/24 15:22 Penicillins [PENICILLINS] Allergy Severe HIVES Verified 06/15/24 15:22 vancomycin Allergy Severe Rash Verified 06/15/24 15:22 chlorthalidone AdvReac Severe tachycardia, Verified 06/15/24 15:22 palpitations doxycycline AdvReac Intermediate Joint Pain Verified 06/15/24 15:22 Active Medications: Current Medications Acetaminophen (Acetaminophen 325 Mg Tablet) 650 mg PO Q6H PRN PRN Reason: Pain, Mild 1-3,fever,headache Calcium Carbonate (Calcium Carbonate 750 Mg Tab.Chew) 750 mg PO Q4H PRN PRN Reason: Heartburn Enoxaparin Sodium (Enoxaparin Sodium 40 Mg/0.4 Ml Syringe) 40 mg SUBCUT Q24H [place] Magnesium Hydroxide (Milk Of Magnesia 30 Ml Oral.Susp) 30 ml PO DAILY PRN PRN Reason: Constipation Melatonin (Melatonin 3 Mg Tablet) 6 mg PO BEDTIME PRN PRN Reason: Insomnia Ondansetron HCl (Ondansetron Hcl 4 Mg/2 Ml Vial) 4 mg IVPUSH Q8H PRN PRN Reason: Nausea and Vomiting Sodium Chloride (0.9 % Sodium Chloride Flush 3 Ml Syringe) 3 ml IVFLUSH QSHIFT [facility] Home Medications ?Medication ?Instructions ?Recorded ?Confirmed ?Last Taken ?Type bupropion HCl 150 mg 24 hr tablet, 150 mg PO DAILY 06/15/24 06/15/24 06/13/24 History extended release gabapentin 100 mg capsule 100 mg PO TID PRN Pain 06/15/24 06/15/24 Unknown History hydroxyzine HCl 25 mg tablet 25 mg PO QID PRN Anxiety 06/15/24 06/15/24 Unknown History tirzepatide 12.5 mg/0.5 mL 12.5 mg subcut TU 06/15/24 06/15/24 06/06/24 History subcutaneous pen injector (Dennis) Physical Exam 2 Vital Signs and Narrative: Vital Signs: Last Vital Signs Temp 98.5 F 06/15/24 17:51 Pulse 84 06/15/24 20:25 Resp 20 06/15/24 20:25 BP 100/60 06/15/24 20:25 Pulse Ox 98 06/15/24 20:25 O2 Del Method Room Air 06/15/24 20:25 BMI result Body Mass Index 42.9 Results Labs 06/15/24 16:11 06/15/24 16:11 Labs: Laboratory Results - last 24 hr 06/15/24 06/15/24 06/15/24 16:11 16:13 16:17 MCV 74.8 L MCH 25.6 L MCHC 34.3 RDW 14.6 Plt Count 369 MPV 9.0 L Immature Gran % (Auto) 0.4 Neut % (Auto) 86.8 H Lymph % (Auto) 7.6 L V[place] % (Auto) 4.7 Eos % (Auto) 0.3 Baso % (Auto) 0.2 Lymph # (Auto) 0.8 L Vigo # (Auto) 0.5 Eos # (Auto) 0.0 Baso # (Auto) 0.0 Abs Immat Gran (auto) 0.04 H Absolute Neuts (auto) 9.0 H Absolute Nucleated RBC 0.000 Nucleated RBC % (auto) 0.0 ESR 14 PT 11.8 INR 1.0 Hold Blue Top SEE NOTE Anion Gap 12 Estim Creat Clear Calc 125.8 Estimated GFR > 60 Random Glucose 95 Lactic Acid Calcium 8.9 Magnesium 1.8 Total Bilirubin 0.7 Direct Bilirubin 0.2 AST 31 ALT 34 H Alkaline Phosphatase 83 Total Creatine Kinase 183 H C-Reactive Protein 5.11 H Total Protein 7.7 Albumin 4.2 Lipase 30 TSH 0.97 Beta HCG, Quant < 2 CSF Tube Number CSF Appearance (b) CSF Total Protein Influenza Type A (PCR) NEGATIVE Influenza Type B (PCR) NEGATIVE RSV RNA Qual (PCR) NEGATIVE SARS-CoV-2 RNA (RT-PCR) NEGATIVE 06/15/24 06/15/24 17:17 19:15 MCV MCH MCHC RDW Plt Count MPV Immature Gran % (Auto) Neut % (Auto) Lymph % (Auto) Vigo % (Auto) Eos % (Auto) Baso % (Auto) Lymph # (Auto) Vigo # (Auto) Eos # (Auto) Baso # (Auto) Abs Immat Gran (auto) Absolute Neuts (auto) Absolute Nucleated RBC Nucleated RBC % (auto) ESR PT INR Hold Blue Top Anion Gap Estim Creat Clear Calc Estimated GFR Random Glucose Lactic Acid 0.9 Calcium Magnesium Total Bilirubin Direct Bilirubin AST ALT Alkaline Phosphatase Total Creatine Kinase C-Reactive Protein Total Protein Albumin Lipase TSH Beta HCG, Quant CSF Tube Number 2 CSF Appearance (b) Clear, Colorless CSF Total Protein 21.0 Influenza Type A (PCR) Influenza Type B (PCR) RSV RNA Qual (PCR) SARS-CoV-2 RNA (RT-PCR) Imaging Radiologist's Impressions: Impressions Head CT 06/15/24 15:48 IMPRESSION: No acute intracranial process seen. Results were communicated to Dr. Anwer in ED at 4:15 PM Electronically signed by: Gulshan Garcia MD 06/15/2024 04:18 PM EDT RP Cervical Spine CT 06/15/24 16:00 IMPRESSION: No visible acute fracture or dislocation seen. Degenerative disc changes and ventral and posterior spondylosis C4-5 through C6-C7 disc levels. Fleischner guidelines were followed. Electronically signed by: Gulshan Garcia MD 06/15/2024 04:31 PM EDT RP Chest X-Ray 06/15/24 16:40 IMPRESSION: Unremarkable chest examination. Electronically signed by: Gulshan Garcia MD 06/15/2024 04:55 PM EDT RP Assessment and Plan (1) Syncope: Status: Acute (2) Palpitations: Status: Acute Plan Pt is a 34-year-old female with a PMH significant for?mild intermittent asthma, POTS, dkj-skvserz-hqkbphwjz type 2 diabetes, anxiety, and depression who presents to the ED for evaluation after syncopal episode at home. Pt will be admitted to the hospital for treatment and further evaluation of syncopal episode and fever of unclear origin. Syncopal episode Pt with syncopal episode at home with associated N/V, abdominal pain, diaphoresis, tachycardia, headache, neck pain/stiffness Unclear etiology: Wide differential includes bacterial vs viral infection vs POTS Pt unable to complete orthostatics due to hypotension with sitting of 68/42 Meets SIRS criteria with fever and tachycardia; lactic acid WNL Pt received IVF and started on broad-spectrum antibiotics in the ED Will continue empiric ceftriaxone, started 06/15/2024 Follow CSF studies Check full respiratory panel Will check tick borne illnesses Will check CT of abdomen/pelvis Recheck orthostatics in the morning Follow blood cultures Monitor on telemetry POTS One prior episode in 2022 when had COVID Not on home meds Consider cardiology consult for med management Ugh-isjmzna-aqfstnaml type 2 diabetes Diabetic diet Mild intermittent asthma Not in acute exacerbation Continue home inhaler Obesity class 3 Encourage weight loss Full Code Attending:?Dr. Cartagena DVT Prophylaxis: Pt ambulatory Pt will require a hospitalization of at least two nights for treatment of?syncopal episode and fever of unclear etiology. Pt will require hospital level care for administration of empiric IV antibiotics, while awaiting blood and CSF cultures. Pt will also require close monitoring of cardiac function and vitals. Quality Stroke Does the patient have a stroke diagnosis?: No VTE Prior VTE?: No VTE Risk Level:: Medical - moderate - high VTE Device Contraindication: N/A - Device Ordered VTE Drug Contraindication: N/A - Med Ordered
--- NOTE | 2024-06-15 21:01 | PC.NURSE ---
pt stood up to bedside commode with no complaints, pt tolerated well. pt states once she was back in bed she developed some head pressure, provider aware, pt medicated per mar.
--- NOTE | 2024-06-15 21:22 | PC.NURSE ---
pt placed into hospital bed for comfort at this time.
[2024-06-15 21:38] LABS: Cryptococcus neoformans/gattii Not Detected (Not Detect.); Enterovirus Not Detected (Not Detect.); Escherichia coli K1 Not Detected (Not Detect.); Haemophilus influenzae Not Detected (Not Detect.); Herpes simplex virus 1 Not Detected (Not Detect.); Herpes simplex virus 2 Not Detected (Not Detect.); Human herpesvirus 6 Not Detected (Not Detect.); Human parechovirus Not Detected (Not Detect.); Listeria monocytogenes Not Detected (Not Detect.); Neisseria meningitidis Not Detected (Not Detect.); Streptococcus agalactiae Not Detected (Not Detect.); Streptococcus pneumoniae Not Detected (Not Detect.); Varicella zoster virus Not Detected (Not Detect.)
[2024-06-15 22:46] LABS: Appearance CSF CLEAR; CSF Tube # 1; Color CSF COLORLESS; Red Blood Cell CSF 4 MM*3; White Blood Cell CSF 4 MM*3
[2024-06-15 22:47] LABS: Appearance CSF CLEAR; CSF Tube # 4; Color CSF COLORLESS; Lymphocytes CSF 100 %; Red Blood Cell CSF 14 MM*3; White Blood Cell CSF 2 MM*3
[2024-06-15 23:30] LABS: Appearance Urine Clear; Color Urine Yellow; Glucose Urine UA Negative (Negative); Leukocyte Esterase Urine Negative (Negative); Nitrite Urine Negative (Negative); PH 7.5 (5.0-9.0); Specific Gravity - Urine >= 1.030 (1.005-1.025); Urine Blood Negative (Negative); Urine Ketones Negative (Negative); Urine Protein Negative (Neg-Trace)
[2024-06-16] VITALS (12 sets, daily range): BP systolic 107–173; BP diastolic 53–87; PULSE 75–122; RESP 15–18; TEMP 36.7–37.2; O2SAT 94–99
[2024-06-16] MEDS: 0.9 % Sodium Chloride Flush 3 ML SYRINGE IVFLUSH ×2 (00:59→15:10)
[2024-06-16] MEDS: traMADoL HCL 50 MG TABLET PO (01:03)
[2024-06-16 06:23] LABS: Hematocrit 35.6 % (37.0-47.0); Hemoglobin 11.7 g/dl (12.0-16.0); Mean Corpuscular HGB Conc 32.9 g/dl (31.0-35.0); Mean Corpuscular Hemoglobin 25.4 pg (27.0-33.0); Mean Corpuscular Volume 77.2 fL (80.0-98.0); Mean Platelet Volume 9.3 fL (9.4-12.3); Platelet Count 303 X10*3/uL (160-400); Red Blood Count 4.61 X10*6/uL (4.20-5.50); Red Cell Distribution Width 14.7 % (11.0-16.0); White Blood Count 6.3 X10*3/uL (4.8-10.8)
[2024-06-16 06:38] LABS: Anion Gap 11 (12-20); Blood Urea Nitrogen 8 mg/dL (9-16); Calcium 7.9 mg/dL (8.4-10.2); Carbon Dioxide 23 mmol/L (22-29); Chloride 109 mmol/L (96-108); Creatinine Clr Calc Pharmacy 144.6; Estimated Glomerular Filt Rate > 60; Glucose Random 88 mg/dL (60-115); Potassium 3.7 mmol/L (3.3-5.1); Sodium 139 mmol/L (135-145)
[2024-06-16] MEDS: buPROPion HCl XL 150 MG TAB.ER.24H PO (07:55)
[2024-06-16] MEDS: carisoprodoL 350 MG TABLET PO (08:50)
[2024-06-16 09:12] LABS: Adenovirus PCR Not Detected (Not Detect.); Bordetella parapertussis PCR Not Detected (Not Detect.); Bordetella pertussis PCR Not Detected (Not Detect.); Chlamydia pneumoniae PCR Not Detected (Not Detect.); Coronavirus 229E PCR Not Detected (Not Detect.); Coronavirus HKU1 PCR Not Detected (Not Detect.); Coronavirus NL63 PCR Not Detected (Not Detect.); Coronavirus OC43 PCR Not Detected (Not Detect.); Human metapneumovirus PCR Not Detected (Not Detect.); Influenza A PCR Not Detected (Not Detect.); Influenza B PCR Not Detected (Not Detect.); Mycoplasma pneumoniae PCR Not Detected (Not Detect.); Parainfluenza 1 PCR Not Detected (Not Detect.); Parainfluenza 2 PCR Not Detected (Not Detect.); Parainfluenza 3 PCR Not Detected (Not Detect.); Parainfluenza 4 PCR Not Detected (Not Detect.); RSV PCR Not Detected (Not Detect.); Rhino/Enterovirus PCR Not Detected (Not Detect.); SARS-CoV-2 PCR Not Detected (Not Detect.)
[2024-06-16 10:29] LABS: Influenza A H1 PCR Not Detected (Not Detect.)
[2024-06-16 10:30] LABS: Influenza A H1-2009 PCR Not Detected (Not Detect.); Influenza A H3 PCR Not Detected (Not Detect.)
[2024-06-16] MEDS: ondansetron HCL 4 MG/2 ML VIAL IVPUSH (11:02)
[2024-06-16 11:07] LABS: Glucose, Whole Blood 145 mg/dL (60-115)
[2024-06-16 11:11] LABS: Glucose, Whole Blood 64 mg/dL (60-115)
--- NOTE | 2024-06-16 11:42 | HO.PM.IMPN ---
Subjective Subjective Date of Service: 06/16/24 Interval History: seen and evaluated this morning reporting headache no fever overnight tolerating PO Review of Systems Review of Systems: Yes all other systems are reviewed and are negative Physical Exam Vital Signs: Vital Signs: Last Vital Signs Temp 98.2 F 06/16/24 11:36 Pulse 100 06/16/24 11:36 Resp 16 06/16/24 11:36 BP 132/71 06/16/24 11:36 Pulse Ox 94 06/16/24 11:36 O2 Del Method Room Air 06/16/24 11:36 BMI result Body Mass Index 42.9 Const: Other: Constitutional : Awake, interactive, not in distress Neck : Normal inspection, Supple Cardiovascular : RRR, no JVP, no lower extremity edema Respiratory : good bilateral air entry, no crackles, wheezes or rhonchi Gastrointestinal: soft, lax, Normal bowel sounds, Non tender Skin : Warm, Dry Neurological : Alert & oriented x3, No focal deficit Objective Data Active Medications Acetaminophen (Acetaminophen 325 Mg Tablet) 650 mg PO Q6H PRN PRN Reason: Pain, Mild 1-3,fever,headache Acetaminophen/Butalbital/Caffeine (Butalb/Acetamin/Caff 50/325/40 Tablet) 2 tab PO Q4H PRN PRN Reason: Headache Albuterol Sulfate (Albuterol Sulfate 90 Mcg 8 Gm Inhaler) 1 puff INHALE QID PRN PRN Reason: shortness of breath or wheezing Bupropion HCl (Bupropion Hcl Xl 150 Mg Tab.Er.24h) 150 mg PO DAILY [facility] Last Admin: 06/16/24 07:55 Dose: 150 mg Documented By: RITA Calcium Carbonate (Calcium Carbonate 750 Mg Tab.Chew) 750 mg PO Q4H PRN PRN Reason: Heartburn Carisoprodol (Carisoprodol 350 Mg Tablet) 350 mg PO BEDTIME PRN PRN Reason: muscle pain Last Admin: 06/16/24 08:50 Dose: 350 mg Documented By: RITA Ceftriaxone Sodium (Ceftriaxone Sodium 1 Gm Vial) 1 gm IVPUSH Q24H [place] Dextrose (Dextrose 50 % 25 Gm/50 Ml Syringe) 25 gm IVPUSH Q15M PRN; Protocol PRN Reason: per Hypoglycemia Standing Ord. Enoxaparin Sodium (Enoxaparin Sodium 40 Mg/0.4 Ml Syringe) 40 mg SUBCUT Q24H [facility] Glucose (Glucose Gel 15 Gm Gel..Gram.) 15 gm PO Q15M PRN; Protocol PRN Reason: per Hypoglycemia Standing Ord. Hydroxyzine HCl (Hydroxyzine Hcl 25 Mg Tablet) 25 mg PO QID PRN PRN Reason: Anxiety Insulin Human Lispro (Insulin Lispro 100 Unit/Ml 3 Ml Vial) 0 unit SUBCUT QIDACHS [facility]; Protocol Last Admin: 06/16/24 11:03 Dose: Not Given Documented By: RITA Non-Admin Reason: No Insulin Coverage Magnesium Hydroxide (Milk Of Magnesia 30 Ml Oral.Susp) 30 ml PO DAILY PRN PRN Reason: Constipation Melatonin (Melatonin 3 Mg Tablet) 6 mg PO BEDTIME PRN PRN Reason: Insomnia Ondansetron HCl (Ondansetron Hcl 4 Mg/2 Ml Vial) 4 mg IVPUSH Q8H PRN PRN Reason: Nausea and Vomiting Last Admin: 06/16/24 11:02 Dose: 4 mg Documented By: RIAT Sodium Chloride (0.9 % Sodium Chloride Flush 3 Ml Syringe) 3 ml IVFLUSH QSHIFT [facility] Last Admin: 06/16/24 07:35 Dose: Not Given Documented By: RITA Non-Admin Reason: Previously Administered Labs 06/16/24 05:47 06/16/24 05:47 Labs: Laboratory Results - last 24 hr 06/15/24 06/15/24 06/15/24 16:11 16:13 16:17 MCV 74.8 L MCH 25.6 L MCHC 34.3 RDW 14.6 Plt Count 369 MPV 9.0 L Immature Gran % (Auto) 0.4 Neut % (Auto) 86.8 H Lymph % (Auto) 7.6 L Morton % (Auto) 4.7 Eos % (Auto) 0.3 Baso % (Auto) 0.2 Lymph # (Auto) 0.8 L Morton # (Auto) 0.5 Eos # (Auto) 0.0 Baso # (Auto) 0.0 Abs Immat Gran (auto) 0.04 H Absolute Neuts (auto) 9.0 H Absolute Nucleated RBC 0.000 Nucleated RBC % (auto) 0.0 ESR 14 PT 11.8 INR 1.0 Hold Blue Top SEE NOTE Anion Gap 12 Estim Creat Clear Calc 125.8 Estimated GFR > 60 POC Glucose Random Glucose 95 Lactic Acid Calcium 8.9 Magnesium 1.8 Total Bilirubin 0.7 Direct Bilirubin 0.2 AST 31 ALT 34 H Alkaline Phosphatase 83 Total Creatine Kinase 183 H C-Reactive Protein 5.11 H Total Protein 7.7 Albumin 4.2 Lipase 30 TSH 0.97 Beta HCG, Quant < 2 Urine Color Urine Appearance Urine pH Ur Specific [place] Urine Protein Urine Glucose (UA) Urine Ketones Urine Blood Urine Nitrite Ur Leukocyte Esterase CSF Tube Number CSF Volume CSF Appearance CSF Color CSF WBC CSF RBC CSF Lymphocytes CSF Appearance (b) CSF Total Protein CSF C.neoform/gat PCR CSF CMV DNA (PCR) CSF Enterovirus (PCR) CSF E. coli K1 (PCR) CSF H. influenzae (PCR) CSF HSV I (PCR) CSF HSV II (PCR) CSF HHV 6 (PCR) CSF L.monocytogenes PCR CSF N. meningitidis PCR CSF Parechovirus (PCR) CSF S. agalactiae (PCR) CSF S. pneumoniae (PCR) CSF VZV (PCR) Respiratory Panel Borja Adenovirus (Rapid PCR) B.pert (TEM-PCR) B.parapertussis DNA PCR C. pneumoniae DNA (PCR) Coronavirus OC43 (PCR) Coronavirus HKU1 (PCR) Coronavirus 229E (PCR) Coronavirus NL63 (PCR) Human Metapneumovir PCR Influenza A (RT-PCR) Influenza A (H1) PCR Influ A (H1/09) PCR Influenza A (H3) PCR Influenza Type A (PCR) NEGATIVE Influenza B (RT-PCR) Influenza Type B (PCR) NEGATIVE M. pneumoniae (PCR) Parainfluenza 1 (PCR) Parainfluenza 2 (PCR) Parainfluenza 3 (PCR) Parainfluenza 4 (PCR) RSV (PCR) RSV RNA Qual (PCR) NEGATIVE Entero/Rhino (PCR) SARS-CoV-2 RNA (RT-PCR) NEGATIVE 06/15/24 06/15/24 06/15/24 17:17 19:15 19:15 MCV MCH MCHC RDW Plt Count MPV Immature Gran % (Auto) Neut % (Auto) Lymph % (Auto) Morton % (Auto) Eos % (Auto) Baso % (Auto) Lymph # (Auto) Morton # (Auto) Eos # (Auto) Baso # (Auto) Abs Immat Gran (auto) Absolute Neuts (auto) Absolute Nucleated RBC Nucleated RBC % (auto) ESR PT INR Hold Blue Top Anion Gap Estim Creat Clear Calc Estimated GFR POC Glucose Random Glucose Lactic Acid 0.9 Calcium Magnesium Total Bilirubin Direct Bilirubin AST ALT Alkaline Phosphatase Total Creatine Kinase C-Reactive Protein Total Protein Albumin Lipase TSH Beta HCG, Quant Urine Color Urine Appearance Urine pH Ur Specific [place] Urine Protein Urine Glucose (UA) Urine Ketones Urine Blood Urine Nitrite Ur Leukocyte Esterase CSF Tube Number 2 1 CSF Volume CSF Appearance CSF Color CSF WBC CSF RBC CSF Lymphocytes CSF Appearance (b) CSF Total Protein CSF C.neoform/gat PCR CSF CMV DNA (PCR) CSF Enterovirus (PCR) CSF E. coli K1 (PCR) CSF H. influenzae (PCR) CSF HSV I (PCR) CSF HSV II (PCR) CSF HHV 6 (PCR) CSF L.monocytogenes PCR CSF N. meningitidis PCR CSF Parechovirus (PCR) CSF S. agalactiae (PCR) CSF S. pneumoniae (PCR) CSF VZV (PCR) Respiratory Panel Borja Adenovirus (Rapid PCR) B.pert (TEM-PCR) B.parapertussis DNA PCR C. pneumoniae DNA (PCR) Coronavirus OC43 (PCR) Coronavirus HKU1 (PCR) Coronavirus 229E (PCR) Coronavirus NL63 (PCR) Human Metapneumovir PCR Influenza A (RT-PCR) Influenza A (H1) PCR Influ A (H1/09) PCR Influenza A (H3) PCR Influenza Type A (PCR) Influenza B (RT-PCR) Influenza Type B (PCR) M. pneumoniae (PCR) Parainfluenza 1 (PCR) Parainfluenza 2 (PCR) Parainfluenza 3 (PCR) Parainfluenza 4 (PCR) RSV (PCR) RSV RNA Qual (PCR) Entero/Rhino (PCR) SARS-CoV-2 RNA (RT-PCR) 06/15/24 06/15/24 06/15/24 19:15 19:15 19:15 MCV MCH MCHC RDW Plt Count MPV Immature Gran % (Auto) Neut % (Auto) Lymph % (Auto) Morton % (Auto) Eos % (Auto) Baso % (Auto) Lymph # (Auto) Morton # (Auto) Eos # (Auto) Baso # (Auto) Abs Immat Gran (auto) Absolute Neuts (auto) Absolute Nucleated RBC Nucleated RBC % (auto) ESR PT INR Hold Blue Top Anion Gap Estim Creat Clear Calc Estimated GFR POC Glucose Random Glucose Lactic Acid Calcium Magnesium Total Bilirubin Direct Bilirubin AST ALT Alkaline Phosphatase Total Creatine Kinase C-Reactive Protein Total Protein Albumin Lipase TSH Beta HCG, Quant Urine Color Urine Appearance Urine pH Ur Specific [place] Urine Protein Urine Glucose (UA) Urine Ketones Urine Blood Urine Nitrite Ur Leukocyte Esterase CSF Tube Number 4 CSF Volume 1.0 1.0 CSF Appearance CLEAR CLEAR CSF Color COLORLESS CSF WBC CSF RBC CSF Lymphocytes CSF Appearance (b) CSF Total Protein CSF C.neoform/gat PCR CSF CMV DNA (PCR) CSF Enterovirus (PCR) CSF E. coli K1 (PCR) CSF H. influenzae (PCR) CSF HSV I (PCR) CSF HSV II (PCR) CSF HHV 6 (PCR) CSF L.monocytogenes PCR CSF N. meningitidis PCR CSF Parechovirus (PCR) CSF S. agalactiae (PCR) CSF S. pneumoniae (PCR) CSF VZV (PCR) Respiratory Panel Borja Adenovirus (Rapid PCR) B.pert (TEM-PCR) B.parapertussis DNA PCR C. pneumoniae DNA (PCR) Coronavirus OC43 (PCR) Coronavirus HKU1 (PCR) Coronavirus 229E (PCR) Coronavirus NL63 (PCR) Human Metapneumovir PCR Influenza A (RT-PCR) Influenza A (H1) PCR Influ A (H1/09) PCR Influenza A (H3) PCR Influenza Type A (PCR) Influenza B (RT-PCR) Influenza Type B (PCR) M. pneumoniae (PCR) Parainfluenza 1 (PCR) Parainfluenza 2 (PCR) Parainfluenza 3 (PCR) Parainfluenza 4 (PCR) RSV (PCR) RSV RNA Qual (PCR) Entero/Rhino (PCR) SARS-CoV-2 RNA (RT-PCR) 06/15/24 06/15/24 06/15/24 19:15 19:15 19:15 MCV MCH MCHC RDW Plt Count MPV Immature Gran % (Auto) Neut % (Auto) Lymph % (Auto) Morton % (Auto) Eos % (Auto) Baso % (Auto) Lymph # (Auto) Morton # (Auto) Eos # (Auto) Baso # (Auto) Abs Immat Gran (auto) Absolute Neuts (auto) Absolute Nucleated RBC Nucleated RBC % (auto) ESR PT INR Hold Blue Top Anion Gap Estim Creat Clear Calc Estimated GFR POC Glucose Random Glucose Lactic Acid Calcium Magnesium Total Bilirubin Direct Bilirubin AST ALT Alkaline Phosphatase Total Creatine Kinase C-Reactive Protein Total Protein Albumin Lipase TSH Beta HCG, Quant Urine Color Urine Appearance Urine pH Ur Specific [place] Urine Protein Urine Glucose (UA) Urine Ketones Urine Blood Urine Nitrite Ur Leukocyte Esterase CSF Tube Number CSF Volume CSF Appearance CSF Color COLORLESS CSF WBC 4 2 CSF RBC 4 14 CSF Lymphocytes 100 CSF Appearance (b) CSF Total Protein CSF C.neoform/gat PCR CSF CMV DNA (PCR) CSF Enterovirus (PCR) CSF E. coli K1 (PCR) CSF H. influenzae (PCR) CSF HSV I (PCR) CSF HSV II (PCR) CSF HHV 6 (PCR) CSF L.monocytogenes PCR CSF N. meningitidis PCR CSF Parechovirus (PCR) CSF S. agalactiae (PCR) CSF S. pneumoniae (PCR) CSF VZV (PCR) Respiratory Panel Borja Adenovirus (Rapid PCR) B.pert (TEM-PCR) B.parapertussis DNA PCR C. pneumoniae DNA (PCR) Coronavirus OC43 (PCR) Coronavirus HKU1 (PCR) Coronavirus 229E (PCR) Coronavirus NL63 (PCR) Human Metapneumovir PCR Influenza A (RT-PCR) Influenza A (H1) PCR Influ A (H1/09) PCR Influenza A (H3) PCR Influenza Type A (PCR) Influenza B (RT-PCR) Influenza Type B (PCR) M. pneumoniae (PCR) Parainfluenza 1 (PCR) Parainfluenza 2 (PCR) Parainfluenza 3 (PCR) Parainfluenza 4 (PCR) RSV (PCR) RSV RNA Qual (PCR) Entero/Rhino (PCR) SARS-CoV-2 RNA (RT-PCR) 06/15/24 06/15/24 06/15/24 19:15 20:27 23:20 MCV MCH MCHC RDW Plt Count MPV Immature Gran % (Auto) Neut % (Auto) Lymph % (Auto) Morton % (Auto) Eos % (Auto) Baso % (Auto) Lymph # (Auto) Morton # (Auto) Eos # (Auto) Baso # (Auto) Abs Immat Gran (auto) Absolute Neuts (auto) Absolute Nucleated RBC Nucleated RBC % (auto) ESR PT INR Hold Blue Top Anion Gap Estim Creat Clear Calc Estimated GFR POC Glucose Random Glucose Lactic Acid Calcium Magnesium Total Bilirubin Direct Bilirubin AST ALT Alkaline Phosphatase Total Creatine Kinase C-Reactive Protein Total Protein Albumin Lipase TSH Beta HCG, Quant Urine Color Yellow Urine Appearance Clear Urine pH 7.5 Ur Specific [place] >= 1.030 H Urine Protein Negative Urine Glucose (UA) Negative Urine Ketones Negative Urine Blood Negative Urine Nitrite Negative Ur Leukocyte Esterase Negative CSF Tube Number CSF Volume CSF Appearance CSF Color CSF WBC CSF RBC CSF Lymphocytes 100 CSF Appearance (b) Clear, Colorless CSF Total Protein 21.0 CSF C.neoform/gat PCR Not Detected CSF CMV DNA (PCR) Not Detected CSF Enterovirus (PCR) Not Detected CSF E. coli K1 (PCR) Not Detected CSF H. influenzae (PCR) Not Detected CSF HSV I (PCR) Not Detected CSF HSV II (PCR) Not Detected CSF HHV 6 (PCR) Not Detected CSF L.monocytogenes PCR Not Detected CSF N. meningitidis PCR Not Detected CSF Parechovirus (PCR) Not Detected CSF S. agalactiae (PCR) Not Detected CSF S. pneumoniae (PCR) Not Detected CSF VZV (PCR) Not Detected Respiratory Panel Borja See Note Adenovirus (Rapid PCR) Not Detected B.pert (TEM-PCR) Not Detected B.parapertussis DNA PCR Not Detected C. pneumoniae DNA (PCR) Not Detected Coronavirus OC43 (PCR) Not Detected Coronavirus HKU1 (PCR) Not Detected Coronavirus 229E (PCR) Not Detected Coronavirus NL63 (PCR) Not Detected Human Metapneumovir PCR Not Detected Influenza A (RT-PCR) Not Detected Influenza A (H1) PCR Not Detected Influ A (H1/09) PCR Not Detected Influenza A (H3) PCR Not Detected Influenza Type A (PCR) Influenza B (RT-PCR) Not Detected Influenza Type B (PCR) M. pneumoniae (PCR) Not Detected Parainfluenza 1 (PCR) Not Detected Parainfluenza 2 (PCR) Not Detected Parainfluenza 3 (PCR) Not Detected Parainfluenza 4 (PCR) Not Detected RSV (PCR) Not Detected RSV RNA Qual (PCR) Entero/Rhino (PCR) Not Detected SARS-CoV-2 RNA (RT-PCR) Not Detected 06/16/24 06/16/24 06/16/24 05:47 07:22 11:03 MCV 77.2 L MCH 25.4 L MCHC 32.9 RDW 14.7 Plt Count 303 MPV 9.3 L Immature Gran % (Auto) Neut % (Auto) Lymph % (Auto) Morton % (Auto) Eos % (Auto) Baso % (Auto) Lymph # (Auto) Morton # (Auto) Eos # (Auto) Baso # (Auto) Abs Immat Gran (auto) Absolute Neuts (auto) Absolute Nucleated RBC 0.000 Nucleated RBC % (auto) 0.0 ESR PT INR Hold Blue Top Anion Gap 11 L Estim Creat Clear Calc 144.6 Estimated GFR > 60 POC Glucose 64 145 H Random Glucose 88 Lactic Acid Calcium 7.9 L D Magnesium Total Bilirubin Direct Bilirubin AST ALT Alkaline Phosphatase Total Creatine Kinase C-Reactive Protein Total Protein Albumin Lipase TSH Beta HCG, Quant Urine Color Urine Appearance Urine pH Ur Specific [place] Urine Protein Urine Glucose (UA) Urine Ketones Urine Blood Urine Nitrite Ur Leukocyte Esterase CSF Tube Number CSF Volume CSF Appearance CSF Color CSF WBC CSF RBC CSF Lymphocytes CSF Appearance (b) CSF Total Protein CSF C.neoform/gat PCR CSF CMV DNA (PCR) CSF Enterovirus (PCR) CSF E. coli K1 (PCR) CSF H. influenzae (PCR) CSF HSV I (PCR) CSF HSV II (PCR) CSF HHV 6 (PCR) CSF L.monocytogenes PCR CSF N. meningitidis PCR CSF Parechovirus (PCR) CSF S. agalactiae (PCR) CSF S. pneumoniae (PCR) CSF VZV (PCR) Respiratory Panel Borja Adenovirus (Rapid PCR) B.pert (TEM-PCR) B.parapertussis DNA PCR C. pneumoniae DNA (PCR) Coronavirus OC43 (PCR) Coronavirus HKU1 (PCR) Coronavirus 229E (PCR) Coronavirus NL63 (PCR) Human Metapneumovir PCR Influenza A (RT-PCR) Influenza A (H1) PCR Influ A (H1/09) PCR Influenza A (H3) PCR Influenza Type A (PCR) Influenza B (RT-PCR) Influenza Type B (PCR) M. pneumoniae (PCR) Parainfluenza 1 (PCR) Parainfluenza 2 (PCR) Parainfluenza 3 (PCR) Parainfluenza 4 (PCR) RSV (PCR) RSV RNA Qual (PCR) Entero/Rhino (PCR) SARS-CoV-2 RNA (RT-PCR) Microbiology Microbiology Results: Microbiology 06/15/24 19:15 Gram Stain - Final Cerebrospinal Fluid CSF Examination - Final Fluid Description - Final CSF Culture - Preliminary No growth to date. Assessment and Plan (1) Syncope: Status: Acute (2) SIRS (systemic inflammatory response syndrome): Status: Acute (3) Fever: Status: Acute Plan Pt is a 34-year-old female with a PMH significant for?mild intermittent asthma, POTS, [id number] type 2 diabetes, anxiety, and depression who presents to the ED for evaluation after syncopal episode at home. Pt will be admitted to the hospital for treatment and further evaluation of syncopal episode and fever of unclear origin. FEver , SIRS on presentation complicated with syncopal episode No more N/V, abdominal pain, diaphoresis, tachycardia, headache, neck pain/stiffness bacterial vs viral infection vs POTS Orthostatics normalized today continue empiric ceftriaxone, started 06/15/2024 Follow CSF cultures, rest of studies negative for infx negative full respiratory panel pending tick borne illnesses CT of abdomen/pelvis negative for any acute findings Follow blood cultures Monitor on telemetry Hx of POTS One prior episode in 2022 when had COVID Not on home meds [id number] type 2 diabetes Diabetic diet Mild intermittent asthma Not in acute exacerbation Continue home inhaler Obesity class 3 Encourage weight loss Full Code DVT Prophylaxis: Pt ambulatory Pt will require a hospitalization overnight for treatment of?syncopal episode and fever of unclear etiology. Pt will require hospital level care for administration of empiric IV antibiotics, while awaiting blood and CSF cultures. Pt will also require close monitoring of cardiac function and vitals. Quality Stroke Does the patient have a stroke diagnosis?: No VTE Prior VTE?: No VTE Risk Level:: Medical - moderate - high VTE Device Contraindication: N/A - Device Ordered VTE Drug Contraindication: N/A - Med Ordered
[2024-06-16] MEDS: 0.9 % Sodium Chloride 1,000 ML 100 ML IVCONT ×2 (12:02→21:30)
--- NOTE | 2024-06-16 12:25 | MHC.CM.PN ---
CM MET WITH PT AT BEDSIDE . PT LIVES WITH [facility], FUNCTIONALLY INDEPENDENT AND EMPLOYED F/T. PT HAS HOME CPAP FOR SLEEP, VENDOR IS [facility]. PT DECLINES COMPLETING A HCP AT THIS TIME. PCP NATALIA CAIN DP: HOME, NO SERVICES ANTICIPATED. [facility] WILL TRANSPORT. CM WILL CONTINUE TO FOLLOW FOR ANY CHANGE TO DC PLAN/NEEDS.
[2024-06-16] MEDS: Butalb/Acetamin/Caff 50/325/40 TABLET 2 TAB PO ×2 (15:05→19:54)
[2024-06-16 16:40] LABS: Glucose, Whole Blood 134 mg/dL (60-115)
[2024-06-16] MEDS: cefTRIAXone sodium 1 GM VIAL IVPUSH (18:02)
[2024-06-16 18:11] LABS: Leukocytes Stool Qualitative NEGATIVE (NEGATIVE)
[2024-06-16 18:32] LABS: CDiff Gene PCR POSITIVE (Negative)
--- NOTE | 2024-06-16 19:22 | PM.EVENT ---
Event Note Date of Service: 06/16/24 Event Note: Patient with positive C diff PCR Gene. Toxin pending. Initiating vancomycin. Infectious Disease consult Time Spent With Patient Time: Total time managing care of this patient today ____ minutes.
[2024-06-16 19:23] LABS: CDiff Toxin Negative (Negative)
[2024-06-16 19:25] LABS: CDIFF Internal ctrl Dots and bkg OK (V)
[2024-06-16] MEDS: vancomycin HCL 125 MG CAPSULE PO (19:54)
[2024-06-16] MEDS: Enoxaparin Sodium 40 MG/0.4 ML SYRINGE SUBCUT (19:59)
[2024-06-16 20:05] LABS: Glucose, Whole Blood 114 mg/dL (60-115)
[2024-06-17] VITALS: BP 110/74; PULSE 69; RESP 16; TEMP 36.1; O2SAT 97
[2024-06-17] MEDS: vancomycin HCL 125 MG CAPSULE PO ×3 (01:32→14:15)
--- NOTE | 2024-06-17 01:39 | PC.NURSE ---
Patient education of fall precautions, patient refusing bed alarm. Patient educated to call for assistance oob. Patient denies dizziness/lightheaded, steady gait.
[2024-06-17 03:45] VITALS: BP 109/60; PULSE 69; RESP 16; TEMP 36; O2SAT 95
[2024-06-17] MEDS: buPROPion HCl XL 150 MG TAB.ER.24H PO (07:38)
[2024-06-17] MEDS: 0.9 % Sodium Chloride 1,000 ML 100 ML IVCONT (07:38)
[2024-06-17 07:39] VITALS: BP 132/74; PULSE 73; RESP 16; TEMP 36.7; O2SAT 96
[2024-06-17] MEDS: 0.9 % Sodium Chloride Flush 3 ML SYRINGE IVFLUSH (07:39)
[2024-06-17 07:45] LABS: Glucose, Whole Blood 99 mg/dL (60-115)
[2024-06-17 07:57] LABS: Basophils Percent Auto 0.4 % (0-2); Eosinophils Absolute Auto 0.2 X10*3/uL (0.0-0.4); Eosinophils Percent Auto 4.5 % (0-4); Hematocrit 37.1 % (37.0-47.0); Hemoglobin 11.8 g/dl (12.0-16.0); Imm Gran Abs Auto 0.02 X10*3/uL (0.00-0.03); Imm Gran Pct Auto 0.4 % (0.0-0.4); Lymphocytes Absolute Auto 1.6 X10*3/uL (1.2-4.9); MANUAL DIFF FLAG SCAN; Mean Corpuscular HGB Conc 31.8 g/dl (31.0-35.0); Mean Corpuscular Hemoglobin 25.4 pg (27.0-33.0); Mean Corpuscular Volume 79.8 fL (80.0-98.0); Monocytes Absolute Auto 0.5 X10*3/uL (0.1-1.2); Monocytes Percent Auto 10.1 % (2-11); Neutrophils Absolute Auto 2.6 x10*3/uL (2.0-8.3); Neutrophils Percent Auto 52.6 % (45-73); PLT CLUMP 1; Red Blood Count 4.65 X10*6/uL (4.20-5.50); Red Cell Distribution Width 14.8 % (11.0-16.0); SCAN SMEAR FLAG 1
[2024-06-17 07:58] LABS: White Blood Count 4.9 X10*3/uL (4.8-10.8)
[2024-06-17 07:59] LABS: Anion Gap 9 (12-20); Blood Urea Nitrogen 6 mg/dL (9-16); Calcium 7.9 mg/dL (8.4-10.2); Carbon Dioxide 23 mmol/L (22-29); Chloride 112 mmol/L (96-108); Creatinine Clr Calc Pharmacy 164.2; Estimated Glomerular Filt Rate > 60; Glucose Random 94 mg/dL (60-115); Potassium 4.2 mmol/L (3.3-5.1); Sodium 140 mmol/L (135-145)
[2024-06-17 08:37] LABS: SLIDE REVIEW VERIFIED
[2024-06-17] MEDS: Butalb/Acetamin/Caff 50/325/40 TABLET 2 TAB PO (10:36)
[2024-06-17 11:19] LABS: Glucose, Whole Blood 160 mg/dL (60-115)
[2024-06-17 11:43] VITALS: BP 131/71; PULSE 86; RESP 18; TEMP 36.8; O2SAT 98
[2024-06-17] MEDS: Insulin Lispro 100 UNIT/ML 3 ML VIAL SUBCUT (12:25)
--- NOTE | 2024-06-17 13:01 | PC.NURSE ---
Pt denies dizziness and diarrhea today. Tolerating po well.
[2024-06-17 13:03] LABS: Adenovirus F 40/41 Not Detected (Not Detect.); Astrovirus Not Detected (Not Detect.); Campylobacter Not Detected (Not Detect.); Cryptosporidium Not Detected (Not Detect.); Cyclospora cayetanensis Not Detected (Not Detect.); E. coli EAEC Not Detected (Not Detect.); E. coli EPEC Not Detected (Not Detect.); E. coli ETEC Not Detected (Not Detect.); E. coli STEC Not Detected (Not Detect.); Entamoeba histolytica Not Detected (Not Detect.); Giardia lamblia Not Detected (Not Detect.); Norovirus GI/GII Not Detected (Not Detect.); Plesiomonas shigelloides Not Detected (Not Detect.); Rotavirus A Not Detected (Not Detect.); Salmonella Not Detected (Not Detect.); Sapovirus Not Detected (Not Detect.); Shigella sp./EIEC Not Detected (Not Detect.); Vibrio Not Detected (Not Detect.); Vibrio Cholerae Not Detected (Not Detect.); Yersinia enterocolitica Not Detected (Not Detect.)
--- NOTE | 2024-06-17 14:13 | PM.DS ---
DS: Providers Provider Date of Service: 06/17/24 Date of admission: 06/15/24 20:46 Date of discharge: 06/17/24 Primary care physician: HATTIE Burroughs Consults: 06/16/24 19:23 Consult to Infectious Diseases Routine Consulting Provider: [facility] Reason for consultation: cdiff DS: Diagnosis Discharge Diagnosis (1) Syncope: Status: Acute (2) SIRS (systemic inflammatory response syndrome): Status: Acute (3) Fever: Status: Acute (4) Stiffness of neck: Status: Acute (5) Headache: Status: Acute (6) Clostridium difficile diarrhea: Status: Acute DS: Summary Hospital Course Hospital Course: Admission note HPI Pt is a 34-year-old female with a PMH significant for?mild intermittent asthma, POTS, zil-qqnqjly-lvqvxgfbr type 2 diabetes, anxiety, and depression who presents to the ED for evaluation after syncopal episode at home. 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 Which was in normal state of health last night when she went home after work. This morning woke up after only a few hours and felt fever and chills. Went back to sleep and woke up again and continued to feel fever and chills. Pt sat up in bed and felt faint: Ringing in her ears, vision going black, and had palpitations. HR noted to be as high in the 150s according to patient's watch. Pt then syncopized, falling back into bed. Reports when she woke up she felt sweaty, clammy, shaky, and had nausea, vomiting, and upper central abd pain. Reports arms bilaterally felt heavy, weak, and tingly. Lower extremities also felt heavy and weak, but with no numbness or tingling. Had headache and neck pain/stiffness that continued to intensify while awake. States she has one other syncopal episode when first diagnosed with POTS in 2022. Not on any meds for POTS and reports only one prior episode when she had COIVD. Denies chest pain/pressure. No SOB or difficulty breathing. Denies cough. No acute vision changes. No diarrhea. In the ED pt was febrile up to 102.9 and tachycardic up to 136. Pt attempted orthostatics and BP drop from 122/82 semi Segura's to 68/42 while sitting, and pt had near syncopal episode. Labs were significant for mildly elevated ALT of 34, CPK of 183, and CRP of 5.11. No leukocytosis. Stable H&H. No significant electrolyte abnormalities. Renal function baseline. Lactic acid WNL. Troponin negative. Tested negative for flu, COVID, RSV. CSF panel pending. CXR negative for acute cardiopulmonary disease. CTA of head negative for acute intracranial process. CT of cervical spine negative for acute fracture or dislocation. CTA of head and neck negative for aneurysm, or significant stenosis. Pt was treated with IVF, fentanyl, Tylenol, morphine, ondansetron, ketorolac, and ceftriaxone. Pt will be admitted to the hospital for treatment and further evaluation of syncopal episode and fever of unclear origin. Hospital course The patient was admitted for evaluation of FEver , SIRS on presentation complicated with syncopal episode. concern was if this was a meningitis case so LP was done showing no evidence of bacterial infection. Encephalitis panel came back negative. The patient started on supportive measures with IV fluids and pain medicaitons with good response. she was started on Empirical Ceftriaxone. No more N/V, abdominal pain, diaphoresis, tachycardia, headache, neck pain/stiffness. ORthostatic vitals stablized as well. Blood and CSF cultures remained negative. negative full respiratory panel. CT of abdomen/pelvis negative for any acute findings. pending tick borne illnesses at time of discharge. She developed diarrhea. Tested positive to C.Diff. Evaluated by ID who recommended Vancomycin for 2 weeks. Discharge plan You presented with fever and headache. Evaluated for possible meningitis which came back negative. Symptoms resolved with symptomatic measures only. Evaluated by infectious disease specialist as you developed Clostridium Difficle diarrhea. Continue Vancomycin Orall for 2 weeks Fiorecit as needed for headache. Come back to ED for any fever, worsening headache or mental status changes. Time Attestation Discharge Coordination Time (in mins): 38 Quality: Safe Use of Opioids Does Pt have an Active Cancer Diagnosis on the Problem List?: No Quality: Stroke Does the patient have a stroke diagnosis?: No Physical Exam Vital Signs: Vital Signs: Last Vital Signs Temp 98.2 F 06/17/24 11:43 Pulse 86 06/17/24 11:43 Resp 18 06/17/24 11:43 BP 131/71 06/17/24 11:43 Pulse Ox 98 06/17/24 11:43 O2 Del Method Room Air 06/17/24 11:43 BMI result Body Mass Index 42.9 Const: Other: Constitutional : Awake, interactive, not in distress Neck : Normal inspection, Supple Cardiovascular : RRR, no JVP, no lower extremity edema Respiratory : good bilateral air entry, no crackles, wheezes or rhonchi Gastrointestinal: soft, lax, Normal bowel sounds, Non tender Skin : Warm, Dry Neurological : Alert & oriented x3, No focal deficit DS: Data Data Completed and Pending Labs on day of discharge: Laboratory Results - last 24 hr 06/16/24 06/16/24 06/16/24 16:36 16:42 20:00 WBC RBC Hgb Hct MCV MCH MCHC RDW Plt Count MPV Immature Gran % (Auto) Neut % (Auto) Lymph % (Auto) Brewster % (Auto) Eos % (Auto) Baso % (Auto) Lymph # (Auto) Brewster # (Auto) Eos # (Auto) Baso # (Auto) Abs Immat Gran (auto) Absolute Neuts (auto) Absolute Nucleated RBC Nucleated RBC % (auto) Smear Tech's Comments Sodium Potassium Chloride Carbon Dioxide Anion Gap BUN Creatinine Estim Creat Clear Calc Estimated GFR POC Glucose 134 H 114 Random Glucose Calcium Stool Leukocytes, Qual NEGATIVE Stl C. cayetanensis PCR Not Detected Stool Rotavirus A PCR Not Detected Stl Adenov F 40/41 PCR Not Detected Stool Astrovirus (PCR) Not Detected Stool Campylobacter PCR Not Detected Stool Cryptosporidium PCR Not Detected Stl Sh Tox Pr E STEC PCR Not Detected Stool E coli O157 PCR Not applicable Stl Enterotoxigenic E PCR Not Detected Stool EPEC (PCR) Not Detected Stool EAEC (PCR) Not Detected Stl E. histolytica PCR Not Detected Stool Giardia Lamblia PCR Not Detected Stl P. shigelloides PCR Not Detected Stool Salmonella PCR Not Detected Stool Sapovirus (PCR) Not Detected Stl Shigella/EIEC PCR Not Detected St Y.enterocolitica PCR Not Detected Stool Vibrio (PCR) Not Detected Stl Vibrio cholerae PCR Not Detected Stl Norovirus GI/GII PCR Not Detected C. difficile Tox B Gene POSITIVE A* C. difficile Toxin A&B Negative C. difficile Interpret SEE NOTE 06/17/24 06/17/24 06/17/24 07:36 07:37 07:41 WBC 4.9 RBC 4.65 Hgb 11.8 L Hct 37.1 MCV 79.8 L MCH 25.4 L MCHC 31.8 RDW 14.8 Plt Count TNP MPV Not Reportable Immature Gran % (Auto) 0.4 Neut % (Auto) 52.6 Lymph % (Auto) 32.0 Brewster % (Auto) 10.1 Eos % (Auto) 4.5 H Baso % (Auto) 0.4 Lymph # (Auto) 1.6 Brewster # (Auto) 0.5 Eos # (Auto) 0.2 Baso # (Auto) 0.0 Abs Immat Gran (auto) 0.02 Absolute Neuts (auto) 2.6 Absolute Nucleated RBC 0.000 Nucleated RBC % (auto) 0.0 Smear Tech's Comments VERIFIED Sodium 140 Potassium 4.2 Chloride 112 H Carbon Dioxide 23 Anion Gap 9 L BUN 6 L Creatinine 0.59 Estim Creat Clear Calc 164.2 Estimated GFR > 60 POC Glucose 99 Random Glucose 94 Calcium 7.9 L Stool Leukocytes, Qual Stl C. cayetanensis PCR Stool Rotavirus A PCR Stl Adenov F PCR Stool Astrovirus (PCR) Stool Campylobacter PCR Stool Cryptosporidium PCR Stl Sh Tox Pr E STEC PCR Stool E coli O157 PCR Stl Enterotoxigenic E PCR Stool EPEC (PCR) Stool EAEC (PCR) Stl E. histolytica PCR Stool Giardia Lamblia PCR Stl P. shigelloides PCR Stool Salmonella PCR Stool Sapovirus (PCR) Stl Shigella/EIEC PCR St Y.enterocolitica PCR Stool Vibrio (PCR) Stl Vibrio cholerae PCR Stl Norovirus GI/GII PCR C. difficile Tox B Gene C. difficile Toxin A&B C. difficile Interpret 06/17/24 11:09 WBC RBC Hgb Hct MCV MCH MCHC RDW Plt Count MPV Immature Gran % (Auto) Neut % (Auto) Lymph % (Auto) Brewster % (Auto) Eos % (Auto) Baso % (Auto) Lymph # (Auto) Brewster # (Auto) Eos # (Auto) Baso # (Auto) Abs Immat Gran (auto) Absolute Neuts (auto) Absolute Nucleated RBC Nucleated RBC % (auto) Smear Tech's Comments Sodium Potassium Chloride Carbon Dioxide Anion Gap BUN Creatinine Estim Creat Clear Calc Estimated GFR POC Glucose 160 H Random Glucose Calcium Stool Leukocytes, Qual Stl C. cayetanensis PCR Stool Rotavirus A PCR Stl Adenov F 40/41 PCR Stool Astrovirus (PCR) Stool Campylobacter PCR Stool Cryptosporidium PCR Stl Sh Tox Pr E STEC PCR Stool E coli O157 PCR Stl Enterotoxigenic E PCR Stool EPEC (PCR) Stool EAEC (PCR) Stl E. histolytica PCR Stool Giardia Lamblia PCR Stl P. shigelloides PCR Stool Salmonella PCR Stool Sapovirus (PCR) Stl Shigella/EIEC PCR St Y.enterocolitica PCR Stool Vibrio (PCR) Stl Vibrio cholerae PCR Stl Norovirus GI/GII PCR C. difficile Tox B Gene C. difficile Toxin A&B C. difficile Interpret Preliminary micro results at discharge 06/15/24 19:15 CSF Culture - Preliminary Cerebrospinal Fluid No growth after 1 day 06/15/24 17:17 Blood Culture - Preliminary Blood - Venous No growth after 24 hours. 06/15/24 17:17 Blood Culture - Preliminary Blood - Venous No growth after [address] scan - head: Radiologist's impression: ITS Impressions Head CT 06/15/24 15:48 IMPRESSION: No acute intracranial process seen. Results were communicated to Dr. Kaur in ED at 4:15 PM Electronically signed by: Gulshan Garcia MD 06/15/2024 04:18 PM EDT RP Cervical Spine CT 06/15/24 16:00 IMPRESSION: No visible acute fracture or dislocation seen. Degenerative disc changes and ventral and posterior spondylosis C4-5 through C6-C7 disc levels. Fleischner guidelines were followed. Electronically signed by: Gulshan Garcia MD 06/15/2024 04:31 PM EDT RP Chest X-Ray 06/15/24 16:40 IMPRESSION: Unremarkable chest examination. Electronically signed by: Gulshan Garcia MD 06/15/2024 04:55 PM EDT RP Discharge Plan Discharge Anticipated Discharge Date/Time: 06/17/24 14:06 Patient Disposition: Home, Self-Care Discharge Diagnosis: Fever, headache Referrals: Antoine Rodríguez FNP-BC [Primary Care Provider] - 1 Week Discharge Medications: New nvxspcyybo-weaknwptjobsg-mxyd 50-325-40 mg Tablet 2 tab PO Q4H PRN (Reason: Headache) Qty: 30 0RF vancomycin 125 mg Capsule 125 mg PO Q6H 13 Days Qty: 52 0RF Continued (DME) nebulizers Misc See Rx Instructions .Route Qty: 1 0RF Rx Instructions: Q6 hrs prn for sob/wheezing (DME) nebulizer accessories Misc See Rx Instructions .Route Qty: 1 0RF Rx Instructions: Q6 hrs, prn for SOB/wheezing albuterol sulfate 90 mcg/actuation HFA aerosol inhaler 1 inh inhalation QID PRN (Reason: shortness of breath or wheezing) 30 Days Qty: 8.5 12RF (DME) FreeStyle Lite Strips Strip See Rx Instructions .ROUTE .MEDSUPPLY Qty: 100 11RF Rx Instructions: 4x daily (DME) FreeStyle Kristen 2 [place] Misc See Rx Instructions .ROUTE .MEDSUPPLY Qty: 1 0RF Rx Instructions: As directed (DME) FreeStyle Kristen 2 Sensor Kit See Rx Instructions .ROUTE .MEDSUPPLY Qty: 2 11RF Rx Instructions: Once every 14 days carisoprodol [Soma] 350 mg tablet 350 mg PO BEDTIME PRN (Reason: muscle pain) 14 Days Qty: 14 0RF hydroxyzine HCl 25 mg tablet 25 mg PO QID PRN (Reason: Anxiety) bupropion HCl 150 mg tablet extended release 24 hr 150 mg PO DAILY Mounjaro 12.5 mg/0.5 mL pen injector 12.5 mg SUBCUT TU gabapentin 100 mg capsule 100 mg PO TID PRN (Reason: Pain) (DME) lancets [FreeStyle Lancets] [facility] See Rx Instructions .ROUTE .MEDSUPPLY Qty: 100 11RF Rx Instructions: 4x daily (DME) blood-glucose meter [FreeStyle Lite Meter] Kit See Rx Instructions .Route Qty: 1 0RF Rx Instructions: As directed Discharge Orders: Discharge Order (Routine); Ordered 06/17/24 Ordered By: Viet Dietrich Diet: Advance to usual diet Activity on Discharge: As tolerated Stand Alone Forms: Patient Portal Discharge page, Work/School Release Print Language: Czech Care Plan Goals: You presented with fever and headache. Evaluated for possible meningitis which came back negative. Symptoms resolved with symptomatic measures only. Evaluated by infectious disease specialist as you developed Clostridium Difficle diarrhea. Continue Vancomycin Orall for 2 weeks Fiorecit as needed for headache. Come back to ED for any fever, worsening headache or mental status changes. Health Concerns: Fever, viral illness C.Diff diarrhea Plan of Treatment: Vancomycin for 2 weeks Fiorecet as needed Assessment: as above
--- NOTE | 2024-06-17 14:38 | P.CNID_ITS ---
History of Present Illness Data of Consult Service Date: 06/17/24 Requesting physician: Viet Dietrich Primary Care Provider: RICHARD BurroughsP- HPI Reason for consult: fever of unknown origin She presents to ER on 06/15 with 9/10 frontal headache and neck pain with syncope ,vomiting and temperature 103 for a day. No one is ill at home. She had LP and had clear colorless CSF with 14 RBC and 2 WBC. She has CTA head and neck and no aneursym or abscess or hydrocephalus. She had negative CSF fluid. She received IV Ceftriaxone at 1800 on 06/15 per patient. On 06/16 at 1400 she had 6-7 diarrheal movements an hour and had stool sample neg GI panel but positive Cdiff PCR and negative toxin. Blood cultures NG and CXR and urinalysis unremarkable. She has asthma and DM Review of Systems 2 Review of Systems: Yes all other systems are reviewed and are negative PMFSH Past Medical History Medical History Palpitations Left axillary pain Back pain Bipolar 1 disorder Morbid obesity Physical exam Lower back pain Hip pain, left Fall Sebaceous cyst of left axilla Viral illness Myalgia Syncope Encounter for IUD insertion Chest pain Upper respiratory tract infection Asthma SOB (shortness of breath) Lumbar back pain with radiculopathy affecting lower extremity Screening for STD (sexually transmitted disease) Low back pain radiating to both legs Asthma Tachycardia Vitamin D deficiency Hyperandrogenism HLD (hyperlipidemia) T2DM (type 2 diabetes mellitus) Sleep apnea in adult Anxiety and depression Anxiety HTN (hypertension) PCOS (polycystic ovarian syndrome) Family History Family History Mother Sleep apnea CVD (cardiovascular disease) Mental health disorder Father CVD (cardiovascular disease) Sleep apnea Substance use disorder Mental health disorder Sister Substance use disorder Mental health disorder Family history: reviewed and not pertinent Surgical History Surgical History No pertinent past surgical history Social History Social History Household Members: Spouse and Children Housing: House Do you presently have visiting nurse or other home services: No Alcohol intake: current Comment: pt educated to call for assistance oob; patient rings appropriately Patient Tobacco Use Status: Never used Tobacco e-Cigarette/Vaping Use: Never Used Second Hand Smoke Exposure: No Use of substances other than those prescribed or required for medical reasons: No Currently Displaying Signs/Symptoms of Drug Intoxication Withdrawal: No Have you been hit, kicked, punched, or otherwise hurt by someone within the past year? If so, by whom?: No Do you feel safe in your current relationship?: Yes Is there a partner from a previous relationship who is making you feel unsafe now?: No Are you made to feel afraid or neglected: No Adventism Healthcare Practices: declined Advance Directives: No Advance Directives Information Provided: Yes Do you have a plan to hurt others: No Plan Recently lost weight without trying: No Eating poorly because of decreased appetite: No Nutrition Risks: No Nutritional Risk Patient : No : No Poor oral hygiene: No service: No Current occupational status: employed Current occupation: [employer] Current occupational exposures/hazards: No Cognitive needs: No Hearing needs: No Vision needs: Yes Meds Allergies Allergy/AdvReac Type Severity Reaction Status Date / Time lisinopril [LISINOPRIL] Allergy Severe COUGH Verified 06/15/24 15:22 Penicillins [PENICILLINS] Allergy Severe HIVES Verified 06/15/24 15:22 vancomycin Allergy Severe Rash Verified 06/15/24 15:22 chlorthalidone AdvReac Severe tachycardia, Verified 06/15/24 15:22 palpitations doxycycline AdvReac Intermediate Joint Pain Verified 06/15/24 15:22 Active Medications: Current Medications Acetaminophen (Acetaminophen 325 Mg Tablet) 650 mg PO Q6H PRN PRN Reason: Pain, Mild 1-3,fever,headache Acetaminophen/Butalbital/Caffeine (Butalb/Acetamin/Caff 50/325/40 Tablet) 2 tab PO Q4H PRN PRN Reason: Headache Last Admin: 06/17/24 10:36 Dose: 2 tab Albuterol Sulfate (Albuterol Sulfate 90 Mcg 8 Gm Inhaler) 1 puff INHALE QID PRN PRN Reason: shortness of breath or wheezing Bupropion HCl (Bupropion Hcl Xl 150 Mg Tab.Er.24h) 150 mg PO DAILY KALPANA Last Admin: 06/17/24 07:38 Dose: 150 mg Calcium Carbonate (Calcium Carbonate 750 Mg Tab.Chew) 750 mg PO Q4H PRN PRN Reason: Heartburn Carisoprodol (Carisoprodol 350 Mg Tablet) 350 mg PO BEDTIME PRN PRN Reason: muscle pain Last Admin: 06/16/24 08:50 Dose: 350 mg Dextrose (Dextrose 50 % 25 Gm/50 Ml Syringe) 25 gm IVPUSH Q15M PRN; Protocol PRN Reason: per Hypoglycemia Standing Ord. Enoxaparin Sodium (Enoxaparin Sodium 40 Mg/0.4 Ml Syringe) 40 mg SUBCUT Q24H [facility] Last Admin: 06/16/24 19:59 Dose: 40 mg Glucose (Glucose Gel 15 Gm Gel..Gram.) 15 gm PO Q15M PRN; Protocol PRN Reason: per Hypoglycemia Standing Ord. Hydroxyzine HCl (Hydroxyzine Hcl 25 Mg Tablet) 25 mg PO QID PRN PRN Reason: Anxiety Sodium Chloride (Ns) 1,000 mls @ 100 mls/hr IVCONT .Q10H [facility] Last Admin: 06/17/24 07:38 Dose: 100 mls/hr Insulin Human Lispro (Insulin Lispro 100 Unit/Ml 3 Ml Vial) 0 unit SUBCUT QIDACHS [facility]; Protocol Last Admin: 06/17/24 12:25 Dose: 2 unit Magnesium Hydroxide (Milk Of Magnesia 30 Ml Oral.Susp) 30 ml PO DAILY PRN PRN Reason: Constipation Melatonin (Melatonin 3 Mg Tablet) 6 mg PO BEDTIME PRN PRN Reason: Insomnia Ondansetron HCl (Ondansetron Hcl 4 Mg/2 Ml Vial) 4 mg IVPUSH Q8H PRN PRN Reason: Nausea and Vomiting Last Admin: 06/16/24 11:02 Dose: 4 mg Sodium Chloride (0.9 % Sodium Chloride Flush 3 Ml Syringe) 3 ml IVFLUSH QSHIFT [facility] Last Admin: 06/17/24 07:39 Dose: 3 ml Vancomycin HCl (Vancomycin Hcl 125 Mg Capsule) 125 mg PO Q6H [facility] Last Admin: 06/17/24 14:15 Dose: 125 mg Home Medications ?Medication ?Instructions ?Recorded ?Confirmed ?Last Taken ?Type bupropion HCl 150 mg 24 hr tablet, 150 mg PO DAILY 06/15/24 06/15/24 06/13/24 History extended release gabapentin 100 mg capsule 100 mg PO TID PRN Pain 06/15/24 06/15/24 Unknown History hydroxyzine HCl 25 mg tablet 25 mg PO QID PRN Anxiety 06/15/24 06/15/24 Unknown History tirzepatide 12.5 mg/0.5 mL 12.5 mg subcut TU 06/15/24 06/15/24 06/06/24 History subcutaneous pen injector (Dennis) Physical Exam 2 Vital Signs: Vital Signs: Last Vital Signs Temp 98.2 F 06/17/24 11:43 Pulse 86 06/17/24 11:43 Resp 18 06/17/24 11:43 BP 131/71 06/17/24 11:43 Pulse Ox 98 06/17/24 11:43 O2 Del Method Room Air 06/17/24 11:43 BMI result Body Mass Index 42.9 Const: General: cooperative HEENT: Head: Yes normal to inspection Face and sinus: Yes normal facial exam Mouth: Normal oral and palatal mucosa present Teeth and gingiva: d entition normal Eyes: General: appearance normal, both eyes and all related structures P upils: Equal, round and reactive pupils present Resp: Effort & Inspection: normal respiratory effort Cardio: Rate: regular rate Rhythm: regular rhythm GI: Palpation (GI): Soft to palpation and nontender : General: Yes no CVA tenderness Back/Spine/Pelvis: Back: no CVA tenderness Skin: General skin exam: no rashes or lesions noted Neuro: General: moves all extremities Cranial nerves: Yes Equal, round and reactive pupils present Extrem: General: Yes normal to inspection Psych: Appearance: grossly normal Results Labs 06/17/24 07:36 06/17/24 07:37 Labs: Short CBC 06/17/24 Range/Units 07:36 WBC 4.9 (4.8-10.8) X10*3/uL Hgb 11.8 L (12.0-16.0) g/dl Hct 37.1 (37.0-47.0) % Plt Count TNP [facility] 06/17/24 07:37 Sodium 140 Potassium 4.2 Chloride 112 H Carbon Dioxide 23 BUN 6 L Creatinine 0.59 Calcium 7.9 L Microbiology Microbiology Results: Microbiology 06/15/24 19:15 Cerebrospinal Fluid Gram Stain - Final 06/15/24 19:15 Cerebrospinal Fluid CSF Examination - Final 06/15/24 19:15 Cerebrospinal Fluid Fluid Description - Final 06/15/24 19:15 Cerebrospinal Fluid CSF Culture - Preliminary No growth after 1 day 06/15/24 17:17 Blood - Venous Blood Culture - Preliminary No growth after 24 hours. 06/15/24 17:17 Blood - Venous Blood Culture - Preliminary No growth after 24 hours. Assessment and Plan (1) Clostridium difficile diarrhea: Status: Acute (2) Fever: Status: Acute (3) SIRS (systemic inflammatory response syndrome): Status: Acute Plan She has viral syndrome or even migraine as likely cause of headache There appears to be no meningitis Due to concern over potentially fatal meningitis she received Ceftriaxone . She has Cdiff likely not just colonization, Would give po Vancomycin 125 mg qid 10-14 d and understands can recur so take po Vancomycin if takes antibiotics in future.
[2024-06-17 15:11] VITALS: BP 156/75; PULSE 83; RESP 18; TEMP 36.9; O2SAT 97
--- NOTE | 2024-06-17 15:14 | MHC.CM.PN ---
PT DCD HOME SELF CARE
[2024-06-17 16:28] LABS: A. Phagocytphilium DNA,RT-PCR NOT DETECTED (NOT DETECTED); Babesia Microti DNA, RT-PCR NOT DETECTED (NOT DETECTED); Borrelia Miyamotoi,DNA RT-PCR NOT DETECTED (NOT DETECTED); E.Chaffeensis DNA RT-PCR NOT DETECTED (NOT DETECTED); Lyme(Borrelia ssp)DNA RT-PCR NOT DETECTED (NOT DETECTED)
== END 2024-06-17 15:34 | disposition home or self-care (01) | DRG 248 ==
LOC: HO.ED 19:26 → HO.EDOVER 22:31 → HO.S3 23:34
PROVIDERS: Physician Assistant; Physician Assistant Medical; Student in an Organized Health Care Education/Training Program; Admitting Provider Student in an Organized Health Care Education/Training Program; Emergency Provider Internal Medicine; PCP Nurse Practitioner Family; Visit Provider Student in an Organized Health Care Education/Training Program
DX: A04.72 Enterocolitis due to Clostridium difficile, not specified as recurrent (principal); E11.9 Type 2 diabetes mellitus without complications; E66.813 Obesity, class 3; Z68.41 Body mass index [BMI] 40.0-44.9, adult; Z71.3 Dietary counseling and surveillance; J45.20 Mild intermittent asthma, uncomplicated; Z20.822 Contact with and (suspected) exposure to COVID-19; Z79.899 Other long term (current) drug therapy
CPT/HCPCS: 0241U; 36415; 70450; 70496; 70498; 71045; 72125; 74176; 80048; 80076; 81003; 82550; 82947; 83605; 83690; 83735; 84157; 84443; 84484; 84702; 85025; 85027; 85610; 85652; 86140; 87015; 87040; 87070; 87205; 87324; 87468; 87469; 87478; 87483; 87484; 87493; 87507; 87633; 87798; 89051; 89055; 93005; 99285; J0131; J0696; J1650; J1885; J2270; J2405; J3010; Q9967

== ENCOUNTER → 2024-06-15 15:43 | Outpatient (BNV) | payer OTHER, SELFPAY | PROVIDERS: Emergency Provider Internal Medicine; PCP Nurse Practitioner Family; Visit Provider Student in an Organized Health Care Education/Training Program | DX: R55 Syncope and collapse (principal); R65.10 Systemic inflammatory response syndrome (SIRS) of non-infectious origin without acute organ dysfunction; R50.9 Fever, unspecified; M43.6 Torticollis; R51.9 Headache, unspecified; A04.72 Enterocolitis due to Clostridium difficile, not specified as recurrent | CPT/HCPCS: 99223; 99232; 99239; 99499 ==

== ENCOUNTER → 2024-06-15 15:48 | Outpatient (BNV) | payer OTHER, SELFPAY | PROVIDERS: Emergency Provider Internal Medicine; PCP Nurse Practitioner Family; Visit Provider Radiology Diagnostic Radiology | DX: K57.30 Diverticulosis of large intestine without perforation or abscess without bleeding (principal); R10.13 Epigastric pain | CPT/HCPCS: 70450; 70496; 70498; 71045; 72125; 74176 ==

== ENCOUNTER → 2024-06-15 15:51 | Outpatient (BNV) | payer OTHER, SELFPAY | PROVIDERS: Admitting Provider Student in an Organized Health Care Education/Training Program; Emergency Provider Internal Medicine; PCP Nurse Practitioner Family; Visit Provider Internal Medicine Cardiovascular Disease | DX: R00.0 Tachycardia, unspecified (principal) | CPT/HCPCS: 93010 ==

== ENCOUNTER → 2024-06-15 20:46 | Outpatient (BNV) | payer OTHER, SELFPAY | PROVIDERS: Admitting Provider Student in an Organized Health Care Education/Training Program; Emergency Provider Internal Medicine; PCP Nurse Practitioner Family; Visit Provider Internal Medicine | DX: A04.72 Enterocolitis due to Clostridium difficile, not specified as recurrent (principal); R50.9 Fever, unspecified; R65.10 Systemic inflammatory response syndrome (SIRS) of non-infectious origin without acute organ dysfunction | CPT/HCPCS: 99222 ==

== ENCOUNTER 2024-06-26 12:19 | Outpatient (AMB) | payer OTHER, SELFPAY ==
--- NOTE | 2024-06-26 12:21 | A.OFFPC_ITS ---
Vital Signs 06/26/24 12:22 Height 5 ft 4 in BMI Reason not done Patient refused/unable BP 128/80 Blood Pressure Location Rt brachial Position Sitting Respiration 20 Pulse 102 H Pulse Source Pulse Oximeter Temp 98.3 F Temp Source Oral Pulse Oximetry (%) 96 Intake Visit Reasons: FELI alba Allergies lisinopril [LISINOPRIL] Allergy (Severe, Verified 06/26/24 12:28) COUGH Penicillins [PENICILLINS] Allergy (Severe, Verified 06/26/24 12:28) HIVES vancomycin Allergy (Severe, Verified 06/26/24 12:28) Rash chlorthalidone Adverse Reaction (Severe, Verified 06/26/24 12:28) tachycardia, palpitations doxycycline Adverse Reaction (Intermediate, Verified 06/26/24 12:28) Joint Pain Medication List - Last Reconciled 06/26/24 by Antoine Rodríguez, NUCLEAR PLANT TECHNICAL ADVISOR- albuterol sulfate 90 mcg/actuation 1 inh inhalation QID PRN 30 days blood sugar diagnostic (FreeStyle Lite Strips) 4x daily blood-glucose meter (FreeStyle Lite Meter kit) As directed bupropion HCl XL 150 mg PO DAILY zbewofhusm-bvbyvfydqlkdw-vdqn 50-325-40 mg 2 tabs PO Q4H PRN carisoprodol (Soma) 350 mg PO BEDTIME PRN 14 days flash glucose scanning reader (VerslyStyle Kristen 2 [place]) As directed flash glucose sensor (FreeStyle Kristen 2 Sensor kit) Once every 14 days fluconazole 150 mg PO Q3D 2 doses gabapentin 100 mg PO TID PRN hydroxyzine HCl 25 mg PO QID PRN lancets (FreeStyle Lancets) 4x daily nebulizer accessories Q6 hrs, prn for SOB/wheezing nebulizers Q6 hrs prn for sob/wheezing tirzepatide (Mounjaro) 12.5 mg subcut TU vancomycin 125 mg PO Q6H 13 days Tobacco use date assessed: 06/26/24 Dental Screening Dental Screen Date: 06/26/24 Did you have a dental visit in the last 12 months?: Yes Did you have a dental problem in the last 6 months where you did not have access to dental care?: No Was dental information given to patient?: Patient has dentist HPI FELI alba HPI Details Chief Complaint Follow-up post recent hospitalization for syncopal episode and C. difficile infection. History of Present Illness The patient is a 34-year-old female presenting for a follow-up appointment post- hospital discharge. She initially sought care on 06/15 due to symptoms of Postural Orthostatic Tachycardia Syndrome (POTS) characterized by palpitations, sweating, clamminess, shakiness, nausea, vomiting, and abdominal discomfort, following which she had a syncopal episode. During her hospitalization, comprehensive infection testing was undergone, ruling out COVID-19, flu, RSV, meningitis, and thromboembolic events through CTA, CT of the cervical spine, and lumbar puncture. Treatment with ceftriaxone was empirically given before development of diarrhea, and subsequent positive C. difficile culture. She is currently being treated with vancomycin and reports stable symptoms with ongoing improvement in gastrointestinal issues (diarrhea not as frequent), denying rec urrence of previous symptoms like fever, chills, or breathing difficulty. 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 Health Maintenance Review of Systems - Constitutional: Denies recent fever an d chills. - Gastrointestinal: Reports diarrhea whi ch is improving; denies nausea and vomiting. denies abd pain - Respiratory: Denies chest pain and aureliano rtness of breath. - Neurological: Reports visual disturban benedict; no recurrence of syncope. Physical Exam General: Cooperative, healthy appearing, comfortable, no acute distress and well developed, morbidly obese Orientation: Patient oriented x3 Limitations: No limitations Head: Normal to inspection Ears: Hearing grossly normal bilaterally, but patient reports ringing in the ears Nose: Normal external nose present Face and sinus: Normal facial exam Eyes: Appearance normal, both eyes and all related structures, but patient reports visual disturbances Neck: Normal visual inspection and Yes full ROM Respiratory: Normal respiratory effort and able to speak in complete sentences. Clear to auscultation bilaterally Cardiovascular: Regular rate and rhythm. Normal S1 and S2, but patient reports palpitations GI: Normal to inspection. Soft to palpation and nontender. Skin: No rashes or lesions noted Neuro: Patient oriented x3 Extremities: Normal to inspection Results - Tests for COVID-19, flu, and RSV: Nega tive - CTA: Negative - CT of cervical spine: Negative - Lumbar puncture: No evidence of bacter ial infection or encephalitis - Blood cultures: Negative - C. difficile test: Positive Plan The patient will continue the current treatment course of vancomycin for 14 days for Clostridioides difficile infection, paying close attention to symptom monitoring with further evaluations only if unusual persistence of symptoms is noted post-therapy. The plan for managing POTS entails maintaining awareness of any significant changes or recurrences in symptoms like syncope or heart rate alterations. Continuous assessment will ensure response to the treatment remains positive, without subsequent exacerbations or complications. Discussion Notes The patient and I discussed her current management for Clostridioides difficile infection with vancomycin, highlighting the importance of completing the course while noting improvement of gastrointestinal symptoms. I emphasized the need for vigilance in monitoring any persisting loose stools post-treatment, and reassured her of the negative findings in crucial tests like CTA. We confirmed no new alarming symptoms except minor loose stools, suggesting effective ongoing management. Follow-up is advised should any significant or unusual symptoms manifest promptly. Patient Instructions - Continue taking vancomycin exactly as directed for the full two weeks. - Monitor bowel movements and note any p ersistent diarrhea after completing antibiotics. - Avoid self-initiating new medications unless discussed. - Return to clinic if symptoms like high fever, severe abdominal pain, or persistent diarrhea remain. - Rest well and maintain hydration level s to aid recovery. - Follow up for further assessment soon if there are additional health concerns or persistent symptoms. [facility] Medical History (Updated 06/26/24 @ 13:23 by HATTIE Vogt) Syncope Palpitations Left axillary pain Back pain Bipolar 1 disorder Morbid obesity Physical exam Lower back pain Hip pain, left Fall Sebaceous cyst of left axilla Viral illness Myalgia Encounter for IUD insertion Chest pain Upper respiratory tract infection Asthma SOB (shortness of breath) Lumbar back pain with radiculopathy affecting lower extremity Screening for STD (sexually transmitted disease) Low back pain radiating to both legs Asthma Tachycardia Vitamin D deficiency Hyperandrogenism HLD (hyperlipidemia) T2DM (type 2 diabetes mellitus) Sleep apnea in adult Anxiety and depression Anxiety HTN (hypertension) PCOS (polycystic ovarian syndrome) Surgical History No pertinent past surgical history Family History Mother Sleep apnea CVD (cardiovascular disease) Mental health disorder Father CVD (cardiovascular disease) Sleep apnea Substance use disorder Mental health disorder Sister Substance use disorder Mental health disorder Social History Household Members: Spouse and Children Housing: House Do you presently have visiting nurse or other home services: No Alcohol intake: current Comment: pt educated to call for assistance oob; patient rings appropriately Patient Tobacco Use Status: Never used Tobacco e-Cigarette/Vaping Use: Never Used Second Hand Smoke Exposure: No service: No Current occupational status: employed Current occupation: [employer] [place] [employer] [place] Current occupational exposures/hazards: No Cognitive needs: No Hearing needs: No Vision needs: Yes Female Reproductive History Menstrual Age of Menarche: 10 Questionnaire PHQ-9 Over the last 2 weeks, how often have you been bothered by any of the following problems? 1. Little interest or pleasure in doing things: not at all 2. Feeling down, depressed, or hopeless: not at all 3. Trouble falling or staying asleep, or sleeping too much: not at all 4. Feeling tired or having little energy: not at all 5. Poor appetite or overeating: not at all 6. Feeling bad about yourself - or that you are a failure or have let yourself or your family down: not at all 7. Trouble concentrating on things, such as reading the newspaper or watching television: not at all 8. Moving or speaking so slowly that other people could have noticed. Or the opposite - being so fidgety or restless that you have been moving around a lot more than usual: not at all 9. Thoughts that you would be better off or of hurting yourself in some way: not at all Total score: 0 Depression Screening Interpretation: Negative Depression Screening Done: Yes 70881 - PHQ-9 Billing: Yes Source: Developed by Drs. Duong Sage, Soo Becker, Mirza Armenta and colleagues, with an educational ryan from [employer]. Thrive Questionnaire Date Thrive assessed: 06/24/24 I am a: Patient What is your living situation today?: I have a steady place to live Within the past 12 months, did the food you bought not last and you didn't have the money to get more?: Never true Within the past 12 months, did you worry whether your food would run out before you got money to buy more?: Never true Do you have trouble paying for medicines?: No Do you have trouble getting transportation to medical appointments?: No Do you have trouble paying your heating and electricity bill?: No Do you have trouble taking care of your child, family member or friend?: No Do you have trouble with day-to-day activities such as bathing, preparing meals, shopping, managing finances, etc.?: No Are you currently unemployed and looking for a job?: No Are you interested in more education?: No Please select the resources that you would like help with: None Currently or been in a relationship where the following occur: No concerns reported THRIVE Score: 0 AUDIT C Alcohol Use Questionnaire (AUDIT-C) 1. How often do you have a drink containing alcohol?: Monthly or less 2. How many drinks containing alcohol do you have on a typical day when you are drinking?: 1 or 2 3. How often do you have six or more drinks on one occasion?: Never Total Score: 1 YOUNG-7 AMB Questionnaire YOUNG-7 Date YOUNG - 7 assessed: 06/26/24 Feeling nervous, anxious, or on edge: 0 = Not at all Not being able to stop or control worryin = Not at all Worrying too much about different things: 0 = Not at all Trouble relaxin = Not at all Being so restless that it is hard to sit still: 0 = Not at all Becoming easily annoyed or irritable: 0 = Not at all Feeling afraid as if something awful might happen: 0 = Not at all Total YOUNG-7 score (0-4 normal; 5-9 mild; 10-14 moderate; 15-21 severe): 0 Source: Developed by Drs. Duong Sage, Soo Becker, Mirza Armenta and colleagues, with an educational ryan from [employer]. YOUNG-7 Assessment Billing YOUNG-7 Assessment Tool: YOUNG-7 Assessment 22433 Physical exam (Primary Care) Vital Signs: Last Vital Signs Temp 98.3 F 06/26/24 12:22 Pulse 102 H 06/26/24 12:22 Resp 20 06/26/24 12:22 BP 128/80 06/26/24 12:22 Pulse Ox 96 06/26/24 12:22 Tobacco/Smoking Status: Tobacco use Status Tobacco use date assessed 06/26/24 06/26/24 12:32 Patient Tobacco Use Status Never used Tobacco 06/26/24 12:32 e-Cigarette/Vaping Use Never Used 06/26/24 12:21 PHQ-9: PHQ-9 Score PHQ-9: Total score 0 06/26/24 12:32 Depression Screening Interpretation: Negative Thrive Assessment: Date of Thrive Assessment Date Thrive assessed 06/24/24 06/26/24 12:21 Currently or been in a relationship where the following occur: No concerns reported Coding Level of Care Code Est Pt Level 3 (94480) Diagnoses Clostridium difficile diarrhea A04.72 Fever and chills R50.9 Syncope R55 Additional Codes YOUNG-7 Assessment Billing - YOUNG-7 Assessment Tool: YOUNG-7 Assessment 95594 ([id number]) PHQ-9 - 09209 - PHQ-9 Billing: Yes ([id number]) Assessment & Plan Assessment & Plan (1) Clostridium difficile diarrhea: Code(s): A04.72 - Enterocolitis due to Clostridium difficile, not specified as recurrent Category: Medical (2) Fever and chills: Code(s): R50.9 - Fever, unspecified Category: Medical (3) Syncope: Code(s): R55 - Syncope and collapse Category: Medical Plan . Orders: Orders Complete Blood Count Auto Diff Today A04.72 - Enterocolitis due to Clostridium difficile, not specified as recurrent, R50.9 - Fever, unspecified, R55 - Syncope and collapse TSH reflex Free T4 Today A04.72 - Enterocolitis due to Clostridium difficile, not specified as recurrent, R50.9 - Fever, unspecified, R55 - Syncope and collapse UA CC w/rflx Micro + Cult Today A04.72 - Enterocolitis due to Clostridium difficile, not specified as recurrent, R50.9 - Fever, unspecified, R55 - Syncope and collapse Magnesium Today A04.72 - Enterocolitis due to Clostridium difficile, not specified as recurrent, R50.9 - Fever, unspecified, R55 - Syncope and collapse Comprehensive Met. Panel Today A04.72 - Enterocolitis due to Clostridium difficile, not specified as recurrent, R50.9 - Fever, unspecified, R55 - Syncope and collapse Medications: New fluconazole 150 mg PO Q3D 2 tabs 0RF
[2024-06-26 12:22] VITALS: BP 128/80; PULSE 102; RESP 20; TEMP 36.8; O2SAT 96
--- OUTSIDE RECORDS SUMMARY | 2024-06-26 13:59 | XMS_ITS | Clinical Summary ---
Author Organization [facility], Address [address] [place] [address] [place] [address] Phone Care Team Providers Care Manugrapher Name Role Phone Antoine Rodríguez NP Primary Care Provider [phone] Social History Tobacco Use Types Packs/Day Years Used Date Smoking Tobacco: Never Assessed Comments Unknown Sex and Gender Information Value Date Recorded Sex Assigned at Not on file Legal Sex Female 2:29 PM EDT Gender Identity Not on file Sexual Orientation Not on file Plan of Treatment Health Maintenance Due Date Last Done Comments Hepatitis B Vaccine (1 of 3 - 19+ 3-dose series) 2008 07/26/2013, 06/21/2013 Influenza Vaccine (#1) 2023 12/23/2012 Pneumococcal Vaccine: Pediatrics (0 to 5 Years) and At-Risk Patients (6 to 64 Years) Aged Out No longer eligible b ased on patient's age to complete this topic Insurance [facility] Care Teams Manugrapher Relationship Specialty Start Date End Date Antoine Rodríguez NP [address] [place] [address] PCP - General Nurse Practitioner 07/01/20
--- OUTSIDE RECORDS SUMMARY | 2024-06-26 13:59 | XMS_ITS | Encounter Summary ---
Author Organization [facility] Address [address] [place] [address] Care Team Providers Care Ross Carrier Driver Name Role Phone Macri Ibarra MD Primary Care Provider Nory Del Angel Md, MD Primary Care Provider Unavailable Encounter Details Date Type Department Care Team Description 06/14/2013 Pt. Non Urgent Medical Question Adult Medicine [address] [address] Crystal Riddle PA-C [address] [place] [address] Need for prophylactic vaccination and inoculation against viral hepatitis (Primary Dx) Social History Tobacco Use Types Packs/Day Years Used Date Smoking Tobacco: Never Smokeless Tobacco: Never Alcohol Use Standard Drinks/Week Comments No 0 (1 standard drink = 0.6 oz pur e alcohol) Sex Assigned at Date Recorded Not on file documented as of this encounter Progress Notes * Arabella Saunders L.P.N. - 06/14/2013 1:23 PM EDTFrom: SEBASTIÁN KAUR To: Crystal Riddle PA-C Sent: WedJun 14, 2013 12:59 PM Subject: Titers Hi, I was wondering if my titers could be requested and reviewed so I know if I need any boosters of anything. Thank you. I had them done last week, 06/08 I believe, through [facility]. documented in this encounter Plan of Treatment Not on file documented as of this encounter Results * HEPATITIS B VACCINE ADULT 3 DOSE IM (06/08/2013) Crystal Riddle PA-C IMMUNIZATIONS/INJECT ION documented in this encounter Visit Diagnoses Diagnosis Need for prophylactic vaccination and inoculation against viral hepatitis- Primary documented in this encounter Care Teams Ross Carrier Driver Relationship Specialty Start Date End Date Marci Ibarra MD PCP - General Internal Medicine 03/04/12 06/28/14 Nory Aguayo MD, MD PCP - General Internal Medicine 06/29/14 documented as of this encounter
--- OUTSIDE RECORDS SUMMARY | 2024-06-26 13:59 | XMS_ITS | Encounter Summary ---
Author Organization [facility] Address [address] [place] [address] Care Team Providers Care Restaurant Hourly Manager Name Role Phone Marci Ibarra MD Primary Care Provider Nory Del Angel Md, MD Primary Care Provider Unavailable Reason for Visit * Reason Onset Date Comments immunizations 06/19/2013 Encounter Details Date Type Department Care Team Description 06/19/2013 Telephone Adult Medicine [address] [address] Marci Ibarra MD immunizations Social History Tobacco Use Types Packs/Day Years Used Date Smoking Tobacco: Never Smokeless Tobacco: Never Alcohol Use Standard Drinks/Week Comments No 0 (1 standard drink = 0.6 oz pur e alcohol) Sex Assigned at Date Recorded Not on file documented as of this encounter Miscellaneous Notes * Telephone Encounter - Mari Castillo - 06/20/2013 8:49 AM EDT Left message to set up appointment * Telephone Encounter - Birdie Ley M.A. - 06/19/2013 4:55 PM EDT Please book pt with appt for hep b imm on the chronic nurse schedule * Telephone Encounter - Mari Castillo - 06/19/2013 4:13 PM EDT Payor: [employer] [place] Plan: PPO $20 [place] [id number] Product Type: PPO [id number] Patient is requesting a list of their previous immunizations NO Does the patient have an immunization form to be completed? NO Is the patient requesting immunizations to be administered? YES If yes, which immunizations are needed? Hepatitis B immunization Is the patient traveling to a foreign country: NO If traveling: Which country: Date patient is leaving: documented in this encounter Plan of Treatment Not on file documented as of this encounter Visit Diagnoses Not on filedocumented in this encounter Care Teams Restaurant Hourly Manager Relationship Specialty Start Date End Date Marci Ibarra MD PCP - General Internal Medicine 03/04/12 06/28/14 Nory Aguayo MD, PCP - General Internal Medicine 06/29/14 documented as of this encounter
--- OUTSIDE RECORDS SUMMARY | 2024-06-26 13:59 | XMS_ITS | Encounter Summary ---
Author Organization [facility] Address [address] [place] [address] Care Team Providers Care Curb Machine Operator Name Role Phone Marci Ibarra MD Primary Care Provider Nory Del Angel Md, MD Primary Care Provider Unavailable Encounter Details Date Type Department Care Team Description 06/21/2013 Pt. Non Urgent Medic al Question Adult Medicine [address] [address] Marci Ibarra MD Social History Tobacco Use Types Packs/Day Years Used Date Smoking Tobacco: Never Smokeless Tobacco: Never Alcohol Use Standard Drinks/Week Comments No 0 (1 standard drink = 0.6 oz pur e alcohol) Sex Assigned at Date Recorded Not on file documented as of this encounter Progress Notes * Arabella TovarP.N. - 06/21/2013 3:52 PM EDTFrom: SEBASTIÁN KAUR To: Marci Ibarra MD Sent: WedJun 21, 2013 2:51 PM Subject: eye referral Brenda, at my physical in March, I was supposed to get a refrral to see an actual eye doctor. I'm over due for an exam. I don't know if it's my contacts but my vision has been more blurry since my physical and I see a lot of floaters. and it's concerning me. Do I need to see someone in the office?I will do so if I need to. I am very worried. Thank you. documented in this encounter Plan of Treatment Not on file documented as of this encounter Visit Diagnoses Not on filedocumented in this encounter Care Teams Curb Machine Operator Relationship Specialty Start Date End Date Marci Ibarra MD PCP - General Internal Medicine 03/04/12 06/28/14 Nory Aguayo MD, MD PCP - General Internal Medicine 06/29/14 documented as of this encounter
--- OUTSIDE RECORDS SUMMARY | 2024-06-26 13:59 | XMS_ITS | Encounter Summary ---
Author Organization [facility] [employer] [facility] Address [address] [place] [address] Care Team Providers Care Cupola Worker Name Role Phone Marci Ibarra MD Primary Care Provider Nory Del Angel Md, MD Primary Care Provider Unavailable Encounter Details Date Type Department Care Team Description 03/11/2012 Release of Information Medical Records [address] [place] [id number] Abstract, Provider Social History Tobacco Use Types Packs/Day Years Used Date Smoking Tobacco: Never Smokeless Tobacco: Never Alcohol Use Standard Drinks/Week Comments Not Asked 0 (1 standard drink = 0.6 oz pur e alcohol) Sex Assigned at Date Recorded Not on file documented as of this encounter Plan of Treatment Not on file documented as of this encounter Visit Diagnoses Not on filedocumented in this encounter Care Teams Cupola Worker Relationship Specialty Start Date End Date Marci Ibarra MD PCP - General Internal Medicine 03/04/12 06/28/14 Nory Aguayo MD, MD PCP - General Internal Medicine 06/29/14 documented as of this encounter
== END 2024-06-26 13:19 | disposition home or self-care (01) ==
LOC: HO.HMCC 12:19
PROVIDERS: PCP Nurse Practitioner Family; Visit Provider Nurse Practitioner Family
DX: A04.72 Enterocolitis due to Clostridium difficile, not specified as recurrent (principal); R50.9 Fever, unspecified; R55 Syncope and collapse

== ENCOUNTER → 2024-06-26 12:19 | Outpatient (BNVA) | payer OTHER, SELFPAY | PROVIDERS: PCP Nurse Practitioner Family; Visit Provider Nurse Practitioner Family | DX: A04.72 Enterocolitis due to Clostridium difficile, not specified as recurrent (principal); R50.9 Fever, unspecified; R55 Syncope and collapse | CPT/HCPCS: 96127 ==

== ENCOUNTER 2024-08-16 07:04 | Outpatient (REF) | payer OTHER, SELFPAY ==
--- OUTSIDE RECORDS SUMMARY | 2024-08-16 07:07 | XMS_ITS | Encounter Summary ---
Author Organization [facility] Address [address] [place] [address] Care Team Providers Care Double Cut Sawyer Name Role Phone Marci Ibarra MD Primary Care Provider Nory Del Angel Md, MD Primary Care Provider Unavailable Encounter Details Date Type Department Care Team Description 06/14/2013 Pt. Non Urgent Medical Question Adult Medicine [address] [address] Crystal Riddle PA-C [address] [address] Need for prophylactic vaccination and inoculation against [...] done last week, 06/08 I believe, through [facility]. documented in this encounter Plan of Treatment Not on file documented as of this encounter Results * HEPATITIS B VACCINE ADULT 3 DOSE IM (06/08/2013) Crystal Riddle PA-C IMMUNIZATIONS/INJECT ION documented in this encounter Visit Diagnoses Diagnosis Need for prophylactic vaccination and inoculation against viral hepatitis- Primary documented in this encounter Care Teams Double Cut Sawyer Relationship Specialty Start Date End Date Marci Ibarra MD PCP - General Internal Medicine 03/04/12 06/28/14 Nory Aguayo MD, MD PCP - General Internal Medicine 06/29/14 documented as of this encounter
--- OUTSIDE RECORDS SUMMARY | 2024-08-16 07:09 | XMS_ITS | Clinical Summary ---
Author Organization [facility], Address [address] [place] [address] [place] [address] Phone Care Team Providers Care Residential Program Coordinator Name Role Phone Antoine Rodríguez NP Primary Care Provider [phone] Social History Tobacco Use Types Packs/Day Years [...] 3-dose series) 2008 07/26/2013, 06/21/2013 Influenza Vaccine (Season Ended) 2024 12/23/2012 Pneumococcal Vaccine: Peds ( 0 to 5 Years) and At-Risk Patients (6 to 49 Years) Aged Out No longer eligi ble based on patient's age to complete this topic Insurance [address] [place] [address] [facility] Care Teams Residential Program Coordinator Relationship Specialty Start Date End Date Antoine Rodríguez NP [address] [place] [address] PCP - General Nurse Practitioner 07/01/20
--- OUTSIDE RECORDS SUMMARY | 2024-08-16 07:10 | XMS_ITS | Encounter Summary ---
Author Organization [facility] Address [address] [place] [address] Care Team Providers Care Eye Glass Frame Polisher Name Role Phone Nory Aguayo Md, MD Primary Care Provider Unavailable Encounter Details Date Type Department Care Team Description 11/22/2014 NET DEVELOPER/[facility] Report Medical Records [address] [place] [id number] Abstract, Provider Social History Tobacco Use Types [...] on filedocumented in this encounter Care Teams Eye Glass Frame Polisher Relationship Specialty Start Date End Date Nory Aguayo MD, MD PCP - General Internal Medicine 06/29/14 documented as of this encounter
--- OUTSIDE RECORDS SUMMARY | 2024-08-16 07:11 | XMS_ITS | Encounter Summary ---
Author Organization [facility] Address [address] [place] [address] Care Team Providers Care Senior Applications Analyst Name Role Phone Marci Ibarra MD Primary Care Provider Nory Del Angel Md, MD Primary Care Provider Unavailable Encounter Details Date Type Department Care Team Description 03/11/2012 Release of Information Medical Records [address] [place] [address] Abstract, Provider Social History Tobacco Use Types [...] on filedocumented in this encounter Care Teams Senior Applications Analyst Relationship Specialty Start Date End Date Marci Ibarra MD PCP - General Internal Medicine 03/04/12 06/28/14 Nory Aguayo MD, MD PCP - General Internal Medicine 06/29/14 documented as of this encounter
--- OUTSIDE RECORDS SUMMARY | 2024-08-16 07:11 | XMS_ITS | Clinical Summary ---
Author Organization [facility] Address [address] [place] [address] Care Team Providers Care Scientist Immunology Name Role Phone Nory Aguayo Md, MD Primary Care Provider Unavailable Allergies Active Allergy Reactions Severity Noted Date Comments Hydrochlorothiazide 04/18/2013 Became dehydrated, needed to go to hospital Lisinopril Cough 04/18/2013 Penicillins Hives/Urticaria 03/09/2012 Medications Medication Sig Dispensed Refills Start Date End Date Status Multiple Vitamins-Minerals (MULTIVITAMIN OR) Take by mouth. 0 Active metformin (GLUCOPHAGE) 500 MG tablet Take 1 Tab by mouth 2 times daily (with meals). 0 04/18/2013 Active fluticasone (FLONASE) 50 MCG/ACT nasal spray 1 [place] by Each Nare route daily. 1 Bottle 1 08/22/2013 Active amlodipine (NORVASC) 5 MG tablet Take 1 Tab by mouth daily. 30 Tab 5 10/05/2013 Active clonazepam (KLONOPIN) 0.5 MG tablet 1/2-1 po qhs prn anxiety or insomnia 15 Tab 0 06/28/2015 Active Active Problems Problem Noted Date Depression, major, recurrent 06/16/2013 HTN (hypertension) 03/09/2012 PCOS (polycystic ovarian syndrome) 03/09 Depression 03/09/2012 Family history of breast cancer 03/09/20 12 Immunizations Name Administration Dates Next Due Hepatitis B > 19yrs 07/26/2013,06/21/2013 Influenza (> 6 Months) 12/23/2012 [place]-Upblp-Itenkplp + 06/08/2013 Elwxu-Yrtmv-Djgggiyh + 06/08/2013 Hrevjwa-Bvaqm-Rngjcrkl + 06/08/2013 Varicella Titre-Positive + 06/08/2013 Family History Medical History Relation Name Comments CHF Father and mother Diabetes Father [place] Father Stroke Father CA Breast Maternal Grandmother Depression Mother Diabetes Mother Hypertension Mother Uterine Cancer Mother hypothyroidism [Other] Sister 2 CA Breast Sister 3 Relation Name Status Comments Father Maternal Grandmother Mother Sister 1 Sister 2 Sister 3 Social History Tobacco Use Types Packs/Day Years Used Date Smoking Tobacco: Never Smokeless Tobacco: Never Alcohol Use Standard Drinks/Week Comments No 0 (1 standard drink = 0.6 oz pur e alcohol) Sex Assigned at Date Recorded Not on file Last Filed Vital Signs Vital Sign Reading Time Taken Comments Blood Pressure 138/86 08/22/2013 2:36 PM EDT Pulse 72 08/22/2013 2:36 PM EDT Temperature 36.8 ??C (98.2 ??F) 08/22/2013 2:36 PM ED T Respiratory Rate 12 08/22/2013 2:36 PM EDT Oxygen Saturation - - Inhaled Oxygen Concentration - - Weight 118.4 kg (261 lb) 08/22/2013 2:36 PM EDT Height 162.6 cm (5' 4 ) 08/22/2013 2:36 PM EDT Body Mass Index 44.8 08/22/2013 2:36 PM EDT Plan of Treatment Health Maintenance Due Date Last Done Comments Covid-19 Vaccine (#1) 1989 TOBACCO CHECK/ADVISE 2007 DTAP/TDAP/TD (1 - Tdap) 2008 CHOLESTEROL SCREENING 2009 CERVICAL CANCER SCREENING 01/27/20152011 (External Completion) BASELINE HEALTH EXAM 18-39 05/10/2018 05/10/2013, BMI CHECK/ADVISE 03/29/2024 08/22/2013, 04/18/2013 INFLUENZA (Season Ended) 2024 12/23/2012 PNEUMOCOCCAL VACCINE FOR HIG H RISK PATIENTS (#1) 2054 Care Teams Scientist Immunology Relationship Specialty Start Date End Date Nory Aguayo MD, MD PCP - General Internal Medicine 06/29/14
[2024-08-16 07:21] LABS: MANUAL DIFF FLAG NO
[2024-08-16 07:38] LABS: Basophils Percent Auto 0.4 % (0-2); Eosinophils Absolute Auto 0.1 X10*3/uL (0.0-0.4); Eosinophils Percent Auto 1.3 % (0-4); Hematocrit 40.2 % (37.0-47.0); Hemoglobin 13.1 g/dl (12.0-16.0); Imm Gran Abs Auto 0.03 X10*3/uL (0.00-0.03); Imm Gran Pct Auto 0.3 % (0.0-0.4); Lymphocytes Absolute Auto 2.7 X10*3/uL (1.2-4.9); Lymphocytes Percent Auto 26.7 % (20-40); Mean Corpuscular HGB Conc 32.6 g/dl (31.0-35.0); Mean Corpuscular Hemoglobin 25.9 pg (27.0-33.0); Mean Corpuscular Volume 79.4 fL (80.0-98.0); Mean Platelet Volume 9.2 fL (9.4-12.3); Monocytes Absolute Auto 0.5 X10*3/uL (0.1-1.2); Monocytes Percent Auto 5.2 % (2-11); Neutrophils Absolute Auto 6.7 x10*3/uL (2.0-8.3); Neutrophils Percent Auto 66.1 % (45-73); Platelet Count 417 X10*3/uL (160-400); Red Blood Count 5.06 X10*6/uL (4.20-5.50); Red Cell Distribution Width 14.5 % (11.0-16.0); White Blood Count 10.2 X10*3/uL (4.8-10.8)
[2024-08-16 07:40] LABS: Estimated Average Glucose 97 mg/dL; Hemoglobin A1C 108.2733 umol/L; Total Hemoglobin (HGBA1C) 3434.0532 umol/L
[2024-08-16 07:59] LABS: Appearance Urine Clear; Color Urine Yellow; Glucose Urine UA Negative (Negative); Leukocyte Esterase Urine Negative (Negative); Nitrite Urine Negative (Negative); PH 5.5 (5.0-9.0); Specific Gravity - Urine >= 1.030 (1.005-1.025); Urine Blood Negative (Negative); Urine Ketones Trace mg/dL (Negative); Urine Protein Trace mg/dL (Neg-Trace)
[2024-08-16 08:10] LABS: Alanine Aminotransferase 44 U/L (0-31); Albumin Level 4.3 g/dL (3.5-5.0); Alkaline Phosphatase 81 U/L (39-117); Anion Gap 12 (12-20); Aspartate Amino Transferase 31 U/L (5-31); Bilirubin Total 0.2 mg/dL (0.0-1.0); Blood Urea Nitrogen 10 mg/dL (9-16); Calcium 8.9 mg/dL (8.4-10.2); Carbon Dioxide 21 mmol/L (22-29); Chloride 110 mmol/L (96-108); Estimated Glomerular Filt Rate > 60; Glucose Random 94 mg/dL (60-115); Magnesium 2.3 mg/dL (1.6-2.6); Potassium 4.1 mmol/L (3.3-5.1); Sodium 139 mmol/L (135-145); Total Protein 7.2 g/dL (6.5-8.0)
[2024-08-16 08:27] LABS: TSH reflex Free T4 2.19 uIU/mL (0.32-4.0)
== END 2024-08-16 07:05 | disposition home or self-care (01) ==
LOC: HO.LAB 07:04
PROVIDERS: PCP Nurse Practitioner Family; Visit Provider Nurse Practitioner Family
DX: A04.72 Enterocolitis due to Clostridium difficile, not specified as recurrent (principal); R55 Syncope and collapse; R50.9 Fever, unspecified; E11.9 Type 2 diabetes mellitus without complications
CPT/HCPCS: 36415; 80053; 81003; 82043; 82570; 83036; 83735; 84443; 85025

== ENCOUNTER 2024-11-22 09:54 | Outpatient (AMB) | payer OTHER, SELFPAY ==
[2024-11-22 09:58] VITALS: BP 122/88; PULSE 110; RESP 16; O2SAT 98; BMI 41.7
--- NOTE | 2024-11-22 09:58 | A.OFFPC_ITS ---
Vital Signs 11/22/24 09:58 Height 5 ft 4 in Weight 243 lb BMI 41.7 BP 122/88 Blood Pressure Location Lt brachial Position Sitting Respiration 16 Pulse 110 H Pulse Source Pulse Oximeter Pulse Oximetry (%) 98 Oxygen Delivery Method Room Air Comment Weight taken at home 11/20 Intake Visit Reasons: Annual PE Vocational Director Required: No Accompanied by: Self / Same As Patient Allergies lisinopril (LISINOPRIL) Allergy (Severe, Verified 11/22/24 09:58) COUGH Penicillins (PENICILLINS) Allergy (Severe, Verified 11/22/24 09:58) HIVES vancomycin Allergy (Severe, Verified 11/22/24 09:58) Rash chlorthalidone Adverse Reaction (Severe, Verified 11/22/24 09:58) tachycardia, palpitations doxycycline Adverse Reaction (Intermediate, Verified 11/22/24 09:58) Joint Pain Medication List - Last Reconciled 11/22/24 by Antoine Rodríguez, INTERNET SALES REPRESENTATIVE- albuterol sulfate 90 mcg/actuation 1 inh inhalation QID PRN 30 days blood sugar diagnostic (FreeStyle Lite Strips) 4x daily blood-glucose meter (FreeStyle Lite Meter kit) As directed bupropion HCl XL 150 mg PO DAILY carisoprodol (Soma) 350 mg PO BEDTIME PRN 14 days flash glucose scanning reader ([employer]Style Kristen 2 Gregory) As directed flash glucose sensor (FreeStyle Kristen 2 Sensor kit) Once every 14 days gabapentin 100 mg PO TID PRN hydroxyzine HCl 25 mg PO QID PRN lancets (FreeStyle Lancets) 4x daily nebulizer accessories Q6 hrs, prn for SOB/wheezing nebulizers Q6 hrs prn for sob/wheezing ondansetron 8 mg PO Q12H PRN 30 days tirzepatide 15 mg (0.5 mL) subcut QWEEK Tobacco use date assessed: 11/22/24 Dental Screening Dental Screen Date: 11/22/24 Did you have a dental visit in the last 12 months?: Yes Did you have a dental problem in the last 6 months where you did not have access to dental care?: No Was dental information given to patient?: Patient has dentist HPI Annual PE HPI Details History of Present Illness The patient is a 34-year-old female presenting for management of diabetes and Physical exam. She has a history of diabetes mellitus, with her current hemoglobin A1c at 5.2, indicating good glycemic control. She denies experiencing neuropathy, polyuria, or polydipsia, and reports that her eye examinations are up to date. The patient also reports experiencing tachycardia, for which she has been under cardiology care and is currently on a beta-noel. Her heart rate was noted to be in the upper 90s during auscultation. Health Maintenance - Pneumonia vaccination planned at [facility] Review of Systems - Endocrine: Denies polyuria, polydipsia - Neurological: Denies neuropathy - Gastrointestinal: Denies abdominal deirdre n, blood in stool, constipation, diarrhea - Psychiatric: Denies suicidal ideation -denies any fevers, chills Physical Exam General: Cooperative, healthy appearing, comfortable, no acute distress and well developed, morbidly obese Orientation: Patient oriented x3 Limitations: No limitations Head: Normal to inspection Ears: Hearing grossly normal bilaterally Nose: Normal external nose present Face and sinus: Normal facial exam Eyes: Appearance normal, both eyes and all related structures. Reports eye exam is up to date. Neck: Normal visual inspection and Yes full ROM Respiratory: Normal respiratory effort and able to speak in complete sentences. Clear to auscultation bilaterally Cardiovascular: Regular rate and rhythm. Normal S1 and S2. Heart rate in the upper 90s. GI: Normal to inspection. Soft to palpation and nontender Skin: No rashes or lesions noted Neuro: Patient oriented x3 Extremities: Normal to inspection. Feet intact bilaterally with positive sensation using monofilament. Results - Labs: Hemoglobin A1c at 5.2 Plan 1. Diabetes Mellitus The patient's diabetes is well-controlled with a hemoglobin A1c of 5.2. She denies any complications such as neuropathy or retinopathy, and her eye exams are current. 2. Tachycardia The patient is experiencing tachycardia and is currently managed with a beta- noel under cardiology care. Her heart rate was noted to be in the upper 90s during auscultation. 3. Preventative Care The patient is scheduled to receive a pneumonia vaccination at the pharmacy. Discussion Notes Patient Instructions [facility] Medical History Syncope Palpitations Left axillary pain Back pain Bipolar 1 disorder Morbid obesity Physical exam Lower back pain Hip pain, left Fall Sebaceous cyst of left axilla Viral illness Myalgia Encounter for IUD insertion Chest pain Upper respiratory tract infection Asthma SOB (shortness of breath) Lumbar back pain with radiculopathy affecting lower extremity Screening for STD (sexually transmitted disease) Low back pain radiating to both legs Asthma Tachycardia Vitamin D deficiency Hyperandrogenism HLD (hyperlipidemia) T2DM (type 2 diabetes mellitus) Sleep apnea in adult Anxiety and depression Anxiety HTN (hypertension) PCOS (polycystic ovarian syndrome) Surgical History No pertinent past surgical history Family History Mother Sleep apnea CVD (cardiovascular disease) Mental health disorder Father CVD (cardiovascular disease) Sleep apnea Substance use disorder Mental health disorder Sister Substance use disorder Mental health disorder Social History Household Members: Spouse and Children Housing: House Do you presently have visiting nurse or other home services: No Alcohol intake: current Comment: pt educated to call for assistance oob; patient rings appropriately Patient Tobacco Use Status: Never used Tobacco e-Cigarette/Vaping Use: Never Used Second Hand Smoke Exposure: No service: No Current occupational status: employed Current occupation: [employer] Current occupational exposures/hazards: No Cognitive needs: No Hearing needs: No Vision needs: Yes Female Reproductive History Menstrual Age of Menarche: 10 Questionnaire PHQ-9 Over the last 2 weeks, how often have you been bothered by any of the following problems? 1. Little interest or pleasure in doing things: not at all 2. Feeling down, depressed, or hopeless: not at all 3. Trouble falling or staying asleep, or sleeping too much: not at all 4. Feeling tired or having little energy: not at all 5. Poor appetite or overeating: not at all 6. Feeling bad about yourself - or that you are a failure or have let yourself or your family down: not at all 7. Trouble concentrating on things, such as reading the newspaper or watching television: not at all 8. Moving or speaking so slowly that other people could have noticed. Or the opposite - being so fidgety or restless that you have been moving around a lot more than usual: not at all 9. Thoughts that you would be better off or of hurting yourself in some way: not at all Total score: 0 Depression Screening Interpretation: Negative Depression Screening Done: Yes 24671 - PHQ-9 Billing: Yes Source: Developed by Drs. Duong Sage, Mirza Montgomery and colleagues, with an educational ryan from [employer]. Thrive Questionnaire Date Thrive assessed: 06/24/24 I am a: Patient What is your living situation today?: I have a steady place to live Within the past 12 months, did the food you bought not last and you didn't have the money to get more?: Never true Within the past 12 months, did you worry whether your food would run out before you got money to buy more?: Never true Do you have trouble paying for medicines?: No Do you have trouble getting transportation to medical appointments?: No Do you have trouble paying your heating and electricity bill?: No Do you have trouble taking care of your child, family member or friend?: No Do you have trouble with day-to-day activities such as bathing, preparing meals, shopping, managing finances, etc.?: No Are you currently unemployed and looking for a job?: No Are you interested in more education?: No Please select the resources that you would like help with: None Currently or been in a relationship where the following occur: No concerns reported THRIVE Score: 0 YOUNG-7 AMB Questionnaire YOUNG-7 Date YOUNG - 7 assessed: 11/22/24 Feeling nervous, anxious, or on edge: 0 = Not at all Not being able to stop or control worryin = Not at all Worrying too much about different things: 0 = Not at all Trouble relaxin = Not at all Being so restless that it is hard to sit still: 0 = Not at all Becoming easily annoyed or irritable: 0 = Not at all Feeling afraid as if something awful might happen: 0 = Not at all Total YOUNG-7 score (0-4 normal; 5-9 mild; 10-14 moderate; 15-21 severe): 0 Source: Developed by Drs. Duong Sage, Mirza Montgomery and colleagues, with an educational ryan from [employer]. YOUNG-7 Assessment Billing YOUNG-7 Assessment Tool: YOUNG-7 Assessment 91480 Physical exam (Primary Care) Vital Signs: Last Vital Signs Pulse 110 H 11/22/24 09:58 Resp 16 11/22/24 09:58 BP 122/88 11/22/24 09:58 Pulse Ox 98 11/22/24 09:58 Oxygen Delivery Method Room Air 11/22/24 09:58 BMI result Body Mass Index 41.7 Tobacco/Smoking Status: Tobacco use Status Tobacco use date assessed 11/22/24 11/22/24 10:06 Patient Tobacco Use Status Never used Tobacco 11/22/24 10:06 e-Cigarette/Vaping Use Never Used 11/22/24 10:06 PHQ-9: PHQ-9 Score PHQ-9: Total score 0 11/22/24 10:06 Depression Screening Interpretation: Negative Thrive Assessment: Date of Thrive Assessment Date Thrive assessed 06/24/24 11/22/24 10:06 Currently or been in a relationship where the following occur: No concerns reported Coding Level of Care Code Est Pt Level 3 (95657) Est Pt Prev Care 18-39y(20607) Diagnoses Encounter for routine adult physical exam with abnormal findings Z. Additional Codes YOUNG-7 Assessment Billing - YOUNG-7 Assessment Tool: YOUNG-7 Assessment 73511 ([id number]) PHQ-9 - 53232 - PHQ-9 Billing: Yes ([id number]) Assessment & Plan Assessment & Plan (1) Encounter for routine adult physical exam with abnormal findings: Code(s): Z. - Encounter for general adult medical examination with abnormal findings Category: Medical Plan . Orders: Orders TSH reflex Free T4 Today Z00. - Encounter for general adult medical examination with abnormal findings Microalbumin, Random (w Creat) Today Z00. - Encounter for general adult medical examination with abnormal findings Complete Blood Count Auto Diff Today Z00. - Encounter for general adult medical examination with abnormal findings Comprehensive [place]. Panel Fast Today Z00. - Encounter for general adult medical examination with abnormal findings UA CC w/rflx Micro + Cult Today Z00. - Encounter for general adult medical examination with abnormal findings Lipid Panel Today Z00. - Encounter for general adult medical examination with abnormal findings
--- OUTSIDE RECORDS SUMMARY | 2024-11-22 10:36 | XMS_ITS | Clinical Summary ---
Author Organization [facility], Address [address] [place] [address] [place] [address] Phone Care Team Providers Care Wax Ball Molder Name Role Phone Antoine Rodríguez NP Primary Care Provider [phone] Social History Tobacco Use Types Packs/Day Years [...] series) 2008 07/26/2013, 06/21/2013 Influenza Vaccine (#1) 2024 12/23/2012 Pneumococcal Vaccine: Peds ( 0 to 5 Years) and At-Risk Patients (6 to 49 Years) Aged Out No longer eligi ble based on patient's age to complete this topic Insurance [address] [place] [address] [facility] Care Teams Wax Ball Molder Relationship Specialty Start Date End Date Antoine Rodríguez NP [address] [place] [address] PCP - General Nurse Practitioner 07/01/20
--- OUTSIDE RECORDS SUMMARY | 2024-11-22 10:36 | XMS_ITS | Encounter Summary ---
Author Organization [facility] Address [address] [place] [address] Care Team Providers Care Fur Cutting Machine Operator Name Role Phone Marci Ibarra MD Primary Care Provider Nory Del Angel Md, MD Primary Care Provider Unavailable Encounter Details Date Type Department Care Team Description 06/14/2013 Pt. Non Urgent Medical Question Adult Medicine [address] [address] Crystal Riddle PA-C [address] [place] [address] Need for prophylactic vaccination and inoculation against [...] done last week, 06/08 I believe, through [facility]. documented in this encounter Plan of Treatment Not on file documented as of this encounter Results * HEPATITIS B VACCINE ADULT 3 DOSE IM (06/08/2013) Crystal Riddle PA-C IMMUNIZATIONS/INJECT ION documented in this encounter Visit Diagnoses Diagnosis Need for prophylactic vaccination and inoculation against viral hepatitis- Primary documented in this encounter Care Teams Fur Cutting Machine Operator Relationship Specialty Start Date End Date Marci Ibarra MD PCP - General Internal Medicine 03/04/12 06/28/14 Nory Aguayo MD, MD PCP - General Internal Medicine 06/29/14 documented as of this encounter
--- OUTSIDE RECORDS SUMMARY | 2024-11-22 10:36 | XMS_ITS | Encounter Summary ---
Author Organization [facility] Address [address] [place] [address] Care Team Providers Care Non Morse Intercept Technician Name Role Phone Marci Ibarra MD Primary Care Provider Nory Del Angel Md, MD Primary Care Provider Unavailable Reason for Visit * Reason Onset Date Comments immunizations 06/19/2013 Encounter Details Date Type Department Care Team Description 06/19/2013 Telephone Adult Medicine [address] [address] Marci Ibarra MD immunizations Social History Tobacco [...] Castillo - 06/19/2013 4:13 PM EDT Payor: [employer] [place] Plan: PPO $20 [place] [id number] Product Type: PPO [id number] Patient is requesting a list of their [...] on filedocumented in this encounter Care Teams Non Morse Intercept Technician Relationship Specialty Start Date End Date Marci Ibarra MD PCP - General Internal Medicine 03/04/12 06/28/14 Nory Aguayo MD, PCP - General Internal Medicine 06/29/14 documented as of this encounter
--- OUTSIDE RECORDS SUMMARY | 2024-11-22 10:36 | XMS_ITS | Encounter Summary ---
Author Organization [employer] [facility] Address [address] [place] [address] Care Team Providers Care Convalescent Sitter Name Role Phone Nory Aguayo Md, MD Primary Care Provider Unavailable Encounter Details Date Type Department Care Team Description 11/22/2014 PROJECT DEVELOPMENT COORDINATOR/MassPat Report Medical Records [address] [place] [id number] Abstract, Provider Social History Tobacco Use Types [...] on filedocumented in this encounter Care Teams Convalescent Sitter Relationship Specialty Start Date End Date Nory Aguayo MD, MD PCP - General Internal Medicine 06/29/14 documented as of this encounter
--- OUTSIDE RECORDS SUMMARY | 2024-11-22 10:36 | XMS_ITS | Clinical Summary ---
Author Organization [facility] Address [address] [place] [address] Care Team Providers Care Associate Principal Name Role Phone Nory Aguayo Md, MD [...] fluticasone (FLONASE) 50 MCG/ACT nasal spray 1 [place] by Each Nare route daily. 1 Bottle [...] 19yrs 07/26/2013,06/21/2013 Influenza (> 6 Months) 12/23/2012 Vsrqkuw-Oeikw-Czvaysap + 06/08/2013 Xrqqc-Hirng-Ngmjxppe + 06/08/2013 Azttphl-Cmeoy-Khaqatjd + 06/08/2013 Varicella Titre-Positive + 06/08/2013 Family History Medical History Relation Name Comments CHF Father and mother Diabetes Father [place] Father Stroke Father CA Breast Maternal Grandmother [...] 71 08/22/2013 2:36 PM EDT Temperature 36.8 C (98.2 F) 08/22/2013 2:36 PM EDT Respiratory Rate 12 08/22/2013 2:36 PM EDT [...] 05/10/2013, BMI CHECK/ADVISE 03/29/2024 08/22/2013, 04/18/2013 INFLUENZA (#1) 2024 12/23/2012 PNEUMOCOCCAL VACCINE FOR HIG H RISK PATIENTS (#1) 2054 Care Teams Associate Principal Relationship Specialty Start Date End Date Nory Aguayo MD, MD PCP - General Internal Medicine 06/29/14
--- OUTSIDE RECORDS SUMMARY | 2024-11-22 10:36 | XMS_ITS | Encounter Summary ---
Author Organization [facility] [employer] [facility] Address [address] [place] [address] Care Team Providers Care Gps Field Data Collector Name Role Phone Marci Ibarra MD Primary Care Provider Nory Del Angel Md, MD Primary Care Provider Unavailable Encounter Details Date Type Department Care Team Description 05/05/2013 Pt. Referral Request [facility] MyChart [address] [place] [address] Md Edwige Social History Tobacco Use Types Packs/Day Years [...] on filedocumented in this encounter Care Teams Gps Field Data Collector Relationship Specialty Start Date End Date Marci Ibarra MD PCP - General Internal Medicine 03/04/12 06/28/14 Nory Aguayo MD, PCP - General Internal Medicine 06/29/14 documented as of this encounter
== END 2024-11-22 12:31 | disposition home or self-care (01) ==
LOC: HO.HMCC 09:56
PROVIDERS: PCP Nurse Practitioner Family; Visit Provider Nurse Practitioner Family
DX: Z00.01 Encounter for general adult medical examination with abnormal findings (principal)

== ENCOUNTER → 2024-11-22 09:54 | Outpatient (BNVA) | payer OTHER, SELFPAY | PROVIDERS: PCP Nurse Practitioner Family; Visit Provider Nurse Practitioner Family | DX: Z00.01 Encounter for general adult medical examination with abnormal findings (principal); E11.9 Type 2 diabetes mellitus without complications; R00.0 Tachycardia, unspecified | CPT/HCPCS: 96127 ==

== ENCOUNTER 2024-11-23 22:29 | Emergency (ER) | payer OTHER, SELFPAY ==
--- NOTE | 2024-11-23 22:30 | ECG_ITS ---
Test Reason : POTS, DIZZY, SOB Blood Pressure : */* mmHG Vent. Rate : 105 BPM Atrial Rate : 105 BPM P-R Int : 140 ms QRS Dur : 84 ms QT Int : 320 ms P-R-T Axes : 60 46 11 degrees QTcB Int : 422 ms Sinus tachycardia Otherwise normal ECG When compared with ECG of 15-Jun-2024 15:50, No significant change was found Referred By: Generic ED Physician Electronically Signed By: ARISA ESQUIVEL
[2024-11-23 22:45] VITALS: BP 156/96; PULSE 108; RESP 20; TEMP 36.6; O2SAT 97; BMI 41.2
[2024-11-23 22:46] LABS: Hematocrit 40.4 % (37.0-47.0); Hemoglobin 13.7 g/dl (12.0-16.0); Imm Gran Abs Auto 0.03 X10*3/uL (0.00-0.03); Imm Gran Pct Auto 0.3 % (0.0-0.4); Lymphocytes Absolute Auto 3.4 X10*3/uL (1.2-4.9); MANUAL DIFF FLAG NO; Mean Corpuscular HGB Conc 33.9 g/dl (31.0-35.0); Mean Corpuscular Hemoglobin 26.4 pg (27.0-33.0); Mean Corpuscular Volume 78.0 fL (80.0-98.0); NRBC Abs Auto 0.000 X10*3/uL (0.0-0.012); NRBC Pct Auto 0.0 /100WBC (0.0-0.2); Platelet Count 436 X10*3/uL (160-400); Red Blood Count 5.18 X10*6/uL (4.20-5.50); White Blood Count 10.8 X10*3/uL (4.8-10.8)
--- OUTSIDE RECORDS SUMMARY | 2024-11-23 22:53 | XMS_ITS | Encounter Summary ---
Author Organization [facility] Address [address] [place] [address] Care Team Providers Care Web Development Consultant Name Role Phone Marci Ibarra MD Primary Care Provider Nory Del Angel Md, MD Primary Care Provider Unavailable Encounter Details Date Type Department Care Team Description 06/14/2013 Pt. Non Urgent Medical Question Adult Medicine [address] [address] Crystal Riddle PA-C [address] [place] [address] Need for prophylactic vaccination and inoculation against [...] done last week, 06/08 I believe, through [facility]. documented in this encounter Plan of Treatment Not on file documented as of this encounter Results * HEPATITIS B VACCINE ADULT 3 DOSE IM (06/08/2013) Crystal Riddle PA-C IMMUNIZATIONS/INJECT ION documented in this encounter Visit Diagnoses Diagnosis Need for prophylactic vaccination and inoculation against viral hepatitis- Primary documented in this encounter Care Teams Web Development Consultant Relationship Specialty Start Date End Date Marci Ibarra MD PCP - General Internal Medicine 03/04/12 06/28/14 Nory Aguayo MD, MD PCP - General Internal Medicine 06/29/14 documented as of this encounter
--- OUTSIDE RECORDS SUMMARY | 2024-11-23 22:53 | XMS_ITS | Clinical Summary ---
Author Organization [facility], Address [address] [place] [address] [place] [address] Phone Care Team Providers Care Motorcycle Police Officer Name Role Phone Antoine Rodríguez NP Primary Care Provider [phone] Social History Tobacco Use Types Packs/Day Years [...] Insurance [address] [place] [address] [facility] Care Teams Motorcycle Police Officer Relationship Specialty Start Date End Date Antoine Rodríguez NP [address] [place] [address] PCP - General Nurse Practitioner 07/01/20
--- OUTSIDE RECORDS SUMMARY | 2024-11-23 22:53 | XMS_ITS | Encounter Summary ---
Author Organization [facility] [employer] [facility] Address [address] [place] [address] Care Team Providers Care Magazine Worker Name Role Phone Marci Ibarra MD Primary Care Provider Nory Del Angel Md, MD Primary Care Provider Unavailable Encounter Details Date Type Department Care Team Description 03/11/2012 Release of Information Medical Records [address] [place] [id number] Abstract, Provider Social History Tobacco Use Types [...] on filedocumented in this encounter Care Teams Magazine Worker Relationship Specialty Start Date End Date Marci Ibarra MD PCP - General Internal Medicine 03/04/12 06/28/14 Nory Aguayo MD, MD PCP - General Internal Medicine 06/29/14 documented as of this encounter
--- OUTSIDE RECORDS SUMMARY | 2024-11-23 22:53 | XMS_ITS | Encounter Summary ---
Author Organization [facility] Address [address] [place] [address] Care Team Providers Care Blender/Braze Applicator Name Role Phone Marci Ibarra MD Primary Care Provider Nory Del Angel Md, MD Primary Care Provider Unavailable Encounter Details Date Type Department Care Team Description 11/09/2012 Telephone Adult [address] [address] Marci Ibarra MD Social History Tobacco Use Types Packs/Day Years Used Date Smoking Tobacco: Never Smokeless Tobacco: Never Alcohol Use Standard Drinks/Week Comments Not Asked 0 (1 standard drink = 0.6 oz pur e alcohol) Sex Assigned at Date Recorded Not on file documented as of this encounter Miscellaneous Notes * Telephone Encounter - Yanira Shaw - 11/10/2012 4:41 PM EDT Appt made 11/16 * Telephone Encounter - Arabella TovarPOlivier - 11/10/2012 3:35 PM EDT Please schedule pt on chronic nurse schedule * Telephone Encounter - Marci Ibarra MD - 11/10/2012 3:33 PM EDT Order signed * Telephone Encounter - Arabella Saunders L.P.N. - 11/09/2012 10:27 AM EDT Per Tamanna Harris no problem in getting a ppd while preagnat Please review and advise. Please sign order * Telephone Encounter - Fabioladavid Carranzact - 11/09/2012 9:40 AM EDT Payor: Estorian ADMIN OF MD Plan: PPO $[id number] Product Type: PPO [id number] Patient is requesting a list of their previous immunizations NO Does the patient have an immunization form to be completed? NO Is the patient requesting immunizations to be administered? YES If yes, which immunizations are needed? testing for tuberculosis pt is 8 months preg. Is the patient traveling to a foreign country: NO If traveling: Which country: Date patient is leaving: documented in this encounter Plan of Treatment Scheduled Orders Name Type Priority Associated Diagnoses Orde r Schedule TB INTRADERMAL TEST Lab Routine Screening examination for pulmonary tuberculosis 1 Occurrences starting 11/09/2012 until 05/08/2013 documented as of this encounter Visit Diagnoses Diagnosis Screening examination for pulmonary tuberculosis- Primary documented in this encounter Care Teams Blender/Braze Applicator Relationship Specialty Start Date End Date Marci Ibarra MD PCP - General Internal Medicine 03/04/12 06/28/14 Nory Aguayo MD, MD PCP - General Internal Medicine 06/29/14 documented as of this encounter
--- OUTSIDE RECORDS SUMMARY | 2024-11-23 22:53 | XMS_ITS | Encounter Summary ---
Author Organization [facility] Address [address] [place] [address] Care Team Providers Care Paper Tester Name Role Phone Marci Ibarra MD Primary Care Provider Nory Del Angel Md, MD Primary Care Provider Unavailable Encounter Details Date Type Department Care Team Description 05/05/[address] [facility] MyChart [address] [place] [address] Md Edwige Social History Tobacco Use Types [...] on filedocumented in this encounter Care Teams Paper Tester Relationship Specialty Start Date End Date Marci Ibarra MD PCP - General Internal Medicine 03/04/12 06/28/14 Nory Aguayo MD, PCP - General Internal Medicine 06/29/14 documented as of this encounter
--- OUTSIDE RECORDS SUMMARY | 2024-11-23 22:53 | XMS_ITS | Clinical Summary ---
Author Organization [facility] Address [address] [place] [address] Care Team Providers Care Brush And Broom Clipper Name Role Phone Nory Aguayo Md, MD [...] fluticasone (FLONASE) 50 MCG/ACT nasal spray 1 Commercial Point by Each Nare route daily. 1 Bottle [...] 19yrs 07/26/2013,06/21/2013 Influenza (> 6 Months) 12/23/2012 Ssipfly-Jkyve-Cblxoacj + 06/08/2013 Pkxng-Ihbll-Fyekvfhw + 06/08/2013 Odgreit-Vyvlg-Hsilojhs + 06/08/2013 Varicella Titre-Positive + 06/08/2013 Family History Medical History Relation Name Comments CHF Father and mother Diabetes Father [place] Father Stroke Father CA Breast Maternal Grandmother [...] H RISK PATIENTS (#1) 2054 Care Teams Brush And Broom Clipper Relationship Specialty Start Date End Date Nory Aguayo MD, MD PCP - General Internal Medicine 06/29/14
[2024-11-23 22:59] LABS: Alanine Aminotransferase 27 U/L (0-31); Albumin Level 4.7 g/dL (3.5-5.0); Alkaline Phosphatase 77 U/L (39-117); Anion Gap 16 (12-20); Aspartate Amino Transferase 24 U/L (5-31); Blood Urea Nitrogen 18 mg/dL (9-16); Calcium 9.3 mg/dL (8.4-10.2); Carbon Dioxide 23 mmol/L (22-29); Chloride 103 mmol/L (96-108); Creatinine Clr Calc Pharmacy 87.6; Estimated Glomerular Filt Rate 58; Potassium 4.4 mmol/L (3.3-5.1); Sodium 138 mmol/L (135-145); Total Protein 7.8 g/dL (6.5-8.0)
[2024-11-23 23:08] LABS: Troponin-I High Sensitivity < 2.7 ng/L (<3.5-17.0)
--- NOTE | 2024-11-23 23:12 | ED_ITS ---
HPI - Arrhythmia/Palpitations General Chief Complaint: Arrhythmia/Palpitations Stated Complaint: tachycardia Time Seen by Provider: 11/23/24 23:11 Source: patient Mode of arrival: ambulatory Limitations: no limitations History of Present Illness ED Provider: Frantz CAIN HPI narrative: The patient is a 34-year-old female presenting to the ED reporting a history of POTS, which was officially diagnosed approximately 2 years ago and previously followed by Cardiology, the patient was initially treated with beta-blockers with good effect however patient was unable to maintain treatment with beta- blockers due to her asthma. The patient has attempted calcium channel blockers without effect. Patient reports she has been experiencing waxing and waning exacerbations of her symptoms, reporting 1-2 episodes of increased symptoms weekly. Patient reports upon standing she experiences racing heart palpitations with associated shortness of breath, and dizziness described as lightheadedness. The patient denies any syncope or fall to the ground, denies any recent sick contacts or recent trauma. The patient denies associated fever/chills, nausea, vomiting, diaphoresis, headache, focal neurological deficit, chest pain, viral URI symptoms, or urinary symptoms. The patient reports her exacerbated symptoms have previously responded to IV fluid hydration. Patient reports she has been attempting to drink fluids including water and Gatorade without effect. Related Data Home Medications ?Medication ?Instructions ?Recorded ?Confirmed bupropion HCl 150 mg 24 hr tablet, 150 mg PO DAILY 11/22/24 extended release gabapentin 100 mg capsule 100 mg PO TID PRN Pain 06/1511/22/24 hydroxyzine HCl 25 mg tablet 25 mg PO QID PRN Anxiety 06/15/24 11/22/24 Previous Rx's ?Medication ?Instructions ?Recorded nebulizer accessories #1 ea 03/10/21 nebulizers #1 ea 03/10/21 blood-glucose meter (FreeStyle #1 ea 04/02/21 Lite Meter kit) lancets 28 gauge (FreeStyle #100 ea 04/02/21 Lancets) blood sugar diagnostic (FreeStyle #100 ea 04/29/22 Lite Strips) flash glucose scanning reader #1 ea 07/20/22 (FreeStyle Kristen 2 [place]) flash glucose sensor (FreeStyle #2 ea 11/26/22 Kristen 2 Sensor kit) tirzepatide 15 mg/0.5 mL 15 mg (0.5 mL) subcut QWEEK #2 mL 08/16/24 subcutaneous pen injector ondansetron 8 mg disintegrating 8 mg PO Q12H PRN nause a and 08/17/24 tablet vomiting 30 days #60 tabs albuterol sulfate 90 mcg/actuation 1 inh inhalation QI D PRN shortness 09/20/24 aerosol inhaler of breath or wheezing 30 day s #8.5 grams carisoprodol 350 mg tablet (Soma) 350 mg PO BEDTIME MT N muscle pain 09/27/24 14 days #14 tabs Allergies Allergy/AdvReac Type Severity Reaction Status Date / Time lisinopril (LISINOPRIL) Allergy Severe COUGH Verified 11/23/24 22:46 Penicillins (PENICILLINS) Allergy Severe HIVES Verified 11/23/24 22:46 vancomycin Allergy Severe Rash Verified 11/23/24 22:46 chlorthalidone AdvReac Severe tachycardia, Verified 11/23/24 22:46 palpitations doxycycline AdvReac Intermediate Joint Pain Verified 11/23/24 22:46 Review of Systems 2 Review of Systems: Yes all other systems are reviewed and are negative [facility] Past Medical History Medical History Syncope Palpitations Left axillary pain Back pain Bipolar 1 disorder Morbid obesity Physical exam Lower back pain Hip pain, left Fall Sebaceous cyst of left axilla Viral illness Myalgia Encounter for IUD insertion Chest pain Upper respiratory tract infection Asthma SOB (shortness of breath) Lumbar back pain with radiculopathy affecting lower extremity Screening for STD (sexually transmitted disease) Low back pain radiating to both legs Asthma Tachycardia Vitamin D deficiency Hyperandrogenism HLD (hyperlipidemia) T2DM (type 2 diabetes mellitus) Sleep apnea in adult Anxiety and depression Anxiety HTN (hypertension) PCOS (polycystic ovarian syndrome) Surgical History No pertinent past surgical history Family History Family History Mother Sleep apnea CVD (cardiovascular disease) Mental health disorder Father CVD (cardiovascular disease) Sleep apnea Substance use disorder Mental health disorder Sister Substance use disorder Mental health disorder Social History Social History (Reviewed 11/22/24 @ 10:17 by Antoine Rodríguez, [facility]) Household Members: Spouse and Children Housing: House Do you presently have visiting nurse or other home services: No Alcohol intake: current Comment: pt educated to call for assistance oob; patient rings appropriately Patient Tobacco Use Status: Never used Tobacco e-Cigarette/Vaping Use: Never Used Second Hand Smoke Exposure: No Advance Directives: No Advance Directives Information Provided: No service: No Current occupational status: employed 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 Vital signs as documented. HEAD: Atraumatic, normocephalic. EYES: EOMs intact, pupils equal, conjunctiva clear, no exudate. ENT: Nares patent, no discharge. Airway patent, no audible stridor, visible mucosa is pink and moist without noted lesions. NECK: Trachea is midline, no obvious masses or gross abnormalities. CHEST: Symmetric movement, normal appearance. LUNGS: LS present and CTAB, no w/r/r. Non-labored work of breathing. CARDIAC: Regular Rhythm, S1/S2 appreciated, no murmurs, rubs or gallops. ABDOMEN: Abdomen soft and non-tender x4 quadrants, no palpable masses or organomegaly. : Deferred. EXTREMITIES: Normal tone, moves all extremities spontaneously without reported pain. No obvious acute injury or deformity noted. NEURO: Alert and oriented x3, CN II-XII intact. Cerebellar Functioning intact. Strength 5/5 x4. No sensory or motor deficits. Speech clear and appropriate. PSYCH: normal affect, appropriate eye contact, fluid speech, with appropriate response to questioning. No reported suicidality or homicidality. SKIN: Warm, dry, color appropriate, normal turgor. No rashes noted. Medications Administered Discontinued Medications Generic Name Dose Route Start Last Admin Trade Name Freq PRN Reason Stop Dose Admin Lactated Ringer's 1,000 mls @ 999 mls/hr 11/23/24 23:45 11/24/24 00:05 Lr IV 11/24/24 00:45 999 mls/hr .Q1H1M KALPANA Administration Medical Decision Making Medical Decision Making [facility] Narrative: 11:51 PM 11/23/2024 (Mona CAIN): The patient is a 34-year-old female presenting to the ED reporting history of POTS with recent more frequent exacerbations after she has been unable to tolerate beta-noel therapy due to her asthma. The patient in the ED is in no acute distress, exam is benign, no focal neurological findings. The patient's heart rate does increase by approximately 20-25 points upon rising to a standing position. No associated hypotension. Laboratory evaluation is markedly reassuring, no leukocytosis, anemia, electrolyte abnormality, or significant HANSEL. LFTs are unremarkable. Troponin is negative, EKG is nonischemic. The patient reports increased symptoms have previously responded well to IV fluid hydration. We will treat with a L of lactated Ringer's and reassess. If symptoms have improved we will discharge with outpatient follow up with PCP and Cardiology. 2:28 AM 11/24/2024 (Mona CAIN): Patient reports some subjective improvement in symptoms following IV fluid hydration, the patient's resting heart rate is improved. Patient states she feels safe going home, will be discharged to follow up with PCP and Cardiology. Admission/Observation Consideration of admission/observation: Escalation of care including admission/observation considered Lab Data [facility] Lab Attestation statement: I reviewed the patient's lab results. 11/23/24 22:40 11/23/24 22:40 Labs: Lab Results 11/23/24 Range/Units 22:40 WBC 10.8 (4.8-10.8) X10*3/uL RBC 5.18 (4.20-5.50) X10*6/uL Hgb 13.7 (12.0-16.0) g/dl Hct 40.4 (37.0-47.0) % MCV 78.0 L (80.0-98.0) fL MCH 26.4 L (27.0-33.0) pg MCHC 33.9 (31.0-35.0) g/dl RDW 14.4 (11.0-16.0) % Plt Count 436 H (160-400) X10*3/uL MPV 9.3 L (9.4-12.3) fL Immature Gran % (Auto) 0.3 (0.0-0.4) % Neut % (Auto) 60.0 (45-73) % Lymph % (Auto) 31.5 (20-40) % [place] % (Auto) 6.5 (2-11) % Eos % (Auto) 1.2 (0-4) % Baso % (Auto) 0.5 (0-2) % Lymph # (Auto) 3.4 (1.2-4.9) X10*3/uL [place] # (Auto) 0.7 (0.1-1.2) X10*3/uL Eos # (Auto) 0.1 (0.0-0.4) X10*3/uL Baso # (Auto) 0.1 (0.0-0.2) X10*3/uL Abs Immat Gran (auto) 0.03 (0.00-0.03) X10*3/uL Absolute Neuts (auto) 6.5 (2.0-8.3) x10*3/uL Absolute Nucleated RBC 0.000 (0.0-0.012) X10*3/uL Nucleated RBC % (auto) 0.0 (0.0-0.2) /100WBC Sodium 138 (135-145) mmol/L Potassium 4.4 (3.3-5.1) mmol/L Chloride 103 (96-108) mmol/L Carbon Dioxide 23 (22-29) mmol/L Anion Gap 16 (12-20) BUN 18 H (9-16) mg/dL Creatinine 1.08 (0.5-1.4) mg/dL Estim Creat Clear Calc 87.6 Estimated GFR 58 Random Glucose 103 (60-115) mg/dL Calcium 9.3 (8.4-10.2) mg/dL Total Bilirubin 0.3 (0.0-1.0) mg/dL AST 24 (5-31) U/L ALT 27 (0-31) U/L Alkaline Phosphatase 77 (39-117) U/L Troponin I High Sens < 2.7 (<3.5-17.0) ng/L Total Protein 7.8 (6.5-8.0) g/dL Albumin 4.7 (3.5-5.0) g/dL Independent Interpretation I performed an independent interpretation of an: EKG (EKG shows sinus tachycardia with a rate of 105, no evidence acute ischemia, ST elevation, no ectopy. QTC 422. Compared to previous on 06/15/2024 there are no significant morphology changes.) External Record Review External record reviewed: Outpatient record Discharge Plan Discharge Clinical Impression: POTS (postural orthostatic tachycardia syndrome) Patient Disposition: Home, Self-Care Instructions: POTS (Postural Orthostatic Tachycardia Syndrome) (ED) Additional Instructions: Thank you for choosing [facility]'s Emergency Department for your care today. Your symptoms today are consistent with the your known diagnosis of POTS, thankfully your laboratory evaluation is reassuring, your EKG is nonischemic, and your symptoms improved some following IV fluid hydration. At this time there is no indication for admission to the hospital or continued ED observation, and it is safe to discharge you home. Please stay well hydrated and get plenty of rest. Please follow up with your primary care physician and health science writer for re- evaluation, additional management of your symptoms, and continued preventative care. If you do not have a primary care physician, please call the [facility] at [phone] to establish a new primary care physician. While waiting to establish your new primary care physician, you can call our Walk-in [facility] at [phone] for non-emergency needs. Please return to the emergency department if you develop a severe or sudden change in your symptoms, a fever over 100.4 that does not improve with Tylenol or Ibuprofen, recurrent vomiting, or any other new or worsening symptoms or concerns. Prescriptions: No Action (DME) nebulizers Misc See Rx Instructions .Route Qty: 1 0RF Rx Instructions: Q6 hrs prn for sob/wheezing (DME) nebulizer accessories Misc See Rx Instructions .Route Qty: 1 0RF Rx Instructions: Q6 hrs, prn for SOB/wheezing (DME) FreeStyle Lite Strips Strip See Rx Instructions .ROUTE .MEDSUPPLY Qty: 100 11RF Rx Instructions: 4x daily (DME) FreeStyle Kristen 2 [place] Misc See Rx Instructions .ROUTE .MEDSUPPLY Qty: 1 0RF Rx Instructions: As directed (DME) FreeStyle Kristen 2 Sensor Kit See Rx Instructions .ROUTE .MEDSUPPLY Qty: 2 11RF Rx Instructions: Once every 14 days tirzepatide 15 mg/0.5 mL pen injector 15 mg subcut QWEEK Qty: 2 5RF ondansetron 8 mg tablet,disintegrating 8 mg PO Q12H PRN (Reason: nausea and vomiting) 30 Days Qty: 60 0RF albuterol sulfate 90 mcg/actuation HFA aerosol inhaler 1 inh inhalation QID PRN (Reason: shortness of breath or wheezing) 30 Days Qty: 8.5 12RF carisoprodol [Soma] 350 mg tablet 350 mg PO BEDTIME PRN (Reason: muscle pain) 14 Days Qty: 14 0RF hydroxyzine HCl 25 mg tablet 25 mg PO QID PRN (Reason: Anxiety) bupropion HCl 150 mg tablet extended release 24 hr 150 mg PO DAILY gabapentin 100 mg capsule 100 mg PO TID PRN (Reason: Pain) (DME) lancets [FreeStyle Lancets] 28 gauge misc See Rx Instructions .ROUTE .MEDSUPPLY Qty: 100 11RF Rx Instructions: 4x daily (DME) blood-glucose meter [FreeStyle Lite Meter] Kit See Rx Instructions .Route Qty: 1 0RF Rx Instructions: As directed Referrals: Physician,Unknown J [Primary Care Provider, Medical] Clinical Impression: POTS (postural orthostatic tachycardia syndrome) Stand Alone Forms: Work/School Release Print Language: Tajik
[2024-11-24] VITALS: BP 121/75; PULSE 88; RESP 14; O2SAT 100
[2024-11-24] MEDS: Lactated Ringers 1,000 ML 999 ML IV (00:05)
[2024-11-24 02:00] VITALS: PULSE 78; RESP 16; O2SAT 98
[2024-11-24 02:29] VITALS: BP 148/90
[2024-11-24 02:50] VITALS: BP 148/90; PULSE 78; RESP 16; TEMP 36.7; O2SAT 98
== END 2024-11-24 02:51 | disposition home or self-care (01) ==
PROVIDERS: Emergency Provider Student in an Organized Health Care Education/Training Program
DX: G90.A Postural orthostatic tachycardia syndrome [POTS] (principal); I49.9 Cardiac arrhythmia, unspecified; R00.2 Palpitations; R06.02 Shortness of breath; R42 Dizziness and giddiness; Z79.899 Other long term (current) drug therapy
CPT/HCPCS: 36415; 80053; 84484; 85025; 93005; 99283; 99284; J7120

== ENCOUNTER → 2024-11-23 22:30 | Outpatient (BNV) | payer OTHER, SELFPAY | PROVIDERS: Emergency Provider Student in an Organized Health Care Education/Training Program; Visit Provider Internal Medicine | DX: R00.0 Tachycardia, unspecified (principal) | CPT/HCPCS: 93010 ==